=== PATIENT | male | born 1950 | race Caucasian/White ===

== ENCOUNTER 2017-03-04 10:22 | Inpatient (IN) | payer BC, OTHER ==
[~2017-03-04] VITALS: Ht 175.3 cm; Wt 87.1 kg
[~2017-03-04 10:22] MED LIST: /WARF5TA; ACET65TA; METF500T4; METO25TA2; PRIN20TA3; SIMV40TA2
[2017-03-06] MEDS ORDERED: MAALOX 30 ML SUSP *UDC PO PRN (14:00)
[2017-03-06] MEDS ORDERED: traMADol 50 MG TAB PO PRN (14:00)
[2017-03-06] MEDS ORDERED: FLEET ENEMA PR PRN (14:00)
[2017-03-06 14:55] VITALS: BP 122/70
[2017-03-06] MEDS ORDERED: METF500T13 PO (15:34)
[2017-03-06] MEDS ORDERED: ADVI200T PO (15:34)
[2017-03-06] MEDS ORDERED: PRAV80TA2 PO (15:34)
[2017-03-06] MEDS ORDERED: LISI40TAB PO (15:34)
[2017-03-06] MEDS ORDERED: TRAM50TA2 PO (15:34)
[2017-03-06] MEDS ORDERED: AMLO5TAB2 PO (15:34)
[2017-03-06] MEDS ORDERED: AUGM875T28 PO (15:34)
[2017-03-06] MEDS ORDERED: AMLO10TA2 PO (15:35)
--- NOTE | 2017-03-06 16:31 | PMRNOTEPD ---
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 Patient is admitted for trial of neuro rehabilitation on the acute intensive basis with physical, occupational and speech therapy along with rehabilitation nursing and physiatry. Dr. Bean has been consult dated for medical support history and physical dictation number is [id number]. LOTUS PATTERSON MD Mar 06, 2017 16:31
[2017-03-06] MEDS: metFORMIN (GLUCOPHAGE) 500 MG TAB PO SCH (17:17)
[2017-03-06 20:00] VITALS: BP 120/73
[2017-03-06] MEDS: PRAVASTATIN 20 MG TAB PO SCH (20:43)
[2017-03-06] MEDS: AUGMENTIN 875 MG TAB PO SCH (20:43)
--- NOTE | 2017-03-06 21:55 | PMRHPE ---
DATE OF ADMISSION: 03/06/2017 REASON FOR ADMISSION: 1. 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 2. Atherosclerotic cardiovascular disease with hypertension and hyperlipidemia. 3. Type 2 diabetes mellitus. 4. History of left internal capsule lacunar infarct. HISTORY OF PRESENT ILLNESS: The patient was in his normal state of health until 02/27/2017, when he started developing slurring of speech and some right-sided weakness. He was found to have systolic blood pressure in the 180s and was evaluated with CT scans, which showed basal ganglia intracerebral hemorrhage which expanded into the internal capsule and mid brain, along with old internal capsule lacunar CVA. The patient shortly thereafter developed a fever with elevated white counts of 14.6, and was treated with Zosyn and vancomycin empirically, and was tan-cultured, but no source was found. He was nothing by mouth but had swallow evaluation and then has recently been transitioned back to a regular consistent carbohydrate diet. His intravenous (IV) antibiotics have been stopped and he is on Augmentin, and he is on day two of a seven-day course. His white count has dropped back to 6.9. The patient has been able to participate in physical and occupational therapy, as well as speech therapy. The patient is felt now to be medically stable for a trial of acute, intensive neurorehabilitation and is transferred to [facility] which is much closer to his home in [place]. PAST MEDICAL HISTORY: 1. CVAs noted above. 2. Atherosclerotic cardiovascular disease with hypertension and hyperlipidemia. 3. Type diabetes mellitus. 4. History of cirrhosis found on CT scan. 5. Osteoarthritis including end-stage right knee osteoarthritis, status post right total knee arthroplasty. 6. History of small bowel obstruction. PAST SURGICAL HISTORY: Right total knee arthroplasty and hernia repair. FAMILY HISTORY: Mother with cerebrovascular accident and brother with prostate cancer at age 61. SOCIAL HISTORY: The patient is retired, lives locally in [place] with his . 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 Due to patient's aphasia, not able to obtain further social history. REVIEW OF SYSTEMS: Negative skin. HEENT is left gaze dominant, trouble attending to right side, and not able to bring eyes past midline. Tongue deviating mildly to the left. Pulmonary: Negative. Cardiac: Positive for some hypertension and hyperlipidemia3. Gastrointestinal (GI): For some dysarthria and earlier dysphagia, now appears to pass the swallow study, but will repeat one here. Genitourinary (): Challenge for bowel and bladder management due to mobility. Musculoskeletal: Degenerative joint disease (DJD) in diffuse joints, status post right total knee arthroplasty with dense hemiparesis in the right side, decreased right-sided sensorium, dense expressive and receptive aphasia. Mild dysarthria. Psychiatric: However, appears negative. MEDICATIONS ON ADMISSION: - Mylanta for dyspepsia - Norvasc 10 mg daily for hypertension - Augmentin 875/1.5 one tablet by mouth twice a day times six days - Dulcolax 5 mg tablet by mouth daily as needed for constipation - Lovenox 40 mg subcutaneous daily for deep venous thrombosis (DVT) prevention - lisinopril 40 mg by mouth daily for hypertension - metformin 500 mg twice a day for diabetes - milk of magnesia 30 mL by mouth daily as needed for constipation - Protonix 40 mg by mouth daily for GI protection - Pravachol 80 mg by mouth at bedtime for hyperlipidemia - Fleets enema one per rectum as needed for constipation - tramadol 50 mg by mouth every four hours as needed for pain 6-10 out of 10 I have discontinued recommendation for ibuprofen 200 mg four times a day as needed for pain due to addition of bleeding risk. ALLERGIES: Patient with history of ANGIOTENSION-CONVERTING ENZYME (ERNESTINA) INHIBITOR, BENAZEPRIL REACTIONS, and CALCIUM CHANNEL REACTIONS. However, has been tolerating lisinopril and amlodipine during prior hospitalization at [facility] without problems, and so will be continued here. PHYSICAL EXAMINATION: GENERAL: The patient is a slightly overweight, well-nourished, well-developed, middle-aged white male who looks slightly younger than stated age. VITAL SIGNS: Temperature 98.9, blood pressure 122/70, pulse 77, respiratory rate 18, and pulse oximetry 92% on room air. HEENT: Atraumatic with right facial droop and some decreased tone in the right side consistent in pattern with an upper motor neuron lesion. Tongue slightly deviates to the left. Left gaze prevalence. Patient with difficulty bringing eye past midline and has mild disconjugate vision. However, Pupils are equal, round, and reactive to light. Hearing is intact. NECK: Supple. No tenderness. No lymph nodes found. Thyroid is normal size and texture with no goiter or nodules. No carotid bruits were appreciated on auscultation. CORONARY: Regular rate and rhythm with normal S1, S2, without S3, S4 murmurs or rubs. Patient with 2/4 bilateral radial pulses. Good coloration in bilateral upper and lower extremities and good temperature in bilateral upper and lower extremities. LUNGS: Clear in all pak to auscultation. ABDOMEN: Shows very slight distention with mild tympany over the gastric bubble and right lower quadrant. No palpable masses, tenderness, rebound were found. Bowel sounds were present in all quadrants and normal rate and pitch. EXTREMITIES: Passive range of motion is intact in bilateral upper and lower extremities. Patient without active range of motion of the right upper and lower extremity but full active range of motion of the left upper and lower extremity. NEUROLOGIC: The patient is alert and oriented to self; however, hard to orient him past that due to a moderate to dense receptive and expressive aphasia. Patient was unable to pick out being in a hospital or the month, thinking it was June instead of February. He has marked difficulty in following one-step commands and severe difficulty in two or three-step commands. Affect, however, seems pleasant and cooperative. Memory is not test-able. Sensorium shows a dense sensory loss and awareness of the right body to light touch and vibration. Left light tough and vibration is intact in both the upper and lower extremity. Deep tendon reflexes show trace on the right biceps, brachioradialis and triceps and knee jerk. 2- out of 4 left knee jerk, trace left triceps, 2 out of 4 left biceps brachioradialis. LABORATORY DATA: Shows the patient with hemoglobin of 13.3, which is mild anemia, normal white blood cell count, normal platelets and MCV from today's labs, along with normal sodium, potassium, chloride, bicarbonate, and mildly elevated glucose of 130. BUN is 20 and creatinine is 0.7 which are normal, and his INR is 1.[address] scan showing the internal capsule thalamic basal ganglia area of bleed and the old internal capsule lacunar infarct as well as current also hemorrhagic expansion into the upper left brainstem. Some cultures remain but no cultures have been positive to date at [facility] per their reports to us. ASSESSMENT AND PLAN: 1. Rehabilitation of left internal capsule thalamic upper brainstem basal ganglia cerebrovascular accident of hemorrhagic origin with old mounding lacunar internal capsule cerebrovascular accident (CVA) on the left causing right body spacial sensorium deficit, left gaze preference and difficulty crossing midline with eyes, dysarthria, dysphagia, and aphasia, along with dense hemiparesis with early tone and reflex return in the right upper and lower extremity, which is an improvement in clearing over the last few days from the flaccid right upper and nearly flaccid right lower extremity. The patient likely is to benefit from intensive neurologic rehabilitation including physical, occupational and speech therapy, along with rehabilitation nursing and physiatry, and three hours per day intensive program with neuromuscular facilitation right upper and lower extremity, along with sensory stimulation following evaluation and language assessment and training. Due to the extensive nature of the patient's CVA, while hemorrhagic CVAs carry a better prognosis, I am anticipating the patient will likely need 21 to 28 days, and we will modify after evaluations and team assessments, but I do anticipate the patient to have a [id number] prognosis. 2. Atherosclerotic cardiovascular disease including hypertension and hyperlipidemia. We will go ahead and continue the patient on amlodipine and pravastatin and lisinopril to treat hypertension and hyperlipidemia. 3. Type 2 diabetes mellitus. We will go ahead with consistent carbohydrate diet and metformin 500 mg twice a day and monitoring of blood sugars. 4. Fever of unknown origin. We will complete trial of Augmentin, but also watch for patient who is at risk for aspiration pneumonia, as well as urinary tract infection. Will check urinalysis (UA) and follow respiratory exam. Consultation to medicine service with Dr. Bean has been sent to assist with the medical management of this gentleman. POST-ADMISSION PHYSICIAN EVALUATION: The patient who has a severe CVA as far as the density of involvement of motor, speech and sensorium; however, should have a fairly good prognosis due to the hemorrhagic nature and having gotten through the initial phase of this. I do feel he is likely to be able to participate in three hours of therapy per day based on his limited trial at [facility], but also based on patient's history of activity. He does seem to be very motivated and has good mood and tries to participate and hopefully his communication gets better and his learning curve as well as communications to and from the treatment team will improve. I do feel that he has lots to gain from therapy and that he has a [id number] opportunity for recovery to allow him to return home with his family and continue with either home care or outpatient therapy. Therefore, his prognosis is good. I am estimating his length of stay at 21-28 days. TIME SPENT: Time spent on chart review, history and physical, and documentation is greater than 70 minutes. VERNON
[2017-03-07 06:00] VITALS: BP 107/76
[2017-03-07 07:37] LABS: ALBUMIN/GLOBULIN RATIO 0.77 (1.00-1.93); ALKALINE PHOSPHATASE 52 U/L (45-117); ALT/SGPT 76 U/L (12-78); ANION GAP 10 MEQ/L (8-16); AST/SGOT 43 U/L (15-37); BILIRUBIN,TOTAL 0.5 MG/DL (0.2-1.0); BLOOD UREA NITROGEN 24 MG/DL (7-18); CALCIUM LEVEL 8.7 MG/DL (8.8-10.2); CARBON DIOXIDE LEVEL 23 MEQ/L (21-32); CHLORIDE LEVEL 108 MEQ/L (98-107); CREATININE FOR GFR 0.79 MG/DL (0.70-1.30); GLOMERULAR FILTRATION RATE > 60.0 (>49); GLUCOSE, FASTING 120 MG/DL (80-110); POTASSIUM SERUM 4.2 MEQ/L (3.5-5.1); SODIUM LEVEL 141 MEQ/L (136-145); TOTAL PROTEIN 6.9 GM/DL (6.4-8.2)
[2017-03-07 08:02] LABS: BASO # 0.1 K/mm3 (0.0-0.2); BASO % 1.4 % (0.0-1.0); EOS # 0.1 K/mm3 (0.0-0.50); EOS % 1.9 % (0.0-3.0); LARGE UNSTAINED CELL # 0.2 K/mm3 (0.0-0.4); LARGE UNSTAINED CELL % 3.1 % (0.0-4.0); LYMPH # 1.8 K/mm3 (1.5-4.5); LYMPH % 26.4 % (24.0-44.0); MEAN CORPUSCULAR HEMOGLOBIN 31.5 pg (27.0-33.0); MEAN CORPUSCULAR HGB CONC 34.2 g/dl (32.0-36.5); MONO # 0.4 K/mm3 (0.0-0.8); MONO % 6.6 % (0.0-5.0); NEUTROPHILS # 4.1 K/mm3 (1.8-7.7); NEUTROPHILS % 60.5 % (36.0-66.0); PLATELET COUNT, AUTOMATED 131 k/mm3 (150-450); RED CELL DISTRIBUTION WIDTH 12.7 % (11.5-14.5)
[2017-03-07] MEDS: LISINOPRIL 40 MG TAB PO SCH (08:53)
[2017-03-07] MEDS: metFORMIN (GLUCOPHAGE) 500 MG TAB PO SCH ×2 (08:53→17:14)
[2017-03-07] MEDS: ENOXAPARIN 40 MG/0.4 ML SYRINGE (J1650) SC SCH (08:53)
[2017-03-07] MEDS: PANTOPRAZOLE 40MG TAB (PROTONIX) PO SCH (08:53)
[2017-03-07] MEDS: amLODIPine 10 MG TAB PO SCH (08:53)
[2017-03-07] MEDS: AUGMENTIN 875 MG TAB PO SCH ×2 (08:53→20:04)
[2017-03-07 14:00] VITALS: BP 135/73
[2017-03-07 20:00] VITALS: BP 120/76
[2017-03-07] MEDS: PRAVASTATIN 20 MG TAB PO SCH (20:04)
[2017-03-08 06:00] VITALS: BP 149/70
[2017-03-08] MEDS: metFORMIN (GLUCOPHAGE) 500 MG TAB PO SCH ×2 (09:24→18:03)
[2017-03-08] MEDS: PANTOPRAZOLE 40MG TAB (PROTONIX) PO SCH (09:24)
[2017-03-08] MEDS: LISINOPRIL 40 MG TAB PO SCH (09:25)
[2017-03-08] MEDS: AUGMENTIN 875 MG TAB PO SCH ×2 (09:25→20:46)
[2017-03-08] MEDS: ENOXAPARIN 40 MG/0.4 ML SYRINGE (J1650) SC SCH (09:25)
[2017-03-08] MEDS: amLODIPine 10 MG TAB PO SCH (09:25)
[2017-03-08 14:00] VITALS: BP 129/71
[2017-03-08 20:00] VITALS: BP 131/76
[2017-03-08] MEDS: PRAVASTATIN 20 MG TAB PO SCH (20:46)
[2017-03-09 06:00] VITALS: BP 126/78
[2017-03-09] MEDS: LISINOPRIL 40 MG TAB PO SCH (08:53)
[2017-03-09] MEDS: ENOXAPARIN 40 MG/0.4 ML SYRINGE (J1650) SC SCH (08:53)
[2017-03-09] MEDS: AUGMENTIN 875 MG TAB PO SCH ×2 (08:53→21:00)
[2017-03-09] MEDS: amLODIPine 10 MG TAB PO SCH (08:53)
[2017-03-09] MEDS: metFORMIN (GLUCOPHAGE) 500 MG TAB PO SCH ×2 (08:53→17:35)
[2017-03-09] MEDS: PANTOPRAZOLE 40MG TAB (PROTONIX) PO SCH (08:53)
[2017-03-09 09:40] LABS: MEAN CORPUSCULAR HEMOGLOBIN 31.2 pg (27.0-33.0); MEAN CORPUSCULAR HGB CONC 33.8 g/dl (32.0-36.5); MEAN CORPUSCULAR VOLUME 92.2 fl (80.0-96.0); RED CELL DISTRIBUTION WIDTH 12.8 % (11.5-14.5); WHITE BLOOD COUNT 7.3 K/mm3 (4.0-10.0)
--- NOTE | 2017-03-09 10:15 | CR.PDOC ---
[facility] Consultation Consultation CONSULTATION REPORT FOR: Dr Moreno REASON FOR CONSULTATION: Medical Management DATE OF VISIT: 03/09/17 ATTENDING: Dr. Jose Sullivan PCP: Dr Peterson HPI: 67year oldM with a past medical history significant for HTN, HLD, NIDDM who developed slurred speech and Rt sided weakness on 02/27/17 and was treated at [facility] for intracerabral hemorrhage basal ganglia expanded to internal capsule and midbrain. 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 Pt with residual dense Rt hemiparesis, decreased rt sensory perception, Leftward gaze, dysarthria, dysphagia, and aphasia. He was treated empirically for possible pneumonia with IV Zosyn/Vanco and transitioned to po Augmentin. The pt was felt stable to transfer to ARU at [facility] to the care of Dr Moreno 03/06/17. The pt is not able to provide history and is taken from the chart. No acute medical complaints today. He is OOB to the chair and is beginning therapy. Denies any pain, Headache, Chest Pain, Shortness of breath, abdominal pain, N/V/D. No changes in bowel or bladder habits reported. PMHx: HTN HLD NIDM OA H/o SBO PSHX: Rt TKA hernia repair SOCHX: Resides in: [facility] Marital Status: Kids: Pt states he has 9 children. 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 FAMHX: Pt is unable to provide history. ROS: As noted in HPI, otherwise 11pt ROS of systems reviewed and unremarkable. PE: GEN: 67yoM, appears stated age. Well-nourished, well developed. No acute distress. Alert sitting in chair. Pt is oriented to person. Not time/place. HEENT: Normocephalic, atraumatic. Pupils are equal, round, and reactive to light. Leftward gaze. Conjunctiva without injection. Nose midline. Nasal turbinates without bogginess. Moist mucous membranes. Dentition fair. Pharynx pink and moist, tongue slightly deviated to left. Neck supple, trachea midline. No lymphadenopathy or thyromegaly appreciated. CHEST: Regular rate and rhythm, +S1, +S2 LUNGS: Clear to auscultation bilaterally. No wheezes, rales, or rhonchi. Breathing appears symmetric and easy. Patient is speaking in full sentences. No accessory muscle use. ABD: Round, soft, non-tender, non-distended. +Bowel sounds throughout. No rebound or guarding. No costovertebral angle tenderness. EXT: Pulses 2+ bilaterally dorsalis pedis and radial. No lower extremity edema appreciated. Rt hemiparesis. SKIN: [place], dry, warm. Capillary refill <2sec. No rashes. NEURO: Rt hemiparesis noted. Expressive aphasia and dysarthria noted. A&P: 67year oldM with a past medical history significant for HTN, HLD, NIDDM who developed slurred speech and Rt sided weakness on 02/27/17 and was treated at [facility] for intracerabral hemorrhage basal ganglia expanded to internal capsule and midbrain. 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 Pt with residual dense Rt hemiparesis, decreased rt sensory perception, Leftward gaze, dysarthria, dysphagia, and aphasia. 1. 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 Management as per Dr Josh BERMUDEZ. PT/OT/ST. Bowel care Pain control. DVT prophylaxis. Lovenox SC. 2. HTN. Continue with Norvasc 10 mg daily and Lisinopril 40 mg daily. BP 126/78 this AM. 3. HLD. Continue Pravachol. 4. NIDDM. CC diet, SSI, Metformin 500mg BID. BS this AM 134. Add A1c and lipids as I do not see any recent available for review. 5. GERD. Continue Protonix 40 mg daily. Thank you for your consultation. We will continue to follow along with you. Vital Signs/I&O Vital Signs Date Time Temp Pulse Resp B/P (MAP) Pulse Ox O2 Delivery O2 Flow Rate FiO2 03/09/17 08:53 62 126/78 03/09/17 06:00 98.6 18 98 Room Air I&O- Last 24 Hours up to 6 AM 03/09/17 06:00 Intake Total 335 ml Balance 335 ml Laboratory Data CBC/BMP Laboratory Tests 03/09/17 09:13 Red Blood Count 4.87, Mean Corpuscular Volume 92.2, Mean Corpuscular Hemoglobin 31.2, Mean Corpuscular Hemoglobin Concent 33.8, Red Cell Distribution Width 12.8 Allergies Coded Allergies: ERNESTINA Inhibitors (Verified Allergy, Unknown, 4//13) Benazepril (Verified Allergy, Unknown, 12/17/12) Calcium Channel Blockers (Verified Allergy, Unknown, 12/17/12) Home Medications Scheduled Amlodipine Besylate (Amlodipine Besylate) 10 Mg Tab, 10 MG PO DAILY, (Reported) Amoxicillin/Clavulanate Potas (Augmentin 875-125 mg) 1 Tab Tab, 875 MG PO Q12H, (Reported) [place] prescribed at d/c Lisinopril (Lisinopril) 40 Mg Tab, 40 MG PO DAILY, (Reported) Metformin Hydrochloride (Metformin HCl) 500 Mg Tab, 500 MG PO BID, (Reported) Pravastatin Sodium (Pravastatin Sodium) 80 Mg Tab, 80 MG PO QHS, (Reported) Scheduled PRN Ibuprofen (Advil) 200 Mg Tab, 200 MG PO for PAIN, (Reported) Tramadol HCl (Tramadol HCl) 50 Mg Tab, 50 MG PO for PAIN, (Reported) Paty Paredes Mar 09, 2017 10:15
[2017-03-09] MEDS ORDERED: DEXTROSE 50% 50 ML SYRINGE IV PRN ×2 (10:30→20:00)
[2017-03-09] MEDS ORDERED: GLUCOSE 4 GM CHEW TABLET PO PRN ×2 (10:30→20:00)
[2017-03-09] MEDS ORDERED: GLUCAGON FOR INJ 1 MG VIAL (J1610) SC PRN ×2 (10:30→20:00)
[2017-03-09] MEDS: HumaLOG INSULIN (NovoLOG) PER UNIT SC SCH ×3 (12:18→21:00)
--- NOTE | 2017-03-09 12:48 | IPNPDOC ---
Public Services Librarian Progress Note DATE OF SERVICE: 03/09/17 DATE OF ADMISSION: Mar 06, 2017 at 14:25 INPATIENT REHABILITATION ADMISSION DAY: #4 SUBJECTIVE: Patient is a 67-year-old white male with left basal ganglia intercerebral hemorrhage extending into the internal capsule and midbrain with dense aphasia, dysarthria, dysphasia, diminished right sensorium and spatial awareness, and right hemiparesis. Patient seen today in his room sitting up in chair. It been reported that patient in spite of the dense hemiparesis removed all his clothes sometime this morning before the start of his OT session. Patient appears to be more alert but can only generate some limited automatic speech and follows some one-step commands. Therefore he is not able to report particular complaints at this time. ALLERGIES: See Below MEDICATIONS: Reviewed, see below. OBJECTIVE: VITAL SIGNS: Please see below. PHYSICAL EXAMINATION: GENERAL: Well-nourished well-developed somewhat overweight late middle-age white male who appears to be in little to no acute distress. There continues to be left gaze dominance and non-conjugate vision. Some occasional automatic speech is generated by the patient when you talk to him. So far it has been fairly appropriate though patient's ability to follow commands remains very limited. Patient does respond to his name so is oriented 1. HEENT: Right facial droop with left gaze preference and difficulty crossing midline. Vision is not conjugate. On automatic speech patient was clear without any dysarthria and no gurgling sounds were heard. Tongue is slightly left going at this time. CARDIOVASCULAR: Regular rate and rhythm with normal S1-S2 without S3-S4 murmurs or rubs. Bilateral radial pulses are 2/4. LUNGS: All pak are clear to auscultation. ABDOMEN: Benign, nontender with normal bowel sounds in all quadrants. There are some ecchymoses from Lovenox injections. NEUROLOGICAL: As above. Tone is increased in the right upper and lower extremity versus Thursday and on plantar stimulation patient showed significant leg flexion of the right leg. SKIN: Grossly intact except for Lovenox injection sites. LABORATORY DATA: Reviewed. Please see below. MICROBIOLOGY: Please see below. IMAGING: No new imaging. DVT prophylaxis ordered?: Lovenox and SILVERIO hose. ASSESSMENT AND PLAN: 1. Rehabilitation of hemorrhagic left internal capsule/midbrain/basal ganglia's CVA: Patient has been assessed by physical, occupational and speech therapies. He has started out on exercising to try and neuromuscularly facilitate his right upper and lower extremity maintaining strength in the fibers under control. Patient involved in sensory integration especially working on balance at this time. Speech therapy evaluation shows need to continue pured diet with nectar thick liquid at this time and the need for ongoing treatment of the aphasia. Rehabilitation team rounds: While patient remains at low level of function he is clearly showing some initial change in physical, occupational and speech assessments as well as my own. Patient in spite of the communication problems his aphasia is causing is working hard with the therapists. At present the team does feel that the patient will probably require 4 weeks to reach discharge to home goals with home care. This will target April 03 for anticipated date of discharge. Of course the patient's recovery curve especially communications will have a lot to do with how rapid he is able to learn and adapt and thereby how long he will need inpatient therapy. At this time patient does appear to be able to tolerate the 3 hours of therapy per day divided up between physical, occupational and speech therapy. 2. Type 2 diabetes mellitus: Currently blood sugars seem to be well-controlled riding in the low to mid 100s range. 3. History of cirrhosis: Liver function tests show mild elevation of AST at 43. We will continue to observe for bowel problems in light of patient's cirrhosis and cancer history. 4. Decreased platelets: Unclear why patient down to 131,000 platelets, but we will continue to observe. 5. Hypertension: Blood pressures of been fairly well controlled since admission. No changes at this time for treatment. TIME SPENT: Chart Review, examination and documentation required greater than 35 minutes. Allergies Coded Allergies: ERNESTINA Inhibitors (Verified Allergy, Unknown, 12/17/12) Benazepril (Verified Allergy, Unknown, 12/17/12) Calcium Channel Blockers (Verified Allergy, Unknown, 12/17/12) Vital Signs Vital Signs Date Time Temp Pulse Resp B/P (MAP) Pulse Ox O2 Delivery O2 Flow Rate FiO2 03/09/17 08:53 62 126/78 03/09/17 08:00 Room Air 03/09/17 06:00 98.6 18 98 Laboratory Data CBC/BMP Laboratory Tests 03/09/17 09:13 Red Blood Count 4.87, Mean Corpuscular Volume 92.2, Mean Corpuscular Hemoglobin 31.2, Mean Corpuscular Hemoglobin Concent 33.8, Red Cell Distribution Width 12.8 Labs 24H Laboratory Tests 2 03/09/17 11:38: Bedside Glucose (Misc Panel) 111 Current Medications Current Medications Current Medications Al Hydrox/Mg Hydrox/Simethicone (Mylanta) 30 ml Q4HP PRN PO DYSPEPSIA; Start at 14:00; Stop 04/05/17 at 13:59 Amlodipine Besylate (Norvasc) 10 mg DAILY PO Last administered on 03/09/17 08: 53; Start 03/07/17 at 09:00; Stop 04/06/17 at 08:59 Amoxicillin/ Clavulanate Potassium (Augmentin) 875 mg BID PO Last administered on 03/09/17 08:53; Start 03/06/17 at 21:00; Stop 03/21/17 at 23:55 Bisacodyl (Dulcolax Tab) 5 mg DAILYPRN PRN PO CONSTIPATION; Start 03/06/17 at 14:00; Stop 04/05/17 at 13:59 Dextrose (Dextrose 50%) 25 ml ASDIRECTED PRN IV SEE LABEL COMMENTS; Start 03/09 at 10:30; Stop 04/08/17 at 10:29 Enoxaparin Sodium (Lovenox) 40 mg DAILY SC Last administered on 03/09/17 08:53 ; Start 03/07/17 at 09:00; Stop 03/12/17 at 08:59 Glucagon (Glucagon) 1 mg ASDIRECTED PRN SC SEE LABEL COMMENTS; Start 03/09/17 at 10:30; Stop 04/08/17 at 10:29 Glucose (Glucose) 16 GM ASDIRECTED PRN PO SEE LABEL COMMENTS; Start 03/09/17 at 10:30; Stop 04/08/17 at 10:29 Home Med (Med Rec Complete!) ASDIRECTED XX ; Start 03/06/17 at 15:45; Stop at 15:48; Status DC Insulin Human Lispro (HumaLOG INSULIN) See Protocol Table AC SC Last administered on 03/09/17 12:18; Start 03/09/17 at 12:00; Stop 04/08/17 at 11:59 Lisinopril (Prinivil) 40 mg DAILY PO Last administered on 03/09/17 08:53; Start 03/07/17 at 09:00; Stop 04/06/17 at 08:59 Magnesium Hydroxide (Milk Of Magnesia) 30 ml DAILYPRN PRN PO CONSTIPATION; Start 03/06/17 at 14:00; Stop 04/05/17 at 13:59 Metformin HCl (Glucophage) 500 mg BID@,18 PO Last administered on 03/09/17 08:53; Start 03/06/17 at 18:00; Stop 04/05/17 at 17:59 Pantoprazole Sodium (Protonix) 40 mg DAILY PO Last administered on 03/09/17 08 :53; Start 03/07/17 at 09:00; Stop 04/06/17 at 08:59 Pravastatin Sodium (Pravachol) 80 mg QHS PO Last administered on 03/08/17 20: 46; Start 03/06/17 at 21:00; Stop 04/05/17 at 20:59 Sodium Biphosphate/ Sodium Phosphate (Fleet Enema) 1 ea DAILYPRN PRN SD CONSTIPATION; Start 03/06/17 at 14:00; Stop 04/05/17 at 13:59 Tramadol HCl (Ultram) 50 mg Q4HP PRN PO PAIN SCALE 6-10; Start 03/06/17 at 14: 00; Stop 03/20/17 at 12:00 LOTUS PATTERSON MD Mar 09, 2017 12:48
[2017-03-09 14:00] VITALS: BP 121/59
[2017-03-09 20:00] VITALS: BP 117/65
[2017-03-09] MEDS: PRAVASTATIN 20 MG TAB PO SCH (21:00)
[2017-03-10 05:42] VITALS: BP 109/70
[2017-03-10] MEDS: HumaLOG INSULIN (NovoLOG) PER UNIT SC SCH ×4 (07:19→21:00)
[2017-03-10 07:40] LABS: MEAN CORPUSCULAR HEMOGLOBIN 30.9 pg (27.0-33.0); MEAN CORPUSCULAR HGB CONC 33.4 g/dl (32.0-36.5); MEAN CORPUSCULAR VOLUME 92.6 fl (80.0-96.0); RED CELL DISTRIBUTION WIDTH 13.1 % (11.5-14.5); WHITE BLOOD COUNT 8.4 K/mm3 (4.0-10.0)
[2017-03-10 08:15] LABS: ALBUMIN 3.2 GM/DL (3.2-5.2); ALBUMIN/GLOBULIN RATIO 0.71 (1.00-1.93); ALKALINE PHOSPHATASE 58 U/L (45-117); ALT/SGPT 77 U/L (12-78); ANION GAP 9 MEQ/L (8-16); AST/SGOT 30 U/L (15-37); BILIRUBIN,TOTAL 0.7 MG/DL (0.2-1.0); BLOOD UREA NITROGEN 27 MG/DL (7-18); CARBON DIOXIDE LEVEL 26 MEQ/L (21-32); CHLORIDE LEVEL 103 MEQ/L (98-107); CHOLESTEROL LEVEL 115 MG/DL (<200); CREATININE FOR GFR 0.98 MG/DL (0.70-1.30); GLOMERULAR FILTRATION RATE > 60.0 (>49); GLUCOSE, FASTING 140 MG/DL (80-110); POTASSIUM SERUM 4.2 MEQ/L (3.5-5.1); SODIUM LEVEL 138 MEQ/L (136-145); TOTAL PROTEIN 7.7 GM/DL (6.4-8.2); TRIGLYCERIDES LEVEL 113 MG/DL (<150)
[2017-03-10] MEDS: PANTOPRAZOLE 40MG TAB (PROTONIX) PO SCH (08:46)
[2017-03-10] MEDS: AUGMENTIN 875 MG TAB PO SCH ×2 (08:46→21:00)
[2017-03-10] MEDS: LISINOPRIL 40 MG TAB PO SCH (08:46)
[2017-03-10] MEDS: metFORMIN (GLUCOPHAGE) 500 MG TAB PO SCH ×2 (08:46→17:16)
[2017-03-10] MEDS: ENOXAPARIN 40 MG/0.4 ML SYRINGE (J1650) SC SCH (08:46)
[2017-03-10] MEDS: amLODIPine 10 MG TAB PO SCH (08:46)
--- NOTE | 2017-03-10 11:08 | IPNPDOC ---
Date Seen The patient was seen on 03/10/17. 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 Pt with residual dense Rt hemiparesis, decreased rt sensory perception, Leftward gaze, dysarthria, dysphagia, and aphasia. He was treated empirically for possible pneumonia with IV Zosyn/Vanco and transitioned to po Augmentin. The pt was felt stable to transfer to ARU at [facility] to the care of Dr Moreno 03/06/17. The pt is not able to provide history and is taken from the chart. No acute medical complaints today. He is OOB to the chair and is participating with therapy. Denies any pain, Headache, Chest Pain, Shortness of breath, abdominal pain, N/V/ D. No changes in bowel or bladder habits reported. PMHx: HTN HLD NIDM OA H/o SBO CT 03/21 Mild hepatomegaly. PSHX: Rt TKA hernia repair ROS: As noted in HPI, otherwise 11pt ROS of systems reviewed and unremarkable. PE: GEN: 67yoM, appears stated age. Well-nourished, well developed. No acute distress. Alert sitting in chair. Pt is oriented to person, place today. Not month or year. HEENT: Normocephalic, atraumatic. Pupils are equal, round, and reactive to light. Leftward gaze. Conjunctiva without injection. Nose midline. Nasal turbinates without bogginess. Moist mucous membranes. Dentition fair. Pharynx pink and moist. Neck supple, trachea midline. No lymphadenopathy or thyromegaly appreciated. CHEST: Regular rate and rhythm, +S1, +S2 LUNGS: Clear to auscultation bilaterally. No wheezes, rales, or rhonchi. Breathing appears symmetric and easy. Patient is speaking in full sentences. No accessory muscle use. ABD: Round, soft, non-tender, non-distended. +Bowel sounds throughout. No rebound or guarding. No costovertebral angle tenderness. EXT: Pulses 2+ bilaterally dorsalis pedis and radial. No lower extremity edema appreciated. Rt hemiparesis. SKIN: [place], dry, warm. Capillary refill <2sec. No rashes. NEURO: Rt hemiparesis noted. Expressive aphasia and dysarthria noted. A&P: 67year oldM with a past medical history significant for HTN, HLD, NIDDM who developed slurred speech and Rt sided weakness on 02/27/17 and was treated at [facility] for intracerebral hemorrhage basal ganglia expanded to internal capsule and midbrain. 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 Pt with residual dense Rt hemiparesis, decreased rt sensory perception, Leftward gaze, dysarthria, dysphagia, and aphasia. 1. 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 Management as per ARU, Dr Moreno. PT/OT/ST as per ARU. Bowel care as per ARU. Pain control as per ARU. DVT prophylaxis. Lovenox SC. Disposition as per ARU. Anticipated D/C date 04/03/17. 2. HTN. Continue with Norvasc 10 mg daily and Lisinopril 40 mg daily. SBP 109- 126. 3. HLD. Continue Pravachol. LDL 03/10/17 69. 4. NIDDM. CC diet, SSI, Metformin 500mg BID. BS this AM 134. Hgb A1c 03/10/17 6.3. 5. GERD. Continue Protonix 40 mg daily. 6. Pneumonia. Treated with Vancomycin/Zosyn IV at [facility] and transitioned to po Augmentin. Pt to finish course of Augmentin. Afebrile, no leukocytosis. Request I/S. Monitor. VS, I&O, 24H, Irene Vital Signs/I&O Vital Signs Date Time Temp Pulse Resp B/P (MAP) Pulse Ox O2 Delivery O2 Flow Rate FiO2 03/10/17 08:46 61 109/70 03/10/17 08:00 Room Air 03/10/17 05:42 98.5 18 93 I&O- Last 24 Hours up to 6 AM 03/10/17 06:00 Intake Total 700 ml Balance 700 ml Laboratory Data 24H LABS Laboratory Tests 2 03/09/17 11:38: Bedside Glucose (Misc Panel) 111 03/09/17 16:47: Bedside Glucose (Misc Panel) 92 03/09/17 20:36: Bedside Glucose (Misc Panel) 104 03/10/17 06:02: Bedside Glucose (Misc Panel) 100 03/10/17 07:27: Anion Gap 9, Glomerular Filtration Rate > 60.0, Estimated Mean Plasma Glucose 134H, Hemoglobin A1c 6.3H, Blood Urea Nitrogen 27H, Creatinine 0.98, Sodium Level 138, Potassium Level 4.2, Chloride Level 103, Carbon Dioxide Level 26, Calcium Level 9.0, Aspartate Amino Transf (AST/SGOT) 30, Alanine Aminotransferase (ALT/SGPT) 77, Alkaline Phosphatase 58, Total Bilirubin 0.7, Triglycerides Level 113, LDL Cholesterol 69.4, Total Protein 7.7, Albumin 3.2, Albumin/Globulin Ratio 0.71L, Total Cholesterol 115, Non-HDL Cholesterol (LDL + VLDL) 92, Total HDL Cholesterol 23L, Cholesterol/HDL Ratio 5.000 CBC/BMP Laboratory Tests 03/10/17 07:27 Red Blood Count 4.91, Mean Corpuscular Volume 92.6, Mean Corpuscular Hemoglobin 30.9, Mean Corpuscular Hemoglobin Concent 33.4, Red Cell Distribution Width 13.1 , Calcium Level 9.0, Aspartate Amino Transf (AST/SGOT) 30, Alanine Aminotransferase (ALT/SGPT) 77, Alkaline Phosphatase 58, Total Bilirubin 0.7, Triglycerides Level 113, LDL Cholesterol 69.4, Total Protein 7.7, Albumin 3.2 Paty Paredes Mar 10, 2017 11:08
--- NOTE | 2017-03-10 11:47 | IPNPDOC ---
Management Lead Progress Note DATE OF SERVICE: 03/10/17 DATE OF ADMISSION: Mar 06, 2017 at 14:25 INPATIENT REHABILITATION ADMISSION DAY: #5 SUBJECTIVE: Patient is a 67-year-old white male with left basal ganglia intercerebral hemorrhage extending into the internal capsule and midbrain with dense aphasia, dysarthria, dysphasia, diminished right sensorium and spatial awareness, and right hemiparesis. Patient seen today in his room sitting up in chair. It been reported that patient in spite of the dense hemiparesis removed all his clothes sometime this morning before the start of his OT session. Patient appears to be more alert but can only generate some limited automatic speech and follows some one-step commands. Therefore he is not able to report particular complaints at this time. ALLERGIES: See Below MEDICATIONS: Reviewed, see below. OBJECTIVE: VITAL SIGNS: Please see below. PHYSICAL EXAMINATION: GENERAL: Well-nourished well-developed somewhat overweight late middle-age white male who appears to be in little to no acute distress. There continues to be left gaze dominance and non-conjugate vision. Some occasional automatic speech is generated by the patient when you talk to him. So far it has been fairly appropriate though patient's ability to follow commands remains very limited. Patient does respond to his name so is oriented 1. HEENT: Right facial droop with left gaze preference and difficulty crossing midline. Vision is not conjugate. On automatic speech patient was clear without any dysarthria and no gurgling sounds were heard. Tongue is slightly left going at this time. CARDIOVASCULAR: Regular rate and rhythm with normal S1-S2 without S3-S4 murmurs or rubs. Bilateral radial pulses are 2/4. LUNGS: All pak are clear to auscultation. ABDOMEN: Benign, nontender with normal bowel sounds in all quadrants. There are some ecchymoses from Lovenox injections. NEUROLOGICAL: As above. Tone is increased in the right upper and lower extremity versus Thursday and on plantar stimulation patient showed significant leg flexion of the right leg. SKIN: Grossly intact except for Lovenox injection sites. LABORATORY DATA: Reviewed. Please see below. MICROBIOLOGY: Please see below. DVT prophylaxis ordered?: Lovenox and SILVERIO gore. ASSESSMENT AND PLAN: 1. Rehabilitation of hemorrhagic left internal capsule/midbrain/basal ganglia's CVA: Patient has been assessed by physical, occupational and speech therapies. He has started out on exercising to try and neuromuscularly facilitate his right upper and lower extremity maintaining strength in the fibers under control. Patient involved in sensory integration especially working on balance at this time. Speech therapy evaluation shows need to continue pured diet with nectar thick liquid at this time and the need for ongoing treatment of the aphasia. Patient remains at low level of function he is clearly showing some initial change in physical, occupational and speech assessments as well as my own. Patient in spite of the communication problems with his aphasia is working hard with the therapists. At present I feel that the patient will probably require about 4 weeks to reach discharge to home goals with home care. This will target April 03 for anticipated date of discharge. Of course the patient's recovery curve especially communications will have a lot to do with how rapid he is able to learn and adapt and thereby how long he will need inpatient therapy. At this time patient does appear to be able to tolerate the 3 hours of therapy per day divided up between physical, occupational and speech therapy. 2. Type 2 diabetes mellitus: Currently blood sugars seem to be well-controlled riding in the low to mid 100s range. 3. History of cirrhosis: Liver function tests show normalization of LFT's. 4. Decreased platelets: Unclear why patient's platelets went down to 131,000 platelets, but now 328,000 for 2 draws. 5. Hypertension: Blood pressures of been fairly well controlled since admission. No changes at this time for treatment. TIME SPENT: Chart Review, examination and documentation required greater than 25 minutes. Allergies Coded Allergies: ERNESTINA Inhibitors (Verified Allergy, Unknown, 12/17/12) Benazepril (Verified Allergy, Unknown, 12/17/12) Calcium Channel Blockers (Verified Allergy, Unknown, 12/17/12) Vital Signs Vital Signs Date Time Temp Pulse Resp B/P (MAP) Pulse Ox O2 Delivery O2 Flow Rate FiO2 03/10/17 08:46 61 109/70 03/10/17 08:00 Room Air 03/10/17 05:42 98.5 18 93 Laboratory Data CBC/BMP Laboratory Tests 03/10/17 07:27 Red Blood Count 4.91, Mean Corpuscular Volume 92.6, Mean Corpuscular Hemoglobin 30.9, Mean Corpuscular Hemoglobin Concent 33.4, Red Cell Distribution Width 13.1 , Calcium Level 9.0, Aspartate Amino Transf (AST/SGOT) 30, Alanine Aminotransferase (ALT/SGPT) 77, Alkaline Phosphatase 58, Total Bilirubin 0.7, Triglycerides Level 113, LDL Cholesterol 69.4, Total Protein 7.7, Albumin 3.2 Labs 24H Laboratory Tests 2 03/09/17 16:47: Bedside Glucose (Misc Panel) 92 03/09/17 20:36: Bedside Glucose (Misc Panel) 104 03/10/17 06:02: Bedside Glucose (Misc Panel) 100 03/10/17 07:27: Anion Gap 9, Glomerular Filtration Rate > 60.0, Estimated Mean Plasma Glucose 134H, Hemoglobin A1c 6.3H, Blood Urea Nitrogen 27H, Creatinine 0.98, Sodium Level 138, Potassium Level 4.2, Chloride Level 103, Carbon Dioxide Level 26, Calcium Level 9.0, Aspartate Amino Transf (AST/SGOT) 30, Alanine Aminotransferase (ALT/SGPT) 77, Alkaline Phosphatase 58, Total Bilirubin 0.7, Triglycerides Level 113, LDL Cholesterol 69.4, Total Protein 7.7, Albumin 3.2, Albumin/Globulin Ratio 0.71L, Total Cholesterol 115, Non-HDL Cholesterol (LDL + VLDL) 92, Total HDL Cholesterol 23L, Cholesterol/HDL Ratio 5.000 Current Medications Current Medications Current Medications Al Hydrox/Mg Hydrox/Simethicone (Mylanta) 30 ml Q4HP PRN PO DYSPEPSIA; Start at 14:00; Stop 04/05/17 at 13:59 Amlodipine Besylate (Norvasc) 10 mg DAILY PO Last administered on 03/10/17 08: 46; Start 03/07/17 at 09:00; Stop 04/06/17 at 08:59 Amoxicillin/ Clavulanate Potassium (Augmentin) 875 mg BID PO Last administered on 03/10/17 08:46; Start 03/06/17 at 21:00; Stop 03/21/17 at 23:55 Bisacodyl (Dulcolax Tab) 5 mg DAILYPRN PRN PO CONSTIPATION; Start 03/06/17 at 14:00; Stop 04/05/17 at 13:59 Dextrose (Dextrose 50%) 25 ml ASDIRECTED PRN IV SEE LABEL COMMENTS; Start 03/09 at 10:30; Stop 03/09/17 at 19:57; Status DC Dextrose (Dextrose 50%) 25 ml ASDIRECTED PRN IV SEE LABEL COMMENTS; Start 03/09 at 20:00; Stop 04/08/17 at 19:59 Enoxaparin Sodium (Lovenox) 40 mg DAILY SC Last administered on 03/10/17 08:46 ; Start 03/07/17 at 09:00; Stop 03/12/17 at 08:59 Glucagon (Glucagon) 1 mg ASDIRECTED PRN SC SEE LABEL COMMENTS; Start 03/09/17 at 10:30; Stop 03/09/17 at 19:58; Status DC Glucagon (Glucagon) 1 mg ASDIRECTED PRN SC SEE LABEL COMMENTS; Start 03/09/17 at 20:00; Stop 04/08/17 at 19:59 Glucose (Glucose) 16 GM ASDIRECTED PRN PO SEE LABEL COMMENTS; Start 03/09/17 at 10:30; Stop 03/09/17 at 19:58; Status DC Glucose (Glucose) 16 GM ASDIRECTED PRN PO SEE LABEL COMMENTS; Start 03/09/17 at 20:00; Stop 04/08/17 at 19:59 Home Med (Med Rec Complete!) ASDIRECTED XX ; Start 03/06/17 at 15:45; Stop at 15:48; Status DC Insulin Human Lispro (HumaLOG INSULIN) See Protocol Table AC SC Last administered on 03/09/17 12:18; Start 03/09/17 at 12:00; Stop 03/09/17 at 19:56 ; Status DC Insulin Human Lispro (HumaLOG INSULIN) See Protocol Table AC SC ; Start at 07:30; Stop 04/09/17 at 07:29 Insulin Human Lispro (HumaLOG INSULIN) See Protocol Table QHS SC ; Start at 21:00; Stop 04/08/17 at 20:59 Lisinopril (Prinivil) 40 mg DAILY PO Last administered on 03/10/17 08:46; Start 03/07/17 at 09:00; Stop 04/06/17 at 08:59 Magnesium Hydroxide (Milk Of Magnesia) 30 ml DAILYPRN PRN PO CONSTIPATION; Start 03/06/17 at 14:00; Stop 04/05/17 at 13:59 Metformin HCl (Glucophage) 500 mg BID@ PO Last administered on 03/10/17 08:46; Start 03/06/17 at 18:00; Stop 04/05/17 at 17:59 Pantoprazole Sodium (Protonix) 40 mg DAILY PO Last administered on 03/10/17 08 :46; Start 03/07/17 at 09:00; Stop 04/06/17 at 08:59 Pravastatin Sodium (Pravachol) 80 mg QHS PO Last administered on 03/09/17 21: 00; Start 03/06/17 at 21:00; Stop 04/05/17 at 20:59 Sodium Biphosphate/ Sodium Phosphate (Fleet Enema) 1 ea DAILYPRN PRN AL CONSTIPATION; Start 03/06/17 at 14:00; Stop 04/05/17 at 13:59 Tramadol HCl (Ultram) 50 mg Q4HP PRN PO PAIN SCALE 6-10; Start 03/06/17 at 14: 00; Stop 03/20/17 at 12:00 LOTUS PATTERSON MD Mar 10, 2017 11:47
[2017-03-10 14:00] VITALS: BP 117/70
[2017-03-10 20:29] VITALS: BP 116/68
[2017-03-10] MEDS: PRAVASTATIN 20 MG TAB PO SCH (21:00)
[2017-03-11 05:21] VITALS: BP 127/79
[2017-03-11] MEDS: metFORMIN (GLUCOPHAGE) 500 MG TAB PO SCH ×2 (08:17→18:08)
[2017-03-11] MEDS: HumaLOG INSULIN (NovoLOG) PER UNIT SC SCH (08:17)
[2017-03-11] MEDS: amLODIPine 10 MG TAB PO SCH (08:18)
[2017-03-11] MEDS: PANTOPRAZOLE 40MG TAB (PROTONIX) PO SCH (08:18)
[2017-03-11] MEDS: AUGMENTIN 875 MG TAB PO SCH ×2 (08:18→21:12)
[2017-03-11] MEDS: LISINOPRIL 40 MG TAB PO SCH (08:19)
[2017-03-11] MEDS: ENOXAPARIN 40 MG/0.4 ML SYRINGE (J1650) SC SCH (08:36)
--- NOTE | 2017-03-11 09:43 | IPNPDOC ---
[facility] Recovery Operator Progress Note DATE OF SERVICE: 03/11/17 DATE OF ADMISSION: Mar 06, 2017 at 14:25 INPATIENT REHABILITATION ADMISSION DAY: #6 SUBJECTIVE: Patient is a 67-year-old white male with left basal ganglia intercerebral hemorrhage extending into the internal capsule and midbrain with dense aphasia, dysarthria, dysphasia, diminished right sensorium and spatial awareness, and right hemiparesis. Patient seen today in his room laying semi- reclined in bed. Patient appears to be more alert and he is generating some limited automatic speech and follows some one-step and occasional 2 step commands. Therefore he is not able to report particular complaints at this time. ALLERGIES: See Below MEDICATIONS: Reviewed, see below. OBJECTIVE: VITAL SIGNS: Please see below. PHYSICAL EXAMINATION: GENERAL: Well-nourished well-developed somewhat overweight late middle-age white male who appears to be in little to no acute distress. There continues to be left gaze dominance and usually non-conjugate vision, but now crossing midline and some conjugate vision. Increasing automatic speech is generated by the patient when you talk to him and his ability to respond to command is improving. So far it has been fairly appropriate. Patient does respond to his name so is oriented 1. Receptive language appears to be better than expressive. HEENT: Right facial droop with left gaze preference and difficulty crossing midline. Vision is not conjugate much of the time. On automatic speech patient was clear without any dysarthria and no gurgling sounds were heard. CARDIOVASCULAR: Regular rate and rhythm with normal S1-S2. Bilateral radial pulses are 2/4. LUNGS: All pak are clear to auscultation. ABDOMEN: Benign, nontender with normal bowel sounds in all quadrants. There are some ecchymoses from Lovenox injections. NEUROLOGICAL: As above. Tone is increased in the right upper and lower extremity versus Thursday and on plantar stimulation patient showed significant leg flexion of the right leg. SKIN: Grossly intact except for Lovenox injection sites. LABORATORY DATA: Reviewed. Please see below. MICROBIOLOGY: Please see below. DVT prophylaxis ordered?: Lovenox and SILVERIO gore. ASSESSMENT AND PLAN: 1. Rehabilitation of hemorrhagic left internal capsule/midbrain/basal ganglia's CVA: Patient has been assessed by physical, occupational and speech therapies. He has started out on exercising to try and neuromuscularly facilitate his right upper and lower extremity maintaining strength in the fibers under control. Patient involved in sensory integration especially working on balance at this time. Speech therapy evaluation shows need to continue pured diet with nectar thick liquid at this time and the need for ongoing treatment of the aphasia. Patient remains at low level of function he is clearly showing some initial change in physical, occupational and speech assessments as well as my own. Patient in spite of the communication problems with his aphasia is working hard with the therapists. At present I feel that the patient will probably require about 4 weeks to reach discharge to home goals with home care. This will target April 03 for anticipated date of discharge. Of course the patient's recovery curve especially communications will have a lot to do with how rapid he is able to learn and adapt and thereby how long he will need inpatient therapy. At this time patient does appear to be able to tolerate the 3 hours of therapy per day divided up between physical, occupational and speech therapy. 2. Type 2 diabetes mellitus: Currently blood sugars seem to be well-controlled riding in the low to mid 100s range. 3. Decreased platelets: Unclear why patient's platelets went down to 131,000 platelets, but now 328,000 for 2 draws. 4. Hypertension: Blood pressures of been fairly well controlled since admission. No changes at this time for treatment. TIME SPENT: Chart Review, examination and documentation required greater than 25 minutes. Allergies Coded Allergies: ERNESTINA Inhibitors (Verified Allergy, Unknown, 12/17/12) Benazepril (Verified Allergy, Unknown, 12/17/12) Calcium Channel Blockers (Verified Allergy, Unknown, 12/17/12) Vital Signs Vital Signs Date Time Temp Pulse Resp B/P (MAP) Pulse Ox O2 Delivery O2 Flow Rate FiO2 03/11/17 08:18 77 138/94 03/11/17 05:21 99.5 18 94 Room Air Laboratory Data Labs 24H Laboratory Tests 2 03/10/17 11:39: Bedside Glucose (Misc Panel) 88 03/10/17 16:27: Bedside Glucose (Misc Panel) 108 03/10/17 20:42: Bedside Glucose (Misc Panel) 105 03/11/17 06:27: Bedside Glucose (Misc Panel) 107 Current Medications Current Medications Current Medications Al Hydrox/Mg Hydrox/Simethicone (Mylanta) 30 ml Q4HP PRN PO DYSPEPSIA; Start at 14:00; Stop 04/05/17 at 13:59 Amlodipine Besylate (Norvasc) 10 mg DAILY PO Last administered on 03/11/17 08: 18; Start 03/07/17 at 09:00; Stop 04/06/17 at 08:59 Amoxicillin/ Clavulanate Potassium (Augmentin) 875 mg BID PO Last administered on 03/11/17 08:18; Start 03/06/17 at 21:00; Stop 03/21/17 at 23:55 Bisacodyl (Dulcolax Tab) 5 mg DAILYPRN PRN PO CONSTIPATION; Start 03/06/17 at 14:00; Stop 04/05/17 at 13:59 Dextrose (Dextrose 50%) 25 ml ASDIRECTED PRN IV SEE LABEL COMMENTS; Start 03/09 at 10:30; Stop 03/09/17 at 19:57; Status DC Dextrose (Dextrose 50%) 25 ml ASDIRECTED PRN IV SEE LABEL COMMENTS; Start 03/09 at 20:00; Stop 04/08/17 at 19:59 Enoxaparin Sodium (Lovenox) 40 mg DAILY SC Last administered on 03/11/17 08:36 ; Start 03/07/17 at 09:00; Stop 03/20/17 at 23:59 Glucagon (Glucagon) 1 mg ASDIRECTED PRN SC SEE LABEL COMMENTS; Start 03/09/17 at 10:30; Stop 03/09/17 at 19:58; Status DC Glucagon (Glucagon) 1 mg ASDIRECTED PRN SC SEE LABEL COMMENTS; Start 03/09/17 at 20:00; Stop 04/08/17 at 19:59 Glucose (Glucose) 16 GM ASDIRECTED PRN PO SEE LABEL COMMENTS; Start 03/09/17 at 10:30; Stop 03/09/17 at 19:58; Status DC Glucose (Glucose) 16 GM ASDIRECTED PRN PO SEE LABEL COMMENTS; Start 03/09/17 at 20:00; Stop 04/08/17 at 19:59 Home Med (Med Rec Complete!) ASDIRECTED XX ; Start 03/06/17 at 15:45; Stop at 15:48; Status DC Insulin Human Lispro (HumaLOG INSULIN) See Protocol Table AC SC Last administered on 03/09/17 12:18; Start 03/09/17 at 12:00; Stop 03/09/17 at 19:56 ; Status DC Insulin Human Lispro (HumaLOG INSULIN) See Protocol Table AC SC Last administered on 03/11/17 08:17; Start 03/10/17 at 07:30; Stop 04/09/17 at 07:29 Insulin Human Lispro (HumaLOG INSULIN) See Protocol Table QHS SC ; Start at 21:00; Stop 04/08/17 at 20:59 Lisinopril (Prinivil) 40 mg DAILY PO Last administered on 03/11/17 08:19; Start 03/07/17 at 09:00; Stop 04/06/17 at 08:59 Magnesium Hydroxide (Milk Of Magnesia) 30 ml DAILYPRN PRN PO CONSTIPATION; Start 03/06/17 at 14:00; Stop 04/05/17 at 13:59 Metformin HCl (Glucophage) 500 mg BID@08,18 PO Last administered on 03/11/17 08:17; Start 03/06/17 at 18:00; Stop 04/05/17 at 17:59 Pantoprazole Sodium (Protonix) 40 mg DAILY PO Last administered on 03/11/17 08 :18; Start 03/07/17 at 09:00; Stop 04/06/17 at 08:59 Pravastatin Sodium (Pravachol) 80 mg QHS PO Last administered on 03/10/17 21: 00; Start 03/06/17 at 21:00; Stop 04/05/17 at 20:59 Sodium Biphosphate/ Sodium Phosphate (Fleet Enema) 1 ea DAILYPRN PRN ID CONSTIPATION; Start 03/06/17 at 14:00; Stop 04/05/17 at 13:59 Tramadol HCl (Ultram) 50 mg Q4HP PRN PO PAIN SCALE 6-10; Start 03/06/17 at 14: 00; Stop 03/20/17 at 12:00 LOTUS PATTERSON MD Mar 11, 2017 09:43
--- NOTE | 2017-03-11 11:37 | IPNPDOC ---
Date Seen The patient was seen on 03/11/17. Progress Note Progress Note HPI: 67year oldM with a past medical history significant for HTN, HLD, NIDDM who developed slurred speech and Rt sided weakness on 02/27/17 and was treated at [facility] for intracerebral hemorrhage basal ganglia expanded to internal capsule and midbrain. 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 Pt with residual dense Rt hemiparesis, decreased rt sensory perception, Leftward gaze, dysarthria, dysphagia, and aphasia. He was treated empirically for possible pneumonia with IV Zosyn/Vanco and transitioned to po Augmentin. The pt was felt stable to transfer to ARU at [facility] to the care of Dr Moreno 03/06/17. The pt answers questions with short responses. No acute medical complaints today. He is OOB to the chair and is participating with therapy. Denies any pain, Headache, Chest Pain, Shortness of breath, abdominal pain. No N/V/D. No changes in bowel or bladder habits reported. PMHx: HTN HLD NIDM OA H/o SBO CT 03/21 Mild hepatomegaly. PSHX: Rt TKA hernia repair ROS: As noted in HPI, otherwise 11pt ROS of systems reviewed and unremarkable. PE: GEN: 67yoM, appears stated age. Well-nourished, well developed. No acute distress. Alert sitting in chair. Pt is oriented to person, place today. Not month or year. HEENT: Normocephalic, atraumatic. Pupils are equal, round, and reactive to light. Leftward gaze. Conjunctiva without injection. Nose midline. Nasal turbinates without bogginess. Moist mucous membranes. Dentition fair. Pharynx pink and moist. Neck supple, trachea midline. No lymphadenopathy or thyromegaly appreciated. CHEST: Regular rate and rhythm, +S1, +S2 LUNGS: Clear to auscultation bilaterally. No wheezes, rales, or rhonchi. Breathing appears symmetric and easy. Patient is speaking in full sentences. No accessory muscle use. ABD: Round, soft, non-tender, non-distended. +Bowel sounds throughout. No rebound or guarding. No costovertebral angle tenderness. EXT: Pulses 2+ bilaterally dorsalis pedis and radial. No lower extremity edema appreciated. Rt hemiparesis. SKIN: [place], dry, warm. Capillary refill <2sec. No rashes. NEURO: Rt hemiparesis noted. Expressive aphasia and dysarthria noted. A&P: 67year oldM with a past medical history significant for HTN, HLD, NIDDM who developed slurred speech and Rt sided weakness on 02/27/17 and was treated at [facility] for intracerebral hemorrhage basal ganglia expanded to internal capsule and midbrain. 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 Pt with residual dense Rt hemiparesis, decreased rt sensory perception, Leftward gaze, dysarthria, dysphagia, and aphasia. 1. 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 Management as per ARU, Dr Moreno. PT/OT/ST as per ARU. Bowel care as per ARU. Pain control as per ARU. DVT prophylaxis. Lovenox SC. Disposition as per ARU. Anticipated D/C date 04/03/17. 2. HTN. Continue with Norvasc 10 mg daily and Lisinopril 40 mg daily. SBP 116- 138. 3. HLD. Continue Pravachol. LDL 03/10/17 69. 4. NIDDM. CC diet, SSI, Metformin 500mg BID. BS this AM 134. Hgb A1c 03/10/17 6.3. 5. GERD. Continue Protonix 40 mg daily. 6. Pneumonia. Treated with Vancomycin/Zosyn IV at [facility] and transitioned to po Augmentin. Pt to finish course of Augmentin. Afebrile, no leukocytosis. Request I/S. Monitor. VS, I&O, 24H, [facility] Vital Signs/I&O Vital Signs Date Time Temp Pulse Resp B/P (MAP) Pulse Ox O2 Delivery O2 Flow Rate FiO2 03/11/17 08:18 77 138/94 03/11/17 08:15 Room Air 03/11/17 05:21 99.5 18 94 I&O- Last 24 Hours up to 6 AM 03/11/17 06:00 Intake Total 180 ml Balance 180 ml Laboratory Data 24H LABS Laboratory Tests 2 03/10/17 11:39: Bedside Glucose (Misc Panel) 88 03/10/17 16:27: Bedside Glucose (Misc Panel) 108 03/10/17 20:42: Bedside Glucose (Misc Panel) 105 03/11/17 06:27: Bedside Glucose (Misc Panel) 107 Paty Paredes Mar 11, 2017 11:37
[2017-03-11 14:39] VITALS: BP 101/66
[2017-03-11 20:00] VITALS: BP 120/71
[2017-03-11] MEDS: PRAVASTATIN 20 MG TAB PO SCH (21:12)
[2017-03-12 06:00] VITALS: BP 128/80
[2017-03-12 06:44] LABS: MEAN CORPUSCULAR HEMOGLOBIN 31.4 pg (27.0-33.0); MEAN CORPUSCULAR HGB CONC 34.4 g/dl (32.0-36.5); MEAN CORPUSCULAR VOLUME 91.3 fl (80.0-96.0); RED CELL DISTRIBUTION WIDTH 13.1 % (11.5-14.5); WHITE BLOOD COUNT 8.3 K/mm3 (4.0-10.0)
[2017-03-12 07:00] LABS: ALBUMIN 3.1 GM/DL (3.2-5.2); ALBUMIN/GLOBULIN RATIO 0.74 (1.00-1.93); ALKALINE PHOSPHATASE 52 U/L (45-117); ALT/SGPT 63 U/L (12-78); ANION GAP 7 MEQ/L (8-16); AST/SGOT 22 U/L (15-37); BILIRUBIN,TOTAL 0.6 MG/DL (0.2-1.0); BLOOD UREA NITROGEN 26 MG/DL (7-18); CALCIUM LEVEL 9.1 MG/DL (8.8-10.2); CARBON DIOXIDE LEVEL 27 MEQ/L (21-32); CHLORIDE LEVEL 107 MEQ/L (98-107); GLOMERULAR FILTRATION RATE > 60.0 (>49); GLUCOSE, FASTING 108 MG/DL (80-110); POTASSIUM SERUM 4.4 MEQ/L (3.5-5.1); SODIUM LEVEL 141 MEQ/L (136-145); TOTAL PROTEIN 7.3 GM/DL (6.4-8.2)
[2017-03-12] MEDS: ENOXAPARIN 40 MG/0.4 ML SYRINGE (J1650) SC SCH (09:37)
[2017-03-12] MEDS: AUGMENTIN 875 MG TAB PO SCH ×2 (09:37→21:20)
[2017-03-12] MEDS: LISINOPRIL 40 MG TAB PO SCH (09:37)
[2017-03-12] MEDS: amLODIPine 10 MG TAB PO SCH (09:38)
[2017-03-12] MEDS: PANTOPRAZOLE 40MG TAB (PROTONIX) PO SCH (09:38)
[2017-03-12] MEDS: metFORMIN (GLUCOPHAGE) 500 MG TAB PO SCH ×2 (09:38→18:05)
--- NOTE | 2017-03-12 11:51 | IPNPDOC ---
Inspector Line Progress Note DATE OF SERVICE: 03/12/17 DATE OF ADMISSION: Mar 06, 2017 at 14:25 INPATIENT REHABILITATION ADMISSION DAY: #7 SUBJECTIVE: Patient is a 67-year-old white male with left basal ganglia intercerebral hemorrhage extending into the internal capsule and midbrain with dense aphasia, dysarthria, dysphasia, diminished right sensorium and spatial awareness, and right hemiparesis. Patient seen today in his room laying semi- reclined in bed. Patient appears to be more alert and he is generating some limited automatic speech and follows some one-step and occasional 2 step commands. Therefore he is not able to report particular complaints at this time. ALLERGIES: See Below MEDICATIONS: Reviewed, see below. OBJECTIVE: VITAL SIGNS: Please see below. PHYSICAL EXAMINATION: GENERAL: Well-nourished well-developed somewhat overweight late middle-age white male who appears to be in little to no acute distress. There continues to be left gaze dominance and usually non-conjugate vision, but now crossing midline and some conjugate vision. Increasing automatic speech is generated by the patient when you talk to him and his ability to respond to command is improving. So far it has been fairly appropriate. Patient does respond to his name so is oriented 1. Receptive language appears to be better than expressive. HEENT: Right facial droop with left gaze preference and difficulty crossing midline. Vision is not conjugate much of the time. On automatic speech patient was clear without any dysarthria and no gurgling sounds were heard. CARDIOVASCULAR: Regular rate and rhythm with normal S1-S2. Bilateral radial pulses are 2/4. LUNGS: All pak are clear to auscultation. ABDOMEN: Benign, nontender with normal bowel sounds in all quadrants. There are some ecchymoses from Lovenox injections. NEUROLOGICAL: As above. Tone is increased in the right upper and lower extremity versus Thursday and on plantar stimulation patient showed significant leg flexion of the right leg. SKIN: Grossly intact except for Lovenox injection sites. LABORATORY DATA: Reviewed. Please see below. MICROBIOLOGY: Please see below. DVT prophylaxis ordered?: Lovenox and SILVERIO gore. ASSESSMENT AND PLAN: 1. Rehabilitation of hemorrhagic left internal capsule/midbrain/basal ganglia's CVA: Patient has been assessed by physical, occupational and speech therapies. He has started out on exercising to try and neuromuscularly facilitate his right upper and lower extremity maintaining strength in the fibers under control. Patient involved in sensory integration especially working on balance at this time. Speech therapy evaluation shows need to continue pured diet with nectar thick liquid at this time and the need for ongoing treatment of the aphasia. Patient remains at low level of function he is clearly showing some initial change in physical, occupational and speech assessments as well as my own. Patient in spite of the communication problems with his aphasia is working hard with the therapists. At present I feel that the patient will probably require about 4 weeks to reach discharge to home goals with home care. This will target April 03 for anticipated date of discharge. Of course the patient's recovery curve especially communications will have a lot to do with how rapid he is able to learn and adapt and thereby how long he will need inpatient therapy. At this time patient does appear to be able to tolerate the 3 hours of therapy per day divided up between physical, occupational and speech therapy. Rehab. Team Rounds: Patient tolerating and working hard in therapies with PT/OT/ AIRWAYS OPERATIONS SPECIALIST. He is making steady progress, but was noted to be at this best when family and friends are about. Patient also noted to have problems with tracking and protecting his RUE and will get him a sling for support. ELOS still about 28 days to April 03. 2. Type 2 diabetes mellitus: Currently blood sugars seem to be well-controlled riding in the low to mid 100s range. Insulin Sliding Scale and QID Blood Sugar checks have been stopped. 3. Decreased platelets: Unclear why patient's platelets went down to 131,000 platelets, but now 328,000 for 2 draws. 4. Hypertension: Blood pressures of been fairly well controlled since admission. No changes at this time for treatment. 5. Renal: BUN stable at 26. TIME SPENT: Chart Review, examination and documentation required greater than 35 minutes. Allergies Coded Allergies: ERNESTINA Inhibitors (Verified Allergy, Unknown, 12/17/12) Benazepril (Verified Allergy, Unknown, 12/17/12) Calcium Channel Blockers (Verified Allergy, Unknown, 12/17/12) Vital Signs Vital Signs Date Time Temp Pulse Resp B/P (MAP) Pulse Ox O2 Delivery O2 Flow Rate FiO2 03/12/17 09:38 70 128/80 03/12/17 06:00 98.6 20 95 Room Air Laboratory Data CBC/BMP Laboratory Tests 03/12/17 06:22 Red Blood Count 4.65, Mean Corpuscular Volume 91.3, Mean Corpuscular Hemoglobin 31.4, Mean Corpuscular Hemoglobin Concent 34.4, Red Cell Distribution Width 13.1 , Calcium Level 9.1, Aspartate Amino Transf (AST/SGOT) 22, Alanine Aminotransferase (ALT/SGPT) 63, Alkaline Phosphatase 52, Total Bilirubin 0.6, Total Protein 7.3, Albumin 3.1 L Labs 24H Laboratory Tests 2 03/12/17 06:22: Anion Gap 7L, Glomerular Filtration Rate > 60.0, Blood Urea Nitrogen 26H, Creatinine 0.90, Sodium Level 141, Potassium Level 4.4, Chloride Level 107, Carbon Dioxide Level 27, Calcium Level 9.1, Aspartate Amino Transf (AST/SGOT) 22 , Alanine Aminotransferase (ALT/SGPT) 63, Alkaline Phosphatase 52, Total Bilirubin 0.6, Total Protein 7.3, Albumin 3.1L, Albumin/Globulin Ratio 0.74L Current Medications Current Medications Current Medications Al Hydrox/Mg Hydrox/Simethicone (Mylanta) 30 ml Q4HP PRN PO DYSPEPSIA; Start at 14:00; Stop 04/05/17 at 13:59 Amlodipine Besylate (Norvasc) 10 mg DAILY PO Last administered on 03/12/17 09: 38; Start 03/07/17 at 09:00; Stop 04/06/17 at 08:59 Amoxicillin/ Clavulanate Potassium (Augmentin) 875 mg BID PO Last administered on 03/12/17 09:37; Start 03/06/17 at 21:00; Stop 03/21/17 at 23:55 Bisacodyl (Dulcolax Tab) 5 mg DAILYPRN PRN PO CONSTIPATION; Start 03/06/17 at 14:00; Stop 04/05/17 at 13:59 Dextrose (Dextrose 50%) 25 ml ASDIRECTED PRN IV SEE LABEL COMMENTS; Start 03/09 at 10:30; Stop 03/09/17 at 19:57; Status DC Dextrose (Dextrose 50%) 25 ml ASDIRECTED PRN IV SEE LABEL COMMENTS; Start 03/09 at 20:00; Stop 04/08/17 at 19:59; Status Cancel Enoxaparin Sodium (Lovenox) 40 mg DAILY SC Last administered on 03/12/17 09:37 ; Start 03/07/17 at 09:00; Stop 03/20/17 at 23:59 Glucagon (Glucagon) 1 mg ASDIRECTED PRN SC SEE LABEL COMMENTS; Start 03/09/17 at 10:30; Stop 03/09/17 at 19:58; Status DC Glucagon (Glucagon) 1 mg ASDIRECTED PRN SC SEE LABEL COMMENTS; Start 03/09/17 at 20:00; Stop 04/08/17 at 19:59; Status Cancel Glucose (Glucose) 16 GM ASDIRECTED PRN PO SEE LABEL COMMENTS; Start 03/09/17 at 10:30; Stop 03/09/17 at 19:58; Status DC Glucose (Glucose) 16 GM ASDIRECTED PRN PO SEE LABEL COMMENTS; Start 03/09/17 at 20:00; Stop 04/08/17 at 19:59; Status Cancel Home Med (Med Rec Complete!) ASDIRECTED XX ; Start 03/06/17 at 15:45; Stop at 15:48; Status DC Insulin Human Lispro (HumaLOG INSULIN) See Protocol Table AC SC Last administered on 03/09/17 12:18; Start 03/09/17 at 12:00; Stop 03/09/17 at 19:56 ; Status DC Insulin Human Lispro (HumaLOG INSULIN) See Protocol Table AC SC Last administered on 03/11/17 08:17; Start 03/10/17 at 07:30; Stop 03/11/17 at 11:59 ; Status DC Insulin Human Lispro (HumaLOG INSULIN) See Protocol Table QHS SC ; Start at 21:00; Stop 03/11/17 at 11:59; Status DC Lisinopril (Prinivil) 40 mg DAILY PO Last administered on 03/12/17 09:37; Start 03/07/17 at 09:00; Stop 04/06/17 at 08:59 Magnesium Hydroxide (Milk Of Magnesia) 30 ml DAILYPRN PRN PO CONSTIPATION; Start 03/06/17 at 14:00; Stop 04/05/17 at 13:59 Metformin HCl (Glucophage) 500 mg BID@ PO Last administered on 03/12/17 09:38; Start 03/06/17 at 18:00; Stop 04/05/17 at 17:59 Pantoprazole Sodium (Protonix) 40 mg DAILY PO Last administered on 03/12/17 09 :38; Start 03/07/17 at 09:00; Stop 04/06/17 at 08:59 Pravastatin Sodium (Pravachol) 80 mg QHS PO Last administered on 03/11/17 21: 12; Start 03/06/17 at 21:00; Stop 04/05/17 at 20:59 Sodium Biphosphate/ Sodium Phosphate (Fleet Enema) 1 ea DAILYPRN PRN [place] CONSTIPATION; Start 03/06/17 at 14:00; Stop 04/05/17 at 13:59 Tramadol HCl (Ultram) 50 mg Q4HP PRN PO PAIN SCALE 6-10; Start 03/06/17 at 14: 00; Stop 03/20/17 at 12:00 LOTUS PATTERSON MD Mar 12, 2017 11:51
[2017-03-12 14:00] VITALS: BP 135/74
[2017-03-12] MEDS: BISACODYL 5 MG TAB PO PRN (18:05)
[2017-03-12] MEDS: MOM 30ML SUSPENSION UDC PO PRN (18:05)
[2017-03-12 20:00] VITALS: BP 122/77
[2017-03-12] MEDS: PRAVASTATIN 20 MG TAB PO SCH (21:20)
[2017-03-13 06:00] VITALS: BP 142/80
[2017-03-13] MEDS: AUGMENTIN 875 MG TAB PO SCH ×2 (08:44→20:51)
[2017-03-13] MEDS: PANTOPRAZOLE 40MG TAB (PROTONIX) PO SCH (08:44)
[2017-03-13] MEDS: metFORMIN (GLUCOPHAGE) 500 MG TAB PO SCH ×2 (08:44→17:32)
[2017-03-13] MEDS: ENOXAPARIN 40 MG/0.4 ML SYRINGE (J1650) SC SCH (08:45)
[2017-03-13] MEDS: amLODIPine 10 MG TAB PO SCH (08:47)
[2017-03-13] MEDS: LISINOPRIL 40 MG TAB PO SCH (08:47)
--- NOTE | 2017-03-13 13:57 | IPNPDOC ---
Acid Regenerator Progress Note DATE OF SERVICE: 03/13/17 DATE OF ADMISSION: Mar 06, 2017 at 14:25 INPATIENT REHABILITATION ADMISSION DAY: #8 SUBJECTIVE: Patient is a 67-year-old white male with left basal ganglia intercerebral hemorrhage extending into the internal capsule and midbrain with dense aphasia, dysarthria, dysphasia, diminished right sensorium and spatial awareness, and right hemiparesis. Patient seen today in his room laying semi- reclined in bed. Patient appears to be more alert and he is generating some limited automatic speech and follows some one-step and occasional 2 step commands. Therefore he is not able to report particular complaints at this time. ALLERGIES: See Below MEDICATIONS: Reviewed, see below. OBJECTIVE: VITAL SIGNS: Please see below. PHYSICAL EXAMINATION: GENERAL: Well-nourished well-developed somewhat overweight late middle-age white male who appears to be in little to no acute distress. There continues to be left gaze dominance and usually non-conjugate vision, but now crossing midline and some conjugate vision. Increasing automatic speech is generated by the patient when you talk to him and his ability to respond to command is improving. So far it has been fairly appropriate. Patient does respond to his name so is oriented 1. However, his appropriate interactions with therapists indicate his understanding of location and some of situation. Receptive language appears to be better than expressive. HEENT: Right facial droop with left gaze preference and difficulty crossing midline by more than 20 degrees. Vision is more frequently conjugate. On automatic speech patient was clear without any dysarthria and no gurgling sounds were heard. CARDIOVASCULAR: Regular rate and rhythm with normal S1-S2. Bilateral radial pulses are 2/4. LUNGS: All pak are clear to auscultation. ABDOMEN: Benign, nontender with normal bowel sounds in all quadrants. There are some ecchymoses from Lovenox injections. NEUROLOGICAL: As above. Tone is increased in the right upper and lower extremity versus last Thursday and on plantar stimulation patient showed significant leg flexion of the right leg. SKIN: Grossly intact except for Lovenox injection sites. LABORATORY DATA: Reviewed. Please see below. MICROBIOLOGY: Please see below. DVT prophylaxis ordered?: Lovenox and SILVERIO gore. ASSESSMENT AND PLAN: 1. 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 Patient involved in sensory integration especially working on balance at this time. Speech therapy evaluation shows need to continue pured diet with nectar thick liquid at this time and the need for ongoing treatment of the aphasia. Patient remains at low level of function he is clearly showing change in physical, occupational and speech assessments as well as my own. Patient in spite of the communication problems with his aphasia is working hard and understanding his therapists more each day. Of course the patient's recovery curve especially communications will have a lot to do with how rapid he is able to learn and adapt and thereby how long he will need inpatient therapy. At this time patient does appear to be able to tolerate the 3 hours of therapy per day divided up between physical, occupational and speech therapy. Patient tolerating and working hard in therapies with PT/OT/CHERRY DIPPER. He is making steady progress, but was noted to be at this best when family and friends are about. Patient also noted to have problems with tracking and protecting his RUE and will get him a sling for support. CLARENCEOS still about 28 days to April 03. 2. Type 2 diabetes mellitus: Currently blood sugars seem to be well-controlled riding in the low to mid 100s range. Insulin Sliding Scale and QID Blood Sugar checks have been stopped. 3. Decreased platelets: Unclear why patient's platelets went down to 131,000 platelets, but now > 300,000 for 3 draws. 4. Hypertension: Blood pressures of been fairly well controlled since admission. No changes at this time for treatment. TIME SPENT: Chart Review, examination and documentation required greater than 25 minutes. Allergies Coded Allergies: ERNESTINA Inhibitors (Verified Allergy, Unknown, 12/17/12) Benazepril (Verified Allergy, Unknown, 12/17/12) Calcium Channel Blockers (Verified Allergy, Unknown, 12/17/12) Vital Signs Vital Signs Date Time Temp Pulse Resp B/P (MAP) Pulse Ox O2 Delivery O2 Flow Rate FiO2 03/13/17 08:47 72 142/80 03/13/17 08:00 Room Air 03/13/17 06:00 99.4 18 93 Current Medications Current Medications Current Medications Al Hydrox/Mg Hydrox/Simethicone (Mylanta) 30 ml Q4HP PRN PO DYSPEPSIA; Start at 14:00; Stop 04/05/17 at 13:59 Amlodipine Besylate (Norvasc) 10 mg DAILY PO Last administered on 03/13/17 08: 47; Start 03/07/17 at 09:00; Stop 04/06/17 at 08:59 Amoxicillin/ Clavulanate Potassium (Augmentin) 875 mg BID PO Last administered on 03/13/17 08:44; Start 03/06/17 at 21:00; Stop 03/21/17 at 23:55 Bisacodyl (Dulcolax Tab) 5 mg DAILYPRN PRN PO CONSTIPATION Last administered on 03/12/17 18:05; Start 03/06/17 at 14:00; Stop 04/05/17 at 13:59 Dextrose (Dextrose 50%) 25 ml ASDIRECTED PRN IV SEE LABEL COMMENTS; Start 03/09 at 10:30; Stop 03/09/17 at 19:57; Status DC Dextrose (Dextrose 50%) 25 ml ASDIRECTED PRN IV SEE LABEL COMMENTS; Start 03/09 at 20:00; Stop 04/08/17 at 19:59; Status Cancel Enoxaparin Sodium (Lovenox) 40 mg DAILY SC Last administered on 03/13/17 08:45 ; Start 03/07/17 at 09:00; Stop 03/20/17 at 23:59 Glucagon (Glucagon) 1 mg ASDIRECTED PRN SC SEE LABEL COMMENTS; Start 03/09/17 at 10:30; Stop 03/09/17 at 19:58; Status DC Glucagon (Glucagon) 1 mg ASDIRECTED PRN SC SEE LABEL COMMENTS; Start 03/09/17 at 20:00; Stop 04/08/17 at 19:59; Status Cancel Glucose (Glucose) 16 GM ASDIRECTED PRN PO SEE LABEL COMMENTS; Start 03/09/17 at 10:30; Stop 03/09/17 at 19:58; Status DC Glucose (Glucose) 16 GM ASDIRECTED PRN PO SEE LABEL COMMENTS; Start 03/09/17 at 20:00; Stop 04/08/17 at 19:59; Status Cancel Home Med (Med Rec Complete!) ASDIRECTED XX ; Start 03/06/17 at 15:45; Stop at 15:48; Status DC Insulin Human Lispro (HumaLOG INSULIN) See Protocol Table AC SC Last administered on 03/09/17 12:18; Start 03/09/17 at 12:00; Stop 03/09/17 at 19:56 ; Status DC Insulin Human Lispro (HumaLOG INSULIN) See Protocol Table AC SC Last administered on 03/11/17 08:17; Start 03/10/17 at 07:30; Stop 03/11/17 at 11:59 ; Status DC Insulin Human Lispro (HumaLOG INSULIN) See Protocol Table QHS SC ; Start at 21:00; Stop 03/11/17 at 11:59; Status DC Lisinopril (Prinivil) 40 mg DAILY PO Last administered on 03/13/17 08:47; Start 03/07/17 at 09:00; Stop 04/06/17 at 08:59 Magnesium Hydroxide (Milk Of Magnesia) 30 ml DAILYPRN PRN PO CONSTIPATION Last administered on 03/12/17 18:05; Start 03/06/17 at 14:00; Stop 04/05/17 at 13:59 Metformin HCl (Glucophage) 500 mg BID@ PO Last administered on 03/13/17 08:44; Start 03/06/17 at 18:00; Stop 04/05/17 at 17:59 Pantoprazole Sodium (Protonix) 40 mg DAILY PO Last administered on 03/13/17 08 :44; Start 03/07/17 at 09:00; Stop 04/06/17 at 08:59 Pravastatin Sodium (Pravachol) 80 mg QHS PO Last administered on 03/12/17 21: 20; Start 03/06/17 at 21:00; Stop 04/05/17 at 20:59 Sodium Biphosphate/ Sodium Phosphate (Fleet Enema) 1 ea DAILYPRN PRN [place] CONSTIPATION; Start 03/06/17 at 14:00; Stop 04/05/17 at 13:59 Tramadol HCl (Ultram) 50 mg Q4HP PRN PO PAIN SCALE 6-10; Start 03/06/17 at 14: 00; Stop 03/20/17 at 12:00 LOTUS PATTERSON MD Mar 13, 2017 13:57
[2017-03-13 14:00] VITALS: BP 122/74
[2017-03-13] MEDS: MOM 30ML SUSPENSION UDC PO PRN (18:53)
[2017-03-13] MEDS: BISACODYL 5 MG TAB PO PRN (18:53)
[2017-03-13 20:25] VITALS: BP 130/77
[2017-03-13] MEDS: PRAVASTATIN 20 MG TAB PO SCH (20:51)
[2017-03-14 05:48] VITALS: BP 114/76
[2017-03-14] MEDS: ENOXAPARIN 40 MG/0.4 ML SYRINGE (J1650) SC SCH (08:49)
[2017-03-14] MEDS: metFORMIN (GLUCOPHAGE) 500 MG TAB PO SCH ×2 (08:49→17:19)
[2017-03-14] MEDS: LISINOPRIL 40 MG TAB PO SCH (08:49)
[2017-03-14] MEDS: PANTOPRAZOLE 40MG TAB (PROTONIX) PO SCH (08:49)
[2017-03-14] MEDS: MOM 30ML SUSPENSION UDC PO PRN (08:49)
[2017-03-14] MEDS: BISACODYL 5 MG TAB PO PRN (08:50)
[2017-03-14] MEDS: AUGMENTIN 875 MG TAB PO SCH ×2 (08:50→20:41)
[2017-03-14] MEDS: amLODIPine 10 MG TAB PO SCH (08:50)
[2017-03-14 14:00] VITALS: BP 113/67
[2017-03-14 19:50] VITALS: BP 118/73
[2017-03-14] MEDS: PRAVASTATIN 20 MG TAB PO SCH (20:41)
[2017-03-15 06:15] VITALS: BP 114/71
[2017-03-15 06:29] LABS: MEAN CORPUSCULAR HEMOGLOBIN 30.8 pg (27.0-33.0); MEAN CORPUSCULAR HGB CONC 33.7 g/dl (32.0-36.5); MEAN CORPUSCULAR VOLUME 91.5 fl (80.0-96.0); RED CELL DISTRIBUTION WIDTH 13.1 % (11.5-14.5); WHITE BLOOD COUNT 7.6 K/mm3 (4.0-10.0)
[2017-03-15] MEDS: metFORMIN (GLUCOPHAGE) 500 MG TAB PO SCH ×2 (08:34→17:23)
[2017-03-15] MEDS: AUGMENTIN 875 MG TAB PO SCH ×2 (08:34→20:43)
[2017-03-15] MEDS: ENOXAPARIN 40 MG/0.4 ML SYRINGE (J1650) SC SCH (08:34)
[2017-03-15] MEDS: amLODIPine 10 MG TAB PO SCH (08:34)
[2017-03-15] MEDS: LISINOPRIL 40 MG TAB PO SCH (08:35)
[2017-03-15] MEDS: PANTOPRAZOLE 40MG TAB (PROTONIX) PO SCH (08:35)
[2017-03-15 14:09] VITALS: BP 119/73
[2017-03-15 19:55] VITALS: BP 114/70
[2017-03-15] MEDS: PRAVASTATIN 20 MG TAB PO SCH (20:44)
[2017-03-16 06:00] VITALS: BP 108/75
[2017-03-16] MEDS: PANTOPRAZOLE 40MG TAB (PROTONIX) PO SCH (08:11)
[2017-03-16] MEDS: AUGMENTIN 875 MG TAB PO SCH ×2 (08:11→20:22)
[2017-03-16] MEDS: LISINOPRIL 40 MG TAB PO SCH (08:11)
[2017-03-16] MEDS: amLODIPine 10 MG TAB PO SCH (08:11)
[2017-03-16] MEDS: metFORMIN (GLUCOPHAGE) 500 MG TAB PO SCH ×2 (08:12→18:22)
[2017-03-16] MEDS: ENOXAPARIN 40 MG/0.4 ML SYRINGE (J1650) SC SCH (08:12)
--- NOTE | 2017-03-16 11:52 | IPNPDOC ---
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 Patient seen today in his room laying semi- reclined in bed. Patient appears to be more alert and he is generating some limited automatic speech and follows some one-step and occasional 2 step commands. Therefore he is not able to report particular complaints at this time. ALLERGIES: See Below MEDICATIONS: Reviewed, see below. OBJECTIVE: VITAL SIGNS: Please see below. PHYSICAL EXAMINATION: GENERAL: Well-nourished well-developed somewhat overweight late middle-age white male who appears to be in little to no acute distress. There continues to be left gaze dominance and usually non-conjugate vision, but now crossing midline and some conjugate vision. Increasing automatic speech is generated by the patient when you talk to him and his ability to respond to command is improving. So far it has been fairly appropriate. Patient does respond to his name so is oriented 2. However, his appropriate interactions with therapists indicate his understanding of situation. Receptive language appears to be better than expressive. HEENT: Right facial droop with left gaze preference and difficulty crossing midline by more than 20 degrees. Vision is more frequently conjugate. On automatic speech patient was clear without any dysarthria and no gurgling sounds were heard. CARDIOVASCULAR: Regular rate and rhythm with normal S1-S2. Bilateral radial pulses are 2/4. LUNGS: All pak are clear to auscultation. ABDOMEN: Benign, nontender with normal bowel sounds in all quadrants. There are some ecchymoses from Lovenox injections. NEUROLOGICAL: As above. Tone is increased in the right upper and lower extremity versus last Thursday and on plantar stimulation patient showed significant leg flexion of the right leg. Some right shoulder muscle twitches observed today. SKIN: Grossly intact except for Lovenox injection sites. LABORATORY DATA: Reviewed. Please see below. MICROBIOLOGY: Please see below. DVT prophylaxis ordered?: Lovenox and SILVERIO winge. ASSESSMENT AND PLAN: 1. 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 Patient involved in sensory integration especially working on balance at this time. Speech therapy evaluation shows need to continue pured diet with nectar thick liquid at this time and the need for ongoing treatment of the aphasia. Patient remains at low level of function he is clearly showing change in physical, occupational and speech assessments as well as my own. Patient in spite of the communication problems with his aphasia is working hard and understanding his therapists more each day. Patient showing daily gains in speech, especially receptive language. Transfers and gaiting still needing 2 person assistance. Rehab. Team Rounds: Patient progressing in PT/OT/ACID BLOWER, but still slow motor return in Right U&LE; Receptive Language is showing good improvement and receptive language fair improvement. ELOS still about 28 days to April 03. 2. Type 2 diabetes mellitus: Currently blood sugars seem to be well-controlled riding in the low to mid 100s range. Overall good control. 3. Decreased platelets: Unclear why patient's platelets went down to 131,000 platelets, but now > 300,000 for 4 draws. 4. Hypertension: Blood pressures of been fairly well controlled since admission. No changes at this time for treatment. TIME SPENT: Chart Review, examination and documentation required greater than 35 minutes. Allergies Allergies Coded Allergies: ERNESTINA Inhibitors (Verified Allergy, Unknown, 12/17/12) Benazepril (Verified Allergy, Unknown, 12/17/12) Calcium Channel Blockers (Verified Allergy, Unknown, 12/17/12) Vital Signs Vital Signs Date Time Temp Pulse Resp B/P (MAP) Pulse Ox O2 Delivery O2 Flow Rate FiO2 03/16/17 09:00 Room Air 03/16/17 08:11 65 108/75 03/16/17 06:00 98.3 18 96 Current Medications Current Medications Current Medications Al Hydrox/Mg Hydrox/Simethicone (Mylanta) 30 ml Q4HP PRN PO DYSPEPSIA; Start at 14:00; Stop 04/05/17 at 13:59 Amlodipine Besylate (Norvasc) 10 mg DAILY PO Last administered on 03/16/17 08: 11; Start 03/07/17 at 09:00; Stop 04/06/17 at 08:59 Amoxicillin/ Clavulanate Potassium (Augmentin) 875 mg BID PO Last administered on 03/16/17 08:11; Start 03/06/17 at 21:00; Stop 03/21/17 at 23:55 Bisacodyl (Dulcolax Tab) 5 mg DAILYPRN PRN PO CONSTIPATION Last administered on 03/14/17 08:50; Start 03/06/17 at 14:00; Stop 04/05/17 at 13:59 Dextrose (Dextrose 50%) 25 ml ASDIRECTED PRN IV SEE LABEL COMMENTS; Start 03/09 at 10:30; Stop 03/09/17 at 19:57; Status DC Dextrose (Dextrose 50%) 25 ml ASDIRECTED PRN IV SEE LABEL COMMENTS; Start 03/09 at 20:00; Stop 04/08/17 at 19:59; Status Cancel Enoxaparin Sodium (Lovenox) 40 mg DAILY SC Last administered on 03/16/17 08:12 ; Start 03/07/17 at 09:00; Stop 03/20/17 at 23:59 Glucagon (Glucagon) 1 mg ASDIRECTED PRN SC SEE LABEL COMMENTS; Start 03/09/17 at 10:30; Stop 03/09/17 at 19:58; Status DC Glucagon (Glucagon) 1 mg ASDIRECTED PRN SC SEE LABEL COMMENTS; Start 03/09/17 at 20:00; Stop 04/08/17 at 19:59; Status Cancel Glucose (Glucose) 16 GM ASDIRECTED PRN PO SEE LABEL COMMENTS; Start 03/09/17 at 10:30; Stop 03/09/17 at 19:58; Status DC Glucose (Glucose) 16 GM ASDIRECTED PRN PO SEE LABEL COMMENTS; Start 03/09/17 at 20:00; Stop 04/08/17 at 19:59; Status Cancel Home Med (Med Rec Complete!) ASDIRECTED XX ; Start 03/06/17 at 15:45; Stop at 15:48; Status DC Insulin Human Lispro (HumaLOG INSULIN) See Protocol Table AC SC Last administered on 03/09/17 12:18; Start 03/09/17 at 12:00; Stop 03/09/17 at 19:56 ; Status DC Insulin Human Lispro (HumaLOG INSULIN) See Protocol Table AC SC Last administered on 03/11/17 08:17; Start 03/10/17 at 07:30; Stop 03/11/17 at 11:59 ; Status DC Insulin Human Lispro (HumaLOG INSULIN) See Protocol Table QHS SC ; Start at 21:00; Stop 03/11/17 at 11:59; Status DC Lisinopril (Prinivil) 40 mg DAILY PO Last administered on 03/16/17 08:11; Start 03/07/17 at 09:00; Stop 04/06/17 at 08:59 Magnesium Hydroxide (Milk Of Magnesia) 30 ml DAILYPRN PRN PO CONSTIPATION Last administered on 03/14/17 08:49; Start 03/06/17 at 14:00; Stop 04/05/17 at 13:59 Metformin HCl (Glucophage) 500 mg BID@ PO Last administered on 03/16/17 08 :12; Start 03/06/17 at 18:00; Stop 04/05/17 at 17:59 Pantoprazole Sodium (Protonix) 40 mg DAILY PO Last administered on 03/16/17 08: 11; Start 03/07/17 at 09:00; Stop 04/06/17 at 08:59 Pravastatin Sodium (Pravachol) 80 mg QHS PO Last administered on 03/15/17 20:44 ; Start 03/06/17 at 21:00; Stop 04/05/17 at 20:59 Sodium Biphosphate/ Sodium Phosphate (Fleet Enema) 1 ea DAILYPRN PRN [place] CONSTIPATION Last administered on 03/14/17 14:53; Start 03/06/17 at 14:00; Stop 04/05/17 at 13:59 Tramadol HCl (Ultram) 50 mg Q4HP PRN PO PAIN SCALE 6-10; Start 03/06/17 at 14: 00; Stop 03/20/17 at 12:00 LOTUS PATTERSON MD Mar 16, 2017 11:52
[2017-03-16 14:00] VITALS: BP 111/64
[2017-03-16 20:00] VITALS: BP 139/67
[2017-03-16] MEDS: PRAVASTATIN 20 MG TAB PO SCH (20:22)
[2017-03-17 06:00] VITALS: BP 118/74
[2017-03-17] MEDS: PANTOPRAZOLE 40MG TAB (PROTONIX) PO SCH (08:28)
[2017-03-17] MEDS: LISINOPRIL 40 MG TAB PO SCH (08:28)
[2017-03-17] MEDS: amLODIPine 10 MG TAB PO SCH (08:29)
[2017-03-17] MEDS: metFORMIN (GLUCOPHAGE) 500 MG TAB PO SCH ×2 (08:29→18:10)
[2017-03-17] MEDS: ENOXAPARIN 40 MG/0.4 ML SYRINGE (J1650) SC SCH (08:29)
[2017-03-17] MEDS: AUGMENTIN 875 MG TAB PO SCH ×2 (08:29→21:39)
--- NOTE | 2017-03-17 11:58 | IPNPDOC ---
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 Patient seen today in his room laying semi- reclined in bed. Patient appears to be more alert and he is generating some limited automatic speech and follows some one-step and occasional 2 step commands. Therefore he is not able to report particular complaints at this time. ALLERGIES: See Below MEDICATIONS: Reviewed, see below. OBJECTIVE: VITAL SIGNS: Please see below. PHYSICAL EXAMINATION: GENERAL: Well-nourished well-developed somewhat overweight late middle-age white male who appears to be in little to no acute distress. There continues to be left gaze dominance and now usually conjugate vision, but now crossing midline. Increasing spontaneous speech is generated by the patient when you talk to him and his ability to respond to command markedly improved. Patient does respond to his name so is oriented 2. However, his appropriate interactions with therapists indicate his understanding of situation. Receptive language still appears to be better than expressive. HEENT: Right facial droop with left gaze preference and difficulty crossing midline by more than 40 degrees. Vision is more frequently conjugate. On speech patient was clear without any dysarthria and no gurgling sounds were heard. CARDIOVASCULAR: Regular rate and rhythm with normal S1-S2. Bilateral radial pulses are 2/4. LUNGS: All pak are clear to auscultation. ABDOMEN: Benign, nontender with normal bowel sounds in all quadrants. There are some ecchymoses from Lovenox injections. NEUROLOGICAL: As above. Tone is increased in the right upper and lower extremity versus last Thursday and on plantar stimulation patient showed significant leg flexion of the right leg. Some right shoulder and arm muscle twitches observed today. SKIN: Grossly intact except for Lovenox injection sites. LABORATORY DATA: Reviewed. Please see below. MICROBIOLOGY: Please see below. DVT prophylaxis ordered?: Lovenox and SILVERIO gore. ASSESSMENT AND PLAN: 1. 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 Patient involved in sensory integration especially working on balance at this time. Speech therapy evaluation shows need to continue pured diet with nectar thin liquid at this time and the need for ongoing treatment of the aphasia. Patient remains at low level of function he is clearly showing change in physical, occupational and speech assessments as well as my own. Patient in spite of the communication problems with his aphasia is working hard and understanding his therapists more each day. Patient showing daily gains in speech, especially receptive language. Transfers and gaiting still needing 2 person assistance. ELOS still about 28 days to April 03. 2. Type 2 diabetes mellitus: Currently blood sugars seem to be well-controlled riding in the low to mid 100s range. Overall good control. 3. Hypertension: Blood pressures of been fairly well controlled since admission. No changes at this time for treatment. TIME SPENT: Chart Review, examination and documentation required greater than 25 minutes. Allergies Coded Allergies: ERNESTINA Inhibitors (Verified Allergy, Unknown, 12/17/12) Benazepril (Verified Allergy, Unknown, 12/17/12) Calcium Channel Blockers (Verified Allergy, Unknown, 12/17/12) Vital Signs Vital Signs Date Time Temp Pulse Resp B/P (MAP) Pulse Ox O2 Delivery O2 Flow Rate FiO2 03/17/17 08:29 18 03/17/17 08:29 62 118/74 03/17/17 06:00 98.3 98 Room Air Current Medications Current Medications Current Medications Al Hydrox/Mg Hydrox/Simethicone (Mylanta) 30 ml Q4HP PRN PO DYSPEPSIA; Start at 14:00; Stop 04/05/17 at 13:59 Amlodipine Besylate (Norvasc) 10 mg DAILY PO Last administered on 03/17/17 08: 29; Start 03/07/17 at 09:00; Stop 04/06/17 at 08:59 Amoxicillin/ Clavulanate Potassium (Augmentin) 875 mg BID PO Last administered on 03/17/17 08:29; Start 03/06/17 at 21:00; Stop 03/21/17 at 23:55 Bisacodyl (Dulcolax Tab) 5 mg DAILYPRN PRN PO CONSTIPATION Last administered on 03/14/17 08:50; Start 03/06/17 at 14:00; Stop 04/05/17 at 13:59 Dextrose (Dextrose 50%) 25 ml ASDIRECTED PRN IV SEE LABEL COMMENTS; Start 03/09 at 10:30; Stop 03/09/17 at 19:57; Status DC Dextrose (Dextrose 50%) 25 ml ASDIRECTED PRN IV SEE LABEL COMMENTS; Start 03/09 at 20:00; Stop 04/08/17 at 19:59; Status Cancel Enoxaparin Sodium (Lovenox) 40 mg DAILY SC Last administered on 03/17/17 08:29 ; Start 03/07/17 at 09:00; Stop 03/20/17 at 23:59 Glucagon (Glucagon) 1 mg ASDIRECTED PRN SC SEE LABEL COMMENTS; Start 03/09/17 at 10:30; Stop 03/09/17 at 19:58; Status DC Glucagon (Glucagon) 1 mg ASDIRECTED PRN SC SEE LABEL COMMENTS; Start 03/09/17 at 20:00; Stop 04/08/17 at 19:59; Status Cancel Glucose (Glucose) 16 GM ASDIRECTED PRN PO SEE LABEL COMMENTS; Start 03/09/17 at 10:30; Stop 03/09/17 at 19:58; Status DC Glucose (Glucose) 16 GM ASDIRECTED PRN PO SEE LABEL COMMENTS; Start 03/09/17 at 20:00; Stop 04/08/17 at 19:59; Status Cancel Home Med (Med Rec Complete!) ASDIRECTED XX ; Start 03/06/17 at 15:45; Stop at 15:48; Status DC Insulin Human Lispro (HumaLOG INSULIN) See Protocol Table AC SC Last administered on 03/09/17 12:18; Start 03/09/17 at 12:00; Stop 03/09/17 at 19:56 ; Status DC Insulin Human Lispro (HumaLOG INSULIN) See Protocol Table AC SC Last administered on 03/11/17 08:17; Start 03/10/17 at 07:30; Stop 03/11/17 at 11:59 ; Status DC Insulin Human Lispro (HumaLOG INSULIN) See Protocol Table QHS SC ; Start at 21:00; Stop 03/11/17 at 11:59; Status DC Lisinopril (Prinivil) 40 mg DAILY PO Last administered on 03/17/17 08:28; Start 03/07/17 at 09:00; Stop 04/06/17 at 08:59 Magnesium Hydroxide (Milk Of Magnesia) 30 ml DAILYPRN PRN PO CONSTIPATION Last administered on 03/14/17 08:49; Start 03/06/17 at 14:00; Stop 04/05/17 at 13:59 Metformin HCl (Glucophage) 500 mg BID@18 PO Last administered on 03/17/17 08 :29; Start 03/06/17 at 18:00; Stop 04/05/17 at 17:59 Pantoprazole Sodium (Protonix) 40 mg DAILY PO Last administered on 03/17/17 08: 28; Start 03/07/17 at 09:00; Stop 04/06/17 at 08:59 Pravastatin Sodium (Pravachol) 80 mg QHS PO Last administered on 03/16/17 20:22 ; Start 03/06/17 at 21:00; Stop 04/05/17 at 20:59 Sodium Biphosphate/ Sodium Phosphate (Fleet Enema) 1 ea DAILYPRN PRN [place] CONSTIPATION Last administered on 03/14/17 14:53; Start 03/06/17 at 14:00; Stop 04/05/17 at 13:59 Tramadol HCl (Ultram) 50 mg Q4HP PRN PO PAIN SCALE 6-10 Last administered on 08:29; Start 03/06/17 at 14:00; Stop 03/20/17 at 12:00 LOTUS PATTERSON MD Mar 17, 2017 11:58
[2017-03-17 14:00] VITALS: BP 108/65
[2017-03-17 20:00] VITALS: BP 122/79
[2017-03-17] MEDS: PRAVASTATIN 20 MG TAB PO SCH (21:39)
[2017-03-17] MEDS: MOM 30ML SUSPENSION UDC PO PRN (21:39)
[2017-03-18 06:00] VITALS: BP 137/74
[2017-03-18 06:38] LABS: MEAN CORPUSCULAR HEMOGLOBIN 31.1 pg (27.0-33.0); MEAN CORPUSCULAR VOLUME 91.6 fl (80.0-96.0); RED CELL DISTRIBUTION WIDTH 12.7 % (11.5-14.5); WHITE BLOOD COUNT 7.6 K/mm3 (4.0-10.0)
[2017-03-18 06:55] LABS: ANION GAP 7 MEQ/L (8-16); BLOOD UREA NITROGEN 18 MG/DL (7-18); CALCIUM LEVEL 9.2 MG/DL (8.8-10.2); CARBON DIOXIDE LEVEL 29 MEQ/L (21-32); CHLORIDE LEVEL 104 MEQ/L (98-107); CREATININE FOR GFR 0.82 MG/DL (0.70-1.30); GLOMERULAR FILTRATION RATE > 60.0 (>49); GLUCOSE, FASTING 100 MG/DL (80-110); POTASSIUM SERUM 4.6 MEQ/L (3.5-5.1); SODIUM LEVEL 140 MEQ/L (136-145)
[2017-03-18] MEDS: AUGMENTIN 875 MG TAB PO SCH ×2 (08:57→21:33)
[2017-03-18] MEDS: LISINOPRIL 40 MG TAB PO SCH (08:57)
[2017-03-18] MEDS: PANTOPRAZOLE 40MG TAB (PROTONIX) PO SCH (08:57)
[2017-03-18] MEDS: metFORMIN (GLUCOPHAGE) 500 MG TAB PO SCH ×2 (08:57→17:52)
[2017-03-18] MEDS: amLODIPine 10 MG TAB PO SCH (08:57)
[2017-03-18] MEDS: ENOXAPARIN 40 MG/0.4 ML SYRINGE (J1650) SC SCH (08:58)
--- NOTE | 2017-03-18 10:48 | IPNPDOC ---
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 Patient seen today in his room laying semi- reclined in bed. Patient appears to be more alert and he is generating fair expressive speech and follows 2 and 3 step commands. Patient reporting some left foot cramping when he is in his shoe. ALLERGIES: See Below MEDICATIONS: Reviewed, see below. OBJECTIVE: VITAL SIGNS: Please see below. PHYSICAL EXAMINATION: GENERAL: Well-nourished well-developed somewhat overweight late middle-age white male who appears to be in little to no acute distress. There is some left gaze dominance, but now usually conjugate vision. Increasing spontaneous speech is generated by the patient when you talk to him and his ability to respond to command markedly improved. Patient does respond to his name so is oriented 2 minimally. However, his appropriate interactions with therapists indicate his understanding of situation. Receptive language still appears to be better than expressive. HEENT: Right facial droop with left gaze preference and difficulty crossing midline by more than 60 degrees. Vision is mainly conjugate. On speech is clear without any dysarthria and no gurgling sounds were heard. CARDIOVASCULAR: Regular rate and rhythm with normal S1-S2. Bilateral radial pulses are 2/4. LUNGS: All pak are clear to auscultation. ABDOMEN: Benign, nontender with normal bowel sounds in all quadrants. There are some ecchymoses from Lovenox injections. NEUROLOGICAL: As above. Tone is increased in the right upper and lower extremity versus last Thursday and on plantar stimulation patient showed significant leg flexion of the right leg. Some right shoulder and arm muscle twitches observed today. SKIN: Grossly intact except for Lovenox injection sites. LABORATORY DATA: Reviewed. Please see below. MICROBIOLOGY: Please see below. DVT prophylaxis ordered?: Lovenox and SILVERIO gore. ASSESSMENT AND PLAN: 1. 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 Patient involved in sensory integration especially working on balance at this time. Speech therapy evaluation shows need to continue pured diet with thin liquid at this time and the need for ongoing treatment of the aphasia. Patient remains at low level of function he is clearly showing change in physical, occupational and especially speech assessments as well as my own. Patient is working hard and understanding his therapists more each day. Patient showing daily gains in speech, especially receptive language. Transfers and gaiting still needing 2 person assistance. ELOS still about 28 days to April 03. 2. Type 2 diabetes mellitus: Currently blood sugars seem to be well-controlled riding in the low to mid 100s range. Overall good control. 3. Hypertension: Blood pressures of been fairly well controlled since admission. No changes at this time for treatment. TIME SPENT: Chart Review, examination and documentation required greater than 25 minutes. Allergies Coded Allergies: ERNESTINA Inhibitors (Verified Allergy, Unknown, 12/17/12) Benazepril (Verified Allergy, Unknown, 12/17/12) Calcium Channel Blockers (Verified Allergy, Unknown, 12/17/12) Vital Signs Vital Signs Date Time Temp Pulse Resp B/P (MAP) Pulse Ox O2 Delivery O2 Flow Rate FiO2 03/18/17 08:57 80 137/74 03/18/17 08:30 Room Air 03/18/17 06:00 98.1 18 98 Laboratory Data CBC/BMP Laboratory Tests 03/18/17 06:21 Red Blood Count 4.85, Mean Corpuscular Volume 91.6, Mean Corpuscular Hemoglobin 31.1, Mean Corpuscular Hemoglobin Concent 34.0, Red Cell Distribution Width 12.7 , Calcium Level 9.2 Labs 24H Laboratory Tests 2 03/18/17 06:21: Anion Gap 7L, Glomerular Filtration Rate > 60.0, Blood Urea Nitrogen 18, Creatinine 0.82, Sodium Level 140, Potassium Level 4.6, Chloride Level 104, Carbon Dioxide Level 29, Calcium Level 9.2 Current Medications Current Medications Current Medications Al Hydrox/Mg Hydrox/Simethicone (Mylanta) 30 ml Q4HP PRN PO DYSPEPSIA; Start at 14:00; Stop 04/05/17 at 13:59 Amlodipine Besylate (Norvasc) 10 mg DAILY PO Last administered on 03/18/17t 08: 57; Start 03/07/17 at 09:00; Stop 04/06/17 at 08:59 Amoxicillin/ Clavulanate Potassium (Augmentin) 875 mg BID PO Last administered on 03/18/17 08:57; Start 03/06/17 at 21:00; Stop 03/21/17 at 23:55 Bisacodyl (Dulcolax Tab) 5 mg DAILYPRN PRN PO CONSTIPATION Last administered on 03/14/17 08:50; Start 03/06/17 at 14:00; Stop 04/05/17 at 13:59 Dextrose (Dextrose 50%) 25 ml ASDIRECTED PRN IV SEE LABEL COMMENTS; Start 03/09 at 10:30; Stop 03/09/17 at 19:57; Status DC Dextrose (Dextrose 50%) 25 ml ASDIRECTED PRN IV SEE LABEL COMMENTS; Start 03/09 at 20:00; Stop 04/08/17 at 19:59; Status Cancel Enoxaparin Sodium (Lovenox) 40 mg DAILY SC Last administered on 03/18/17 08:58 ; Start 03/07/17 at 09:00; Stop 03/27/17 at 23:59 Glucagon (Glucagon) 1 mg ASDIRECTED PRN SC SEE LABEL COMMENTS; Start 03/09/17 at 10:30; Stop 03/09/17 at 19:58; Status DC Glucagon (Glucagon) 1 mg ASDIRECTED PRN SC SEE LABEL COMMENTS; Start 03/09/17 at 20:00; Stop 04/08/17 at 19:59; Status Cancel Glucose (Glucose) 16 GM ASDIRECTED PRN PO SEE LABEL COMMENTS; Start 03/09/17 at 10:30; Stop 03/09/17 at 19:58; Status DC Glucose (Glucose) 16 GM ASDIRECTED PRN PO SEE LABEL COMMENTS; Start 03/09/17 at 20:00; Stop 04/08/17 at 19:59; Status Cancel Home Med (Med Rec Complete!) ASDIRECTED XX ; Start 03/06/17 at 15:45; Stop at 15:48; Status DC Insulin Human Lispro (HumaLOG INSULIN) See Protocol Table AC SC Last administered on 03/09/17 12:18; Start 03/09/17 at 12:00; Stop 03/09/17 at 19:56 ; Status DC Insulin Human Lispro (HumaLOG INSULIN) See Protocol Table AC SC Last administered on 03/11/17 08:17; Start 03/10/17 at 07:30; Stop 03/11/17 at 11:59 ; Status DC Insulin Human Lispro (HumaLOG INSULIN) See Protocol Table QHS SC ; Start at 21:00; Stop 03/11/17 at 11:59; Status DC Lisinopril (Prinivil) 40 mg DAILY PO Last administered on 03/18/17 08:57; Start 03/07/17 at 09:00; Stop 04/06/17 at 08:59 Magnesium Hydroxide (Milk Of Magnesia) 30 ml DAILYPRN PRN PO CONSTIPATION Last administered on 03/17/17 21:39; Start 03/06/17 at 14:00; Stop 04/05/17 at 13:59 Metformin HCl (Glucophage) 500 mg BID@,18 PO Last administered on 03/18/17 08 :57; Start 03/06/17 at 18:00; Stop 04/05/17 at 17:59 Pantoprazole Sodium (Protonix) 40 mg DAILY PO Last administered on 03/18/17 08: 57; Start 03/07/17 at 09:00; Stop 04/06/17 at 08:59 Pravastatin Sodium (Pravachol) 80 mg QHS PO Last administered on 03/17/17 21:39 ; Start 03/06/17 at 21:00; Stop 04/05/17 at 20:59 Sodium Biphosphate/ Sodium Phosphate (Fleet Enema) 1 ea DAILYPRN PRN [place] CONSTIPATION Last administered on 03/14/17 14:53; Start 03/06/17 at 14:00; Stop 04/05/17 at 13:59 Tramadol HCl (Ultram) 50 mg Q4HP PRN PO PAIN SCALE 6-10 Last administered on 08:29; Start 03/06/17 at 14:00; Stop 03/27/17 at 23:55 LOTUS PATTERSON MD Mar 18, 2017 10:48
[2017-03-18 14:00] VITALS: BP 122/57
[2017-03-18 20:00] VITALS: BP 116/71
[2017-03-18] MEDS: PRAVASTATIN 20 MG TAB PO SCH (21:33)
[2017-03-19 06:00] VITALS: BP 111/69
[2017-03-19] MEDS: LISINOPRIL 40 MG TAB PO SCH (08:29)
[2017-03-19] MEDS: ENOXAPARIN 40 MG/0.4 ML SYRINGE (J1650) SC SCH (08:29)
[2017-03-19] MEDS: metFORMIN (GLUCOPHAGE) 500 MG TAB PO SCH ×2 (08:30→17:22)
[2017-03-19] MEDS: PANTOPRAZOLE 40MG TAB (PROTONIX) PO SCH (08:30)
[2017-03-19] MEDS: amLODIPine 10 MG TAB PO SCH (08:30)
[2017-03-19] MEDS: AUGMENTIN 875 MG TAB PO SCH ×2 (08:30→20:28)
--- NOTE | 2017-03-19 11:26 | IPNPDOC ---
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 Patient seen today in his room sitting up in a chair. Patient appears to be more alert and he is generating fairly good expressive speech. 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 ALLERGIES: See Below MEDICATIONS: Reviewed, see below. OBJECTIVE: VITAL SIGNS: Please see below. PHYSICAL EXAMINATION: GENERAL: Well-nourished well-developed somewhat overweight late middle-age white male who appears to be in little to no acute distress. There is conjugate vision. Increasing spontaneous speech is generated by the patient when you talk to him and his ability to respond to command markedly improved. Patient does respond to his name so is oriented 2 minimally. However, his appropriate interactions with therapists indicate his understanding of situation. Receptive language still appears to be better than expressive. HEENT: Right facial droop is mild. Vision is mainly conjugate. On speech is clear without any dysarthria and no gurgling sounds were heard. CARDIOVASCULAR: Regular rate and rhythm with normal S1-S2. Bilateral radial pulses are 2/4. LUNGS: All pak are clear to auscultation. ABDOMEN: Benign, nontender with normal bowel sounds in all quadrants. There are some ecchymoses from Lovenox injections. NEUROLOGICAL: As above. Still very little Right shoulder movement, but more right hip and knee motor function daily. SKIN: Grossly intact except for Lovenox injection sites. LABORATORY DATA: Reviewed. Please see below. MICROBIOLOGY: Please see below. DVT prophylaxis ordered?: Lovenox and SILVERIO hose. ASSESSMENT AND PLAN: 1. Rehabilitation of hemorrhagic left internal capsule/midbrain/basal ganglia's CVA: Speech has markedly improved since Thursday, with steady Right LE gains, but limited RUE. Sling helping with pain control and positioning. Rehab. Team Rounds: Speech improving much more rapidly than RLE than RUE which has little twitch. Patient showing improving RLE control but limited gaiting at this time, though stance is showing more improvement. ADL's also making some gains, but limited by lack of RUE function. Anticipated Date of D/C is 04/03, though he may need more time depending of RUE motor return to allow training to facilitate return to home. 2. Type 2 diabetes mellitus: Currently blood sugars seem to be well-controlled riding in the low to mid 100s range. Overall good control. 3. Hypertension: Blood pressures of been fairly well controlled since admission. No changes at this time for treatment. TIME SPENT: Chart Review, examination and documentation required greater than 25 minutes. Allergies Coded Allergies: ERNESTINA Inhibitors (Verified Allergy, Unknown, 12/17/12) Benazepril (Verified Allergy, Unknown, 12/17/12) Calcium Channel Blockers (Verified Allergy, Unknown, 12/17/12) Vital Signs Vital Signs Date Time Temp Pulse Resp B/P (MAP) Pulse Ox O2 Delivery O2 Flow Rate FiO2 03/19/17 08:30 58 111/69 03/19/17 08:10 Room Air 03/19/17 06:00 98.0 18 96 Current Medications Current Medications Current Medications Al Hydrox/Mg Hydrox/Simethicone (Mylanta) 30 ml Q4HP PRN PO DYSPEPSIA; Start at 14:00; Stop 04/05/17 at 13:59 Amlodipine Besylate (Norvasc) 10 mg DAILY PO Last administered on 03/19/17 08: 30; Start 03/07/17 at 09:00; Stop 04/06/17 at 08:59 Amoxicillin/ Clavulanate Potassium (Augmentin) 875 mg BID PO Last administered on 03/19/17 08:30; Start 03/06/17 at 21:00; Stop 03/21/17 at 23:55 Bisacodyl (Dulcolax Tab) 5 mg DAILYPRN PRN PO CONSTIPATION Last administered on 03/14/17 08:50; Start 03/06/17 at 14:00; Stop 04/05/17 at 13:59 Dextrose (Dextrose 50%) 25 ml ASDIRECTED PRN IV SEE LABEL COMMENTS; Start 03/09 at 10:30; Stop 03/09/17 at 19:57; Status DC Dextrose (Dextrose 50%) 25 ml ASDIRECTED PRN IV SEE LABEL COMMENTS; Start 03/09 at 20:00; Stop 04/08/17 at 19:59; Status Cancel Enoxaparin Sodium (Lovenox) 40 mg DAILY SC Last administered on 03/19/17 08:29 ; Start 03/07/17 at 09:00; Stop 03/27/17 at 23:59 Glucagon (Glucagon) 1 mg ASDIRECTED PRN SC SEE LABEL COMMENTS; Start 03/09/17 at 10:30; Stop 03/09/17 at 19:58; Status DC Glucagon (Glucagon) 1 mg ASDIRECTED PRN SC SEE LABEL COMMENTS; Start 03/09/17 at 20:00; Stop 04/08/17 at 19:59; Status Cancel Glucose (Glucose) 16 GM ASDIRECTED PRN PO SEE LABEL COMMENTS; Start 03/09/17 at 10:30; Stop 03/09/17 at 19:58; Status DC Glucose (Glucose) 16 GM ASDIRECTED PRN PO SEE LABEL COMMENTS; Start 03/09/17 at 20:00; Stop 04/08/17 at 19:59; Status Cancel Home Med (Med Rec Complete!) ASDIRECTED XX ; Start 03/06/17 at 15:45; Stop at 15:48; Status DC Insulin Human Lispro (HumaLOG INSULIN) See Protocol Table AC SC Last administered on 03/09/17 12:18; Start 03/09/17 at 12:00; Stop 03/09/17 at 19:56 ; Status DC Insulin Human Lispro (HumaLOG INSULIN) See Protocol Table AC SC Last administered on 03/11/17 08:17; Start 03/10/17 at 07:30; Stop 03/11/17 at 11:59 ; Status DC Insulin Human Lispro (HumaLOG INSULIN) See Protocol Table QHS SC ; Start at 21:00; Stop 03/11/17 at 11:59; Status DC Lisinopril (Prinivil) 40 mg DAILY PO Last administered on 03/19/17 08:29; Start 03/07/17 at 09:00; Stop 04/06/17 at 08:59 Magnesium Hydroxide (Milk Of Magnesia) 30 ml DAILYPRN PRN PO CONSTIPATION Last administered on 03/17/17 21:39; Start 03/06/17 at 14:00; Stop 04/05/17 at 13:59 Metformin HCl (Glucophage) 500 mg BID@,18 PO Last administered on 03/19/17 08 :30; Start 03/06/17 at 18:00; Stop 04/05/17 at 17:59 Pantoprazole Sodium (Protonix) 40 mg DAILY PO Last administered on 03/19/17 08: 30; Start 03/07/17 at 09:00; Stop 04/06/17 at 08:59 Pravastatin Sodium (Pravachol) 80 mg QHS PO Last administered on 03/18/17 21:33 ; Start 03/06/17 at 21:00; Stop 04/05/17 at 20:59 Sodium Biphosphate/ Sodium Phosphate (Fleet Enema) 1 ea DAILYPRN PRN [place] CONSTIPATION Last administered on 03/14/17 14:53; Start 03/06/17 at 14:00; Stop 04/05/17 at 13:59 Tramadol HCl (Ultram) 50 mg Q4HP PRN PO PAIN SCALE 6-10 Last administered on 08:29; Start 03/06/17 at 14:00; Stop 03/27/17 at 23:55 LOTUS PATTERSON MD Mar 19, 2017 11:26
[2017-03-19 14:00] VITALS: BP 117/63
[2017-03-19 20:00] VITALS: BP 119/73
[2017-03-19] MEDS: PRAVASTATIN 20 MG TAB PO SCH (20:29)
[2017-03-20 06:00] VITALS: BP 120/66
[2017-03-20] MEDS: AUGMENTIN 875 MG TAB PO SCH ×2 (09:23→20:58)
[2017-03-20] MEDS: metFORMIN (GLUCOPHAGE) 500 MG TAB PO SCH ×2 (09:23→18:30)
[2017-03-20] MEDS: ENOXAPARIN 40 MG/0.4 ML SYRINGE (J1650) SC SCH (09:23)
[2017-03-20] MEDS: LISINOPRIL 40 MG TAB PO SCH (09:23)
[2017-03-20] MEDS: PANTOPRAZOLE 40MG TAB (PROTONIX) PO SCH (09:23)
[2017-03-20] MEDS: amLODIPine 10 MG TAB PO SCH (09:23)
[2017-03-20 14:00] VITALS: BP 109/70
--- NOTE | 2017-03-20 14:12 | IPNPDOC ---
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 Patient seen today in his room sitting up in a chair. No complaints today. ALLERGIES: See Below MEDICATIONS: Reviewed, see below. OBJECTIVE: VITAL SIGNS: Please see below. PHYSICAL EXAMINATION: GENERAL: Well-nourished well-developed somewhat overweight late middle-age white male who appears to be in little to no acute distress. There is conjugate vision. Increasing spontaneous speech is generated by the patient when you talk to him and his ability to respond to command markedly improved. Patient is oriented 3. HEENT: Right facial droop is mild. Vision is mainly conjugate. On speech is clear without any dysarthria and no gurgling sounds were heard. CARDIOVASCULAR: Regular rate and rhythm with normal S1-S2. Bilateral radial pulses are 2/4. LUNGS: All pak are clear to auscultation. ABDOMEN: Benign, nontender with normal bowel sounds in all quadrants. There are some ecchymoses from Lovenox injections. NEUROLOGICAL: As above. Still very little Right shoulder movement, but more right hip and knee motor function daily. Left U&LE are Sensory-motor intact. SKIN: Grossly intact except for Lovenox injection sites. LABORATORY DATA: Reviewed. Please see below. MICROBIOLOGY: Please see below. DVT prophylaxis ordered?: Lovenox and SILVERIO hose. ASSESSMENT AND PLAN: 1. Rehabilitation of hemorrhagic left internal capsule/midbrain/basal ganglia's CVA: Speech has markedly improved since Thursday, with steady Right LE gains, but limited RUE. Sling helping with pain control and positioning. Speech improving much more rapidly than RLE than RUE which has little twitch. Patient showing improving RLE control but limited gaiting at this time, though stance is showing more improvement. ADL's also making some gains, but limited by lack of RUE function. Anticipated Date of D/C is 04/03, though he may need more time depending of RUE motor return to allow training to facilitate return to home. 2. Type 2 diabetes mellitus: Currently blood sugars seem to be well-controlled riding in the low to mid 100s range. Overall good control. 3. Hypertension: Blood pressures of been fairly well controlled since admission. No changes at this time for treatment. TIME SPENT: Chart Review, examination and documentation required greater than 25 minutes. Allergies Coded Allergies: ERNESTINA Inhibitors (Verified Allergy, Unknown, 12/17/12) Benazepril (Verified Allergy, Unknown, 12/17/12) Calcium Channel Blockers (Verified Allergy, Unknown, 12/17/12) Vital Signs Vital Signs Date Time Temp Pulse Resp B/P (MAP) Pulse Ox O2 Delivery O2 Flow Rate FiO2 03/20/17 09:23 63 120/66 03/20/17 09:00 Room Air 03/20/17 06:00 98.2 18 97 Current Medications Current Medications Current Medications Al Hydrox/Mg Hydrox/Simethicone (Mylanta) 30 ml Q4HP PRN PO DYSPEPSIA; Start at 14:00; Stop 04/05/17 at 13:59 Amlodipine Besylate (Norvasc) 10 mg DAILY PO Last administered on 03/20/17 09: 23; Start 03/07/17 at 09:00; Stop 04/06/17 at 08:59 Amoxicillin/ Clavulanate Potassium (Augmentin) 875 mg BID PO Last administered on 03/20/17 09:23; Start 03/06/17 at 21:00; Stop 03/21/17 at 23:55 Bisacodyl (Dulcolax Tab) 5 mg DAILYPRN PRN PO CONSTIPATION Last administered on 03/14/17 08:50; Start 03/06/17 at 14:00; Stop 04/05/17 at 13:59 Dextrose (Dextrose 50%) 25 ml ASDIRECTED PRN IV SEE LABEL COMMENTS; Start 03/09 at 10:30; Stop 03/09/17 at 19:57; Status DC Dextrose (Dextrose 50%) 25 ml ASDIRECTED PRN IV SEE LABEL COMMENTS; Start 03/09 at 20:00; Stop 04/08/17 at 19:59; Status Cancel Enoxaparin Sodium (Lovenox) 40 mg DAILY SC Last administered on 03/20/17 09:23 ; Start 03/07/17 at 09:00; Stop 03/27/17 at 23:59 Glucagon (Glucagon) 1 mg ASDIRECTED PRN SC SEE LABEL COMMENTS; Start 03/09/17 at 10:30; Stop 03/09/17 at 19:58; Status DC Glucagon (Glucagon) 1 mg ASDIRECTED PRN SC SEE LABEL COMMENTS; Start 03/09/17 at 20:00; Stop 04/08/17 at 19:59; Status Cancel Glucose (Glucose) 16 GM ASDIRECTED PRN PO SEE LABEL COMMENTS; Start 03/09/17 at 10:30; Stop 03/09/17 at 19:58; Status DC Glucose (Glucose) 16 GM ASDIRECTED PRN PO SEE LABEL COMMENTS; Start 03/09/17 at 20:00; Stop 04/08/17 at 19:59; Status Cancel Home Med (Med Rec Complete!) ASDIRECTED XX ; Start 03/06/17 at 15:45; Stop at 15:48; Status DC Insulin Human Lispro (HumaLOG INSULIN) See Protocol Table AC SC Last administered on 03/09/17 12:18; Start 03/09/17 at 12:00; Stop 03/09/17 at 19:56 ; Status DC Insulin Human Lispro (HumaLOG INSULIN) See Protocol Table AC SC Last administered on 03/11/17 08:17; Start 03/10/17 at 07:30; Stop 03/11/17 at 11:59 ; Status DC Insulin Human Lispro (HumaLOG INSULIN) See Protocol Table QHS SC ; Start at 21:00; Stop 03/11/17 at 11:59; Status DC Lisinopril (Prinivil) 40 mg DAILY PO Last administered on 03/20/17 09:23; Start 03/07/17 at 09:00; Stop 04/06/17 at 08:59 Magnesium Hydroxide (Milk Of Magnesia) 30 ml DAILYPRN PRN PO CONSTIPATION Last administered on 03/17/17 21:39; Start 03/06/17 at 14:00; Stop 04/05/17 at 13:59 Metformin HCl (Glucophage) 500 mg BID@ PO Last administered on 03/20/17 09 :23; Start 03/06/17 at 18:00; Stop 04/05/17 at 17:59 Pantoprazole Sodium (Protonix) 40 mg DAILY PO Last administered on 03/20/17 09: 23; Start 03/07/17 at 09:00; Stop 04/06/17 at 08:59 Pravastatin Sodium (Pravachol) 80 mg QHS PO Last administered on 03/19/17 20:29 ; Start 03/06/17 at 21:00; Stop 04/05/17 at 20:59 Sodium Biphosphate/ Sodium Phosphate (Fleet Enema) 1 ea DAILYPRN PRN [place] CONSTIPATION Last administered on 03/14/17 14:53; Start 03/06/17 at 14:00; Stop 04/05/17 at 13:59 Tramadol HCl (Ultram) 50 mg Q4HP PRN PO PAIN SCALE 6-10 Last administered on 08:29; Start 03/06/17 at 14:00; Stop 03/27/17 at 23:55 LOTUS PATTERSON MD Mar 20, 2017 14:12
[2017-03-20 20:00] VITALS: BP 146/84
[2017-03-20] MEDS: PRAVASTATIN 20 MG TAB PO SCH (20:58)
[2017-03-21 06:00] VITALS: BP 141/79
[2017-03-21] MEDS: ENOXAPARIN 40 MG/0.4 ML SYRINGE (J1650) SC SCH (08:41)
[2017-03-21] MEDS: AUGMENTIN 875 MG TAB PO SCH ×2 (08:41→20:29)
[2017-03-21] MEDS: PANTOPRAZOLE 40MG TAB (PROTONIX) PO SCH (08:41)
[2017-03-21] MEDS: LISINOPRIL 40 MG TAB PO SCH (08:41)
[2017-03-21] MEDS: metFORMIN (GLUCOPHAGE) 500 MG TAB PO SCH ×2 (08:41→17:16)
[2017-03-21] MEDS: amLODIPine 10 MG TAB PO SCH (08:41)
[2017-03-21 12:30] VITALS: BP 133/93
[2017-03-21 14:00] VITALS: BP 136/75
[2017-03-21 20:15] VITALS: BP 128/75
[2017-03-21] MEDS: PRAVASTATIN 20 MG TAB PO SCH (20:30)
[2017-03-22 06:00] VITALS: BP 121/65
[2017-03-22] MEDS: metFORMIN (GLUCOPHAGE) 500 MG TAB PO SCH ×2 (08:44→17:09)
[2017-03-22] MEDS: ENOXAPARIN 40 MG/0.4 ML SYRINGE (J1650) SC SCH (08:44)
[2017-03-22] MEDS: PANTOPRAZOLE 40MG TAB (PROTONIX) PO SCH (08:44)
[2017-03-22] MEDS: amLODIPine 10 MG TAB PO SCH (08:44)
[2017-03-22] MEDS: LISINOPRIL 40 MG TAB PO SCH (08:44)
[2017-03-22] MEDS: MOM 30ML SUSPENSION UDC PO PRN (08:46)
[2017-03-22] MEDS: BISACODYL 5 MG TAB PO PRN (08:46)
[2017-03-22 14:00] VITALS: BP 112/75
[2017-03-22 20:00] VITALS: BP 124/82
[2017-03-22] MEDS: PRAVASTATIN 20 MG TAB PO SCH (20:51)
[2017-03-23 06:00] VITALS: BP 141/73
[2017-03-23] MEDS: ENOXAPARIN 40 MG/0.4 ML SYRINGE (J1650) SC SCH (08:50)
[2017-03-23] MEDS: PANTOPRAZOLE 40MG TAB (PROTONIX) PO SCH (08:51)
[2017-03-23] MEDS: LISINOPRIL 40 MG TAB PO SCH (08:51)
[2017-03-23] MEDS: amLODIPine 10 MG TAB PO SCH (08:51)
[2017-03-23] MEDS: metFORMIN (GLUCOPHAGE) 500 MG TAB PO SCH ×2 (08:51→18:31)
--- NOTE | 2017-03-23 13:37 | IPNPDOC ---
Date Seen The patient was seen on 03/23/17. Progress Note HPI: 67year oldM with a past medical history significant for HTN, HLD, NIDDM who developed slurred speech and Rt sided weakness on 02/27/17 and was treated at [facility] for intracerebral hemorrhage basal ganglia expanded to internal capsule and midbrain. 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 Pt with residual dense Rt hemiparesis, decreased rt sensory perception, Leftward gaze, dysarthria, dysphagia, and aphasia. He was treated empirically for possible pneumonia with IV Zosyn/Vanco and transitioned to po Augmentin. The pt was felt stable to transfer to ARU at [facility] to the care of Dr Moreno 03/06/17. The pt answers questions with short responses. No acute medical complaints today. He is OOB to the chair and is participating with therapy in wheelchair. Denies any pain, Headache, Chest Pain, Shortness of breath, abdominal pain. No N/V/D. No changes in bowel or bladder habits reported. PMHx: HTN HLD NIDM OA H/o SBO CT 03/21 Mild hepatomegaly. PSHX: Rt TKA hernia repair PE: GEN: 67yoM, appears stated age. Well-nourished, well developed. No acute distress. Alert. HEENT: Normocephalic, atraumatic Moist mucous membranes. CHEST: Regular rate and rhythm, +S1, +S2 LUNGS: Clear to auscultation bilaterally. No wheezes, rales, or rhonchi. Breathing appears symmetric and easy. ABD: Round, soft, non-tender, non-distended. +Bowel sounds throughout. No rebound or guarding. No costovertebral angle tenderness. EXT: Pulses 2+ bilaterally dorsalis pedis and radial. No lower extremity edema appreciated. Rt hemiparesis. SKIN: [place], dry, warm. Capillary refill <2sec. No rashes. NEURO: Rt hemiparesis noted. Expressive aphasia and dysarthria noted. A&P: 67year oldM with a past medical history significant for HTN, HLD, NIDDM who developed slurred speech and Rt sided weakness on 02/27/17 and was treated at [facility] for intracerebral hemorrhage basal ganglia expanded to internal capsule and midbrain. 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 Pt with residual dense Rt hemiparesis, decreased rt sensory perception, Leftward gaze, dysarthria, dysphagia, and aphasia. 1. 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 Management as per ARU, Dr Moreno. PT/OT/ST as per ARU. Bowel care as per ARU. Pain control as per ARU. DVT prophylaxis. Lovenox SC. Disposition as per ARU. Anticipated D/C date 04/03/17. 2. HTN. Continue with Norvasc 10 mg daily and Lisinopril 40 mg daily. SBP 112- 141. 3. HLD. Continue Pravachol. LDL 03/10/17 69. 4. NIDDM. CC diet, SSI, Metformin 500mg BID. BS this AM 103. Hgb A1c 03/10/17 6.3. 5. GERD. Continue Protonix 40 mg daily. 6. Pneumonia. Treated with Vancomycin/Zosyn IV at [facility] and transitioned to po Augmentin. Pt finished course of Augmentin 03/21/17. Afebrile, no leukocytosis. Request I/S. Monitor. VS, I&O, 24H, Fishbone Vital Signs/I&O Vital Signs Date Time Temp Pulse Resp B/P (MAP) Pulse Ox O2 Delivery O2 Flow Rate FiO2 03/23/17 08:51 84 121/67 03/23/17 06:00 98.0 18 97 Room Air I&O- Last 24 Hours up to 6 AM 03/23/17 06:00 Intake Total 720 ml Output Total 860 ml Balance -140 ml Laboratory Data CBC/BMP Item Value Date Time White Blood Count 7.6 K/mm3 03/18/17620 Red Blood Count 4.85 M/mm3 03/18/17620 Hemoglobin 15.1 g/dl 03/18/17620 Hematocrit 44.4 % 03/18/17620 Mean Corpuscular Volume 91.6 fl 03/18/17620 Mean Corpuscular Hemoglobin 31.1 pg 03/18/17620 Mean Corpuscular Hemoglobin Concent 34.0 g/dl 03/18/17620 Red Cell Distribution Width 12.7 % 03/18/17620 Platelet Count 333 k/mm3 03/18/17620 Sodium Level 140 MEQ/L 7/5/17 0621 Potassium Level 4.6 MEQ/L 03/18/17 0621 Chloride Level 104 MEQ/L 03/18/17 0621 Carbon Dioxide Level 29 MEQ/L 03/18/17 0621 Anion Gap 7 MEQ/L L 03/18/17 0621 Blood Urea Nitrogen 18 MG/DL 03/18/17 0621 Creatinine 0.82 MG/DL 03/18/17 0621 Glomerular Filtration Rate > 60.0 03/18/17 0621 Fasting Glucose 100 MG/DL 03/18/17 0621 Calcium Level 9.2 MG/DL 03/18/17 0621 Paty Paredes Mar 23, 2017 13:37
[2017-03-23 14:00] VITALS: BP 128/65
--- NOTE | 2017-03-23 15:45 | IPNPDOC ---
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 Patient seen today in the gym sitting up in a wheelchair. No complaints today. ALLERGIES: See Below MEDICATIONS: Reviewed, see below. OBJECTIVE: VITAL SIGNS: Please see below. PHYSICAL EXAMINATION: GENERAL: Well-nourished well-developed somewhat overweight late middle-age white male who appears to be in little to no acute distress. There is conjugate vision. Increasing spontaneous speech is generated by the patient when you talk to him and his ability to respond to command markedly improved. Patient is oriented 4. HEENT: Right facial droop is very mild. His speech is clear without any dysarthria and no gurgling sounds were heard. CARDIOVASCULAR: Regular rate and rhythm with normal S1-S2. Bilateral radial pulses are 2/4. LUNGS: All pak are clear to auscultation. ABDOMEN: Benign, nontender with normal bowel sounds in all quadrants. There are some ecchymoses from Lovenox injections. NEUROLOGICAL: As above. Some Right shoulder shrug and finger movement, with more right hip and knee motor function daily. Left U&LE are Sensory-motor intact. SKIN: Grossly intact except for Lovenox injection sites. LABORATORY DATA: Reviewed. Please see below. MICROBIOLOGY: Please see below. DVT prophylaxis ordered?: Lovenox and SILVERIO hose. ASSESSMENT AND PLAN: 1. Rehabilitation of hemorrhagic left internal capsule/midbrain/basal ganglia's CVA: Speech has markedly improved since Thursday, with steady Right LE gains, but limited RUE. Sling helping with pain control and positioning. Speech improving much more rapidly than RLE than RUE which has more twitch. Patient showing improving RLE control but limited gaiting at this time in placing foot due to some scissoring especially when tire. His stance is showing more improvement. ADL's also making some gains, but limited by lack of RUE function. Anticipated Date of D/C is 04/03, though he may need more time depending of RUE motor return to allow training to facilitate return to home. 2. Type 2 diabetes mellitus: Currently blood sugars seem to be well-controlled riding in the low to mid 100s range. Overall good control. 3. Hypertension: Blood pressures of been fairly well controlled since admission. No changes at this time for treatment. TIME SPENT: Chart Review, examination and documentation required greater than 25 minutes. Allergies Coded Allergies: ERNESTINA Inhibitors (Verified Allergy, Unknown, 12/17/12) Benazepril (Verified Allergy, Unknown, 12/17/12) Calcium Channel Blockers (Verified Allergy, Unknown, 12/17/12) Vital Signs Vital Signs Date Time Temp Pulse Resp B/P (MAP) Pulse Ox O2 Delivery O2 Flow Rate FiO2 03/23/17 08:51 84 121/67 03/23/17 06:00 98.0 18 97 Room Air Current Medications Current Medications Current Medications Al Hydrox/Mg Hydrox/Simethicone (Mylanta) 30 ml Q4HP PRN PO DYSPEPSIA; Start at 14:00; Stop 04/05/17 at 13:59 Amlodipine Besylate (Norvasc) 10 mg DAILY PO Last administered on 03/23/17 08: 51; Start 03/07/17 at 09:00; Stop 04/06/17 at 08:59 Amoxicillin/ Clavulanate Potassium (Augmentin) 875 mg BID PO Last administered on 03/21/17 20:29; Start 03/06/17 at 21:00; Stop 03/21/17 at 23:55; Status DC Bisacodyl (Dulcolax Tab) 5 mg DAILYPRN PRN PO CONSTIPATION Last administered on 03/22/17 08:46; Start 03/06/17 at 14:00; Stop 04/05/17 at 13:59 Dextrose (Dextrose 50%) 25 ml ASDIRECTED PRN IV SEE LABEL COMMENTS; Start 03/09 at 10:30; Stop 03/09/17 at 19:57; Status DC Dextrose (Dextrose 50%) 25 ml ASDIRECTED PRN IV SEE LABEL COMMENTS; Start 03/09 at 20:00; Stop 04/08/17 at 19:59; Status Cancel Enoxaparin Sodium (Lovenox) 40 mg DAILY SC Last administered on 03/23/17 08:50 ; Start 03/07/17 at 09:00; Stop 03/27/17 at 23:59 Glucagon (Glucagon) 1 mg ASDIRECTED PRN SC SEE LABEL COMMENTS; Start 03/09/17 at 10:30; Stop 03/09/17 at 19:58; Status DC Glucagon (Glucagon) 1 mg ASDIRECTED PRN SC SEE LABEL COMMENTS; Start 03/09/17 at 20:00; Stop 04/08/17 at 19:59; Status Cancel Glucose (Glucose) 16 GM ASDIRECTED PRN PO SEE LABEL COMMENTS; Start 03/09/17 at 10:30; Stop 03/09/17 at 19:58; Status DC Glucose (Glucose) 16 GM ASDIRECTED PRN PO SEE LABEL COMMENTS; Start 03/09/17 at 20:00; Stop 04/08/17 at 19:59; Status Cancel Home Med (Med Rec Complete!) ASDIRECTED XX ; Start 03/06/17 at 15:45; Stop at 15:48; Status DC Insulin Human Lispro (HumaLOG INSULIN) See Protocol Table AC SC Last administered on 03/09/17 12:18; Start 03/09/17 at 12:00; Stop 03/09/17 at 19:56 ; Status DC Insulin Human Lispro (HumaLOG INSULIN) See Protocol Table AC SC Last administered on 03/11/17 08:17; Start 03/10/17 at 07:30; Stop 03/11/17 at 11:59 ; Status DC Insulin Human Lispro (HumaLOG INSULIN) See Protocol Table QHS SC ; Start at 21:00; Stop 03/11/17 at 11:59; Status DC Lisinopril (Prinivil) 40 mg DAILY PO Last administered on 03/23/17 08:51; Start 03/07/17 at 09:00; Stop 04/06/17 at 08:59 Magnesium Hydroxide (Milk Of Magnesia) 30 ml DAILYPRN PRN PO CONSTIPATION Last administered on 03/22/17 08:46; Start 03/06/17 at 14:00; Stop 04/05/17 at 13:59 Metformin HCl (Glucophage) 500 mg BID@ PO Last administered on 03/23/17 08:51; Start 03/06/17 at 18:00; Stop 04/05/17 at 17:59 Pantoprazole Sodium (Protonix) 40 mg DAILY PO Last administered on 03/23/17 08 :51; Start 03/07/17 at 09:00; Stop 04/06/17 at 08:59 Pravastatin Sodium (Pravachol) 80 mg QHS PO Last administered on 03/22/17 20:51 ; Start 03/06/17 at 21:00; Stop 04/05/17 at 20:59 Sodium Biphosphate/ Sodium Phosphate (Fleet Enema) 1 ea DAILYPRN PRN [place] CONSTIPATION Last administered on 03/14/17 14:53; Start 03/06/17 at 14:00; Stop 04/05/17 at 13:59 Tramadol HCl (Ultram) 50 mg Q4HP PRN PO PAIN SCALE 6-10 Last administered on 08:29; Start 03/06/17 at 14:00; Stop 03/27/17 at 23:55 LOTUS PATTERSON MD Mar 23, 2017 15:45
[2017-03-23 20:00] VITALS: BP 129/77
[2017-03-23] MEDS: PRAVASTATIN 20 MG TAB PO SCH (20:44)
[2017-03-24 06:00] VITALS: BP 125/74
[2017-03-24 08:07] LABS: MEAN CORPUSCULAR HEMOGLOBIN 32.9 pg (27.0-33.0); MEAN CORPUSCULAR HGB CONC 35.4 g/dl (32.0-36.5); MEAN CORPUSCULAR VOLUME 92.7 fl (80.0-96.0); RED CELL DISTRIBUTION WIDTH 13.1 % (11.5-14.5); WHITE BLOOD COUNT 5.5 K/mm3 (4.0-10.0)
[2017-03-24] MEDS: amLODIPine 10 MG TAB PO SCH (08:33)
[2017-03-24] MEDS: LISINOPRIL 40 MG TAB PO SCH (08:33)
[2017-03-24] MEDS: metFORMIN (GLUCOPHAGE) 500 MG TAB PO SCH ×2 (08:33→17:28)
[2017-03-24] MEDS: ENOXAPARIN 40 MG/0.4 ML SYRINGE (J1650) SC SCH (08:33)
[2017-03-24] MEDS: PANTOPRAZOLE 40MG TAB (PROTONIX) PO SCH (08:33)
[2017-03-24 09:02] LABS: ANION GAP 5 MEQ/L (8-16); BLOOD UREA NITROGEN 12 MG/DL (7-18); CALCIUM LEVEL 8.8 MG/DL (8.8-10.2); CARBON DIOXIDE LEVEL 28 MEQ/L (21-32); CHLORIDE LEVEL 107 MEQ/L (98-107); CREATININE FOR GFR 0.82 MG/DL (0.70-1.30); GLOMERULAR FILTRATION RATE > 60.0 (>49); GLUCOSE, FASTING 101 MG/DL (80-110); POTASSIUM SERUM 4.4 MEQ/L (3.5-5.1); SODIUM LEVEL 140 MEQ/L (136-145)
--- NOTE | 2017-03-24 12:10 | IPNPDOC ---
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 Patient seen today in the his room sitting up in a bed. No complaints today. ALLERGIES: See Below MEDICATIONS: Reviewed, see below. OBJECTIVE: VITAL SIGNS: Please see below. PHYSICAL EXAMINATION: GENERAL: Well-nourished well-developed somewhat overweight late middle-age white male who appears to be in little to no acute distress. There is conjugate vision. Increasing spontaneous speech is generated by the patient when you talk to him and his ability to respond to command markedly improved. Patient is oriented 4. HEENT: Right facial droop is very mild. His speech is clear without any dysarthria and no gurgling sounds were heard. CARDIOVASCULAR: Regular rate and rhythm with normal S1-S2. Bilateral radial pulses are 2/4. LUNGS: All pak are clear to auscultation. ABDOMEN: Benign, nontender with normal bowel sounds in all quadrants. There are some ecchymoses from Lovenox injections. NEUROLOGICAL: As above. Some increased Right shoulder shrug and finger movement , with more right hip and knee motor function daily. Left U&LE are Sensory- motor intact. SKIN: Grossly intact except for Lovenox injection sites. LABORATORY DATA: Reviewed. Please see below. MICROBIOLOGY: Please see below. DVT prophylaxis ordered?: Lovenox and SILVERIO hose. ASSESSMENT AND PLAN: 1. Rehabilitation of hemorrhagic left internal capsule/midbrain/basal ganglia's CVA: Speech has markedly improved since Thursday, with steady Right LE gains, but limited RUE. Sling helping with pain control and positioning. Speech improving much more rapidly than RLE than RUE which has more twitch. Patient showing improving RLE control but limited gaiting at this time in placing foot due to some scissoring especially when tire. His stance is showing more improvement. ADL's also making some gains, but limited by lack of RUE function. Anticipated Date of D/C is 04/03, though he may need more time depending of RUE motor return to allow training to facilitate return to home. Rehabilitation Team Rounds: Patient continues to make slow steady progress with physical recovery and has had marked improvement with clearing his aphasia. He is somewhat frustrated by having his dominate hand unable to perform well and it impacts activities such as using the urinal. At present it appears likely he will need some additional to time to reach goals for return to home with his . 2. Type 2 diabetes mellitus: Currently blood sugars seem to be well-controlled riding in the low to mid 100s range. Overall good control. 3. Hypertension: Blood pressures of been fairly well controlled since admission. No changes at this time for treatment. 4. Bladder Management: As transfers take too long and self placing of urinal is also not working well with occasional accidents, I will order condom catheter to bed bag for urinary management. TIME SPENT: Chart Review, examination and documentation required greater than 35 minutes. Allergies Coded Allergies: ERNESTINA Inhibitors (Verified Allergy, Unknown, 12/17/12) Benazepril (Verified Allergy, Unknown, 12/17/12) Calcium Channel Blockers (Verified Allergy, Unknown, 12/17/12) Vital Signs Vital Signs Date Time Temp Pulse Resp B/P (MAP) Pulse Ox O2 Delivery O2 Flow Rate FiO2 03/24/17 08:33 65 125/74 03/24/17 07:50 Room Air 03/24/17 06:00 98.1 18 99 Laboratory Data CBC/BMP Laboratory Tests 03/24/17 07:30 Red Blood Count 4.20 L, Mean Corpuscular Volume 92.7, Mean Corpuscular Hemoglobin 32.9, Mean Corpuscular Hemoglobin Concent 35.4, Red Cell Distribution Width 13.1, Calcium Level 8.8 Labs 24H Laboratory Tests 2 03/24/17 07:30: Anion Gap 5L, Glomerular Filtration Rate > 60.0, Blood Urea Nitrogen 12, Creatinine 0.82, Sodium Level 140, Potassium Level 4.4, Chloride Level 107, Carbon Dioxide Level 28, Calcium Level 8.8 Current Medications Current Medications Current Medications Al Hydrox/Mg Hydrox/Simethicone (Mylanta) 30 ml Q4HP PRN PO DYSPEPSIA; Start at 14:00; Stop 04/05/17 at 13:59 Amlodipine Besylate (Norvasc) 10 mg DAILY PO Last administered on 03/24/17t 08: 33; Start 03/07/17 at 09:00; Stop 04/06/17 at 08:59 Amoxicillin/ Clavulanate Potassium (Augmentin) 875 mg BID PO Last administered on 03/21/17 20:29; Start 03/06/17 at 21:00; Stop 03/21/17 at 23:55; Status DC Bisacodyl (Dulcolax Tab) 5 mg DAILYPRN PRN PO CONSTIPATION Last administered on 03/22/17 08:46; Start 03/06/17 at 14:00; Stop 04/05/17 at 13:59 Dextrose (Dextrose 50%) 25 ml ASDIRECTED PRN IV SEE LABEL COMMENTS; Start 03/09 at 10:30; Stop 03/09/17 at 19:57; Status DC Dextrose (Dextrose 50%) 25 ml ASDIRECTED PRN IV SEE LABEL COMMENTS; Start 03/09 at 20:00; Stop 04/08/17 at 19:59; Status Cancel Enoxaparin Sodium (Lovenox) 40 mg DAILY SC Last administered on 03/24/17 08:33 ; Start 03/07/17 at 09:00; Stop 03/27/17 at 23:59 Glucagon (Glucagon) 1 mg ASDIRECTED PRN SC SEE LABEL COMMENTS; Start 03/09/17 at 10:30; Stop 03/09/17 at 19:58; Status DC Glucagon (Glucagon) 1 mg ASDIRECTED PRN SC SEE LABEL COMMENTS; Start 03/09/17 at 20:00; Stop 04/08/17 at 19:59; Status Cancel Glucose (Glucose) 16 GM ASDIRECTED PRN PO SEE LABEL COMMENTS; Start 03/09/17 at 10:30; Stop 03/09/17 at 19:58; Status DC Glucose (Glucose) 16 GM ASDIRECTED PRN PO SEE LABEL COMMENTS; Start 03/09/17 at 20:00; Stop 04/08/17 at 19:59; Status Cancel Home Med (Med Rec Complete!) ASDIRECTED XX ; Start 03/06/17 at 15:45; Stop at 15:48; Status DC Insulin Human Lispro (HumaLOG INSULIN) See Protocol Table AC SC Last administered on 03/09/17 12:18; Start 03/09/17 at 12:00; Stop 03/09/17 at 19:56 ; Status DC Insulin Human Lispro (HumaLOG INSULIN) See Protocol Table AC SC Last administered on 03/11/17 08:17; Start 03/10/17 at 07:30; Stop 03/11/17 at 11:59 ; Status DC Insulin Human Lispro (HumaLOG INSULIN) See Protocol Table QHS SC ; Start at 21:00; Stop 03/11/17 at 11:59; Status DC Lisinopril (Prinivil) 40 mg DAILY PO Last administered on 03/24/17 08:33; Start 03/07/17 at 09:00; Stop 04/06/17 at 08:59 Magnesium Hydroxide (Milk Of Magnesia) 30 ml DAILYPRN PRN PO CONSTIPATION Last administered on 03/22/17 08:46; Start 03/06/17 at 14:00; Stop 04/05/17 at 13:59 Metformin HCl (Glucophage) 500 mg BID@18 PO Last administered on 03/24/17 08:33; Start 03/06/17 at 18:00; Stop 04/05/17 at 17:59 Pantoprazole Sodium (Protonix) 40 mg DAILY PO Last administered on 03/24/17 08 :33; Start 03/07/17 at 09:00; Stop 04/06/17 at 08:59 Pravastatin Sodium (Pravachol) 80 mg QHS PO Last administered on 03/23/17 20: 44; Start 03/06/17 at 21:00; Stop 04/05/17 at 20:59 Sodium Biphosphate/ Sodium Phosphate (Fleet Enema) 1 ea DAILYPRN PRN [place] CONSTIPATION Last administered on 03/14/17 14:53; Start 03/06/17 at 14:00; Stop 04/05/17 at 13:59 Tramadol HCl (Ultram) 50 mg Q4HP PRN PO PAIN SCALE 6-10 Last administered on 08:29; Start 03/06/17 at 14:00; Stop 03/27/17 at 23:55 LOTUS PATTERSON MD Mar 24, 2017 12:10
[2017-03-24 14:00] VITALS: BP 132/72
[2017-03-24] MEDS: PRAVASTATIN 20 MG TAB PO SCH (20:45)
[2017-03-24 22:45] VITALS: BP 129/77
[2017-03-25 05:51] VITALS: BP 130/80
[2017-03-25] MEDS: ENOXAPARIN 40 MG/0.4 ML SYRINGE (J1650) SC SCH (08:44)
[2017-03-25] MEDS: LISINOPRIL 40 MG TAB PO SCH (08:45)
[2017-03-25] MEDS: amLODIPine 10 MG TAB PO SCH (08:45)
[2017-03-25] MEDS: metFORMIN (GLUCOPHAGE) 500 MG TAB PO SCH ×2 (08:45→18:30)
[2017-03-25] MEDS: PANTOPRAZOLE 40MG TAB (PROTONIX) PO SCH (08:45)
--- NOTE | 2017-03-25 11:15 | IPNPDOC ---
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 Patient seen today in the his room sitting up in a bed. Patient frustrated by condom catheter slipping off. No pain problems. ALLERGIES: See Below MEDICATIONS: Reviewed, see below. OBJECTIVE: VITAL SIGNS: Please see below. PHYSICAL EXAMINATION: GENERAL: Well-nourished well-developed somewhat overweight late middle-age white male who appears to be in little to no acute distress. There is conjugate vision. Increasing spontaneous speech is generated by the patient when you talk to him and his ability to respond to command markedly improved. Patient is oriented 4. HEENT: Right facial droop is very mild and head is atraumatic. CARDIOVASCULAR: Regular rate and rhythm with normal S1-S2 without S3, S4, murmurs or rubs. Bilateral radial pulses are 2/4. LUNGS: All pak are clear to auscultation. ABDOMEN: Benign, nontender with normal bowel sounds in all quadrants. There are some ecchymoses from Lovenox injections. NEUROLOGICAL: As above. Some increased Right shoulder shrug and finger movement , with more right hip and knee motor function daily. Left U&LE are Sensory- motor intact. SKIN: Grossly intact except for Lovenox injection sites. LABORATORY DATA: Reviewed. Please see below. MICROBIOLOGY: Please see below. IMAGING: No new imaging. DVT prophylaxis ordered?: Lovenox and SILVERIO hose. ASSESSMENT AND PLAN: 1. Rehabilitation of hemorrhagic left internal capsule/midbrain/basal ganglia's CVA: Speech has markedly improved since Thursday, with steady Right LE gains, but limited RUE. Sling helping with pain control and positioning. Speech improving much more rapidly than RLE than RUE which has more twitch. Patient showing improving RLE control but limited gaiting at this time in placing foot due to some scissoring especially when tire. His stance is showing more improvement. ADL's also making some gains, but limited by lack of RUE function. Anticipated Date of D/C is 04/03, though he may need more time depending of RUE motor return to allow training to facilitate return to home. Patient continues to make slow steady progress with physical recovery and has had marked improvement with clearing his aphasia. He is somewhat frustrated by having his dominate hand unable to perform well and it impacts activities such as using the urinal, dressing and undressing. At present it appears likely he will need some additional to time to reach goals for return to home with his . 2. Type 2 diabetes mellitus: Currently blood sugars seem to be well-controlled riding in the low to mid 100s range. Overall good control. 3. Hypertension: Blood pressures of been fairly well controlled since admission. No changes at this time for treatment. 4. Bladder Management: Patient frustrated as condom catheter slipped off. We will try stand to void every 3 hours while awake. TIME SPENT: Chart Review, examination and documentation required greater than 25 minutes. Allergies Coded Allergies: ERNESTINA Inhibitors (Verified Allergy, Unknown, 12/17/12) Benazepril (Verified Allergy, Unknown, 12/17/12) Calcium Channel Blockers (Verified Allergy, Unknown, 12/17/12) Vital Signs Vital Signs Date Time Temp Pulse Resp B/P (MAP) Pulse Ox O2 Delivery O2 Flow Rate FiO2 03/25/17 08:45 58 130/80 03/25/17 08:30 Room Air 03/25/17 05:51 97.3 14 97 Current Medications Current Medications Current Medications Al Hydrox/Mg Hydrox/Simethicone (Mylanta) 30 ml Q4HP PRN PO DYSPEPSIA; Start at 14:00; Stop 04/05/17 at 13:59 Amlodipine Besylate (Norvasc) 10 mg DAILY PO Last administered on 03/25/17 08: 45; Start 03/07/17 at 09:00; Stop 04/06/17 at 08:59 Amoxicillin/ Clavulanate Potassium (Augmentin) 875 mg BID PO Last administered on 03/21/17 20:29; Start 03/06/17 at 21:00; Stop 03/21/17 at 23:55; Status DC Bisacodyl (Dulcolax Tab) 5 mg DAILYPRN PRN PO CONSTIPATION Last administered on 03/22/17 08:46; Start 03/06/17 at 14:00; Stop 04/05/17 at 13:59 Dextrose (Dextrose 50%) 25 ml ASDIRECTED PRN IV SEE LABEL COMMENTS; Start 03/09 at 10:30; Stop 03/09/17 at 19:57; Status DC Dextrose (Dextrose 50%) 25 ml ASDIRECTED PRN IV SEE LABEL COMMENTS; Start 03/09 at 20:00; Stop 04/08/17 at 19:59; Status Cancel Enoxaparin Sodium (Lovenox) 40 mg DAILY SC Last administered on 03/25/17 08:44 ; Start 03/07/17 at 09:00; Stop 03/27/17 at 23:59 Glucagon (Glucagon) 1 mg ASDIRECTED PRN SC SEE LABEL COMMENTS; Start 03/09/17 at 10:30; Stop 03/09/17 at 19:58; Status DC Glucagon (Glucagon) 1 mg ASDIRECTED PRN SC SEE LABEL COMMENTS; Start 03/09/17 at 20:00; Stop 04/08/17 at 19:59; Status Cancel Glucose (Glucose) 16 GM ASDIRECTED PRN PO SEE LABEL COMMENTS; Start 03/09/17 at 10:30; Stop 03/09/17 at 19:58; Status DC Glucose (Glucose) 16 GM ASDIRECTED PRN PO SEE LABEL COMMENTS; Start 03/09/17 at 20:00; Stop 04/08/17 at 19:59; Status Cancel Home Med (Med Rec Complete!) ASDIRECTED XX ; Start 03/06/17 at 15:45; Stop at 15:48; Status DC Insulin Human Lispro (HumaLOG INSULIN) See Protocol Table AC SC Last administered on 03/09/17 12:18; Start 03/09/17 at 12:00; Stop 03/09/17 at 19:56 ; Status DC Insulin Human Lispro (HumaLOG INSULIN) See Protocol Table AC SC Last administered on 03/11/17 08:17; Start 03/10/17 at 07:30; Stop 03/11/17 at 11:59 ; Status DC Insulin Human Lispro (HumaLOG INSULIN) See Protocol Table QHS SC ; Start at 21:00; Stop 03/11/17 at 11:59; Status DC Lisinopril (Prinivil) 40 mg DAILY PO Last administered on 03/25/17 08:45; Start 03/07/17 at 09:00; Stop 04/06/17 at 08:59 Magnesium Hydroxide (Milk Of Magnesia) 30 ml DAILYPRN PRN PO CONSTIPATION Last administered on 03/22/17 08:46; Start 03/06/17 at 14:00; Stop 04/05/17 at 13:59 Metformin HCl (Glucophage) 500 mg BID@08,18 PO Last administered on 03/25/17 08:45; Start 03/06/17 at 18:00; Stop 04/05/17 at 17:59 Pantoprazole Sodium (Protonix) 40 mg DAILY PO Last administered on 03/25/17 08 :45; Start 03/07/17 at 09:00; Stop 04/06/17 at 08:59 Pravastatin Sodium (Pravachol) 80 mg QHS PO Last administered on 03/24/17 20: 45; Start 03/06/17 at 21:00; Stop 04/05/17 at 20:59 Sodium Biphosphate/ Sodium Phosphate (Fleet Enema) 1 ea DAILYPRN PRN [place] CONSTIPATION Last administered on 03/14/17 14:53; Start 03/06/17 at 14:00; Stop 04/05/17 at 13:59 Tramadol HCl (Ultram) 50 mg Q4HP PRN PO PAIN SCALE 6-10 Last administered on 08:29; Start 03/06/17 at 14:00; Stop 03/27/17 at 23:55 LOTUS PATTERSON MD Mar 25, 2017 11:15
[2017-03-25 14:00] VITALS: BP 142/68
[2017-03-25 21:30] VITALS: BP 123/76
[2017-03-25] MEDS: PRAVASTATIN 20 MG TAB PO SCH (21:43)
[2017-03-26 06:00] VITALS: BP 108/61
[2017-03-26] MEDS: PANTOPRAZOLE 40MG TAB (PROTONIX) PO SCH (08:47)
[2017-03-26] MEDS: metFORMIN (GLUCOPHAGE) 500 MG TAB PO SCH ×2 (08:47→17:38)
[2017-03-26] MEDS: ENOXAPARIN 40 MG/0.4 ML SYRINGE (J1650) SC SCH (08:49)
[2017-03-26] MEDS: LISINOPRIL 40 MG TAB PO SCH (08:50)
[2017-03-26] MEDS: amLODIPine 10 MG TAB PO SCH (08:50)
[2017-03-26] MEDS: amLODIPine 5 MG TAB PO SCH (11:31)
--- NOTE | 2017-03-26 12:24 | IPNPDOC ---
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 Patient seen today in the his room sitting up in a chair. No pain problems. ALLERGIES: See Below MEDICATIONS: Reviewed, see below. OBJECTIVE: VITAL SIGNS: Please see below. PHYSICAL EXAMINATION: GENERAL: Well-nourished well-developed somewhat overweight late middle-age white male who appears to be in little to no acute distress. There is conjugate vision. Increasing spontaneous speech is generated by the patient when you talk to him and his ability to respond to command markedly improved. Patient is oriented 4. Only some trouble finding the exact word he wants at times, but generally he has good conversational flow. HEENT: Right facial droop is very mild and head is atraumatic. CARDIOVASCULAR: Regular rate and rhythm with normal S1-S2 without S3, S4, murmurs or rubs. Bilateral radial pulses are 2/4. LUNGS: All pak are clear to auscultation. ABDOMEN: Benign, nontender with normal bowel sounds in all quadrants. There are some ecchymoses from Lovenox injections. NEUROLOGICAL: As above. Some increased Right shoulder shrug and finger movement , with more right hip and knee motor function daily. Left U&LE are Sensory- motor intact. SKIN: Grossly intact except for Lovenox injection sites. LABORATORY DATA: Reviewed. Please see below. MICROBIOLOGY: Please see below. IMAGING: No new imaging. DVT prophylaxis ordered?: Lovenox and SILVERIO hose. ASSESSMENT AND PLAN: 1. Rehabilitation of hemorrhagic left internal capsule/midbrain/basal ganglia's CVA: Speech has markedly improved since Thursday, with steady Right LE gains, but limited RUE. Sling helping with pain control and positioning. Speech improving much more rapidly than RLE than RUE which has more twitch. Patient showing improving RLE control but limited gaiting at this time in placing foot due to some scissoring especially when tire. His stance is showing more improvement. ADL's also making some gains, but limited by lack of RUE function. Anticipated Date of D/C is 04/03, though he may need more time depending of RUE motor return to allow training to facilitate return to home. Patient continues to make slow steady progress with physical recovery and has had marked improvement with clearing his aphasia. He is somewhat frustrated by having his dominate hand unable to perform well and it impacts activities such as using the urinal, dressing and undressing. At present it appears likely he will need some additional to time to reach goals for return to home with his . Rehab. Team Rounds and Patient/Family Conference: Patient reviewed today in rounds then Patient/Family meeting with him, his and 3 of his sons and a daughter present. Patient who has been making steady progress, but gets down on himself at times for not getting it all back immediately needs I believe about 18 more days to reach the skills for relative safety at home. Patient's family though will discuss the time and support they are able to provide him and his (who is having Cataract surgery next ). Currently, we will start family training on Thursday and try overnight in the apartment with the patient and his to review his skills and her ability to assist him on Thursday into Thursday. I still feel he is likely to have a good recovery of speech, swallowing, and his right lower extremity and fair to good of the right upper extremity, but he needs time for neurologic recovery. Family counseled about things they need to do to get ready for recovery at different levels and time. 2. Type 2 diabetes mellitus: Currently blood sugars seem to be well-controlled riding in the low to mid 100s range. Overall good control with no changes needed. 3. Hypertension: Blood pressure today was low. I will ask Ms. Paredes to consider appropriate changes at this time. 4. Bladder Management: Patient happpy with stand to void every 3 hours while awake. He reports it went well. TIME SPENT: Chart Review, examination, documentation and meetings required greater than 90 minutes. Patient partially upset with some care possibilities decided to try self transfer from his w/c to the bed resulting in sliding down to the floor without injury after returning to his room following the patient/family meeting with the rehab. team. Allergies Coded Allergies: ERNESTINA Inhibitors (Verified Allergy, Unknown, 12/17/12) Benazepril (Verified Allergy, Unknown, 12/17/12) Calcium Channel Blockers (Verified Allergy, Unknown, 12/17/12) Vital Signs Vital Signs Date Time Temp Pulse Resp B/P (MAP) Pulse Ox O2 Delivery O2 Flow Rate FiO2 03/26/17 09:00 Room Air 03/26/17 08:50 87 97/64 03/26/17 06:00 98.3 18 97 Current Medications Current Medications Current Medications Al Hydrox/Mg Hydrox/Simethicone (Mylanta) 30 ml Q4HP PRN PO DYSPEPSIA; Start at 14:00; Stop 04/05/17 at 13:59 Amlodipine Besylate (Norvasc) 5 mg DAILY PO ; Start 03/26/17 at 09:00; Stop 08/30 at 08:59 Amlodipine Besylate (Norvasc) 10 mg DAILY PO Last administered on 03/25/17 08: 45; Start 03/07/17 at 09:00; Stop 03/26/17 at 11:08; Status DC Amoxicillin/ Clavulanate Potassium (Augmentin) 875 mg BID PO Last administered on 03/21/17 20:29; Start 03/06/17 at 21:00; Stop 03/21/17 at 23:55; Status DC Bisacodyl (Dulcolax Tab) 5 mg DAILYPRN PRN PO CONSTIPATION Last administered on 03/22/17 08:46; Start 03/06/17 at 14:00; Stop 04/05/17 at 13:59 Dextrose (Dextrose 50%) 25 ml ASDIRECTED PRN IV SEE LABEL COMMENTS; Start 03/09 at 10:30; Stop 03/09/17 at 19:57; Status DC Dextrose (Dextrose 50%) 25 ml ASDIRECTED PRN IV SEE LABEL COMMENTS; Start 03/09 at 20:00; Stop 04/08/17 at 19:59; Status Cancel Enoxaparin Sodium (Lovenox) 40 mg DAILY SC Last administered on 03/26/17 08:49 ; Start 03/07/17 at 09:00; Stop 03/31/17 at 23:55 Glucagon (Glucagon) 1 mg ASDIRECTED PRN SC SEE LABEL COMMENTS; Start 03/09/17 at 10:30; Stop 03/09/17 at 19:58; Status DC Glucagon (Glucagon) 1 mg ASDIRECTED PRN SC SEE LABEL COMMENTS; Start 03/09/17 at 20:00; Stop 04/08/17 at 19:59; Status Cancel Glucose (Glucose) 16 GM ASDIRECTED PRN PO SEE LABEL COMMENTS; Start 03/09/17 at 10:30; Stop 03/09/17 at 19:58; Status DC Glucose (Glucose) 16 GM ASDIRECTED PRN PO SEE LABEL COMMENTS; Start 03/09/17 at 20:00; Stop 04/08/17 at 19:59; Status Cancel Home Med (Med Rec Complete!) ASDIRECTED XX ; Start 03/06/17 at 15:45; Stop at 15:48; Status DC Insulin Human Lispro (HumaLOG INSULIN) See Protocol Table AC SC Last administered on 03/09/17 12:18; Start 03/09/17 at 12:00; Stop 03/09/17 at 19:56 ; Status DC Insulin Human Lispro (HumaLOG INSULIN) See Protocol Table AC SC Last administered on 03/11/17 08:17; Start 03/10/17 at 07:30; Stop 03/11/17 at 11:59 ; Status DC Insulin Human Lispro (HumaLOG INSULIN) See Protocol Table QHS SC ; Start at 21:00; Stop 03/11/17 at 11:59; Status DC Lisinopril (Prinivil) 40 mg DAILY PO Last administered on 03/25/17 08:45; Start 03/07/17 at 09:00; Stop 04/06/17 at 08:59 Magnesium Hydroxide (Milk Of Magnesia) 30 ml DAILYPRN PRN PO CONSTIPATION Last administered on 03/22/17 08:46; Start 03/06/17 at 14:00; Stop 04/05/17 at 13:59 Metformin HCl (Glucophage) 500 mg BID@ PO Last administered on 03/26/17 08:47; Start 03/06/17 at 18:00; Stop 04/05/17 at 17:59 Pantoprazole Sodium (Protonix) 40 mg DAILY PO Last administered on 03/26/17 08 :47; Start 03/07/17 at 09:00; Stop 04/06/17 at 08:59 Pravastatin Sodium (Pravachol) 80 mg QHS PO Last administered on 03/25/17 21: 43; Start 03/06/17 at 21:00; Stop 04/05/17 at 20:59 Sodium Biphosphate/ Sodium Phosphate (Fleet Enema) 1 ea DAILYPRN PRN [place] CONSTIPATION Last administered on 03/14/17 14:53; Start 03/06/17 at 14:00; Stop 04/05/17 at 13:59 Tramadol HCl (Ultram) 50 mg Q4HP PRN PO PAIN SCALE 6-10 Last administered on 08:29; Start 03/06/17 at 14:00; Stop 04/02/17 at 23:55 LOTUS PATTERSON MD Mar 26, 2017 12:24
--- NOTE | 2017-03-26 13:03 | IPNPDOC ---
Date Seen The patient was seen on 03/26/17. Progress Note HPI: 67year oldM with a past medical history significant for HTN, HLD, NIDDM who developed slurred speech and Rt sided weakness on 02/27/17 and was treated at [facility] for intracerebral hemorrhage basal ganglia expanded to internal capsule and midbrain. 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 Pt with residual dense Rt hemiparesis, decreased rt sensory perception, Leftward gaze, dysarthria, dysphagia, and aphasia. He was treated empirically for possible pneumonia with IV Zosyn/Vanco and transitioned to po Augmentin. The pt was felt stable to transfer to ARU at [facility] to the care of Dr Moreno 03/06/17. The pt answers questions with short responses. No acute medical complaints today. He is OOB to the chair and is participating with therapy in wheelchair. Denies any pain, Headache, Chest Pain, Shortness of breath, abdominal pain. No N/V/D. No changes in bowel or bladder habits reported. PMHx: HTN HLD NIDM OA H/o SBO CT 03/21 Mild hepatomegaly. PSHX: Rt TKA hernia repair PE: GEN: 67yoM, appears stated age. Well-nourished, well developed. No acute distress. Alert. HEENT: Normocephalic, atraumatic Moist mucous membranes. CHEST: Regular rate and rhythm, +S1, +S2 LUNGS: Clear to auscultation bilaterally. No wheezes, rales, or rhonchi. Breathing appears symmetric and easy. ABD: Round, soft, non-tender, non-distended. +Bowel sounds throughout. No rebound or guarding. No costovertebral angle tenderness. EXT: Pulses 2+ bilaterally dorsalis pedis and radial. No lower extremity edema appreciated. Rt hemiparesis. SKIN: [place], dry, warm. Capillary refill <2sec. No rashes. NEURO: Rt hemiparesis noted. Expressive aphasia and dysarthria noted. A&P: 67year oldM with a past medical history significant for HTN, HLD, NIDDM who developed slurred speech and Rt sided weakness on 02/27/17 and was treated at [facility] for intracerebral hemorrhage basal ganglia expanded to internal capsule and midbrain. 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 Pt with residual dense Rt hemiparesis, decreased rt sensory perception, Leftward gaze, dysarthria, dysphagia, and aphasia. 1. 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 Management as per ARU, Dr Moreno. PT/OT/ST as per ARU. Bowel care as per ARU. Pain control as per ARU. DVT prophylaxis. Lovenox SC. Disposition as per ARU. Anticipated D/C date 04/03/17. 2. HTN. Lisinopril 40 mg daily. BP noted to be decreased 97/64. Reduced Norvasc with hold parameters and hold parameter on Lisinopril. 3. HLD. Continue Pravachol. LDL 03/10/17 69. 4. NIDDM. CC diet, SSI, Metformin 500mg BID. BS this AM 103. Hgb A1c 03/10/17 6.3. 5. GERD. Continue Protonix 40 mg daily. 6. Pneumonia. Treated with Vancomycin/Zosyn IV at [facility] and transitioned to po Augmentin. Pt finished course of Augmentin 03/21/17. Afebrile, no leukocytosis. Request I/S. Monitor. VS, [facility]&O[facility]O Vital Signs Date Time Temp Pulse Resp B/P (MAP) Pulse Ox O2 Delivery O2 Flow Rate FiO2 03/26/17 09:00 Room Air 03/26/17 08:50 87 97/64 03/26/17 06:00 98.3 18 97 I&O- Last 24 Hours up to 6 AM 03/26/17 06:00 Intake Total 1210 ml Output Total 1700 ml Balance -490 ml Paty Paredes Mar 26, 2017 13:03
[2017-03-26 16:10] VITALS: BP 138/74
[2017-03-26 19:50] VITALS: BP 131/78
[2017-03-26] MEDS: PRAVASTATIN 20 MG TAB PO SCH (21:22)
[2017-03-27 06:00] VITALS: BP 139/68
[2017-03-27] MEDS: PANTOPRAZOLE 40MG TAB (PROTONIX) PO SCH (08:29)
[2017-03-27] MEDS: amLODIPine 5 MG TAB PO SCH (08:29)
[2017-03-27] MEDS: LISINOPRIL 40 MG TAB PO SCH (08:29)
[2017-03-27] MEDS: metFORMIN (GLUCOPHAGE) 500 MG TAB PO SCH ×2 (08:30→17:37)
[2017-03-27] MEDS: ENOXAPARIN 40 MG/0.4 ML SYRINGE (J1650) SC SCH (08:30)
--- NOTE | 2017-03-27 12:17 | IPNPDOC ---
Date Seen The patient was seen on 03/27/17. Progress Note HPI: 67year oldM with a past medical history significant for HTN, HLD, NIDDM who developed slurred speech and Rt sided weakness on 02/27/17 and was treated at [facility] for intracerebral hemorrhage basal ganglia expanded to internal capsule and midbrain. 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 Pt with residual dense Rt hemiparesis, decreased rt sensory perception, Leftward gaze, dysarthria, dysphagia, and aphasia. He was treated empirically for possible pneumonia with IV Zosyn/Vanco and transitioned to po Augmentin. The pt was felt stable to transfer to ARU at [facility] to the care of Dr Moreno 03/06/17. The pt answers questions with short responses. No acute medical complaints today. He is OOB to the chair and is participating with therapy. Denies any pain, Headache, Chest Pain, Shortness of breath, abdominal pain. No N/V/D. No changes in bowel or bladder habits reported. PMHx: HTN HLD NIDM OA H/o SBO CT 03/21 Mild hepatomegaly. PSHX: Rt TKA hernia repair PE: GEN: 67yoM, appears stated age. Well-nourished, well developed. No acute distress. Alert. HEENT: Normocephalic, atraumatic Moist mucous membranes. CHEST: Regular rate and rhythm, +S1, +S2 LUNGS: Clear to auscultation bilaterally. No wheezes, rales, or rhonchi. Breathing appears symmetric and easy. ABD: Round, soft, non-tender, non-distended. +Bowel sounds throughout. No rebound or guarding. No costovertebral angle tenderness. EXT: Pulses 2+ bilaterally dorsalis pedis and radial. No lower extremity edema appreciated. Rt hemiparesis. SKIN: [place], dry, warm. Capillary refill <2sec. No rashes. NEURO: Rt hemiparesis noted. Expressive aphasia and dysarthria noted. A&P: 67year oldM with a past medical history significant for HTN, HLD, NIDDM who developed slurred speech and Rt sided weakness on 02/27/17 and was treated at [facility] for intracerebral hemorrhage basal ganglia expanded to internal capsule and midbrain. 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 Pt with residual dense Rt hemiparesis, decreased rt sensory perception, Leftward gaze, dysarthria, dysphagia, and aphasia. 1. 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 Management as per ARU, Dr Moreno. PT/OT/ST as per ARU. Bowel care as per ARU. Pain control as per ARU. DVT prophylaxis. Lovenox SC. Disposition as per ARU. Anticipated D/C date 04/03/17. 2. HTN. Lisinopril 40 mg daily. BP noted to be decreased 97/64. Reduced Norvasc with hold parameters and hold parameter on Lisinopril. BP trend improved. 3. HLD. Continue Pravachol. LDL 03/10/17 69. 4. NIDDM. CC diet, SSI, Metformin 500mg BID. BS this AM 103. Hgb A1c 03/10/17 6.3. 5. GERD. Continue Protonix 40 mg daily. 6. Pneumonia. Treated with Vancomycin/Zosyn IV at [facility] and transitioned to po Augmentin. Pt finished course of Augmentin 03/21/17. Tmax 99.5, Update labs CBC /CMP. Update CXR. Encourage I/S. Add nebs. Monitor. VS, I&O, 24H, Fishbone Vital Signs/I&O Vital Signs Date Time Temp Pulse Resp B/P (MAP) Pulse Ox O2 Delivery O2 Flow Rate FiO2 03/27/17 08:30 Room Air 03/27/17 08:29 71 139/68 03/27/17 06:00 99.5 18 98 I&O- Last 24 Hours up to 6 AM 03/27/17 05:59 Intake Total 780 ml Output Total 600 ml Balance 180 ml Laboratory Data 24H LABS Laboratory Tests 2 03/27/17 12:05: Paty Paredes Mar 27, 2017 12:17
[2017-03-27 12:23] LABS: BASO % 0.5 % (0.0-1.0); EOS # 0.1 K/mm3 (0.0-0.50); EOS % 1.1 % (0.0-3.0); LARGE UNSTAINED CELL # 0.1 K/mm3 (0.0-0.4); LARGE UNSTAINED CELL % 1.5 % (0.0-4.0); LYMPH # 2.6 K/mm3 (1.5-4.5); LYMPH % 34.3 % (24.0-44.0); MEAN CORPUSCULAR HEMOGLOBIN 31.8 pg (27.0-33.0); MEAN CORPUSCULAR HGB CONC 34.7 g/dl (32.0-36.5); MEAN CORPUSCULAR VOLUME 91.5 fl (80.0-96.0); MONO # 0.4 K/mm3 (0.0-0.8); MONO % 5.1 % (0.0-5.0); NEUTROPHILS # 4.2 K/mm3 (1.8-7.7); NEUTROPHILS % 57.6 % (36.0-66.0); PLATELET COUNT, AUTOMATED 179 k/mm3 (150-450); RED CELL DISTRIBUTION WIDTH 13.1 % (11.5-14.5); WHITE BLOOD COUNT 7.3 K/mm3 (4.0-10.0)
--- NOTE | 2017-03-27 12:38 | IPNPDOC ---
[employer] Progress Note DATE OF SERVICE: 03/27/17 DATE OF ADMISSION: Mar 06, 2017 at 14:25 INPATIENT REHABILITATION ADMISSION DAY: #22 SUBJECTIVE: Patient is a 67-year-old white male with left basal ganglia intercerebral hemorrhage extending into the internal capsule and midbrain with some aphasia, dysarthria, dysphasia, diminished right sensorium and spatial awareness, and right hemiparesis all improving. Patient seen today in the his room sitting up in a chair. No pain problems. He expresses some frustration with not being over the CVA yet. Family with him and supporting him. ALLERGIES: See Below MEDICATIONS: Reviewed, see below. OBJECTIVE: VITAL SIGNS: Please see below. PHYSICAL EXAMINATION: GENERAL: Well-nourished well-developed somewhat overweight late middle-age white male who appears to be in little to no acute distress. There is conjugate vision. Increasing spontaneous speech is generated by the patient when you talk to him and his ability to respond to command markedly improved. Patient is oriented 4. Only some trouble finding the exact word he wants at times, but generally he has good conversational flow. HEENT: Right facial droop is very mild and head is atraumatic. CARDIOVASCULAR: Regular rate and rhythm with normal S1-S2. Bilateral radial pulses are 2/4. LUNGS: All pak are clear to auscultation. ABDOMEN: Benign, nontender with normal bowel sounds in all quadrants. There are some ecchymoses from Lovenox injections. NEUROLOGICAL: As above. Some increased Right shoulder shrug and finger movement , with more right hip and knee motor function daily. Left U&LE are Sensory- motor intact. SKIN: Grossly intact except for Lovenox injection sites. LABORATORY DATA: Reviewed. Please see below. MICROBIOLOGY: Please see below. IMAGING: No new imaging. DVT prophylaxis ordered?: Lovenox and SILVERIO hose. ASSESSMENT AND PLAN: 1. Rehabilitation of hemorrhagic left internal capsule/midbrain/basal ganglia's CVA: Speech has markedly improved since Thursday, with steady Right LE gains, but limited RUE. Sling helping with pain control and positioning. Speech improving much more rapidly than RLE than RUE which has more twitch. Patient showing improving RLE control but limited gaiting at this time in placing foot due to some scissoring especially when tire. His stance is showing more improvement. ADL's also making some gains, but limited by lack of RUE function. Anticipated Date of D/C is 04/03, though he may need more time depending of RUE motor return to allow training to facilitate return to home. Patient continues to make slow steady progress with physical recovery and has had marked improvement with clearing his aphasia. He is somewhat frustrated by having his dominate hand unable to perform well and it impacts activities such as using the urinal, dressing and undressing. At present it appears likely he will need some additional to time to reach goals for return to home with his . Patient making steady progress, but gets down on himself at times for not getting it all back immediately needs I believe about 18 more days to reach the skills for relative safety at home. Patient's family though will discuss the time and support they are able to provide him and his (who is having Cataract surgery next ). Currently, we will start family training on Thursday and try overnight in the apartment with the patient and his to review his skills and her ability to assist him on Thursday into Thursday. I still feel he is likely to have a good recovery of speech, swallowing, and his right lower extremity and fair to good of the right upper extremity, but he needs time for neurologic recovery. 2. Type 2 diabetes mellitus: Currently blood sugars seem to be well-controlled riding in the low to mid 100s range. Overall good control with no changes needed. 3. Hypertension: Blood pressure today a little high this morning. Doing well with current management. 4. Bladder Management: Patient happy with stand to void every 3 hours while awake. He reports it is going well. 5. Low Grade Fevers: Likely some atelectasis. Ms. Trevinos to have patient use a nebulizer and will continue to encourage incentive spirometry. TIME SPENT: Chart Review, examination, documentation and meetings required greater than 25 minutes. Allergies Coded Allergies: ERNESTINA Inhibitors (Verified Allergy, Unknown, 12/17/12) Benazepril (Verified Allergy, Unknown, 12/17/12) Calcium Channel Blockers (Verified Allergy, Unknown, 12/17/12) Vital Signs Vital Signs Date Time Temp Pulse Resp B/P (MAP) Pulse Ox O2 Delivery O2 Flow Rate FiO2 03/27/17 08:30 Room Air 03/27/17 08:29 71 139/68 03/27/17 06:00 99.5 18 98 Laboratory Data CBC/BMP Laboratory Tests 03/27/17 12:05 Red Blood Count 4.60, Mean Corpuscular Volume 91.5, Mean Corpuscular Hemoglobin 31.8, Mean Corpuscular Hemoglobin Concent 34.7, Red Cell Distribution Width 13.1 , Neutrophils (%) (Auto) 57.6, Lymphocytes (%) (Auto) 34.3, Monocytes (%) (Auto ) 5.1 H, Eosinophils (%) (Auto) 1.1, Basophils (%) (Auto) 0.5, Neutrophils # ( Auto) 4.2, Lymphocytes # (Auto) 2.6, Monocytes # (Auto) 0.4, Eosinophils # (Auto ) 0.1, Basophils # (Auto) 0.0 Labs 24H Laboratory Tests 2 03/27/17 12:05: White Blood Count 7.3, Red Blood Count 4.60, Hemoglobin 14.6, Hematocrit 42.1, Mean Corpuscular Volume 91.5, Mean Corpuscular Hemoglobin 31.8, Mean Corpuscular Hemoglobin Concent 34.7, Red Cell Distribution Width 13.1, Platelet Count 179, Neutrophils (%) (Auto) 57.6, Lymphocytes (%) (Auto) 34.3, Monocytes ( %) (Auto) 5.1H, Eosinophils (%) (Auto) 1.1, Basophils (%) (Auto) 0.5, Neutrophils # (Auto) 4.2, Lymphocytes # (Auto) 2.6, Monocytes # (Auto) 0.4, Eosinophils # (Auto) 0.1, Basophils # (Auto) 0.0, Large Unclassified Cells % 1.5 , Large Unclassified Cells # 0.1 Current Medications Current Medications Current Medications Al Hydrox/Mg Hydrox/Simethicone (Mylanta) 30 ml Q4HP PRN PO DYSPEPSIA; Start at 14:00; Stop 04/05/17 at 13:59 Albuterol/ Ipratropium (Duoneb (Ipr 0.5mg/Alb 2.5mg)) 3 ml RQ8H NEB ; Start at 16:00; Stop 03/29/17 at 06:00 Amlodipine Besylate (Norvasc) 5 mg DAILY PO Last administered on 03/27/17t 08: 29; Start 03/26/17 at 09:00; Stop 04/25/17 at 08:59 Amlodipine Besylate (Norvasc) 10 mg DAILY PO Last administered on 03/25/17 08: 45; Start 03/07/17 at 09:00; Stop 03/26/17 at 11:08; Status DC Amoxicillin/ Clavulanate Potassium (Augmentin) 875 mg BID PO Last administered on 03/21/17 20:29; Start 03/06/17 at 21:00; Stop 03/21/17 at 23:55; Status DC Bisacodyl (Dulcolax Tab) 5 mg DAILYPRN PRN PO CONSTIPATION Last administered on 03/22/17 08:46; Start 03/06/17 at 14:00; Stop 04/05/17 at 13:59 Dextrose (Dextrose 50%) 25 ml ASDIRECTED PRN IV SEE LABEL COMMENTS; Start 03/09 at 10:30; Stop 03/09/17 at 19:57; Status DC Dextrose (Dextrose 50%) 25 ml ASDIRECTED PRN IV SEE LABEL COMMENTS; Start 03/09 at 20:00; Stop 04/08/17 at 19:59; Status Cancel Enoxaparin Sodium (Lovenox) 40 mg DAILY SC Last administered on 03/27/17 08:30 ; Start 03/07/17 at 09:00; Stop 03/31/17 at 23:55 Glucagon (Glucagon) 1 mg ASDIRECTED PRN SC SEE LABEL COMMENTS; Start 03/09/17 at 10:30; Stop 03/09/17 at 19:58; Status DC Glucagon (Glucagon) 1 mg ASDIRECTED PRN SC SEE LABEL COMMENTS; Start 03/09/17 at 20:00; Stop 04/08/17 at 19:59; Status Cancel Glucose (Glucose) 16 GM ASDIRECTED PRN PO SEE LABEL COMMENTS; Start 03/09/17 at 10:30; Stop 03/09/17 at 19:58; Status DC Glucose (Glucose) 16 GM ASDIRECTED PRN PO SEE LABEL COMMENTS; Start 03/09/17 at 20:00; Stop 04/08/17 at 19:59; Status Cancel Home Med (Med Rec Complete!) ASDIRECTED XX ; Start 03/06/17 at 15:45; Stop at 15:48; Status DC Insulin Human Lispro (HumaLOG INSULIN) See Protocol Table AC SC Last administered on 03/09/17 12:18; Start 03/09/17 at 12:00; Stop 03/09/17 at 19:56 ; Status DC Insulin Human Lispro (HumaLOG INSULIN) See Protocol Table AC SC Last administered on 03/11/17 08:17; Start 03/10/17 at 07:30; Stop 03/11/17 at 11:59 ; Status DC Insulin Human Lispro (HumaLOG INSULIN) See Protocol Table QHS SC ; Start at 21:00; Stop 03/11/17 at 11:59; Status DC Lisinopril (Prinivil) 40 mg DAILY PO Last administered on 03/27/17 08:29; Start 03/07/17 at 09:00; Stop 04/06/17 at 08:59 Magnesium Hydroxide (Milk Of Magnesia) 30 ml DAILYPRN PRN PO CONSTIPATION Last administered on 03/22/17 08:46; Start 03/06/17 at 14:00; Stop 04/05/17 at 13:59 Metformin HCl (Glucophage) 500 mg BID@ PO Last administered on 03/27/17 08:30; Start 03/06/17 at 18:00; Stop 04/05/17 at 17:59 Pantoprazole Sodium (Protonix) 40 mg DAILY PO Last administered on 03/27/17 08 :29; Start 03/07/17 at 09:00; Stop 04/06/17 at 08:59 Pravastatin Sodium (Pravachol) 80 mg QHS PO Last administered on 03/26/17 21: 22; Start 03/06/17 at 21:00; Stop 04/05/17 at 20:59 Sodium Biphosphate/ Sodium Phosphate (Fleet Enema) 1 ea DAILYPRN PRN MI CONSTIPATION Last administered on 03/14/17 14:53; Start 03/06/17 at 14:00; Stop 04/05/17 at 13:59 Tramadol HCl (Ultram) 50 mg Q4HP PRN PO PAIN SCALE 6-10 Last administered on 08:29; Start 03/06/17 at 14:00; Stop 04/02/17 at 23:55 LOTUS PATTERSON MD Mar 27, 2017 12:38
[2017-03-27 12:52] LABS: ALBUMIN 3.6 GM/DL (3.2-5.2); ALBUMIN/GLOBULIN RATIO 0.92 (1.00-1.93); ALKALINE PHOSPHATASE 52 U/L (45-117); ALT/SGPT 42 U/L (12-78); ANION GAP 8 MEQ/L (8-16); AST/SGOT 17 U/L (15-37); BILIRUBIN,TOTAL 0.4 MG/DL (0.2-1.0); BLOOD UREA NITROGEN 13 MG/DL (7-18); CALCIUM LEVEL 9.3 MG/DL (8.8-10.2); CARBON DIOXIDE LEVEL 25 MEQ/L (21-32); CHLORIDE LEVEL 106 MEQ/L (98-107); CREATININE FOR GFR 0.82 MG/DL (0.70-1.30); GLOMERULAR FILTRATION RATE > 60.0 (>49); GLUCOSE, FASTING 91 MG/DL (80-110); POTASSIUM SERUM 4.3 MEQ/L (3.5-5.1); SODIUM LEVEL 139 MEQ/L (136-145); TOTAL PROTEIN 7.5 GM/DL (6.4-8.2)
--- NOTE | 2017-03-27 13:50 | REP ---
Chest X-ray: Two views. History: History of pneumonia. Comparison chest x-ray December 02, 2012. Findings: The lungs are symmetrically aerated and clear. Pleural angles are sharp. Heart size is normal. The aorta is somewhat tortuous. Pulmonary vasculature is not increased. There are minimal discogenic spurs in the thoracic spine. Impression: No active disease. Signed by Iván Grimes MD 03/27/2017 02:46 P
[2017-03-27 14:00] VITALS: BP 140/78
[2017-03-27] MEDS: IPRATROPIUM 0.5MG/ALBUTEROL 2.5MG INH SOL UD 3ML (DUONEB)(J7620) NEB SCH (15:35)
[2017-03-27] MEDS: PRAVASTATIN 20 MG TAB PO SCH (20:03)
[2017-03-27 21:48] VITALS: BP 119/73
[2017-03-28 06:31] VITALS: BP 159/72
[2017-03-28] MEDS: LISINOPRIL 40 MG TAB PO SCH (08:31)
[2017-03-28] MEDS: ENOXAPARIN 40 MG/0.4 ML SYRINGE (J1650) SC SCH (08:31)
[2017-03-28] MEDS: PANTOPRAZOLE 40MG TAB (PROTONIX) PO SCH (08:32)
[2017-03-28] MEDS: metFORMIN (GLUCOPHAGE) 500 MG TAB PO SCH ×2 (08:32→17:47)
[2017-03-28] MEDS: amLODIPine 5 MG TAB PO SCH (08:32)
[2017-03-28] MEDS: IPRATROPIUM 0.5MG/ALBUTEROL 2.5MG INH SOL UD 3ML (DUONEB)(J7620) NEB SCH ×3 (08:36→15:05)
[2017-03-28 14:00] VITALS: BP 131/76
[2017-03-28 19:58] VITALS: BP 142/75
[2017-03-28] MEDS: PRAVASTATIN 20 MG TAB PO SCH (20:31)
[2017-03-29] MEDS: IPRATROPIUM 0.5MG/ALBUTEROL 2.5MG INH SOL UD 3ML (DUONEB)(J7620) NEB SCH
[2017-03-29 05:38] VITALS: BP 161/76
[2017-03-29] MEDS: PANTOPRAZOLE 40MG TAB (PROTONIX) PO SCH (08:19)
[2017-03-29] MEDS: LISINOPRIL 40 MG TAB PO SCH (08:19)
[2017-03-29] MEDS: metFORMIN (GLUCOPHAGE) 500 MG TAB PO SCH ×2 (08:19→17:42)
[2017-03-29] MEDS: ENOXAPARIN 40 MG/0.4 ML SYRINGE (J1650) SC SCH (08:19)
[2017-03-29] MEDS: amLODIPine 5 MG TAB PO SCH (08:19)
[2017-03-29 14:00] VITALS: BP 144/80
[2017-03-29 20:14] VITALS: BP 133/79
[2017-03-29] MEDS: PRAVASTATIN 20 MG TAB PO SCH (20:22)
[2017-03-30 06:00] VITALS: BP 135/74
[2017-03-30] MEDS: ENOXAPARIN 40 MG/0.4 ML SYRINGE (J1650) SC SCH (09:04)
[2017-03-30] MEDS: LISINOPRIL 40 MG TAB PO SCH (09:05)
[2017-03-30] MEDS: metFORMIN (GLUCOPHAGE) 500 MG TAB PO SCH ×2 (09:05→17:07)
[2017-03-30] MEDS: PANTOPRAZOLE 40MG TAB (PROTONIX) PO SCH (09:05)
[2017-03-30] MEDS: amLODIPine 5 MG TAB PO SCH (09:05)
--- NOTE | 2017-03-30 12:20 | IPNPDOC ---
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 Patient seen today in the his room sitting up in a chair. No pain problems. He expresses some frustration with not being over the CVA yet. Family with him and supporting him. ALLERGIES: See Below MEDICATIONS: Reviewed, see below. OBJECTIVE: VITAL SIGNS: Please see below. PHYSICAL EXAMINATION: GENERAL: Well-nourished well-developed somewhat overweight late middle-age white male who appears to be in little to no acute distress. There is conjugate vision. Increasing spontaneous speech is generated by the patient when you talk to him and his ability to respond to command markedly improved. Patient is oriented 4. Only some trouble finding the exact word he wants at times, but generally he has good conversational flow. HEENT: Right facial droop is very mild and head is atraumatic. CARDIOVASCULAR: Regular rate and rhythm with normal S1-S2. Bilateral radial pulses are 2/4. LUNGS: All pak are clear to auscultation. ABDOMEN: Benign, nontender with normal bowel sounds in all quadrants. There are some ecchymoses from Lovenox injections. NEUROLOGICAL: As above. Some increased Right shoulder shrug and finger movement , but not able to place and pull back the RUE. He has steadily more right hip and knee motor function daily. Left U&LE are Sensory-motor intact. SKIN: Grossly intact except for Lovenox injection sites. LABORATORY DATA: Reviewed. Please see below. MICROBIOLOGY: Please see below. IMAGING: No new imaging. DVT prophylaxis ordered?: Lovenox and SILVERIO hose. ASSESSMENT AND PLAN: 1. Rehabilitation of hemorrhagic left internal capsule/midbrain/basal ganglia's CVA: Speech continues to improve, with steady Right LE gains, but limited RUE. Sling helping with pain control and positioning. Endurance has been improving. His stance is showing more improvement. ADL's also making some gains, but mainly limited by lack of RUE function. Anticipated Date of D/C is 04/03, though he may need more time depending of RUE motor return to allow training to facilitate return to home. Patient continues to make slow steady progress with physical recovery and has had marked improvement with clearing his aphasia. He is maily frustrated by having his dominate hand being unable to perform well and it impacts activities such as using the urinal, dressing and undressing. At present it appears likely he will need some additional to time to reach goals for return to home with his . Patient making steady progress, but gets down on himself at times for not getting it all back immediately needs. Currently, we are starting family training and will try overnight in the apartment with the patient and his to review his skills and her ability to assist him on Thursday into Thursday. I still feel he is likely to have a good recovery of speech, swallowing, and his right lower extremity and fair to good of the right upper extremity, but he needs time for neurologic recovery. Rehab. Team Rounds: Patient is still making gains in PT/OT and INTERNET CONS[employer] on a daily basis. His right hip is improved allowing gaiting with vernon-walker >25 ft. now. W/C remains the best mobility for ADL's and distances. We are working toward family training to take him home, but remain strongly confident of correction potential to recover and function in the community. 2. Type 2 diabetes mellitus: Currently blood sugars seem to be well-controlled riding in the low to mid 100s range. Overall good control with no changes needed. 3. Hypertension: Blood pressure today a little high this morning. Doing well with current management. 4. Bladder Management: Patient happy with stand to void every 3 hours while awake. He reports it is going well. 5. Low Grade Fevers: Likely some atelectasis. Ms. Trevinos to have patient use a nebulizer and will continue to encourage incentive spirometry, which has been working. TIME SPENT: Chart Review, examination, documentation and meetings required greater than 35 minutes. Allergies Coded Allergies: ERNESTINA Inhibitors (Verified Allergy, Unknown, 12/17/12) Benazepril (Verified Allergy, Unknown, 12/17/12) Calcium Channel Blockers (Verified Allergy, Unknown, 12/17/12) Vital Signs Vital Signs Date Time Temp Pulse Resp B/P (MAP) Pulse Ox O2 Delivery O2 Flow Rate FiO2 03/30/17 09:05 64 135/74 03/30/17 08:22 Room Air 03/30/17 06:00 98.8 16 99 Current Medications Current Medications Current Medications Al Hydrox/Mg Hydrox/Simethicone (Mylanta) 30 ml Q4HP PRN PO DYSPEPSIA; Start at 14:00; Stop 04/05/17 at 13:59 Albuterol/ Ipratropium (Duoneb (Ipr 0.5mg/Alb 2.5mg)) 3 ml RQ8H NEB Last administered on 03/28/17 15:05; Start 03/27/17 at 16:00; Stop 03/29/17 at 06:01 ; Status DC Amlodipine Besylate (Norvasc) 5 mg DAILY PO Last administered on 03/30/17 09: 05; Start 03/26/17 at 09:00; Stop 04/25/17 at 08:59 Amlodipine Besylate (Norvasc) 10 mg DAILY PO Last administered on 03/25/17 08: 45; Start 03/07/17 at 09:00; Stop 03/26/17 at 11:08; Status DC Amoxicillin/ Clavulanate Potassium (Augmentin) 875 mg BID PO Last administered on 03/21/17 20:29; Start 03/06/17 at 21:00; Stop 03/21/17 at 23:55; Status DC Bisacodyl (Dulcolax Tab) 5 mg DAILYPRN PRN PO CONSTIPATION Last administered on 03/22/17 08:46; Start 03/06/17 at 14:00; Stop 04/05/17 at 13:59 Dextrose (Dextrose 50%) 25 ml ASDIRECTED PRN IV SEE LABEL COMMENTS; Start 03/09 at 10:30; Stop 03/09/17 at 19:57; Status DC Dextrose (Dextrose 50%) 25 ml ASDIRECTED PRN IV SEE LABEL COMMENTS; Start 03/09 at 20:00; Stop 04/08/17 at 19:59; Status Cancel Enoxaparin Sodium (Lovenox) 40 mg DAILY SC Last administered on 03/30/17 09:04 ; Start 03/07/17 at 09:00; Stop 04/04/17 at 23:55 Glucagon (Glucagon) 1 mg ASDIRECTED PRN SC SEE LABEL COMMENTS; Start 03/09/17 at 10:30; Stop 03/09/17 at 19:58; Status DC Glucagon (Glucagon) 1 mg ASDIRECTED PRN SC SEE LABEL COMMENTS; Start 03/09/17 at 20:00; Stop 04/08/17 at 19:59; Status Cancel Glucose (Glucose) 16 GM ASDIRECTED PRN PO SEE LABEL COMMENTS; Start 03/09/17 at 10:30; Stop 03/09/17 at 19:58; Status DC Glucose (Glucose) 16 GM ASDIRECTED PRN PO SEE LABEL COMMENTS; Start 03/09/17 at 20:00; Stop 04/08/17 at 19:59; Status Cancel Home Med (Med Rec Complete!) ASDIRECTED XX ; Start 03/06/17 at 15:45; Stop at 15:48; Status DC Insulin Human Lispro (HumaLOG INSULIN) See Protocol Table AC SC Last administered on 03/09/17 12:18; Start 03/09/17 at 12:00; Stop 03/09/17 at 19:56 ; Status DC Insulin Human Lispro (HumaLOG INSULIN) See Protocol Table AC SC Last administered on 03/11/17 08:17; Start 03/10/17 at 07:30; Stop 03/11/17 at 11:59 ; Status DC Insulin Human Lispro (HumaLOG INSULIN) See Protocol Table QHS SC ; Start at 21:00; Stop 03/11/17 at 11:59; Status DC Lisinopril (Prinivil) 40 mg DAILY PO Last administered on 03/30/17 09:05; Start 03/07/17 at 09:00; Stop 04/06/17 at 08:59 Magnesium Hydroxide (Milk Of Magnesia) 30 ml DAILYPRN PRN PO CONSTIPATION Last administered on 03/22/17 08:46; Start 03/06/17 at 14:00; Stop 04/05/17 at 13:59 Metformin HCl (Glucophage) 500 mg BID@ PO Last administered on 03/30/17 09:05; Start 03/06/17 at 18:00; Stop 04/05/17 at 17:59 Pantoprazole Sodium (Protonix) 40 mg DAILY PO Last administered on 03/30/17 09 :05; Start 03/07/17 at 09:00; Stop 04/06/17 at 08:59 Pravastatin Sodium (Pravachol) 80 mg QHS PO Last administered on 03/29/17 20: 22; Start 03/06/17 at 21:00; Stop 04/05/17 at 20:59 Sodium Biphosphate/ Sodium Phosphate (Fleet Enema) 1 ea DAILYPRN PRN ID CONSTIPATION Last administered on 03/14/17 14:53; Start 03/06/17 at 14:00; Stop 04/05/17 at 13:59 Tramadol HCl (Ultram) 50 mg Q4HP PRN PO PAIN SCALE 6-10 Last administered on 08:29; Start 03/06/17 at 14:00; Stop 04/02/17 at 23:55 LOTUS PATTERSON MD Mar 30, 2017 12:20
--- NOTE | 2017-03-30 12:23 | IPNPDOC ---
Date Seen The patient was seen on 03/30/17. Progress Note HPI: 67year oldM with a past medical history significant for HTN, HLD, NIDDM who developed slurred speech and Rt sided weakness on 02/27/17 and was treated at [facility] for intracerebral hemorrhage basal ganglia expanded to internal capsule and midbrain. 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 Pt with residual dense Rt hemiparesis, decreased rt sensory perception, Leftward gaze, dysarthria, dysphagia, and aphasia. He was treated empirically for possible pneumonia with IV Zosyn/Vanco and transitioned to po Augmentin. The pt was felt stable to transfer to ARU at [facility] to the care of Dr Moreno 03/06/17. The pt answers questions with short responses. No acute medical complaints today. He is OOB to the chair and is participating with therapy. Denies any pain, Headache, Chest Pain, Shortness of breath, abdominal pain. No N/V/D. No changes in bowel or bladder habits reported. PMHx: HTN HLD NIDM OA H/o SBO CT 03/21 Mild hepatomegaly. PSHX: Rt TKA hernia repair PE: GEN: 67yoM, appears stated age. Well-nourished, well developed. No acute distress. Alert. HEENT: Normocephalic, atraumatic Moist mucous membranes. CHEST: Regular rate and rhythm, +S1, +S2 LUNGS: Clear to auscultation bilaterally. No wheezes, rales, or rhonchi. Breathing appears symmetric and easy. ABD: Round, soft, non-tender, non-distended. +Bowel sounds throughout. No rebound or guarding. No costovertebral angle tenderness. EXT: Pulses 2+ bilaterally dorsalis pedis and radial. No lower extremity edema appreciated. Rt hemiparesis. SKIN: Chestnut, dry, warm. Capillary refill <2sec. No rashes. NEURO: Rt hemiparesis noted. Expressive aphasia and dysarthria noted. A&P: 67year oldM with a past medical history significant for HTN, HLD, NIDDM who developed slurred speech and Rt sided weakness on 02/27/17 and was treated at [facility] for intracerebral hemorrhage basal ganglia expanded to internal capsule and midbrain. 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 Pt with residual dense Rt hemiparesis, decreased rt sensory perception, Leftward gaze, dysarthria, dysphagia, and aphasia. 1. 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 Management as per ARU, Dr Moreno. PT/OT/ST as per ARU. Bowel care as per ARU. Pain control as per ARU. DVT prophylaxis. Lovenox SC. Disposition as per ARU. Anticipated D/C date 04/03/17. 2. HTN. Lisinopril 40 mg daily/ Norvasc with hold parameters. 3. HLD. Continue Pravachol. LDL 03/10/17 69. 4. NIDDM. CC diet, SSI, Metformin 500mg BID. BS this AM 103. Hgb A1c 03/10/17 6.3. 5. GERD. Continue Protonix 40 mg daily. 6. Pneumonia. Treated with Vancomycin/Zosyn IV at [facility] and transitioned to po Augmentin. Pt finished course of Augmentin 03/21/17. Encourage I/S. Afebrile. VS, I&O, 24H, Fishbone Vital Signs/I&O Vital Signs Date Time Temp Pulse Resp B/P (MAP) Pulse Ox O2 Delivery O2 Flow Rate FiO2 03/30/17 09:05 64 135/74 03/30/17 08:22 Room Air 03/30/17 06:00 98.8 16 99 I&O- Last 24 Hours up to 6 AM 03/30/17 06:00 Intake Total 700 ml Output Total 900 ml Balance -200 ml Laboratory Data CBC/BMP Item Value Date Time White Blood Count 7.3 K/mm3 03/27/17 1205 Red Blood Count 4.60 M/mm3 03/27/17 1205 Hemoglobin 14.6 g/dl 03/27/17 1205 Hematocrit 42.1 % 03/27/17 1205 Mean Corpuscular Volume 91.5 fl 03/27/17 1205 Mean Corpuscular Hemoglobin 31.8 pg 03/27/17 1205 Mean Corpuscular Hemoglobin Concent 34.7 g/dl 03/27/17 1205 Red Cell Distribution Width 13.1 % 03/27/17 1205 Platelet Count 179 k/mm3 03/27/17 1205 Sodium Level 139 MEQ/L 03/27/17 1205 Potassium Level 4.3 MEQ/L 03/27/17 1205 Chloride Level 106 MEQ/L 03/27/17 1205 Carbon Dioxide Level 25 MEQ/L 03/27/17 1205 Anion Gap 8 MEQ/L 03/27/17 1205 Blood Urea Nitrogen 13 MG/DL 03/27/17 1205 Creatinine 0.82 MG/DL 03/27/17 1205 Glomerular Filtration Rate > 60.0 03/27/17 1205 Fasting Glucose 91 MG/DL 03/27/17 1205 Calcium Level 9.3 MG/DL 03/27/17 1205 Total Bilirubin 0.4 MG/DL 03/27/17 1205 Aspartate Amino Transf (AST/SGOT) 17 U/L 03/27/17 1205 Alanine Aminotransferase (ALT/SGPT) 42 U/L 03/27/17 1205 Alkaline Phosphatase 52 U/L 03/27/17 1205 Total Protein 7.5 GM/DL 03/27/17 1205 Albumin 3.6 GM/DL 03/27/17 1205 Albumin/Globulin Ratio 0.92 L 03/27/17 1205 . Paty Paredes Mar 30, 2017 12:23
[2017-03-30 14:00] VITALS: BP 123/77
[2017-03-30 20:00] VITALS: BP 143/76
[2017-03-30] MEDS: PRAVASTATIN 20 MG TAB PO SCH (20:32)
[2017-03-31 06:00] VITALS: BP 138/78
[2017-03-31] MEDS: LISINOPRIL 40 MG TAB PO SCH (09:43)
[2017-03-31] MEDS: PANTOPRAZOLE 40MG TAB (PROTONIX) PO SCH (09:43)
[2017-03-31] MEDS: metFORMIN (GLUCOPHAGE) 500 MG TAB PO SCH ×2 (09:44→17:48)
[2017-03-31] MEDS: ENOXAPARIN 40 MG/0.4 ML SYRINGE (J1650) SC SCH (09:44)
[2017-03-31] MEDS: amLODIPine 5 MG TAB PO SCH (09:44)
--- NOTE | 2017-03-31 12:13 | IPNPDOC ---
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 Patient seen today in the gym sitting up in a wheelchair. No pain problems. Happy about the hand movement increase today. ALLERGIES: See Below MEDICATIONS: Reviewed, see below. OBJECTIVE: VITAL SIGNS: Please see below. PHYSICAL EXAMINATION: GENERAL: Well-nourished well-developed somewhat overweight late middle-age white male who appears to be in little to no acute distress. There is conjugate vision. Increasing spontaneous speech is generated by the patient when you talk to him and his ability to respond to command markedly improved. Patient is oriented 4. Only some trouble finding the exact word he wants at times, but generally he has good conversational flow. HEENT: Right facial droop is very mild and head is atraumatic. CARDIOVASCULAR: Regular rate and rhythm with normal S1-S2. Bilateral radial pulses are 2/4. LUNGS: All pak are clear to auscultation. ABDOMEN: Benign, nontender with normal bowel sounds in all quadrants. There are some ecchymoses from Lovenox injections. NEUROLOGICAL: As above. Some increased Right shoulder shrug and finger movement and today some whole hand flexion/extension, but not able to place and pull back the RUE. He has steadily more right hip and knee motor function daily. Left U&LE are Sensory-motor intact. SKIN: Grossly intact except for Lovenox injection sites. LABORATORY DATA: Reviewed. Please see below. MICROBIOLOGY: Please see below. IMAGING: No new imaging. DVT prophylaxis ordered?: Lovenox and SILVERIO hose. ASSESSMENT AND PLAN: 1. Rehabilitation of hemorrhagic left internal capsule/midbrain/basal ganglia's CVA: Speech continues to improve, with steady Right LE gains, but limited RUE. Sling helping with pain control and positioning. Endurance has been improving. His stance is showing more improvement. ADL's also making some gains, but mainly limited by lack of RUE function. Anticipated Date of D/C is 04/03, though he may need more time depending of RUE motor return to allow training to facilitate return to home. Patient continues to make slow steady progress with physical recovery and has had marked improvement with clearing his aphasia. He is mainly frustrated by having his dominate hand being unable to perform well, but improved whole hand flexion/extension today. At present it appears likely he will need some additional to time to reach goals for return to home with his . Patient making steady progress. We have starting family training and will try overnight in the apartment with the patient and his to review his skills and her ability to assist him on Thursday into Thursday. I still feel he is likely to have a good recovery of speech, swallowing, and his right lower extremity and fair to good of the right upper extremity, but he needs time for neurologic recovery. His right hip is improved allowing gaiting with vernon-walker >25 ft. now. W/C remains the best mobility for ADL's and distances. 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 2. Type 2 diabetes mellitus: Overall good control with no changes needed. 3. Hypertension: Doing well with current management. 4. Bladder Management: Overall it is working well. 5. Low Grade Fevers: Likely some atelectasis. Ms. Trevinos to have patient use a nebulizer and will continue to encourage incentive spirometry, which has been working as patient afebrile since Thursday. TIME SPENT: Chart Review, examination, documentation and meetings required greater than 20 minutes. Allergies Coded Allergies: ERNESTINA Inhibitors (Verified Allergy, Unknown, 12/17/12) Benazepril (Verified Allergy, Unknown, 12/17/12) Calcium Channel Blockers (Verified Allergy, Unknown, 12/17/12) Vital Signs Vital Signs Date Time Temp Pulse Resp B/P (MAP) Pulse Ox O2 Delivery O2 Flow Rate FiO2 03/31/17 09:44 68 138/78 03/31/17 06:00 98.9 18 97 Room Air Current Medications Current Medications Current Medications Al Hydrox/Mg Hydrox/Simethicone (Mylanta) 30 ml Q4HP PRN PO DYSPEPSIA; Start at 14:00; Stop 04/05/17 at 13:59 Albuterol/ Ipratropium (Duoneb (Ipr 0.5mg/Alb 2.5mg)) 3 ml RQ8H NEB Last administered on 03/28/17t 15:05; Start 03/27/17 at 16:00; Stop 03/29/17 at 06:01 ; Status DC Amlodipine Besylate (Norvasc) 5 mg DAILY PO Last administered on 03/31/17 09: 44; Start 03/26/17 at 09:00; Stop 04/25/17 at 08:59 Amlodipine Besylate (Norvasc) 10 mg DAILY PO Last administered on 03/25/17 08: 45; Start 03/07/17 at 09:00; Stop 03/26/17 at 11:08; Status DC Amoxicillin/ Clavulanate Potassium (Augmentin) 875 mg BID PO Last administered on 03/21/17 20:29; Start 03/06/17 at 21:00; Stop 03/21/17 at 23:55; Status DC Bisacodyl (Dulcolax Tab) 5 mg DAILYPRN PRN PO CONSTIPATION Last administered on 03/22/17 08:46; Start 03/06/17 at 14:00; Stop 04/05/17 at 13:59 Dextrose (Dextrose 50%) 25 ml ASDIRECTED PRN IV SEE LABEL COMMENTS; Start 03/09 at 10:30; Stop 03/09/17 at 19:57; Status DC Dextrose (Dextrose 50%) 25 ml ASDIRECTED PRN IV SEE LABEL COMMENTS; Start 03/09 at 20:00; Stop 04/08/17 at 19:59; Status Cancel Enoxaparin Sodium (Lovenox) 40 mg DAILY SC Last administered on 03/31/17 09:44 ; Start 03/07/17 at 09:00; Stop 04/04/17 at 23:55 Glucagon (Glucagon) 1 mg ASDIRECTED PRN SC SEE LABEL COMMENTS; Start 03/09/17 at 10:30; Stop 03/09/17 at 19:58; Status DC Glucagon (Glucagon) 1 mg ASDIRECTED PRN SC SEE LABEL COMMENTS; Start 03/09/17 at 20:00; Stop 04/08/17 at 19:59; Status Cancel Glucose (Glucose) 16 GM ASDIRECTED PRN PO SEE LABEL COMMENTS; Start 03/09/17 at 10:30; Stop 03/09/17 at 19:58; Status DC Glucose (Glucose) 16 GM ASDIRECTED PRN PO SEE LABEL COMMENTS; Start 03/09/17 at 20:00; Stop 04/08/17 at 19:59; Status Cancel Home Med (Med Rec Complete!) ASDIRECTED XX ; Start 03/06/17 at 15:45; Stop at 15:48; Status DC Insulin Human Lispro (HumaLOG INSULIN) See Protocol Table AC SC Last administered on 03/09/17 12:18; Start 03/09/17 at 12:00; Stop 03/09/17 at 19:56 ; Status DC Insulin Human Lispro (HumaLOG INSULIN) See Protocol Table AC SC Last administered on 03/11/17 08:17; Start 03/10/17 at 07:30; Stop 03/11/17 at 11:59 ; Status DC Insulin Human Lispro (HumaLOG INSULIN) See Protocol Table QHS SC ; Start at 21:00; Stop 03/11/17 at 11:59; Status DC Lisinopril (Prinivil) 40 mg DAILY PO Last administered on 03/31/17 09:43; Start 03/07/17 at 09:00; Stop 04/06/17 at 08:59 Magnesium Hydroxide (Milk Of Magnesia) 30 ml DAILYPRN PRN PO CONSTIPATION Last administered on 03/22/17 08:46; Start 03/06/17 at 14:00; Stop 04/05/17 at 13:59 Metformin HCl (Glucophage) 500 mg BID@ PO Last administered on 03/31/17 09:44; Start 03/06/17 at 18:00; Stop 04/05/17 at 17:59 Pantoprazole Sodium (Protonix) 40 mg DAILY PO Last administered on 03/31/17 09 :43; Start 03/07/17 at 09:00; Stop 04/06/17 at 08:59 Pravastatin Sodium (Pravachol) 80 mg QHS PO Last administered on 03/30/17 20: 32; Start 03/06/17 at 21:00; Stop 04/05/17 at 20:59 Sodium Biphosphate/ Sodium Phosphate (Fleet Enema) 1 ea DAILYPRN PRN HI CONSTIPATION Last administered on 03/14/17 14:53; Start 03/06/17 at 14:00; Stop 04/05/17 at 13:59 Tramadol HCl (Ultram) 50 mg Q4HP PRN PO PAIN SCALE 6-10 Last administered on 08:29; Start 03/06/17 at 14:00; Stop 04/07/17 at 23:55 LOTUS PATTERSON MD Mar 31, 2017 12:13
[2017-03-31 14:00] VITALS: BP 139/79
[2017-03-31 20:00] VITALS: BP 140/78
[2017-03-31] MEDS: PRAVASTATIN 20 MG TAB PO SCH (20:02)
[2017-04-01 06:00] VITALS: BP 142/72
[2017-04-01] MEDS: IPRATROPIUM 0.5MG/ALBUTEROL 2.5MG INH SOL UD 3ML (DUONEB)(J7620) NEB SCH ×2 (08:00→16:00)
[2017-04-01] MEDS: LISINOPRIL 40 MG TAB PO SCH (08:38)
[2017-04-01] MEDS: PANTOPRAZOLE 40MG TAB (PROTONIX) PO SCH (08:38)
[2017-04-01] MEDS: amLODIPine 5 MG TAB PO SCH (08:38)
[2017-04-01] MEDS: metFORMIN (GLUCOPHAGE) 500 MG TAB PO SCH ×2 (08:38→17:03)
[2017-04-01] MEDS: ENOXAPARIN 40 MG/0.4 ML SYRINGE (J1650) SC SCH (08:39)
--- NOTE | 2017-04-01 13:06 | IPNPDOC ---
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 Patient seen today in the gym sitting up in a wheelchair. No pain problems. Happy about the hand movement increase today. ALLERGIES: See Below MEDICATIONS: Reviewed, see below. OBJECTIVE: VITAL SIGNS: Please see below. PHYSICAL EXAMINATION: GENERAL: Well-nourished well-developed somewhat overweight late middle-age white male who appears to be in little to no acute distress. There is conjugate vision. Increasing spontaneous speech is generated by the patient when you talk to him and his ability to respond to command markedly improved. Patient is oriented 4. Only some trouble finding the exact word he wants at times, but generally he has good conversational flow. HEENT: Right facial droop is very mild and head is atraumatic. CARDIOVASCULAR: Regular rate and rhythm with normal S1-S2. Bilateral radial pulses are 2/4. LUNGS: All pak are clear to auscultation. ABDOMEN: Benign, nontender with normal bowel sounds in all quadrants. There are some ecchymoses from Lovenox injections. NEUROLOGICAL: As above. Some increased Right shoulder shrug and finger movement and today some whole hand flexion/extension, but not able to place and pull back the RUE. He has steadily more right hip and knee motor function daily. Left U&LE are Sensory-motor intact. SKIN: Grossly intact except for Lovenox injection sites. LABORATORY DATA: Reviewed. Please see below. MICROBIOLOGY: Please see below. IMAGING: No new imaging. DVT prophylaxis ordered?: Lovenox and SILVERIO hose. ASSESSMENT AND PLAN: 1. Rehabilitation of hemorrhagic left internal capsule/midbrain/basal ganglia's CVA: Speech continues to improve, with steady Right LE gains, but limited RUE. Sling helping with pain control and positioning. Endurance has been improving. His stance is showing more improvement. ADL's also making some gains, but mainly limited by lack of RUE function. Anticipated Date of D/C is 04/03, though he will need more time as slow but steady RUE motor return continues. Patient continues to make slow steady progress with physical recovery and has had marked improvement with clearing his aphasia. At present it appears likely he will need some additional to time to reach goals for return to home with his . Patient making steady progress. We have starting family training. was not available for trial in Rehab. Apartment. I still feel he is likely to have a good recovery of speech, swallowing, and his right lower extremity and fair to good of the right upper extremity, but he needs time for neurologic recovery. His right hip is improved allowing gaiting with vernon-walker >25 ft. now. W/C remains the best mobility for ADL's and distances. 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 2. Type 2 diabetes mellitus: Overall good control with no changes needed. 3. Hypertension: Doing well with current management. 4. Bladder Management: Overall it is working well with Q3hr stand to void. TIME SPENT: Chart Review, examination, documentation and meetings required greater than 25 minutes. Allergies Coded Allergies: ERNESTINA Inhibitors (Verified Allergy, Unknown, 12/17/12) Benazepril (Verified Allergy, Unknown, 12/17/12) Calcium Channel Blockers (Verified Allergy, Unknown, 12/17/12) Vital Signs Vital Signs Date Time Temp Pulse Resp B/P (MAP) Pulse Ox O2 Delivery O2 Flow Rate FiO2 04/01/17 08:38 61 142/72 04/01/17 07:30 Room Air 04/01/17 06:00 99.2 18 98 Current Medications Current Medications Current Medications Al Hydrox/Mg Hydrox/Simethicone (Mylanta) 30 ml Q4HP PRN PO DYSPEPSIA; Start at 14:00; Stop 04/05/17 at 13:59 Albuterol/ Ipratropium (Duoneb (Ipr 0.5mg/Alb 2.5mg)) 3 ml RQ8H NEB Last administered on 03/28/17t 15:05; Start 03/27/17 at 16:00; Stop 03/29/17 at 06:01 ; Status DC Albuterol/ Ipratropium (Duoneb (Ipr 0.5mg/Alb 2.5mg)) 3 ml RQ8H NEB ; Start at 08:00; Stop 04/04/17 at 07:59 Amlodipine Besylate (Norvasc) 5 mg DAILY PO Last administered on 04/01/17 08: 38; Start 03/26/17 at 09:00; Stop 04/25/17 at 08:59 Amlodipine Besylate (Norvasc) 10 mg DAILY PO Last administered on 03/25/17 08: 45; Start 03/07/17 at 09:00; Stop 03/26/17 at 11:08; Status DC Amoxicillin/ Clavulanate Potassium (Augmentin) 875 mg BID PO Last administered on 03/21/17 20:29; Start 03/06/17 at 21:00; Stop 03/21/17 at 23:55; Status DC Bisacodyl (Dulcolax Tab) 5 mg DAILYPRN PRN PO CONSTIPATION Last administered on 03/22/17 08:46; Start 03/06/17 at 14:00; Stop 04/05/17 at 13:59 Dextrose (Dextrose 50%) 25 ml ASDIRECTED PRN IV SEE LABEL COMMENTS; Start 03/09 at 10:30; Stop 03/09/17 at 19:57; Status DC Dextrose (Dextrose 50%) 25 ml ASDIRECTED PRN IV SEE LABEL COMMENTS; Start 03/09 at 20:00; Stop 04/08/17 at 19:59; Status Cancel Enoxaparin Sodium (Lovenox) 40 mg DAILY SC Last administered on 04/01/17 08:39 ; Start 03/07/17 at 09:00; Stop 04/04/17 at 23:55 Glucagon (Glucagon) 1 mg ASDIRECTED PRN SC SEE LABEL COMMENTS; Start 03/09/17 at 10:30; Stop 03/09/17 at 19:58; Status DC Glucagon (Glucagon) 1 mg ASDIRECTED PRN SC SEE LABEL COMMENTS; Start 03/09/17 at 20:00; Stop 04/08/17 at 19:59; Status Cancel Glucose (Glucose) 16 GM ASDIRECTED PRN PO SEE LABEL COMMENTS; Start 03/09/17 at 10:30; Stop 03/09/17 at 19:58; Status DC Glucose (Glucose) 16 GM ASDIRECTED PRN PO SEE LABEL COMMENTS; Start 03/09/17 at 20:00; Stop 04/08/17 at 19:59; Status Cancel Home Med (Med Rec Complete!) ASDIRECTED XX ; Start 03/06/17 at 15:45; Stop at 15:48; Status DC Insulin Human Lispro (HumaLOG INSULIN) See Protocol Table AC SC Last administered on 03/09/17 12:18; Start 03/09/17 at 12:00; Stop 03/09/17 at 19:56 ; Status DC Insulin Human Lispro (HumaLOG INSULIN) See Protocol Table AC SC Last administered on 03/11/17 08:17; Start 03/10/17 at 07:30; Stop 03/11/17 at 11:59 ; Status DC Insulin Human Lispro (HumaLOG INSULIN) See Protocol Table QHS SC ; Start at 21:00; Stop 03/11/17 at 11:59; Status DC Lisinopril (Prinivil) 40 mg DAILY PO Last administered on 04/01/17 08:38; Start 03/07/17 at 09:00; Stop 04/06/17 at 08:59 Magnesium Hydroxide (Milk Of Magnesia) 30 ml DAILYPRN PRN PO CONSTIPATION Last administered on 03/22/17 08:46; Start 03/06/17 at 14:00; Stop 04/05/17 at 13:59 Metformin HCl (Glucophage) 500 mg BID@ PO Last administered on 04/01/17 08:38; Start 03/06/17 at 18:00; Stop 04/05/17 at 17:59 Pantoprazole Sodium (Protonix) 40 mg DAILY PO Last administered on 04/01/17 08 :38; Start 03/07/17 at 09:00; Stop 04/06/17 at 08:59 Pravastatin Sodium (Pravachol) 80 mg QHS PO Last administered on 03/31/17 20: 02; Start 03/06/17 at 21:00; Stop 04/05/17 at 20:59 Sodium Biphosphate/ Sodium Phosphate (Fleet Enema) 1 ea DAILYPRN PRN [place] CONSTIPATION Last administered on 03/14/17 14:53; Start 03/06/17 at 14:00; Stop 04/05/17 at 13:59 Tramadol HCl (Ultram) 50 mg Q4HP PRN PO PAIN SCALE 6-10 Last administered on 08:29; Start 03/06/17 at 14:00; Stop 04/07/17 at 23:55 LOTUS PATTERSON MD Apr 01, 2017 13:06
[2017-04-01 20:00] VITALS: BP 124/75
[2017-04-01] MEDS: PRAVASTATIN 20 MG TAB PO SCH (20:25)
[2017-04-02 06:00] VITALS: BP 143/73
[2017-04-02] MEDS: IPRATROPIUM 0.5MG/ALBUTEROL 2.5MG INH SOL UD 3ML (DUONEB)(J7620) NEB SCH ×4 (07:31→22:51)
[2017-04-02] MEDS: LISINOPRIL 40 MG TAB PO SCH (09:56)
[2017-04-02] MEDS: metFORMIN (GLUCOPHAGE) 500 MG TAB PO SCH ×2 (09:57→18:17)
[2017-04-02] MEDS: PANTOPRAZOLE 40MG TAB (PROTONIX) PO SCH (09:57)
[2017-04-02] MEDS: amLODIPine 5 MG TAB PO SCH (09:57)
[2017-04-02] MEDS: ENOXAPARIN 40 MG/0.4 ML SYRINGE (J1650) SC SCH (09:57)
--- NOTE | 2017-04-02 12:14 | IPNPDOC ---
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 Patient seen today in his room sitting up in a chair. No pain problems. Patient frustrated with barriers to home at this time with only able to provide limited assistance, especially with eye surgery pending. His sons are not able to provide much time in the home at present to assist patient. The team and I are continuing to encourage the patient as he should regain skills and strength to return home, but not in the next few days. ALLERGIES: See Below MEDICATIONS: Reviewed, see below. OBJECTIVE: VITAL SIGNS: Please see below. PHYSICAL EXAMINATION: GENERAL: Well-nourished well-developed somewhat overweight late middle-age white male who appears to be in little to no acute distress. There is conjugate vision. Good speech is generated by the patient when you talk to him and his ability to initiate is improving, but clearly there is some anomia but overall markedly improved with generally good conversational flow. HEENT: Right facial droop is very mild. Patient is oriented 4. generally he has good conversational flowead is atraumatic. CARDIOVASCULAR: Regular rate and rhythm with normal S1-S2. Bilateral radial pulses are 2/4. LUNGS: All pak are clear to auscultation. ABDOMEN: Benign, nontender with normal bowel sounds in all quadrants. There are some ecchymoses from Lovenox injections. NEUROLOGICAL: As above. Some increased Right shoulder shrug and finger movement and today some whole hand flexion/extension, but not able to place and pull back the RUE. He has steadily more right hip and knee motor function daily. Left U&LE are Sensory-motor intact. SKIN: Grossly intact except for Lovenox injection sites. LABORATORY DATA: Reviewed. Please see below. MICROBIOLOGY: Please see below. IMAGING: No new imaging. DVT prophylaxis ordered?: Lovenox and SILVERIO hose. ASSESSMENT AND PLAN: 1. Rehabilitation of hemorrhagic left internal capsule/midbrain/basal ganglia's CVA: Speech continues to improve, with steady Right LE gains, but limited RUE. Sling helping with pain control and positioning. Endurance is improving. ADL's continue making some gains, but mainly limited by lack of RUE function. Anticipated Date of D/C is 04/03, though he will need more time as slow but steady RUE motor return continues. At present it appears likely he will need some additional to time to reach goals for return to home with his . Patient making steady progress. We have starting family training. was not available for trial in Rehab. Apartment and sons are limited in time available for when patient returns to home. I feel he is likely to have a good recovery of speech, swallowing, and his right lower extremity and fair to good of the right upper extremity, but he needs time for neurologic recovery. His right hip is improved allowing gaiting with vernon-walker, but W/C remains the best mobility for ADL's and distances. 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 Rehab. Team Rounds: Patient is continuing to make small gains, limited by RUE recovery. He continues to have anomia, especially with speech he initiates and does better with reacting verbally to others. His gaiting continues to improve, but ADL's limited by lack of his dominate right hand. Patient assessing SNF Subacute Rehab. option with family, who now does not feel capable of taking care of him at home at his level of function with the amount of assistance needed. 2. Type 2 diabetes mellitus: Overall good control with no changes needed. 3. Hypertension: Doing well with current management. 4. Bladder Management: Overall it is working well with Q3hr stand to void. TIME SPENT: Chart Review, examination, documentation and meetings required greater than 25 minutes. Allergies Coded Allergies: ERNESTINA Inhibitors (Verified Allergy, Unknown, 12/17/12) Benazepril (Verified Allergy, Unknown, 12/17/12) Calcium Channel Blockers (Verified Allergy, Unknown, 12/17/12) Vital Signs Vital Signs Date Time Temp Pulse Resp B/P (MAP) Pulse Ox O2 Delivery O2 Flow Rate FiO2 04/02/17 09:57 65 143/73 04/02/17 06:00 98.6 18 98 Room Air Current Medications Current Medications Current Medications Al Hydrox/Mg Hydrox/Simethicone (Mylanta) 30 ml Q4HP PRN PO DYSPEPSIA; Start at 14:00; Stop 04/05/17 at 13:59 Albuterol/ Ipratropium (Duoneb (Ipr 0.5mg/Alb 2.5mg)) 3 ml RQ8H NEB Last administered on 03/28/17 15:05; Start 03/27/17 at 16:00; Stop 03/29/17 at 06:01 ; Status DC Albuterol/ Ipratropium (Duoneb (Ipr 0.5mg/Alb 2.5mg)) 3 ml RQ8H NEB Last administered on 04/01/17 16:00; Start 04/01/17 at 08:00; Stop 04/04/17 at 07:59 Amlodipine Besylate (Norvasc) 5 mg DAILY PO Last administered on 04/02/17 09: 57; Start 03/26/17 at 09:00; Stop 04/25/17 at 08:59 Amlodipine Besylate (Norvasc) 10 mg DAILY PO Last administered on 03/25/17 08: 45; Start 03/07/17 at 09:00; Stop 03/26/17 at 11:08; Status DC Amoxicillin/ Clavulanate Potassium (Augmentin) 875 mg BID PO Last administered on 03/21/17 20:29; Start 03/06/17 at 21:00; Stop 03/21/17 at 23:55; Status DC Bisacodyl (Dulcolax Tab) 5 mg DAILYPRN PRN PO CONSTIPATION Last administered on 03/22/17 08:46; Start 03/06/17 at 14:00; Stop 04/05/17 at 13:59 Dextrose (Dextrose 50%) 25 ml ASDIRECTED PRN IV SEE LABEL COMMENTS; Start 03/09 at 10:30; Stop 03/09/17 at 19:57; Status DC Dextrose (Dextrose 50%) 25 ml ASDIRECTED PRN IV SEE LABEL COMMENTS; Start 03/09 at 20:00; Stop 04/08/17 at 19:59; Status Cancel Enoxaparin Sodium (Lovenox) 40 mg DAILY SC Last administered on 04/02/17 09:57 ; Start 03/07/17 at 09:00; Stop 04/04/17 at 23:55 Glucagon (Glucagon) 1 mg ASDIRECTED PRN SC SEE LABEL COMMENTS; Start 03/09/17 at 10:30; Stop 03/09/17 at 19:58; Status DC Glucagon (Glucagon) 1 mg ASDIRECTED PRN SC SEE LABEL COMMENTS; Start 03/09/17 at 20:00; Stop 04/08/17 at 19:59; Status Cancel Glucose (Glucose) 16 GM ASDIRECTED PRN PO SEE LABEL COMMENTS; Start 03/09/17 at 10:30; Stop 03/09/17 at 19:58; Status DC Glucose (Glucose) 16 GM ASDIRECTED PRN PO SEE LABEL COMMENTS; Start 03/09/17 at 20:00; Stop 04/08/17 at 19:59; Status Cancel Home Med (Med Rec Complete!) ASDIRECTED XX ; Start 03/06/17 at 15:45; Stop at 15:48; Status DC Insulin Human Lispro (HumaLOG INSULIN) See Protocol Table AC SC Last administered on 03/09/17 12:18; Start 03/09/17 at 12:00; Stop 03/09/17 at 19:56 ; Status DC Insulin Human Lispro (HumaLOG INSULIN) See Protocol Table AC SC Last administered on 03/11/17 08:17; Start 03/10/17 at 07:30; Stop 03/11/17 at 11:59 ; Status DC Insulin Human Lispro (HumaLOG INSULIN) See Protocol Table QHS SC ; Start at 21:00; Stop 03/11/17 at 11:59; Status DC Lisinopril (Prinivil) 40 mg DAILY PO Last administered on 04/02/17 09:56; Start 03/07/17 at 09:00; Stop 04/06/17 at 08:59 Magnesium Hydroxide (Milk Of Magnesia) 30 ml DAILYPRN PRN PO CONSTIPATION Last administered on 03/22/17 08:46; Start 03/06/17 at 14:00; Stop 04/05/17 at 13:59 Metformin HCl (Glucophage) 500 mg BID@,18 PO Last administered on 04/02/17 09:57; Start 03/06/17 at 18:00; Stop 04/05/17 at 17:59 Pantoprazole Sodium (Protonix) 40 mg DAILY PO Last administered on 04/02/17 09 :57; Start 03/07/17 at 09:00; Stop 04/06/17 at 08:59 Pravastatin Sodium (Pravachol) 80 mg QHS PO Last administered on 04/01/17 20: 25; Start 03/06/17 at 21:00; Stop 04/05/17 at 20:59 Sodium Biphosphate/ Sodium Phosphate (Fleet Enema) 1 ea DAILYPRN PRN [place] CONSTIPATION Last administered on 03/14/17 14:53; Start 03/06/17 at 14:00; Stop 04/05/17 at 13:59 Tramadol HCl (Ultram) 50 mg Q4HP PRN PO PAIN SCALE 6-10 Last administered on 08:29; Start 03/06/17 at 14:00; Stop 04/07/17 at 23:55 LOTUS PATTERSON MD Apr 02, 2017 12:14
[2017-04-02 14:00] VITALS: BP 134/77
[2017-04-02 20:00] VITALS: BP 127/70
[2017-04-02] MEDS: PRAVASTATIN 20 MG TAB PO SCH (20:22)
[2017-04-03 05:48] VITALS: BP 133/62
[2017-04-03] MEDS: IPRATROPIUM 0.5MG/ALBUTEROL 2.5MG INH SOL UD 3ML (DUONEB)(J7620) NEB SCH ×3 (07:30→19:28)
[2017-04-03] MEDS: ENOXAPARIN 40 MG/0.4 ML SYRINGE (J1650) SC SCH (09:24)
[2017-04-03] MEDS: amLODIPine 5 MG TAB PO SCH (09:24)
[2017-04-03] MEDS: LISINOPRIL 40 MG TAB PO SCH (09:24)
[2017-04-03] MEDS: PANTOPRAZOLE 40MG TAB (PROTONIX) PO SCH (09:24)
[2017-04-03] MEDS: metFORMIN (GLUCOPHAGE) 500 MG TAB PO SCH ×2 (09:24→17:44)
--- NOTE | 2017-04-03 12:25 | IPNPDOC ---
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 Patient seen today in his room sitting up in a chair. No pain problems just some frustration with speed of recovery. ALLERGIES: See Below MEDICATIONS: Reviewed, see below. OBJECTIVE: VITAL SIGNS: Please see below. PHYSICAL EXAMINATION: GENERAL: Well-nourished well-developed somewhat overweight late middle-age white male who appears to be in little to no acute distress. There is conjugate vision. Good speech is generated by the patient when you talk to him and his ability to initiate is improved. Anomia still present, especially with self initiation of speech. HEENT: Right facial droop is very mild. Patient is oriented 4. generally he has good conversational flow & head is atraumatic. CARDIOVASCULAR: Regular rate and rhythm with normal S1-S2. Bilateral radial pulses are 2/4. LUNGS: All pak are clear to auscultation. ABDOMEN: Benign, nontender with normal bowel sounds in all quadrants. There are some ecchymoses from Lovenox injections. NEUROLOGICAL: Slow gains with RU&LE motor. He has steadily more right hip and knee motor function daily. Left U&LE are Sensory-motor intact. SKIN: Grossly intact except for Lovenox injection sites. LABORATORY DATA: Reviewed. Please see below. MICROBIOLOGY: Please see below. IMAGING: No new imaging. DVT prophylaxis ordered?: Lovenox and SILVERIO hose. ASSESSMENT AND PLAN: 1. Rehabilitation of hemorrhagic left internal capsule/midbrain/basal ganglia's CVA: Speech continues to improve, with steady Right LE gains, but limited RUE. Sling helping with pain control and positioning. Endurance is improving. ADL's continue making some gains, but mainly limited by lack of RUE function. Anticipated Date of D/C is 04/03, though he will need more time as slow but steady RUE motor return continues. At present it appears likely he will need some additional to time to reach goals for return to home with his . Patient making steady progress. I feel he is likely to have a good recovery of speech, swallowing, and his right lower extremity and fair to good of the right upper extremity, but he needs time for neurologic recovery. His right hip is improved allowing gaiting with vernon-walker, but W/C remains the best mobility for ADL's and distances. 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 Patient to be transferred to SNF for Subacute Rehab. on Thursday. 2. Type 2 diabetes mellitus: Overall good control with no changes needed. 3. Hypertension: Doing well with current management. 4. Bladder Management: Overall it is working well with Q3hr stand to void. TIME SPENT: Chart Review, examination, documentation and meetings required greater than 15 minutes. Allergies Coded Allergies: ERNESTINA Inhibitors (Verified Allergy, Unknown, 12/17/12) Benazepril (Verified Allergy, Unknown, 12/17/12) Calcium Channel Blockers (Verified Allergy, Unknown, 12/17/12) Vital Signs Vital Signs Date Time Temp Pulse Resp B/P (MAP) Pulse Ox O2 Delivery O2 Flow Rate FiO2 04/03/17 09:24 56 133/62 04/03/17 05:48 98.6 16 99 Room Air Current Medications Current Medications Current Medications Al Hydrox/Mg Hydrox/Simethicone (Mylanta) 30 ml Q4HP PRN PO DYSPEPSIA; Start at 14:00; Stop 05/01/17 at 23:55 Albuterol/ Ipratropium (Duoneb (Ipr 0.5mg/Alb 2.5mg)) 3 ml RQ8H NEB Last administered on 03/28/17 15:05; Start 03/27/17 at 16:00; Stop 03/29/17 at 06:01 ; Status DC Albuterol/ Ipratropium (Duoneb (Ipr 0.5mg/Alb 2.5mg)) 3 ml RQ8H NEB Last administered on 04/03/17 07:30; Start 04/01/17 at 08:00; Stop 05/01/17 at 23:55 Amlodipine Besylate (Norvasc) 5 mg DAILY PO Last administered on 04/03/17 09: 24; Start 03/26/17 at 09:00; Stop 04/25/17 at 08:59 Amlodipine Besylate (Norvasc) 10 mg DAILY PO Last administered on 03/25/17 08: 45; Start 03/07/17 at 09:00; Stop 03/26/17 at 11:08; Status DC Amoxicillin/ Clavulanate Potassium (Augmentin) 875 mg BID PO Last administered on 03/21/17 20:29; Start 03/06/17 at 21:00; Stop 03/21/17 at 23:55; Status DC Bisacodyl (Dulcolax Tab) 5 mg DAILYPRN PRN PO CONSTIPATION Last administered on 03/22/17 08:46; Start 03/06/17 at 14:00; Stop 05/01/17 at 23:55 Dextrose (Dextrose 50%) 25 ml ASDIRECTED PRN IV SEE LABEL COMMENTS; Start 03/09 at 10:30; Stop 03/09/17 at 19:57; Status DC Dextrose (Dextrose 50%) 25 ml ASDIRECTED PRN IV SEE LABEL COMMENTS; Start 03/09 at 20:00; Stop 04/08/17 at 19:59; Status Cancel Enoxaparin Sodium (Lovenox) 40 mg DAILY SC Last administered on 04/03/17 09:24 ; Start 03/07/17 at 09:00; Stop 05/01/17 at 23:55 Glucagon (Glucagon) 1 mg ASDIRECTED PRN SC SEE LABEL COMMENTS; Start 03/09/17 at 10:30; Stop 03/09/17 at 19:58; Status DC Glucagon (Glucagon) 1 mg ASDIRECTED PRN SC SEE LABEL COMMENTS; Start 03/09/17 at 20:00; Stop 04/08/17 at 19:59; Status Cancel Glucose (Glucose) 16 GM ASDIRECTED PRN PO SEE LABEL COMMENTS; Start 03/09/17 at 10:30; Stop 03/09/17 at 19:58; Status DC Glucose (Glucose) 16 GM ASDIRECTED PRN PO SEE LABEL COMMENTS; Start 03/09/17 at 20:00; Stop 04/08/17 at 19:59; Status Cancel Home Med (Med Rec Complete!) ASDIRECTED XX ; Start 03/06/17 at 15:45; Stop at 15:48; Status DC Insulin Human Lispro (HumaLOG INSULIN) See Protocol Table AC SC Last administered on 03/09/17 12:18; Start 03/09/17 at 12:00; Stop 03/09/17 at 19:56 ; Status DC Insulin Human Lispro (HumaLOG INSULIN) See Protocol Table AC SC Last administered on 03/11/17 08:17; Start 03/10/17 at 07:30; Stop 03/11/17 at 11:59 ; Status DC Insulin Human Lispro (HumaLOG INSULIN) See Protocol Table QHS SC ; Start at 21:00; Stop 03/11/17 at 11:59; Status DC Lisinopril (Prinivil) 40 mg DAILY PO Last administered on 04/03/17 09:24; Start 03/07/17 at 09:00; Stop 05/01/17 at 23:55 Magnesium Hydroxide (Milk Of Magnesia) 30 ml DAILYPRN PRN PO CONSTIPATION Last administered on 03/22/17 08:46; Start 03/06/17 at 14:00; Stop 05/01/17 at 23:55 Metformin HCl (Glucophage) 500 mg BID@ PO Last administered on 04/03/17 09:24; Start 03/06/17 at 18:00; Stop 05/01/17 at 23:55 Pantoprazole Sodium (Protonix) 40 mg DAILY PO Last administered on 04/03/17 09 :24; Start 03/07/17 at 09:00; Stop 05/01/17 at 23:55 Pravastatin Sodium (Pravachol) 80 mg QHS PO Last administered on 04/02/17 20: 22; Start 03/06/17 at 21:00; Stop 05/01/17 at 23:55 Sodium Biphosphate/ Sodium Phosphate (Fleet Enema) 1 ea DAILYPRN PRN [place] CONSTIPATION Last administered on 03/14/17 14:53; Start 03/06/17 at 14:00; Stop 05/01/17 at 23:55 Tramadol HCl (Ultram) 50 mg Q4HP PRN PO PAIN SCALE 6-10 Last administered on 08:29; Start 03/06/17 at 14:00; Stop 04/07/17 at 23:55 LOTUS PATTERSON MD Apr 03, 2017 12:25
[2017-04-03 14:00] VITALS: BP 146/77
[2017-04-03 20:00] VITALS: BP 131/60
[2017-04-03] MEDS: PRAVASTATIN 20 MG TAB PO SCH (20:34)
[2017-04-04 06:00] VITALS: BP 138/76
[2017-04-04] MEDS: IPRATROPIUM 0.5MG/ALBUTEROL 2.5MG INH SOL UD 3ML (DUONEB)(J7620) NEB SCH (07:59)
[2017-04-04] MEDS: ENOXAPARIN 40 MG/0.4 ML SYRINGE (J1650) SC SCH (08:23)
[2017-04-04] MEDS: PANTOPRAZOLE 40MG TAB (PROTONIX) PO SCH (08:23)
[2017-04-04] MEDS: amLODIPine 5 MG TAB PO SCH (08:23)
[2017-04-04] MEDS: LISINOPRIL 40 MG TAB PO SCH (08:24)
[2017-04-04] MEDS: metFORMIN (GLUCOPHAGE) 500 MG TAB PO SCH ×2 (08:24→18:10)
[2017-04-04] MEDS: MOM 30ML SUSPENSION UDC PO PRN (08:38)
[2017-04-04] MEDS ORDERED: IPRATROPIUM 0.5MG/ALBUTEROL 2.5MG INH SOL UD 3ML (DUONEB)(J7620) NEB PRN (09:30)
[2017-04-04 14:00] VITALS: BP 126/80
[2017-04-04 20:00] VITALS: BP 128/74
[2017-04-04] MEDS: PRAVASTATIN 20 MG TAB PO SCH (20:05)
[2017-04-05 06:00] VITALS: BP 124/78
[2017-04-05 08:00] VITALS: BP 160/77
[2017-04-05] MEDS: LISINOPRIL 40 MG TAB PO SCH (08:14)
[2017-04-05] MEDS: PANTOPRAZOLE 40MG TAB (PROTONIX) PO SCH (08:14)
[2017-04-05] MEDS: amLODIPine 5 MG TAB PO SCH (08:14)
[2017-04-05] MEDS: metFORMIN (GLUCOPHAGE) 500 MG TAB PO SCH ×2 (08:15→17:02)
[2017-04-05] MEDS: ENOXAPARIN 40 MG/0.4 ML SYRINGE (J1650) SC SCH (08:15)
[2017-04-05 14:00] VITALS: BP 135/77
[2017-04-05 20:00] VITALS: BP 130/79
[2017-04-05] MEDS: PRAVASTATIN 20 MG TAB PO SCH (20:35)
[2017-04-06 06:00] VITALS: BP 147/71
[2017-04-06] MEDS: metFORMIN (GLUCOPHAGE) 500 MG TAB PO SCH (08:29)
[2017-04-06] MEDS: LISINOPRIL 40 MG TAB PO SCH (08:29)
[2017-04-06] MEDS: PANTOPRAZOLE 40MG TAB (PROTONIX) PO SCH (08:29)
[2017-04-06 08:30] VITALS: BP 147/71
[2017-04-06] MEDS: amLODIPine 5 MG TAB PO SCH (08:30)
[2017-04-06] MEDS: ENOXAPARIN 40 MG/0.4 ML SYRINGE (J1650) SC SCH (08:31)
[2017-04-06] MEDS ORDERED: AMLO5TAB2 PO (08:50)
[2017-04-06] MEDS ORDERED: LOVE1INJ SC (08:50)
[2017-04-06] MEDS ORDERED: PANT40TA2 PO (08:50)
--- NOTE | 2017-04-07 08:34 | PMRDS ---
DATE OF ADMISSION: 03/06/2017 DATE OF DISCHARGE: 04/06/2017 DISCHARGE DIAGNOSES: 1. 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 2. Atherosclerotic cardiovascular disease with: A) Hypertension. B) Hyperlipidemia. C) History of left internal capsule lacunar infarct. 3. Type 2 diabetes mellitus. 4. Possible pneumonia. Patient received having been treated with IV antibiotics and then transitioned to Augmentin per his admission. 5. History of cirrhosis on CT scan. 6. End stage right knee osteoarthritis and status post right total knee arthroplasty. 7. History of small bowel obstruction. 8. Status post hernia repair. HISTORY: Patient is a 67-year-old white male who on 02/27/2017 developed slurring of speech and right sided weakness with elevated systolic blood pressure in the 180s and was found to have an internal capsule hemorrhagic cerebrovascular accident (CVA) including the basal ganglia and mid brain. Patient was treated at [facility], stabilized from this. No surgery was needed and patient was transferred on 03/06/2017 to [facility] acute rehabilitation unit for acute intensive inpatient rehabilitation. Patient when admitted was unable to bring eyes from the left side past midline and has disconjugate vision. He has complete paresis of the right upper extremity and was only showing one to two motor in the proximal right lower extremity with marked facial droop, dysarthria and some dysphasia and very dense aphasia more expressive than receptive but still very dense receptive on admission. Patient has participated in physical, occupational and speech language pathology treatment and now has very mild right facial droop. He is able to visually scan both sides. He has had marked improvement in right facial sensorium of right face and right body as well as having 1-2 out of 5 right shoulder and 2 minus to 2 right hand movement along with 3 minus to 3 plus right lower extremity. Patient does have anomia on trying to generate spontaneous speech, however, is able to carry on a conversation in general and makes his wants and needs known and has become clearly orient times four as he appreciates and understands and participated very well in therapy throughout his entire admission. PROCEDURES PERFORMED: Chest x-ray on 03/27/2017 after patient developed some low grade fever and having completed his antibiotics a couple of weeks prior to that. He, however, was found to have no active disease and encouragement of incentive spirometry and treatment for atelectasis resulted in clearing of the fevers. DIAGNOSTIC LABORATORY DATA: Showed patient to have essentially normal CBC except for platelet count of 131 on initial CBC and most showed normal CBC with platelet count having increased to 179,000. Chemistry showed patient with elevation of chloride at 108, otherwise normal electrolytes, BUN of 24 and fasting blood sugar of 120 on admission. Albumin of 3.0, calcium reflecting at 8.7 and AST very mildly increased at 43. Most recent comprehensive metabolic panel showed normal electrolytes, normalization of BUN at 13, normal creatinine, fasting blood sugar of 91. Hemoglobin A1c of 6.3 on 03/10 and has been good blood sugar control since then with albumin normal at 3.6, normal liver function tests and calcium normal at 9.3. HOSPITAL COURSE: Patient admitted on 03/06/2017 and started in treatment with physical, occupational and speech therapy doing assessments including swallowing evaluations and training. Patient, as noted above on physical exam, made significant improvement in most areas except has lagged in his recovery in right lower extremity motor, especially his right upper extremity which is greatly impacting on his functional abilities as he is right handed and this has altered his ability to use his dominant side. Patient, however, has participated in therapy throughout and has been medically stable and just had a brief period of low grade fevers around 03/26 and 03/27 which have since abated. DISCHARGE MEDICATIONS: - amlodipine 5 mg daily - Lovenox 40 mg subcutaneous daily for deep venous thrombosis (DVT) prevention - omeprazole 40 mg daily for gastroesophageal reflux disease (GERD) prevention - lisinopril 40 mg daily for hypertension, controlled - metformin 500 mg twice daily for diabetes management - pravastatin 80 mg daily at bedtime for cholesterol control - tramadol 50 mg by mouth every 4 hours as needed pain, patient has rarely used this He is using thromboembolic deterrent stockings (TEDS) for deep venous thrombosis (DVT) prophylaxis and incentive spirometry. He has had no complication and being discharged to [facility] subacute rehabilitation unit today. Patient will need followup with his primary care provider Dr. Rajiv Peterson Jr., within 4 weeks after discharge to home. Patient is on a concentrated carbohydrate diet. He is able to handle all textures though he should have some supervision with meats and harder solid foods to be sure that he chews them appropriately and chews appropriate small bite size. Patient is able to handle all textures of liquid. TIME SPENT ON DISCHARGE: Greater than 35 minutes.
== END 2017-04-06 09:10 | DRG 56 ==
LOC: M PM&R 03-06 14:25
PROVIDERS: ADMIT Physical Medicine & Rehabilitation; ATTEND Physical Medicine & Rehabilitation
DX: I69.151 Hemiplegia and hemiparesis following nontraumatic intracerebral hemorrhage affecting right dominant side (principal); J18.9 Pneumonia, unspecified organism; J98.11 Atelectasis; I69.191 Dysphagia following nontraumatic intracerebral hemorrhage; I69.122 Dysarthria following nontraumatic intracerebral hemorrhage; I69.120 Aphasia following nontraumatic intracerebral hemorrhage; I69.192 Facial weakness following nontraumatic intracerebral hemorrhage; I25.10 Atherosclerotic heart disease of native coronary artery without angina pectoris; E11.9 Type 2 diabetes mellitus without complications; I10 Essential (primary) hypertension; E78.5 Hyperlipidemia, unspecified; D69.6 Thrombocytopenia, unspecified; E66.3 Overweight; R50.9 Fever, unspecified; K21.9 Gastro-esophageal reflux disease without esophagitis; K74.60 Unspecified cirrhosis of liver; Z68.29 Body mass index [BMI] 29.0-29.9, adult; Z79.84 Long term (current) use of oral hypoglycemic drugs; Z96.651 Presence of right artificial knee joint; Z79.899 Other long term (current) drug therapy; Z88.8 Allergy status to other drugs, medicaments and biological substances; Z79.891 Long term (current) use of opiate analgesic

== ENCOUNTER 2017-06-10 08:43 | Outpatient (RCR) | payer OTHER ==
[~2017-06-10 08:43] MED LIST changes: +ADVI200T PO; +AMLO10TA2 PO; +AMLO5TAB2 PO; +AUGM875T28 PO; +LISI40TAB PO; +LOVE1INJ SC; +METF500T13 PO; +PANT40TA2 PO; +PRAV80TA2 PO; +TRAM50TA2 PO
== END 2017-06-13 | disposition home or self-care (01) ==
LOC: M PT 08:43
PROVIDERS: ATTEND Internal Medicine
DX: Z51.89 Encounter for other specified aftercare (principal); I69.351 Hemiplegia and hemiparesis following cerebral infarction affecting right dominant side
CPT/HCPCS: 97162; 97165; G8978; G8979; G8984; G8985

== ENCOUNTER → 2017-07-14 | Outpatient (RCR) | payer OTHER | LOC: M PT 06-15 12:57 → M OT 06-17 12:37 → M ST 06-23 08:54 → M OT 06-25 08:59 → M PT 07-02 08:53 → M OT 07-07 08:45 → M ST 07-09 08:43 → M OT 08:52 | PROVIDERS: ATTEND Internal Medicine | DX: Z51.89 Encounter for other specified aftercare (principal); I69.959 Hemiplegia and hemiparesis following unspecified cerebrovascular disease affecting unspecified side | CPT/HCPCS: 92507; 96105; 97110; 97112; 97116; 97140; 97530; G8978; G8979; G8984; G8985; G9162; G9163 ==

== ENCOUNTER → 2017-08-13 | Outpatient (RCR) | payer OTHER | LOC: M OT 07-16 09:03 → M PT 07-21 09:53 → M OT 07-30 07:38 → M PT 08-04 09:08 → M OT 09:01 | PROVIDERS: ATTEND Internal Medicine | DX: I69.351 Hemiplegia and hemiparesis following cerebral infarction affecting right dominant side (principal); I69.320 Aphasia following cerebral infarction | CPT/HCPCS: 92507; 97110; 97112; 97116; 97530; G8984; G8985 ==

== ENCOUNTER 2017-08-18 09:08 | Outpatient (RCR) | payer OTHER | END 2017-09-13 | LOC: M OT 09:08 → M PT 08-25 09:14 → M OT 09:08 → M PT 08-25 09:14 → M OT 09-10 08:33 | DX: Z51.89 Encounter for other specified aftercare (principal); I69.959 Hemiplegia and hemiparesis following unspecified cerebrovascular disease affecting unspecified side | CPT/HCPCS: 97110 ==

== ENCOUNTER 2017-09-15 08:27 | Outpatient (RCR) | payer OTHER | END 2017-10-14 | LOC: M OT 08:27 → M PT 09-22 08:33 → M OT 09-24 08:41 → M PT 09-29 08:32 → M OT 10-01 08:44 → M PT 10-06 09:36 → M OT 10-08 09:00 → M PT 09-22 08:33 → M OT 09-24 08:41 → M PT 09-29 08:32 → M OT 10-01 08:44 → M PT 10-06 09:36 → M OT 10-08 09:00 | DX: Z51.89 Encounter for other specified aftercare (principal); I69.359 Hemiplegia and hemiparesis following cerebral infarction affecting unspecified side | CPT/HCPCS: 97110 ==

== ENCOUNTER 2017-10-15 08:48 | Outpatient (RCR) | payer OTHER | END 2017-11-11 | LOC: M OT 08:48 → M PT 11-05 10:01 → M OT 11-10 10:06 → M PT 11-05 10:01 → M OT 11-10 10:06 | DX: Z51.89 Encounter for other specified aftercare (principal); I69.959 Hemiplegia and hemiparesis following unspecified cerebrovascular disease affecting unspecified side | CPT/HCPCS: 97110 ==

== ENCOUNTER 2017-11-17 10:04 | Outpatient (RCR) | payer OTHER | END 2017-12-12 | LOC: M OT 10:04 → M PT 11-23 09:38 → M OT 11-30 09:10 → M PT 12-02 09:26 → M OT 12-10 13:25 → M PT 11-23 09:38 → M OT 11-30 09:10 → M PT 12-02 09:26 → M OT 12-08 13:40 | DX: Z51.89 Encounter for other specified aftercare (principal); I63.9 Cerebral infarction, unspecified | CPT/HCPCS: 97110 ==

== ENCOUNTER 2017-12-15 12:45 | Outpatient (RCR) | payer OTHER | END 2018-01-11 | LOC: M OT 12:45 | DX: Z51.89 Encounter for other specified aftercare (principal); M62.81 Muscle weakness (generalized) | CPT/HCPCS: 97110 ==

== ENCOUNTER → 2018-03-29 | Outpatient (CLI) | payer OTHER | LOC: M SMT 08:39 | DX: R52 Pain, unspecified (principal) | CPT/HCPCS: 74021 ==

== ENCOUNTER 2018-04-05 16:24 | Emergency (ER) | payer OTHER ==
[2018-04-05 17:05] LABS: BEDSIDE GLUCOSE 106 MG/DL (80-115)
[2018-04-05 17:13] LABS: BASO # 0.1 10^3/uL (0.0-0.2); BASO % 0.8 % (0.0-1.0); EOS # 0.2 10^3/uL (0.0-0.50); EOS % 2.6 % (0.0-3.0); HEMATOCRIT 40.6 % (42.0-52.0); HEMOGLOBIN 13.8 g/dl (13.5-17.5); IMMATURE GRANULOCYTE % 0.3 % (0-3.0); LYMPH # 2.9 10^3/uL (1.5-4.5); LYMPH % 40.5 % (24.0-44.0); MEAN CORPUSCULAR HEMOGLOBIN 30.8 pg (27.0-33.0); MEAN CORPUSCULAR VOLUME 90.6 fl (80.0-96.0); MONO # 0.5 10^3/uL (0.0-0.8); MONO % 7.5 % (0.0-5.0); NEUTROPHILS # 3.5 10^3/uL (1.8-7.7); NEUTROPHILS % 48.3 % (36.0-66.0); PLATELET COUNT, AUTOMATED 187 10^3/uL (150-450); RED BLOOD COUNT 4.48 10^6/uL (4.30-6.10); RED CELL DISTRIBUTION WIDTH 13.1 % (11.5-14.5); WHITE BLOOD COUNT 7.2 10^3/uL (4.0-10.0)
[2018-04-05 17:18] LABS: INR 0.97
[2018-04-05 17:19] LABS: PARTIAL THROMBOPLASTIN TIME 27.8 SECONDS (25.4-37.6)
[2018-04-05 17:34] LABS: ANION GAP 9 MEQ/L (8-16); CALCIUM LEVEL 8.6 MG/DL (8.8-10.2); CARBON DIOXIDE LEVEL 26 MEQ/L (21-32); CHLORIDE LEVEL 108 MEQ/L (98-107); CPK CREATINE PHOSPHOKINASE 181 U/L (39-308); CREATININE FOR GFR 0.88 MG/DL (0.70-1.30); GLOMERULAR FILTRATION RATE > 60.0 (>49); GLUCOSE, FASTING 124 MG/DL (70-100); POTASSIUM SERUM 3.7 MEQ/L (3.5-5.1); SODIUM LEVEL 143 MEQ/L (136-145); TROPONIN I < 0.02 NG/ML (< 0.10)
[2018-04-05 17:37] LABS: BLOOD UREA NITROGEN 17 MG/DL (7-18); MB/CK RELATIVE INDEX 0.55 (< OR =4)
[2018-04-05] MEDS: ASPIRIN 81 MG CHEW TABLET PO (18:35)
== END 2018-04-05 19:32 | disposition short-term general hospital (02) ==
LOC: M ED 16:24
DX: I63.9 Cerebral infarction, unspecified (principal); R47.01 Aphasia; R29.709 NIHSS score 9; E11.9 Type 2 diabetes mellitus without complications; Z79.899 Other long term (current) drug therapy; Z79.84 Long term (current) use of oral hypoglycemic drugs
CPT/HCPCS: 71045

== ENCOUNTER → 2018-04-16 | Outpatient (CLI) | payer OTHER ==
[~2018-04-16] MED LIST changes: -/WARF5TA; -ACET65TA; -ADVI200T PO; -AMLO10TA2 PO; -AMLO5TAB2 PO; -AUGM875T28 PO; +GASTROGRAFIN SOLUTION 30ML (Q9963) As Ordered; +ISOVUE-370 76% 100ML VIAL (Q9967) As Ordered; -LISI40TAB PO; -LOVE1INJ SC; -METF500T13 PO; -METF500T4; -METO25TA2; -PANT40TA2 PO; -PRAV80TA2 PO; -PRIN20TA3; -SIMV40TA2; -TRAM50TA2 PO
== END ==
LOC: M RAD 11:40
DX: R10.11 Right upper quadrant pain (principal); R10.13 Epigastric pain
CPT/HCPCS: Q9963

== ENCOUNTER 2018-05-12 12:49 | Emergency (ER) | payer OTHER ==
[2018-05-12] MEDS: LIDOCAINE 2% MDV 20 ML VIAL SC (15:38)
== END 2018-05-12 16:16 | disposition home or self-care (01) ==
LOC: M ED 12:49
DX: S01.312A Laceration without foreign body of left ear, initial encounter (principal); W01.198A Fall on same level from slipping, tripping and stumbling with subsequent striking against other object, initial encounter; Y92.098 Other place in other non-institutional residence as the place of occurrence of the external cause; I10 Essential (primary) hypertension; E78.5 Hyperlipidemia, unspecified; E11.9 Type 2 diabetes mellitus without complications; K21.9 Gastro-esophageal reflux disease without esophagitis; Z87.891 Personal history of nicotine dependence; Z88.8 Allergy status to other drugs, medicaments and biological substances; Z79.899 Other long term (current) drug therapy; Z79.84 Long term (current) use of oral hypoglycemic drugs; Z79.82 Long term (current) use of aspirin
CPT/HCPCS: 12011

== ENCOUNTER 2018-06-18 05:40 | Day surgery (SDC) | payer OTHER ==
[2018-06-18] MEDS ORDERED: LR 1,000 ML IV ×2 (06:00→10:45)
[2018-06-18] MEDS ORDERED: LIDOCAINE 1% MDV 20ML VIAL As Ordered (06:07)
[2018-06-18 06:34] LABS: BEDSIDE GLUCOSE 89 MG/DL (80-115)
[2018-06-18] MEDS ORDERED: ONDANSETRON 4MG/2ML VIAL (J2405) As Ordered ×2 (07:20→10:37)
[2018-06-18] MEDS ORDERED: LIDOCAINE 2% INJ 100 MG/5 ML SDV (FOR ANES.) As Ordered (07:20)
[2018-06-18] MEDS ORDERED: ROCURONIUM BROMIDE 50 MG/5 ML VIAL As Ordered ×2 (07:20→08:43)
[2018-06-18] MEDS ORDERED: PROPOFOL 200 MG/20 ML VIAL As Ordered (07:20)
[2018-06-18] MEDS ORDERED: dexameTHASONE 4 MG/ML 1ML VIAL (J1100) As Ordered (07:20)
[2018-06-18] MEDS ORDERED: MIDAZOLAM INJ 2 MG/2 ML VIAL (J2250) As Ordered (07:23)
[2018-06-18] MEDS ORDERED: fentaNYL 250 MCG/5 ML INJECTION (J3010) As Ordered (07:23)
[2018-06-18] MEDS: ceFAZolin SOD 1 GM in D5W MINI-BAG PLUS 50 ML IV (07:54)
[2018-06-18] MEDS: BUPIVACAINE/EPIN 0.25% 30 ML VIAL As Ordered (08:16)
[2018-06-18] MEDS ORDERED: ePHEDrine SULFATE 25 MG/5 ML(5MG/ML) SYRINGE As Ordered (08:19)
[2018-06-18] MEDS ORDERED: GLYCOPYRROLATE INJ 0.2 MG/ML 2 ML VIAL As Ordered (08:39)
[2018-06-18] MEDS ORDERED: NEOSTIGMINE 10 MG/10 ML VIAL (J2710) As Ordered (08:39)
[2018-06-18] MEDS ORDERED: HYDROmorphone HCL 2 MG/ML 1ML VIAL (J1170) As Ordered (08:40)
[2018-06-18] MEDS: LR 1,000 ML IV (10:07)
[2018-06-18] MEDS ORDERED: MORPHINE 10 MG/ML 1ML VIAL (J2270) As Ordered (10:37)
[2018-06-18] MEDS: MORPHINE 10 MG/ML 1ML VIAL (J2270) IV ×2 (10:40→10:45)
[2018-06-18] MEDS: ONDANSETRON 4MG/2ML VIAL (J2405) IV (10:40)
[2018-06-18] MEDS ORDERED: NORCO, ANEXSIA 5/325MG TABLET (HYDROcodone/ACETAMINOPHEN) PO (10:45)
[2018-06-18] MEDS ORDERED: METOCLOPRAMIDE INJ 10MG/2ML VIAL (J2765) As Ordered (10:54)
[2018-06-18] MEDS: METOCLOPRAMIDE INJ 10MG/2ML VIAL (J2765) IV (10:55)
[2018-06-18] MEDS ORDERED: ONDANSETRON 4MG/2ML VIAL (J2405) IV (11:00)
[2018-06-18] MEDS ORDERED: fentaNYL 100 MCG/2 ML INJECTION (J3010) IV (11:00)
== END 2018-06-18 12:35 | disposition home or self-care (01) ==
LOC: M SDC 05:40
DX: K40.20 Bilateral inguinal hernia, without obstruction or gangrene, not specified as recurrent (principal); E11.9 Type 2 diabetes mellitus without complications; I10 Essential (primary) hypertension; E78.5 Hyperlipidemia, unspecified; Z86.73 Personal history of transient ischemic attack (TIA), and cerebral infarction without residual deficits; Z79.899 Other long term (current) drug therapy; Z87.891 Personal history of nicotine dependence; Z88.8 Allergy status to other drugs, medicaments and biological substances; Z79.84 Long term (current) use of oral hypoglycemic drugs; K21.9 Gastro-esophageal reflux disease without esophagitis
CPT/HCPCS: 49650

== ENCOUNTER 2018-11-17 10:35 | Outpatient (RCR) | payer MEDICARE ==
[~2018-11-17 10:35] MED LIST changes: +/WARF5TA; +ACET65TA; +ADVI200T PO; +AMLO10TA5 PO; +AMLO5TAB6 PO; +ASPI81TA85 PO; +ATOR40TA75 PO; +AUGM875T28 PO; -GASTROGRAFIN SOLUTION 30ML (Q9963) As Ordered; -ISOVUE-370 76% 100ML VIAL (Q9967) As Ordered; +KEFL500C17 PO; +LISI40TA PO; +LOVE1INJ SC; +METF500T13 PO; +METF500T4; +METO25TA2; +PANT40TA3 PO; +PRAV80TA2 PO; +PRIN20TA3; +SIMV40TA2; +STOO100C PO; +TRAM50TA2 PO
--- NOTE | 2018-11-17 13:48 | NUR ---
Patient was able to safely eat and drink all trialed consistencies during clinical swallowing assessment. ST provided pt with safe feeding strategies to implement at home to maximize safety during PO intake. Based on the results of the assessment, ST recommends patient be assessed for reflux and be referred to ENT due to globus sensation, chronic throat clearing, and reported chronic nasal congestion. ST recommends at least 2 follow up sessions to provide GERD/LPR education and continued education on safe feeding to decrease irritation and increase safety during PO intake. Continued ST may be recommended based on results of ENT evaluation. Addendum: 11/17/18 at 1349 by JEY SHEPPARD Amended: Links added.
== END 2018-12-12 ==
LOC: M ST 10:35
PROVIDERS: ATTEND Internal Medicine
DX: R13.10 Dysphagia, unspecified (principal)

== ENCOUNTER 2018-11-29 13:06 | Day surgery (SDC) | payer MEDICARE ==
[~2018-11-29] VITALS: Ht 172.7 cm; Wt 72.6 kg
[2018-11-29] MEDS ORDERED: LIDOCAINE 1% SDV INJ 30 ML VIAL As Ordered ONE (14:16)
[2018-11-29] MEDS ORDERED: ceFAZolin 1GM INJ (J0690 PER 500MG) As Ordered ONE (14:19)
[2018-11-29] MEDS ORDERED: ceFAZolin SOD 1 GM in D5W MINI-BAG PLUS 50 ML IV ONE (14:30)
[2018-11-29] MEDS ORDERED: fentaNYL 100 MCG/2 ML INJECTION (J3010) As Ordered ONE (14:46)
[2018-11-29] MEDS ORDERED: MIDAZOLAM INJ 2 MG/2 ML VIAL (J2250) As Ordered ONE (14:46)
[2018-11-29] MEDS ORDERED: LIDOCAINE 2% INJ 100 MG/5 ML SDV (FOR ANES.) As Ordered ONE (14:46)
[2018-11-29] MEDS ORDERED: PROPOFOL 200 MG/20 ML VIAL As Ordered ONE (14:46)
[2018-11-29 15:40] VITALS: BP 181/81
--- NOTE | 2018-11-29 15:53 | RO ---
DATE OF PROCEDURE: 11/29/2018 PREOPERATIVE DIAGNOSIS: Cryptogenic stroke. POSTOPERATIVE DIAGNOSIS: Cryptogenic stroke. PROCEDURE PERFORMED: Implantation of implantable loop recorder (Medtronic). SURGEON: Jose Singleton MD AQUATICS MANAGER: None. ANESTHESIA: Lidocaine 1% local/monitored anesthetic care. FINDINGS: Cryptogenic stroke. No specimens. Estimated blood loss less than 2 mL. No blood products replaced. No drains. No complications. PROCEDURE DESCRIPTION: Patient was prepped and draped over the left anterior chest and sternum. Lidocaine 1% was used for local anesthetic. An incision approximately 1 cm in length was made with a #15 blade at the 4th left interspace 1 inch lateral to the left parasternal border. The guide on the insertion tool was then placed into the incision and advanced in the subcutaneous fat in a caudal-left lateral direction and parallel to the chest wall. The insertion tool was rotated 180 degrees. The plunger was then placed into the insertion tool and used to advance the loop recorder into the subcutaneous fat. The plunger was then removed and then the insertion tool was removed leaving the loop recorder in place. The initial R wave amplitude was 1.1 mV. Next, a #4-0 Biosyn suture was placed subcuticular to approximate the skin edges. This suture was only used temporarily. Next, two layers of Dermabond was applied over the incision. Next, the #4-0 Biosyn suture was pulled through and removed from the incision. Next, Mastisol was placed perpendicular to the incision line above and below the Dermabond being careful not to get any Mastisol on the Dermabond. Next, two half inch Steri-Strips cut in half were placed perpendicular to the incision line over the Dermabond and the incision line. Patient tolerated the procedure well without any immediate complications. The implantable loop recorder implanted was a Turbine Reveal LINQ, model LNQ11 with serial number [id number].
[2018-11-29] MEDS ORDERED: ONDANSETRON 4MG/2ML VIAL (J2405) IV PRN (16:15)
[2018-11-29] MEDS ORDERED: LR 1,000 ML IV SCH (16:15)
[2018-11-29] MEDS ORDERED: fentaNYL 100 MCG/2 ML INJECTION (J3010) IV PRN (16:15)
== END 2018-11-29 16:03 | disposition home or self-care (01) ==
LOC: M SDC 13:06
PROVIDERS: ATTEND Internal Medicine Cardiovascular Disease
DX: I63.9 Cerebral infarction, unspecified (principal); E11.9 Type 2 diabetes mellitus without complications; I10 Essential (primary) hypertension; E78.5 Hyperlipidemia, unspecified; Z86.73 Personal history of transient ischemic attack (TIA), and cerebral infarction without residual deficits; Z79.82 Long term (current) use of aspirin; Z79.84 Long term (current) use of oral hypoglycemic drugs; Z79.899 Other long term (current) drug therapy; Z88.8 Allergy status to other drugs, medicaments and biological substances
CPT/HCPCS: 33285; C1764; J0690; J2250; J3010

== ENCOUNTER → 2018-12-09 | Outpatient (CLI) | payer MEDICARE ==
--- NOTE | 2018-12-09 14:12 | NUR ---
Pt presents with mild pharyngeal phase dysphagia as characterized by flash/trace penetration w/o aspiration. Pt c/o globus sensation and presents with frequent throat clearing. Pt expressed most persistent difficulty with mixed consistencies (cereal w/milk). Exam revealed rt lip weakness and decreased sensation. Flash/trace penetration noted with all thin liquids presented in all modalities. Aspiration was not observed. Minimal residue from solids at the pyriform sinuses and slight delay in cricopharyngeal opening. Discussed with Pt to avoid mixed consistencies with examples. Educated on constant throat clearing related to vocal hygiene. Please consider regimen for possible GERD and/or post nasal drip. Addendum: 12/09/18 at 1413 by IRAM HUITRON [facility] JEY Amended: Links added.
--- NOTE | 2018-12-09 15:55 | REP ---
COOKIE SWALLOW The procedure was performed under the direct supervision of Dr. Grimes. The procedure was performed with Eulalia Bravo from speech pathology present. 5 ml aliquots of thin, nectar, pudding, mixed fruit, solid and a barium pill were administered. With thin consistency barium and mixed fruit consistency barium there is laryngeal penetration. The detailed report of this examination will be provided by speech pathology. 1.5 minutes of fluoroscopy time was utilized for this procedure. Reviewed by ADAM Pelaez 12/09/2018 03:40 P Electronically Signed by Iván Grimes MD 12/09/2018 03:46 P
== END ==
LOC: M ST 12:14
PROVIDERS: ATTEND Specialist
DX: R13.13 Dysphagia, pharyngeal phase (principal)

== ENCOUNTER → 2019-08-23 | Outpatient (REF) | payer MEDICARE ==
[~2019-08-23] MED LIST changes: -/WARF5TA; +COUM1TAB17; +MM S100C PO; -STOO100C PO
[2019-08-23 18:51] LABS: FOLATE 15.3 NG/ML
== END ==
LOC: M LAB REF 17:27
PROVIDERS: ATTEND Internal Medicine
DX: R41.81 Age-related cognitive decline (principal)

== ENCOUNTER → 2020-01-28 | Outpatient (CLI) | payer MEDICARE | LOC: M LABSMTC 08:20 | PROVIDERS: ATTEND Anesthesiology | DX: Z01.818 Encounter for other preprocedural examination (principal); Z11.59 Encounter for screening for other viral diseases | CPT/HCPCS: C9803; U0003 ==

== ENCOUNTER 2020-01-31 07:27 | Day surgery (SDC) | payer MEDICARE ==
[~2020-01-31] VITALS: Ht 177.8 cm; Wt 63.9 kg
[~2020-01-31 07:27] MED LIST changes: +LR 1,000 ML IV ONE; +ceFAZolin SOD 1 GM in D5W MINI-BAG PLUS 50 ML IV ONE
[2020-01-31] MEDS ORDERED: ROCURONIUM BROMIDE 50 MG/5 ML VIAL As Ordered ONE (08:16)
[2020-01-31] MEDS ORDERED: SUCCINYLCHOLINE 100 MG/5 ML SYRINGE (J0330) As Ordered ONE (08:16)
[2020-01-31] MEDS ORDERED: fentaNYL 250 MCG/5 ML INJECTION (J3010) As Ordered ONE (08:16)
[2020-01-31] MEDS ORDERED: LIDOCAINE 2% 100MG/5ML SDV (FOR ANES.) As Ordered ONE (08:16)
[2020-01-31] MEDS ORDERED: propofoL 200 MG/20 ML VIAL As Ordered ONE (08:16)
[2020-01-31] MEDS ORDERED: MIDAZOLAM INJ 2MG/2ML VIAL (J2250 PER 1MG) As Ordered ONE (08:17)
[2020-01-31] MEDS ORDERED: BUPIVACAINE/EPIN 0.25% 30 ML VIAL As Ordered ONE (08:44)
[2020-01-31] MEDS ORDERED: BUPIVACAINE LIPOSOME/PF 1.3% 20ML VIAL (13.3MG/ML)(EXPAREL)(C9290 PER1MG) As Ordered ONE (08:44)
[2020-01-31] MEDS ORDERED: KETOROLAC 60 MG/2 ML VIAL As Ordered ONE (09:22)
[2020-01-31] MEDS ORDERED: ONDANSETRON 4MG/2ML VIAL As Ordered ONE (09:22)
[2020-01-31] MEDS ORDERED: ACETAMINOPHEN 1000MG 100ML IV BTL (OFIRMEV) (J0131 PER 10MG) As Ordered ONE (09:24)
[2020-01-31] MEDS ORDERED: DESFLURANE 240 ML INHALANT As Ordered ONE (09:55)
[2020-01-31] MEDS ORDERED: SUGAMMADEX SODIUM 500 MG/5 ML VIAL (BRIDION) As Ordered ONE (10:15)
[2020-01-31] MEDS ORDERED: KETOROLAC 30 MG/ML 1ML VIAL IV PRN (10:45)
[2020-01-31] MEDS ORDERED: LR 1,000 ML IV SCH ×2 (10:45)
[2020-01-31] MEDS ORDERED: PERCOCET 5MG/325MG TAB PO PRN (10:45)
[2020-01-31] MEDS ORDERED: NORCO, ANEXSIA 5/325MG TABLET (HYDROcodone/ACETAMINOPHEN) PO PRN (10:45)
[2020-01-31] MEDS ORDERED: ONDANSETRON 4MG/2ML VIAL IV PRN (10:45)
[2020-01-31] MEDS ORDERED: fentaNYL 100 MCG/2 ML INJECTION (J3010) IV PRN (10:45)
--- NOTE | 2020-01-31 11:47 | RO ---
DATE OF PROCEDURE: 01/31/2020 PREOPERATIVE DIAGNOSIS: Recurrent right inguinal hernia. POSTOPERATIVE DIAGNOSIS: Recurrent right inguinal hernia. PROCEDURE: Repair of recurrent right inguinal hernia with Ultrapro mesh. SURGEON: Dr. Toby Trinh HARDWARE INSTALLATION COORDINATOR: ANESTHESIA: General endotracheal anesthesia. ESTIMATED BLOOD LOSS: Minimal. FLUIDS: Crystalloid. BRIEF PROCEDURE SUMMARY: The patient was brought to the operating room and was given general anesthesia. After adequate anesthesia and preoperative antibiotics were given, the patient was prepped and draped in the usual sterile fashion. Next, a right inguinal incision was made with skin knife. Blunt dissection was carried down through subcutaneous tissue down to the external oblique muscle fibers which were opened along its length down to the external ring. Cord structures were mobilized off surrounding structures. There was the ilioinguinal nerve that was crossing right at the level of the external ring and then went perforating through the external oblique a little distally. This was mobilized, first cutting the external oblique in this area to mobilize a nerve and then placing a [place] around this once the cord structures were mobilized off the pubis laterally. Once the [place] was retracted laterally, I could feel a small hernia on the medial aspect of the floor of the canal which was about a centimeter in size. This was closed later with a #2-0 Vicryl in a uylnod-wi-zhuas manner. However, the patient had an indirect hernia which was present. There was a great deal of fibrosis along the cord structures itself and along the hernia sac, but eventually I was able to mobilize the cord structures off the hernia sac using some blunt dissection as well as electrocautery. The hernia sac was mobilized all the way to the internal ring where I could feel the mesh and the mesh was anteriorly and I anticipate the mesh probably folded up and this came out posterior to the mesh itself. In any case, the hernia sac was mobilized proximally and circumferentially into the level of the internal ring. Once this was performed, the hernia sac was opened and revealed no bowel, etc. At the level of the internal ring proximal to where I would be placing may suture ligature to ligate the sac, there was some bowel that I could appreciate proximally. In any case, a circumferential pursestring suture was placed and then the hernia sac tied off and returned to the preperitoneal space. The rest of the hernia sac was resected with electrocautery. The floor of the canal was cleared of additional external oblique muscle fibers/some scar tissue in this area and eventually once a nice floor was appreciated, an Ultrapro mesh was cut to appropriate size, tacked in at pubis with the SECURESTRAP and laterally along the inguinal ligament with #2-0 PDS. The SECURESTRAP was brought along the internal obliques medially and superiorly. Then the tails of the mesh were brought together with #2-0 Vicryl. Once the mesh was in the appropriate position, the external oblique was closed over the cord structures and the nerve with #2-0 Vicryl, #3-0 Vicryl was used to approximate Darius and #4-0 Vicryl was used approximates skin. Steri-Strips and a dry sterile dressing was applied. The patient was awakened, extubated and brought to the recovery room awake, alert and hemodynamically stable. Sponge and needle counts were correct x2.
[2020-01-31 12:35] VITALS: BP 168/92
== END 2020-01-31 13:45 | disposition home or self-care (01) ==
LOC: M SDC 07:27
PROVIDERS: ATTEND Surgery
DX: K40.91 Unilateral inguinal hernia, without obstruction or gangrene, recurrent (principal); E11.9 Type 2 diabetes mellitus without complications; I10 Essential (primary) hypertension; E78.5 Hyperlipidemia, unspecified; K21.9 Gastro-esophageal reflux disease without esophagitis; Z86.73 Personal history of transient ischemic attack (TIA), and cerebral infarction without residual deficits; Z79.82 Long term (current) use of aspirin; Z79.84 Long term (current) use of oral hypoglycemic drugs; Z79.899 Other long term (current) drug therapy; Z98.61 Coronary angioplasty status
CPT/HCPCS: 49520; 88302; C1781; J0131; J0330; J0690; J1885; J2250; J2405; J3010

== ENCOUNTER 2020-09-26 08:10 | Inpatient (IN) | payer MEDICARE ==
[~2020-09-26] VITALS: Ht 175.3 cm; Wt 72.7 kg
[~2020-09-26 08:10] MED LIST changes: -AMLO10TA5 PO; +AMLO1TAB24 PO; +AMLO1TAB25 PO; -AMLO5TAB6 PO; -ASPI81TA85 PO; +ASPI81TA86 PO; -LR 1,000 ML IV ONE; +PANT40TA29 PO; -PANT40TA3 PO; -ceFAZolin SOD 1 GM in D5W MINI-BAG PLUS 50 ML IV ONE
[2020-09-26] MEDS ORDERED: ACET-683 PO (08:27)
--- OUTSIDE RECORDS SUMMARY | 2020-09-26 08:55 | CCD | Continuity of Care Document ---
Author Author Pablo Peterson MD Organization Unknown Address [address] [facility] [address] [place] [address] Phone [phone] Care Team Providers Care Director Social Name Role Phone Rajiv Peterson JR, MD AUTM Unavailable Problems Active Problems Provider Date Benign essential hypertension Rajiv Peterson MD Onset: 0 05/03/2011 Type 2 diabetes mellitus Rajiv Peterson MD Onset: 2010 Pure hypercholesterolemia Rajiv Peterson MD Onset: 05/03 Essential hypertension Fermin Rodriguez D.O. Onset: Social History Type Date Description Comments Sex Unknown ETOH Use Denies alcohol use Tobacco Use Start: Unknown End: Unknown Patient is a former smoker SMOKED FOR 20 YRS 3 OR 4 CIGARS A DAY Allergies, Adverse Reactions, Alerts Active Allergies Reaction Severity Comments Date Lipitor Muscle 02/14/2014 Sertraline incontinence 06/03/2018 Inactive Allergies NKDA 11/04/2010 Medications Active Medications SIG Qnty Indications Ordering Provide r Date Aspir-[address] 1 po qd 100tabs Rajiv Peterson MD 04/09/2018 Atorvastatin Calcium 40mg Tablets Take One Tablet By Mouth Every Day 90tabs I69.351 Rajiv Peterson MD 04/09/2018 Amlodipine Besylate 10mg Tablets take one tablet daily 90tabs Ric Valerio M.D. 05/11/2012 No OTC Meds Rajiv Peterson MD Lisinopril 40mg Tablets take one tablet by mouth every day 90tabs Rajiv Peterson MD 06/17/2010 [employer]ia Contour Test Strips T2DM Kit test bid or as directed dx: 250.00 200units Rajiv Peterson MD 05/23/2009 Metformin HCL 500mg Tablets take one tablet by mouth two times a day 180taalonso Valerio M.D. 09/22/2005 Pantoprazole Sodium 40mg Tablets D R Take One Tablet By Mouth Every Day 90taParesh Stovall Medications Administered in Office Medication SIG Qnty Indications Ordering Provider Date Administration Of Flu Vaccine Inj loryion Rajiv Peterson MD 07/04/2020 Administration Of Flu Vaccine Inj loryion Rajiv Peterson MD 08/23/2014 Immunizations CPT Code Status Date Vaccine Lot # [id number] Given 07/04/2020 Influenza Vaccin e Quadrivalent Preser/Antibiotic Free Im Use [id number] U-Flu Given 07/22/2017 Influenza,Unspecified Q2037 Given 08/23/2014 Fluvirin Virus Vaccine [id number] 01 [id number] Given 02/14/2014 Pneumovax 23 Q2037 Given 08/09/2013 Fluvirin Virus Vaccine 85099 01 [id number] Given 06/17/2010 Influenza Virus Vaccine Vital Signs Date Vital Result Comment 07/04/2020 10:18am BP Systolic 128 mmHg BP Diastolic 68 mmHg Heart Rate 76 /min Height 69 inches 5'9" Weight 158.00 lb BMI (Body Mass Index) 23.3 kg/m2 02/28/2020 10:55am BP Systolic 126 mmHg BP Diastolic 60 mmHg Heart Rate 78 /min Height 69 inches 5'9" Weight 157.00 lb BMI (Body Mass Index) 23.2 kg/m2 Results Test Acquired Date Facility Test Result H/L Range Note Complete Blood Count 07/04/2020 [facility] Economics Lecturer: Dr Rajiv Peterson [place], [place] [id number] [phone] WBC 6.2 x10*3/UL 4.1 - 10.9 RBC 4.64 x10*6/UL 4.20 - 6.30 Hemoglobin 14.4 g/dL 12.0 - 18.0 Hematocrit 41.1 % 37.0 - 51.0 MCV 88.6 fL 80.0 - 97.0 MCH 31.0 pg 26.0 - 32.0 MCHC 35.0 g/dL 31.0 - 38.0 RDW 13.1 % 11.6 - 13.7 PLT 227 x10*3/UL 140 - 440 MPV 8.2 FL 7.8 - 11.0 Lymph % 34.9 % 10.0 - 58.5 Mid % 7.5 % 1.7 - 9.3 Neut % 57.6 % 37.0 - 92.0 Lymph # 2.2 x10*3/UL 0.6 - 4.1 Mid # 0.4 x10*3/UL 0.1 - 0.6 Neut # 3.6 x10*3/UL 2.0 - 7.8 A1c 07/04/2020 [facility] Economics Lecturer: Dr Rajiv Peterson [place], [place] [id number] [phone] Hba1c 5.6 % <5.7 1 Est Avg Glucose 114 mg/dL High 60 - 110 Laboratory test finding 07/04/2020 [facility] Economics Lecturer: [place] [address] [phone] PSA 3.29 ng/mL <4.00 2 Basic Metabolic Panel 07/04/2020 [facility] Economics Lecturer: [place] [address] [phone] Glucose 91 mg/dL 74 - 99 3 BUN 15 mg/dL 7 - 18 Creatinine 0.9 mg/dL 0.6 - 1.3 Sodium 143 mEq/L 136 - 145 Potassium 4.7 mEq/L 3.5 - 5.1 Chloride 105 mEq/L 98 - 107 Carbon Dioxide 31 mEq/L 21 - 32 Calcium 9.3 mg/dL 8.5 - 10.1 GFR >= 60 mL/min >60 GFR >= 60 mL/min >60 4 Complete Blood Count 02/28/2020 [facility] Economics Lecturer: [place] [address] [phone] WBC 6.8 x10*3/UL 4.1 - 10.9 RBC 4.52 x10*6/UL 4.20 - 6.30 Hemoglobin 13.7 g/dL 12.0 - 18.0 Hematocrit 39.9 % 37.0 - 51.0 MCV 88.3 fL 80.0 - 97.0 MCH 30.4 pg 26.0 - 32.0 MCHC 34.4 g/dL 31.0 - 38.0 RDW 13.2 % 11.6 - 13.7 PLT 211 x10*3/UL 140 - 440 MPV 8.6 FL 7.8 - 11.0 Lymph % 31.1 % 10.0 - 58.5 Mid % 8.0 % 1.7 - 9.3 Neut % 60.9 % 37.0 - 92.0 Lymph # 2.1 x10*3/UL 0.6 - 4.1 Mid # 0.6 x10*3/UL 0.1 - 0.6 Neut # 4.1 x10*3/UL 2.0 - 7.8 A1c 02/28/2020 [facility] Economics Lecturer: [place] [address] [phone] Hba1c 5.7 g/dL High 4.8 - 5.6 5 Est Avg Glucose 117 mg/dL High 60 - 110 Comprehensive Chem Profile 02/28/2020 [facility] Lecturer: [place] [address] [phone] Glucose 87 mg/dL 74 - 99 6 BUN 15 mg/dL 7 - 18 Creatinine 0.7 mg/dL 0.6 - 1.3 Sodium 144 mEq/L 136 - 145 Potassium 4.2 mEq/L 3.5 - 5.1 Chloride 107 mEq/L 98 - 107 Carbon Dioxide 27 mEq/L 21 - 32 Calcium 8.6 mg/dL 8.5 - 10.1 Alk. Phosphatase 60 mg/dL 46 - 116 Total Bilirubin 0.6 mg/dL 0.2 - 1.0 Ast (Sgot) 12 U/L Low 15 - 37 Alt (SGPT) 20 U/L 12 - 78 Albumin 3.8 g/dL 3.4 - 5.0 Total Protein 7.1 g/dL 6.4 - 8.2 A/G Ratio 1.15 CALC 1.00 - 1.90 GFR >= 60 mL/min >60 GFR >= 60 mL/min >60 7 Lipid Profile 02/28/2020 [facility] Economics Lecturer: [place] [address] [phone] Cholesterol 101 mg/dL Low 131 - 200 Triglycerides 58 mg/dL 30 - 150 HDL Cholesterol 48 mg/dL 35 - 60 LDL (Calculated) 41 CALC Low 50 - 159 Microalbumin/Creatinine Urine 02/28/2020 [facility] Economics Lecturer: [place] [address] [phone] Microalbumin Urine 11.7 mg/L 1.3 - 20.0 Urine Creatinine 184.1 mg/dL High 30.0 - 125.0 Microalb/Creat Ratio 6.4 ug/mg 0.0 - 30.0 Laboratory test finding 01/31/2020 [facility] [address] [place], [place] [id number] [phone] Bedside Glucose 88 mg/dL Normal 83-110 8 1 Lab Result Notes: Pre-Diabetes 5.7 - 6.4 % Diabetes = or > 6.5% 2 This assay was performed on the Siemens Dimension EXL using the B- Galactosidase/CPRG methodology and should not be compared interchangeably with other methods. The PSA should not be used alone as a screening test for the presence or absence of malignant disease. 3 100-125 mg/dL PRE-DIABET ES/FASTING >126 mg/dL DIABETES/FASTING 4 CHRONIC KIDNEY DISEASE STAGI NG PER NKF STAGE I & II GFR >= 60 NORMAL TO MILDLY DECREASED STAGE III GFR 30-59 MODERATELY DECREASED STAGE IV GFR 15-29 SEVERELY DECREASED STAGE V GFR <15 VERY LITTLE GFR LEFT ESRD GFR <15 ON INSERTER OPERATOR 5 Lab Result Notes: Pre-Diabetes 5.7 - 6.4 % Diabetes = or > 6.5% 6 100-125 mg/dL PRE-DIABET ES/FASTING >126 mg/dL DIABETES/FASTING 7 CHRONIC KIDNEY DISEASE STAGI NG PER NKF STAGE I & II GFR >= 60 NORMAL TO MILDLY DECREASED STAGE III GFR 30-59 MODERATELY DECREASED STAGE IV GFR 15-29 SEVERELY DECREASED STAGE V GFR <15 VERY LITTLE GFR LEFT ESRD GFR <15 ON INSERTER OPERATOR 8 Doctor Notified Procedures Date Code Description Status 12/10/2015 502930944 Diabetic Retinal Eye Exam Comple ana 11/09/2013 [id number] Diabetic Retinal Eye Exam Comple ana 12/27/2012 [id number] Diabetic Retinal Eye Exam Comple ana 06/10/2012 [id number] Diabetic Retinal Eye Exam Comple ana 11/08/2001 [id number] Colonoscopy Completed Medical Devices Description No Information Available Encounters Type Date Location Provider Dx Diagnosis [facility] Visit [facility] Essential (primary) hypertension E78.00 Pure hypercholesterolemia, u nspecified E11.9 Type 2 diabetes mellitus wit hout complications I69.351 Hemiplga following cerebral infrc aff right dominant side R41.81 Age-related cognitive declin e Z12.5 Encounter for screening for malignant neoplasm of prostate Z23 Encounter for immunization Office Visit 02/28/2020 11:[facility]a [facility] Essential (primary) hypertension E78.00 Pure hypercholesterolemia, u nspecified E11.9 Type 2 diabetes mellitus wit hout complications I69.351 Hemiplga following cerebral infrc aff right dominant side R41.81 Age-related cognitive declin e L98.9 Disorder of the skin and sub cutaneous tissue, unspecified Office Visit 02/24/2020 10:40a [facility] R41.81 Age-related cognitive decline Assessments Date Code Description Provider 07/04/2020 I10 Essential (primary) hypertension Rajiv Peterson MD 07/04/2020 E78.00 Pure hypercholesterolemia, unspe cified Rajiv Peterson MD 07/04/2020 E11.9 Type 2 diabetes mellitus without complications Rajiv Peterson MD 07/04/2020 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 Rajiv Peterson MD 07/04/2020 R41.81 Age-related cognitive decline Co kimberly Peterson MD 07/04/2020 Z12.5 Encounter for screening for bonnie gnant neoplasm of prostate Rajiv Peterson MD 07/04/2020 Z23 Encounter for immunization Daryi conner Peterson MD 02/28/2020 I10 Essential (primary) hypertension Rajiv Peterson MD 02/28/2020 E78.00 Pure hypercholesterolemia, unspe cified Rajiv Peterson MD 02/28/2020 E11.9 Type 2 diabetes mellitus without complications Rajiv Peterson MD 02/28/2020 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 Rajiv Peterson MD 02/28/2020 R41.81 Age-related cognitive decline Co kimberly Peterson MD 02/28/2020 L98.9 Disorder of the skin and subcuta neous tissue, unspecified Rajiv Peterson MD 02/24/2020 R41.81 Age-related cognitive decline SAVANNA Tena Plan of Treatment Future Appointment(s):* 01/02/2021 10:00 am - Rajiv Peterson MD at [facility] * 01/02/2021 9:40 am - [facility] 08/23/2019 - Rajiv Peterson MD* E11.9 Type 2 diabetes mellitus without complications * E78.00 Pure hypercholesterolemia, unspecified * I10 Essential (primary) hypertension* Comments:* Hypertension at [facility]-8 guidelines * I69.351 Hemiplegia and hemiparesis following cerebral infarction aff * R41.81 Age-related cognitive decline * Z13.89 Encounter for screening for other disorder Functional Status Description No Information Available Mental Status Description No Information Available Referrals Refer to Reason for Referral Status Appt Date Sonali Craig,SHAHRZAD INSTALLATIONS INSPECTOR CONSULT FOR LESION RT SCALP [facility] [place], [place] [phone]
--- OUTSIDE RECORDS SUMMARY | 2020-09-26 08:56 | CCD | Continuity of Care Document ---
Author Author Pablo Peterson MD Organization Unknown Address [address] [facility] [address] [place] [address] Phone [phone] Care Team Providers Care Medical Device Sales Consultant Name Role Phone Rajiv Peterson JR, MD [...] tablet by mouth two times a day 180taiwo Valerio M.D. 09/22/2005 Pantoprazole Sodium 40mg Tablets D R Take One Tablet By Mouth Every Day 90taParesh Stovall Medications Administered in Office Medication SIG Qnty Indications Ordering Provider Date Administration Of Flu Vaccine Inj ection Rajiv Peterson MD 08/23/2014 Immunizations CPT Code Status Date Vaccine Lot # [id number] Given 07/04/2020 Influenza Vaccin e Quadrivalent Preser/Antibiotic Free Im Use [id number] U-Flu Given 07/22/2017 Influenza,Unspecified Q2037 Given 08/23/2014 Fluvirin Virus Vaccine [id number] 01 [id number] Given 02/14/2014 Pneumovax 23 [id number] Given 08/09/2013 Fluvirin Virus Vaccine [id number] 01 [id number] Given 06/17/2010 Influenza Virus Vaccine Vital Signs [...] Result H/L Range Note Complete Blood Count 02/28/2020 [facility] Ortho/Prosthetic Aide: [place] [address] [phone] WBC 6.8 x10*3/UL 4.1 - 10.9 RBC [...] 4.1 x10*3/UL 2.0 - 7.8 A1c 02/28/2020 [facility] , Ortho/Prosthetic Aide: [place] Raj[place] [address] [phone] Hba1c 5.7 g/dL High 4.8 - 5.6 1 Est Avg Glucose 117 mg/dL High 60 - 110 Comprehensive Chem Profile 02/28/2020 [facility] Ortho/Prosthetic Aide: Dr Rajiv [place] [address] [phone] Glucose 87 mg/dL 74 - 99 2 BUN 15 mg/dL 7 - 18 Creatinine [...] mL/min >60 GFR >= 60 mL/min >60 3 Lipid Profile 02/28/2020 [facility] , Ortho/Prosthetic Aide: Dr Rajiv [place] [address] [phone] Cholesterol 101 mg/dL Low 131 - 200 Triglycerides 58 mg/dL 30 - 150 HDL Cholesterol 48 mg/dL 35 - 60 LDL (Calculated) 41 CALC Low 50 - 159 Microalbumin/Creatinine Urine 02/28/2020 [facility] Ortho/Prosthetic Aide: [place] [address] [phone] Microalbumin Urine 11.7 mg/L 1.3 - 20.0 Urine Creatinine 184.1 mg/dL High 30.0 - 125.0 Microalb/Creat Ratio 6.4 ug/mg 0.0 - 30.0 Laboratory test finding 01/31/2020 [facility] [address], [place] [id number] [phone] Bedside Glucose 88 mg/dL Normal 83-110 4 Complete Blood Count 01/13/2020 [facility] Ortho/Prosthetic Aide: [place] [address] [phone] WBC 7.6 x10*3/UL 4.1 - 10.9 RBC 4.61 x10*6/UL 4.20 - 6.30 Hemoglobin 14.0 g/dL 12.0 - 18.0 Hematocrit 40.5 % 37.0 - 51.0 MCV 87.6 fL 80.0 - 97.0 MCH 30.3 pg 26.0 - 32.0 MCHC 34.6 g/dL 31.0 - 38.0 RDW 12.9 % 11.6 - 13.7 PLT 211 x10*3/UL 140 - 440 MPV 8.8 FL 7.8 - 11.0 Lymph % 35.5 % 10.0 - 58.5 Mid % 9.0 % 1.7 - 9.3 Neut % 55.5 % 37.0 - 92.0 Lymph # 2.7 x10*3/UL 0.6 - 4.1 Mid # 0.7 x10*3/UL High 0.1 - 0.6 Neut # 4.2 x10*3/UL 2.0 - 7.8 Basic Metabolic Panel 01/13/2020 [facility] Ortho/Prosthetic Aide: [place] [address] [phone] Glucose 99 mg/dL 74 - 99 5 BUN 14 mg/dL 7 - 18 Creatinine 0.8 mg/dL 0.6 - 1.3 Sodium 142 mEq/L 136 - 145 Potassium 3.7 mEq/L 3.5 - 5.1 Chloride 106 mEq/L 98 - 107 Carbon Dioxide 27 mEq/L 21 - 32 Calcium 8.7 mg/dL 8.5 - 10.1 GFR >= 60 mL/min >60 GFR >= 60 mL/min >60 6 A1c 01/13/2020 [facility] Ortho/Prosthetic Aide: Dr Rajiv Peterson [place], [place] [id number] [phone] Hba1c 5.7 g/dL High 4.8 - 5.6 7 Est Avg Glucose 117 mg/dL High 60 - 110 1 Lab Result Notes: Pre-Diabetes 5.7 - 6.4 % Diabetes = or > 6.5% 2 100-125 mg/dL PRE-DIABET ES/FASTING >126 mg/dL DIABETES/FASTING 3 CHRONIC KIDNEY DISEASE STAGI NG PER NKF STAGE I & II GFR >= 60 NORMAL TO MILDLY DECREASED STAGE III GFR 30-59 MODERATELY DECREASED STAGE IV GFR 15-29 SEVERELY DECREASED STAGE V GFR <15 VERY LITTLE GFR LEFT ESRD GFR <15 ON FARM MANAGEMENT ADVISER 4 Doctor Notified 5 100-125 mg/dL PRE-DIABET ES/FASTING >126 mg/dL DIABETES/FASTING 6 CHRONIC KIDNEY DISEASE STAGI NG PER NKF STAGE I & II GFR >= 60 NORMAL TO MILDLY DECREASED STAGE III GFR 30-59 MODERATELY DECREASED STAGE IV GFR 15-29 SEVERELY DECREASED STAGE V GFR <15 VERY LITTLE GFR LEFT ESRD GFR <15 ON FARM MANAGEMENT ADVISER 7 Lab Result Notes: Pre-Diabetes 5.7 - 6.4 % Diabetes = or > 6.5% Procedures Date Code Description Status 12/10/2015 [id number] Diabetic Retinal Eye Exam [facility] 11/09/2013 [id number] Diabetic Retinal Eye Exam [facility] 12/27/2012 [id number] Diabetic Retinal Eye Exam [facility] 06/10/2012 [id number] Diabetic Retinal Eye Exam [facility] 11/08/2001 [id number] Colonoscopy Completed Medical Devices Description No Information Available Encounters Type Date Location Provider Dx Diagnosis Office Visit 02/28/2020 11:00a [facility] 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 Assessments Date Code Description Provider 02/28/2020 I10 Essential (primary) hypertension Rajiv Peterson MD 02/28/2020 E78.00 Pure hypercholesterolemia, unspe cified Rajiv Peterson MD 02/28/2020 E11.9 Type 2 diabetes mellitus without complications Rajiv Peterson MD 02/28/2020 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 Rajiv Peterson MD 02/28/2020 R41.81 Age-related cognitive decline Alessia Peterson MD 02/28/2020 L98.9 Disorder of the skin and subcuta neous tissue, unspecified Rajiv Peterson MD 02/24/2020 R41.81 Age-related cognitive decline Jonah Rueda, [facility] 01/13/2020 Z01.810 Encounter for preprocedural card iovascular examination Rajiv Peterson MD 01/13/2020 K40.91 Unilateral inguinal hernia, without obstruction or gangrene, recurrent Rajiv Peterson MD 01/13/2020 I10 Essential (primary) hypertension Rajiv Peterson MD 01/13/2020 E78.00 Pure hypercholesterolemia, unspe cified Rajiv Peterson MD 01/13/2020 E11.9 Type 2 diabetes mellitus without complications Rajiv Peterson MD 01/13/2020 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
--- OUTSIDE RECORDS SUMMARY | 2020-09-26 08:56 | CCD ---
Author Author [facility] Organization [facility] Address Unknown Phone Unavailable Care Team Providers Care Skin Care Instructor Name Role Phone Cuong Trinh JR, MD Unavailable Unavailable Cuong Trinh JR, MD Unavailable Unavailable Cuong Trinh JR, MD Unavailable Unavailable Cuong Trinh JR, MD Unavailable Unavailable Cuong Trinh JR, MD Unavailable Unavailable Cuong Trinh JR, MD Unavailable Unavailable Cuong Trinh JR, MD Unavailable Unavailable Cuong Trinh JR, MD Unavailable Unavailable Cuong Trinh JR, MD Unavailable Unavailable Cuong Trinh JR, MD Unavailable Unavailable Cuong Trinh JR, MD Unavailable Unavailable Cuong Trinh JR, MD Unavailable Unavailable Cuong Trinh JR, MD Unavailable Unavailable Cuong Trinh JR, MD Unavailable Unavailable Cuong Trinh JR, MD Unavailable Unavailable Cuong Trinh JR, MD Unavailable Unavailable Cuong Trinh JR, MD Unavailable Unavailable Cuong Trinh JR, MD Unavailable Unavailable Cuong Trinh JR, MD Unavailable Unavailable Cuong Trinh JR, MD Unavailable Unavailable Cuong Trinh JR, MD Unavailable Unavailable Cuong Trinh JR, MD Unavailable Unavailable Cuong Trinh JR, MD Unavailable Unavailable Cuong Trinh JR, MD Unavailable Unavailable Cuong Trinh JR, MD Unavailable Unavailable Cuong Trinh JR, MD Unavailable Unavailable Cuong Trinh JR, MD Unavailable Unavailable Cuong Trinh JR, MD Unavailable Unavailable Cuong Trinh JR, MD Unavailable Unavailable Cuong Trinh JR, MD Unavailable Unavailable Cuong Trinh JR, MD Unavailable Unavailable Cuong Trinh JR, MD Unavailable Unavailable Cuong Trinh JR, MD Unavailable Unavailable Cuong Trinh JR, MD Unavailable Unavailable Cuong Trinh JR, MD Unavailable Unavailable Cuong Trinh JR, MD Unavailable Unavailable Cuong Trinh JR, MD Unavailable Unavailable Cuong Trinh JR, MD Unavailable Unavailable Cuong Trinh JR, MD Unavailable Unavailable Cuong Trinh JR, MD Unavailable Unavailable Cuong Trinh JR, MD Unavailable Unavailable Cuong Trinh JR, MD Unavailable Unavailable Cuong Trinh JR, MD Unavailable Unavailable Cuong Trinh JR, MD Unavailable Unavailable Cuong Trinh JR, MD Unavailable Unavailable Cuong Trinh JR, MD Unavailable Unavailable Cuong Trinh JR, MD Unavailable Unavailable Cuong Trinh JR, MD Unavailable Unavailable Cuong Trinh JR, MD Unavailable Unavailable Cuong Trinh JR, MD Unavailable Unavailable Cuong Trinh JR, MD Unavailable Unavailable Cuong Trinh JR, MD Unavailable Unavailable Cuong Trinh JR, MD Unavailable Unavailable Cuong Trinh JR, MD Unavailable Unavailable Cuong Trinh JR, MD Unavailable Unavailable WauseonBonita zeng MD Unavailable Unavailable WauseonBonita zeng MD Unavailable Unavailable Bonita Peterson MD Unavailable Unavailable Bonita Peterson MD Unavailable Unavailable NicholasBonita zeng MD Unavailable Unavailable Bonita Peterson MD Unavailable Unavailable WauseonBonita zeng MD Unavailable Unavailable WauseonBonita zeng MD Unavailable Unavailable WauseonBonita zeng MD Unavailable Unavailable NicholasBonita zeng MD Unavailable Unavailable WauseonBonita zeng MD Unavailable Unavailable NicholasBonita zeng MD Unavailable Unavailable WauseonBonita zeng MD Unavailable Unavailable NicholasBonita zeng MD Unavailable Unavailable NicholasBonita MD Unavailable Unavailable NicholasBonita MD Unavailable Unavailable WauseonBonita zeng MD Unavailable Unavailable WauseonBonita zeng MD Unavailable Unavailable WauseonBonita zeng MD Unavailable Unavailable WauseonBonita MD Unavailable Unavailable NicholasBonita MD Unavailable Unavailable NicholasBonita MD Unavailable Unavailable WauseonBonita MD Unavailable Unavailable NicholasBonita MD Unavailable Unavailable WauseonBonita MD Unavailable Unavailable NicholasBonita MD Unavailable Unavailable NicholasBonita MD Unavailable Unavailable NicholasBonita MD Unavailable Unavailable NicholasBonita MD Unavailable Unavailable WauseonBonita MD Unavailable Unavailable WauseonBonita MD Unavailable Unavailable WauseonBonita MD Unavailable Unavailable WauseonBonita MD Unavailable Unavailable NicholasBonita MD Unavailable Unavailable WauseonBonita MD Unavailable Unavailable NicholasBonita MD Unavailable Unavailable WauseonBonita MD Unavailable Unavailable NicholasBonita MD Unavailable Unavailable NicholasBonita MD Unavailable Unavailable WauseonBonita MD Unavailable Unavailable NicholasBonita MD Unavailable Unavailable NicholasBonita MD Unavailable Unavailable WauseonBonita MD Unavailable Unavailable NicholasBonita MD Unavailable Unavailable NicholasBonita MD Unavailable Unavailable NicholasBonita MD Unavailable Unavailable NicholasBonita MD Unavailable Unavailable WauseonBonita MD Unavailable Unavailable NicholasBonita MD Unavailable Unavailable WauseonBonita MD Unavailable Unavailable NicholasBonita MD Unavailable Unavailable NicholasBonita MD Unavailable Unavailable NicholasBonita MD Unavailable Unavailable NicholasBonita MD Unavailable Unavailable WauseonBonita MD Unavailable Unavailable WauseonBonita MD Unavailable Unavailable NicholasBonita MD Unavailable Unavailable WauseonBonita zeng MD Unavailable Unavailable NicholasBonita zeng MD Unavailable Unavailable WauseonBonita MD Unavailable Unavailable NicholasBonita MD Unavailable Unavailable NicholasBonita zeng MD Unavailable Unavailable WauseonBonita MD Unavailable Unavailable NicholasBonita zeng MD Unavailable Unavailable WauseonBonita zeng MD Unavailable Unavailable WauseonBonita zeng MD Unavailable Unavailable WauseonBonita MD Unavailable Unavailable NicholasBonita MD Unavailable Unavailable WauseonBonita MD Unavailable Unavailable NicholasBonita MD Unavailable Unavailable NicholasBonita MD Unavailable Unavailable WauseonBonita MD Unavailable Unavailable NicholasBonita MD Unavailable Unavailable NicholasBonita MD Unavailable Unavailable NicholasBonita MD Unavailable Unavailable WauseonBonita MD Unavailable Unavailable NicholasBonita MD Unavailable Unavailable WauseonBonita MD Unavailable Unavailable WauseonBonita MD Unavailable Unavailable Bonita Peterson MD Unavailable Unavailable Bonita Peterson MD Unavailable Unavailable Bonita Peterson MD Unavailable Unavailable Bonita Peterson MD Unavailable Unavailable NicholasBonita zeng MD Unavailable Unavailable WauseonBonita zeng MD Unavailable Unavailable Mohit, Paulina SCANNING CLERK Unavailable Unavailable Mohit, Paulina SCANNING CLERK Unavailable Unavailable Mohit, Paulina SCANNING CLERK Unavailable Unavailable Mohit, Paulina SCANNING CLERK Unavailable Unavailable Mohit, Paulina SCANNING CLERK Unavailable Unavailable Mohit, Paulina SCANNING CLERK Unavailable Unavailable Mohit, Paulina SCANNING CLERK Unavailable Unavailable Mohit, Paulina SCANNING CLERK Unavailable Unavailable Omhit, Paulina SCANNING CLERK Unavailable Unavailable Mohit, Paulina SCANNING CLERK Unavailable Unavailable Mohit, Paulina SCANNING CLERK Unavailable Unavailable Mohit, Paulina SCANNING CLERK Unavailable Unavailable Mohit, Paulina SCANNING CLERK Unavailable Unavailable Mohit, Paulina SCANNING CLERK Unavailable Unavailable Mohit, Paulina SCANNING CLERK Unavailable Unavailable Mohit, Paulina SCANNING CLERK Unavailable Unavailable Mohit, Paulina SCANNING CLERK Unavailable Unavailable Mohit, Paulina SCANNING CLERK Unavailable Unavailable Mohit, Paulina SCANNING CLERK Unavailable Unavailable Mohit, Paulina SCANNING CLERK Unavailable Unavailable Mohit, Paulina SCANNING CLERK Unavailable Unavailable Mohit, Paulina SCANNING CLERK Unavailable Unavailable Mohit, Paulina SCANNING CLERK Unavailable Unavailable Mohit, Paulina SCANNING CLERK Unavailable Unavailable Mohit, Paulina SCANNING CLERK Unavailable Unavailable Mohit, Paulina SCANNING CLERK Unavailable Unavailable Emil, L Jillian PA Unavailable Unavailable Emil, L Jillian PA Unavailable Unavailable Emil, L Jillian PA Unavailable Unavailable Emil, L Jillian PA Unavailable Unavailable Emil, L Jillian PA Unavailable Unavailable Meil, L Jillian PA Unavailable Unavailable Emil, L Jillian PA Unavailable Unavailable Emil, L Jillian PA Unavailable Unavailable Emil, L Jillian PA Unavailable Unavailable Emil, L Jillian PA Unavailable Unavailable Emil, L Jillian PA Unavailable Unavailable Emil, L Jillian PA Unavailable Unavailable Emil, L Jillian PA Unavailable Unavailable Emil, L Jillian PA Unavailable Unavailable Emil, L Jillian PA Unavailable Unavailable Emil, L Jillian PA Unavailable Unavailable Emil, L Jillian PA Unavailable Unavailable Emil, L Jillian PA Unavailable Unavailable Emil, L Jillian PA Unavailable Unavailable Emil, L Jillian PA Unavailable Unavailable Emil, L Jillian PA Unavailable Unavailable Emil, L Jillian PA Unavailable Unavailable Emil, L Jillian PA Unavailable Unavailable Re-disclosure Warning The records that you are about to access may contain information from federally-assisted alcohol or drug abuse programs. If such information is present, then the following federally mandated warning applies: This information has been disclosed to you from records protected by federal confidentiality rules (42 CFR part 2). The federal rules prohibit you from making any further disclosure of this information unless further disclosure is expressly permitted by the written consent of the person to whom it pertains or as otherwise permitted by 42 CFR part 2. A general authorization for the release of medical or other information is NOT sufficient for this purpose. The Federal rules restrict any use of the information to criminally investigate or prosecute any alcohol or drug abuse patient.The records that you are about to access may contain highly sensitive health information, the redisclosure of which is protected by Article 27-F of the [facility] Public Health law. If you continue you may have access to information: Regarding HIV / AIDS; Provided by facilities licensed or operated by the [facility] Office of Mental Health; or Provided by the [facility] Office for People With Developmental Disabilities. If such information is present, then the following [facility] mandated warning applies: This information has been disclosed to you from confidential records which are protected by state law. State law prohibits you from making any further disclosure of this information without the specific written consent of the person to whom it pertains, or as otherwise permitted by law. Any unauthorized further disclosure in violation of state law may result in a fine or mcc sentence or both. A general authorization for the release of medical or other information is NOT sufficient authorization for further disc losure. Family History Family Member Name Family Member Gender Family Member Status Date o f Status Description Data Source(s) Unknown Female Problem [facility] ([facility]) Unknown Male Problem [facility] ([facility] Unknown Unknown Problem [facility] ([facility] Unknown Male Problem [facility] ([facility]) Encounters Encounter Providers Location Date Indications Data Source(s ) Outpatient Attender: Rajiv Baez 1 10:20:00 AM EDT [facility] ([facility] ) Outpatient Attender: Jillian ALDRICH Main Office 06/20/2020 11:45:0 0 AM EDT [facility] ([facility]) Outpatient Attender: Rajiv Baez 0 02/28/2020 11:00:00 AM EDT [facility] ([facility] ) Outpatient Attender: Paulina Baez 10:40:00 AM EDT [facility] ([facility] ) Outpatient Attender: Rajiv Baez 0 01/13/2020 01:30:00 PM EDT [facility] ([facility] ) Outpatient Attender: Toby Rodrigez/[facility]/[place]/Rein dl 11/16/2019 12:10:00 PM EST [facility] ([facility] ) Outpatient Attender: Jillian ALDRICH Main Office 10/26/2019 08:45:0 0 AM EST [facility] ([facility]) Outpatient Attender: Rajiv Baez 1 10/24/2018 10:20:00 AM EST [facility] ([facility] ) Immunizations Vaccine Date Status Description Data Source(s) Influenza, injectable, MDCK, preservative free, danielito valent 07/04/2020 10:23:00 AM EDT completed [facility] Medications Medication Brand Name Start Date Product Form Dose Route Admi nistrative Instructions Pharmacy Instructions Status Indications Reaction Description Data Source(s) Administration Of Flu Vaccine 07/04/2020 12:00:00 AM EDT completed [facility] ([facility]) Medication administered onsite Ascorbic Acid 60 MG / Beta Carotene 5000 UNT / Copper Sulfate 40 MG / dl-alpha tocopheryl acetate 30 UNT / Sodium Selenite 0.04 MG / Zinc Oxide 40 MG Oral Tablet Eye-Vites 06/19/2020 12:00:00 AM EDT ORAL active [facility] ([facility]) Fexofenadine hydrochloride 60 MG Oral Tablet Yajaira Allergy 06/19/2020 12:00:00 AM EDT ORAL active [facility] ([facility] Glycerin 2 MG/ML / hypromellose 2 MG/ML / Polyethylene Glycol 400 10 MG/ML Ophthalmic Solution Dry Eye Relief Drops 06/19/2020 12:00:00 AM EDT OPHTHALMIC active [facility] ([facility] pantoprazole 40 MG Delayed Release Oral Tablet PANTOPRAZOLE SODIUM 05/01/2020 12:00:00 AM EDT tablet,delayed release (DR/EC) 90 T STEFFANIE ONE TABLET BY MOUTH EVERY DAY TAKE ONE TABLET BY MOUTH EVERY DAY SOLD: 07/11/2020 [facility] Cephalexin 500 MG Oral Capsule CEPHALEXIN 05/01/2020 12:00:00 AM EDT capsule 8 TAKE 4 CAPSULES ONE HOUR PRIOR TO DENTAL APPOINTMENT T STEFFANIE 4 CAPSULES ONE HOUR PRIOR TO DENTAL APPOINTMENT SOLD: 05/02/2020 [facility] 500 mg 05/01/2020 12:00:00 AM EDT tablet 180 TAKE ONE TABLET BY MOUTH TWICE A DAY TAKE ONE TABLET BY MOUTH TWICE A DAY SOLD: 05/02/2020 [facility] Metformin hydrochloride 500 MG Oral Tablet METFORMIN HCL 05/01/2020 12:00:00 AM EDT tablet 180 TAKE ONE TABLET BY MOUTH TWI CE A DAY TAKE ONE TABLET BY MOUTH TWICE A DAY SOLD: 08/13/2020 [facility] 40 mg 05/01/2020 12:00:00 AM EDT tablet,delayed release (DR/EC) 90 TAKE ONE TABLET BY MOUTH EVERY DAY TAKE ONE TABLET BY MOUTH EVERY DAY SOLD: 05/02/2020 [facility] 5 % 03/28/2020 12:00:00 AM EDT cream 40 APPLY TO BOTH EARS, LEFT HAND, AND FOREHEAD SPARINGLY TWO TIMES A DAY FOR 2 WEEKS APPLY TO BOTH EARS, LEFT HAND, AND FOREHEAD SPARINGLY TWO TIMES A DAY FOR 2 WEEKS SOLD: 03/29/2020 [facility] 5-325 mg 01/31/2020 12:00:00 AM EDT tablet 30 TAKE 1 TO 2 TABLETS BY MOUTH EVERY 4 TO 6 HOURS NEEDED FOR PAIN AFTER SURGERY MAXIMUM DAILY DOSE = 6 TAKE 1 TO 2 TABLETS BY MOUTH EVERY 4 TO 6 HOURS NEEDED FOR PAIN AFTER SURGERY MAXIMUM DAILY DOSE = 6 SOLD: 01/31/2020 [facility] Acetaminophen 325 MG / Hydrocodone Bitartrate 5 MG Oral Tabl et [[place]] [place] 01/31/2020 12:00:00 AM EDT ORAL active [facility] ([facility] ) 40 mg 12/12/2019 12:00:00 AM EDT tablet 90 TAKE ONE TABLET BY MOUTH EVERY DAY TAKE ONE TABLET BY MOUTH EVERY DAY SOLD: 03/19/2020 [facility] 40 mg 12/12/2019 12:00:00 AM EDT tablet 90 TAKE ONE TABLET BY MOUTH EVERY DAY TAKE ONE TABLET BY MOUTH EVERY DAY SOLD: 09/23/2020 [facility] 40 mg 12/12/2019 12:00:00 AM EDT tablet 90 TAKE ONE TABLET BY MOUTH EVERY DAY TAKE ONE TABLET BY MOUTH EVERY DAY SOLD: 06/25/2020 [facility] 40 mg 12/12/2019 12:00:00 AM EDT tablet 90 TAKE ONE TABLET BY MOUTH EVERY DAY TAKE ONE TABLET BY MOUTH EVERY DAY SOLD: 12/13/2019 [facility] 10 mg 10/05/2019 12:00:00 AM EST tablet 90 TAKE ONE TABLET BY MOUTH EVERY DAY TAKE ONE TABLET BY MOUTH EVERY DAY SOLD: 10/06/2019 [facility] 10 mg 10/05/2019 12:00:00 AM EST tablet 90 TAKE ONE TABLET BY MOUTH EVERY DAY TAKE ONE TABLET BY MOUTH EVERY DAY SOLD: 04/10/2020 [facility] atorvastatin 40 MG Oral Tablet ATORVASTATIN CALCIUM 07/12/2019 1 2:00:00 AM EDT tablet 90 TAKE ONE TABLET BY MOUTH EVERY D AY TAKE ONE TABLET BY MOUTH EVERY DAY SOLD: 07/11/2020 [facility] 40 mg 07/12/2019 12:00:00 AM EDT tablet 90 TAKE ONE TABLET BY MOUTH EVERY DAY TAKE ONE TABLET BY MOUTH EVERY DAY SOLD: 01/31/2020 [facility] 40 mg 07/12/2019 12:00:00 AM EDT tablet 90 TAKE ONE TABLET BY MOUTH EVERY DAY TAKE ONE TABLET BY MOUTH EVERY DAY SOLD: 05/02/2020 [facility] 40 mg 07/12/2019 12:00:00 AM EDT tablet 90 TAKE ONE TABLET BY MOUTH EVERY DAY TAKE ONE TABLET BY MOUTH EVERY DAY SOLD: 10/31/2019 [facility] 40 mg 05/03/2019 12:00:00 AM EDT tablet,delayed release (DR/EC) 90 TAKE ONE TABLET BY MOUTH EVERY DAY TAKE ONE TABLET BY MOUTH EVERY DAY SOLD: 01/31/2020 [facility] 40 mg 05/03/2019 12:00:00 AM EDT tablet,delayed release (DR/EC) 90 TAKE ONE TABLET BY MOUTH EVERY DAY TAKE ONE TABLET BY MOUTH EVERY DAY SOLD: 10/31/2019 [facility] 500 mg 05/02/2019 12:00:00 AM EDT tablet 180 TAKE ONE TABLET BY MOUTH TWICE A DAY TAKE ONE TABLET BY MOUTH TWICE A DAY SOLD: 10/31/2019 [facility] 500 mg 05/02/2019 12:00:00 AM EDT tablet 180 TAKE ONE TABLET BY MOUTH TWICE A DAY TAKE ONE TABLET BY MOUTH TWICE A DAY SOLD: 01/31/2020 [facility] 500 mg 05/02/2019 12:00:00 AM EDT tablet 180 TAKE ONE TABLET BY MOUTH TWICE A DAY TAKE ONE TABLET BY MOUTH TWICE A DAY SOLD: 08/09/2019 [facility] 40 mg 12/21/2018 12:00:00 AM EDT tablet 90 TAKE ONE TABLET BY MOUTH EVERY DAY TAKE ONE TABLET BY MOUTH EVERY DAY SOLD: 09/12/2019 [facility] Insurance Providers Payer name Policy type / Coverage type Policy ID Covered republican ID Covered republican's relationship to mullins Policy Mullins Plan Information WELLCARE [id number] SP [id number] WELLCARE [id number] SP [id number] [employer] Commercial [id number] Self [id number] Wellcare MCR - To Ppo Commercial [id number] Self [id number] TODAYS OPTIONS [id number] SP [id number] Wellcare MCR - To Ppo Commercial [id number] Self [id number] Wellcare MCR - To Ppo Commercial [id number] Self [id number] Medicare Natl Govt Servic Medicare Primary [id number] Self [id number] Wellcare/Todays Optmcr Commercial [id number] Self [id number] [place] Medigap Part B [id number] Family Dep endent [id number] [place] Trad/[place] Medigap Part B [id number] Self [id number] [facility] Medigap Part B [id number] Self [id number] [place] Trad/[place] Medigap Part B [id number] Self [id number] Medicare Blue Ppo Commercial [id number] Self [id number] TODAYS OPTIONS [id number] S [id number] TODAYS OPTIONS [id number] S [id number] Medicare Natl Govt Servic Medicare Primary [id number] Self [id number] Todays Option Medicare Commercial [id number] Self [id number] Today's Option Medicare Commercial [id number] Self [id number] [place] PPO 302/307 [id number] SP [id number] HEALTH [id number] SP [id number] [place] PPO 302/307 [id number] SP [id number] BCBS [facility] 010/510 [id number] [place] [id number] [place] 304/[id number] SP [id number] Medicare Natl Govt Servic Medicare Primary [id number] Self [id number] Todays Option Medicare Commercial [id number] Self [id number] Medicare Natl Govt Servic Medicare Primary [id number] Self [id number] Todays Option Medicare Commercial [id number] Self [id number] Today's Option Medicare Commercial [id number] Self [id number] Medicare Natl Govt Servic Medicare Primary [id number] Self [id number] Todays Option Medicare Commercial [id number] Self [id number] AMER PROG TODAYS OPTIONS G [id number] Self [id number] Medicare Natl Govt Servic Medicare Primary [id number] Self [id number] Todays Option Medicare Commercial [id number] Self [id number] TODAYS OPTIONS/[place] O [id number] S [id number] BS [place] Medigap Part B [id number] Self [id number] Todays Options Commercial [id number] Self [id number] TODAYS OPTIONS [id number] SP [id number] TODAYS OPTIONS [id number] SP [id number] Medicare Natl Govt Servic Medicare Primary [id number] Self [id number] Todays Option Medicare Commercial [id number] Self [id number] TODAYS OPTIONS [id number] SP [id number] Medicare Natl Govt Servic Medicare Primary Self [place]ad/[place] Medigap Part B Family Depend ent BS [place] Trad/MX Commercial [id number] Self [id number] Health Medigap Part B Inbalance Epo Self Inbalance Epo BS [place] Trad/MX Commercial 802 Self 802 Medicare Blue Ppo Commercial 802 Self [id number] 02 Todays Option Medicare Commercial Advantage Plus 350B Ppo Se lf Advantage Plus 350B Ppo Problems, Conditions, and Diagnoses Code Display Name Description Problem Type Effective Dates Data Source(s) [id number] Dietary management surveillance Dietary manageme nt surveillance Problem 10/26/2019 12:00:00 AM EST [facility] ([facility] Surgeries/Procedures Procedure Description Date Indications Data Source(s) ECG ROUTINE ECG W/LEAST 12 LDS W/I&R 06/20/2020 12:00: 00 AM EDT [facility] ([facility]) Implantable Loop Recorder System, Review And Report 05/23/2020 12:00:00 AM EDT [facility] ([facility]) Implantable Loop Recorder System, Review And Report 04/19/2020 12:00:00 AM EDT [facility] ([facility]) Implantable Loop Recorder System, Review And Report 03/19/2020 12:00:00 AM EDT [facility] ([facility]) Implantable Loop Recorder System, Review And Report 02/13/2020 12:00:00 AM EDT [facility] ([facility]) Implantable Loop Recorder System, Review And Report 01/12/2020 12:00:00 AM EDT [facility] ([facility]) Implantable Loop Recorder System, Review And Report 12/12/2019 12:00:00 AM EDT [facility] ([facility]) ECG ROUTINE ECG W/LEAST 12 LDS W/I&R 10/26/2019 12:00: 00 AM EST [facility] ([facility]) Implantable Loop Recorder System, Review And Report 10/10/2019 12:00:00 AM EST [facility] ([facility]) Implantable Loop Recorder System, Review And Report 09/09/2019 12:00:00 AM EST [facility] ([facility]) Interrogation device evaluation(s), (rem ote) up to 30 days; implantable cardiovascular monitor system or implantable loop recorder system, remote data acquisition(s), receipt of transmissions and biomedical equipment technician 09/09/2019 12:00:00 AM EST [facility] ([facility]) Implantable Loop Recorder System, Review And Report 08/04/2019 12:00:00 AM EST [facility] ([facility]) Interrogation device evaluation(s), (rem ote) up to 30 days; implantable cardiovascular monitor system or implantable loop recorder system, remote data acquisition(s), receipt of transmissions and biomedical equipment technician 08/04/2019 12:00:00 AM EST [facility]) Results ID Date Data Source [id number] 07/04/2020 10:47:00 AM EDT [facility] ([facility]) Name Value Range Interpretation Code Description Data Edna rce(s) Supporting Document(s) Glucose [Mass/volume] in Serum or Plasma 91 mg/dL 74-99 [facility] ([facility]) 100-125 mg/dL PRE-DIABETES/FASTING >126 mg/dL DIABETES/FASTING Creatinine 0.9 mg/dL 0.6-1.3 [facility] ([facility]) Urea nitrogen [Mass/volume] in Serum or Plasma 15 mg/dL 7-18 [facility] ([facility]) Potassium [Moles/volume] in Serum or Plasma 4.7 meq/L 3.5-5.1 [facility] ([facility]) Sodium [Moles/volume] in Serum or Plasma 143 meq/L 136-145 [facility] ([facility]) Carbon dioxide, total [Moles/volume] in Serum or Plasma 31 meq/L 21 -32 [facility] ([facility]) Chloride [Moles/volume] in Serum or Plasma 105 meq/L 98-107 [facility] ([facility]) Calcium [Mass/volume] in Serum or Plasma 9.3 mg/dL 8.5-10.1 [facility] ([facility]) Glomerular filtration rate/1.73 sq M pre dicted among non-blacks [Volume Rate/Area] in Serum or Plasma by Creatinine-based formula (MDRD) Laboratory test result [facility] Glomerular filtration rate/1.73 sq M pre dicted among blacks [Volume Rate/Area] in Serum or Plasma by Creatinine-based formula (MDRD) Laboratory test result [facility] <content>CHRONIC KIDNEY DISEASE STAGING PER NKF</content>
<content></content>
<content>STAGE I & II GFR >= 60 NORMAL TO MILDLY DECREASED</content>
<content>STAGE III GFR 30-59 MODERATELY DECREASED</content>
<content>STAGE IV GFR 15-29 SEVERELY DECREASED</content>
<content>STAGE V GFR <15 VERY LITTLE GFR LEFT</content>
<content>ESRD GFR <15 ON ELEMENTARY S[employer] AIDE</content>
<content></content> ID Date Data Source [id number] 07/04/2020 10:47:00 AM EDT [facility]) Name Value Range Interpretation Code Description Data Edna rce(s) Supporting Document(s) Prostate specific Ag [Mass/volume] in Serum or Plasma 3.29 ng/mL [facility] ([facility]) This assay was performed on the Siemens Dimension EXL using the B- Galactosidase/CPRG methodology and should not be compared interchangeably with other methods. The PSA should not be used alone as a screening test for the presence or absence of malignant disease. ID Date Data Source [id number] 07/04/2020 10:47:00 AM EDT [facility]) Name Value Range Interpretation Code Description Data Edna rce(s) Supporting Document(s) Glucose mean value [Mass/volume] in Blood Estimated fr om glycated hemoglobin 114 mg/dL 60-110 [facility] ([facility] ) Hemoglobin A1c/Hemoglobin.total in Blood 5.6 % [facility] ([facility]) Lab Result Notes: Pre-Diabetes 5.7 - 6.4 % Diabetes = or > 6.5% ID Date Data Source [id number] 07/04/2020 10:47:00 AM EDT [facility] ([facility]) Name Value Range Interpretation Code Description Data Edna rce(s) Supporting Document(s) Leukocytes [#/volume] in Blood by Automated count 6.2 x10*3/UL 4.1-10 .9 [facility] ([facility]) Hematocrit [Volume Fraction] of Blood by Automated count 41.1 % 3 7.0-51.0 [facility] ([facility]) Hemoglobin [Mass/volume] in Blood 14.4 g/dL 12.0-18.0 [facility] ([facility]) Erythrocytes [#/volume] in Blood by Automated count 4.64 x10*6/UL 4.2 0-6.30 [facility] ([facility]) MCHC 35.0 g/dL 31.0-38.0 [facility] MCH 31.0 pg 26.0-32.0 [facility]) MCV 88.6 fL 80.0-97.0 [facility]) MPV 8.2 FL 7.8-11.0 [facility] Platelets [#/volume] in Blood by Automated count 227 x10*3/UL 140-440 [facility] ([facility]) Erythrocyte distribution width [Ratio] by Automated count 13.1 % 11.6-13.7 [facility] ([facility]) Lymph % 34.9 % 10.0-58.5 [facility] Neut % 57.6 % 37.0-92.0 [facility] Mid % 7.5 % 1.7-9.3 [facility] Lymph # 2.2 x10*3/UL 0.6-4.1 [facility] ([facility]) Mid # 0.4 x10*3/UL 0.1-0.6 [facility] ([facility]) Neut # 3.6 x10*3/UL 2.0-7.8 [facility] ([facility]) ID Date Data Source [id number] 02/28/2020 11:10:00 AM EDT [facility] ([facility]) Name Value Range Interpretation Code Description Data Edna rce(s) Supporting Document(s) Hemoglobin A1c/Hemoglobin.total in Blood 5.7 [facility] ([facility]) ID Date Data Source [id number] 02/28/2020 11:10:00 AM EDT [facility] ([facility]) Name Value Range Interpretation Code Description Data Edna rce(s) Supporting Document(s) Triglycerides 58 30-150 [facility] ([facility]) Cholesterol in LDL [Mass/volume] in Serum or Plasma by calculation 41 50-159 [facility] ([facility]) HDL 48 35-60 [facility] Cholesterol 101 131-200 [facility] ([facility]) Chol/HDL Ratio Laboratory test result [facility] ([facility]) ID Date Data Source [id number] 02/28/2020 11:10:00 AM EDT [facility] ([facility]) Name Value Range Interpretation Code Description Data Edna rce(s) Supporting Document(s) Calcium [Mass/volume] in Serum or Plasma 8.6 [facility] ([facility]) Albumin [Mass/volume] in Serum or Plasma 3.8 [facility] ([facility]) Alanine aminotransferase [Enzymatic activity/volume] in Serum or Pl asma 20 [facility] ([facility]) Carbon dioxide, total [Moles/volume] in Serum or Plasma 27 [facility] ([facility]) Alkaline phosphatase [Enzymatic activity/volume] in Serum or Plasma 6 0 [facility] ([facility]) Chloride [Moles/volume] in Serum or Plasma 107 [facility] ([facility]) Potassium [Moles/volume] in Serum or Plasma 4.2 [facility] ([facility]) Sodium 144 [facility] ([facility]) Protein [Mass/volume] in Serum or Plasma 7.1 [facility] ([facility]) Urea nitrogen [Mass/volume] in Serum or Plasma 15 [facility] ([facility]) Glucose 87 74-99 [facility] ([facility]) Aspartate aminotransferase [Enzymatic activity/volume] in Serum or Plasma 12 [facility] ([facility]) Creatinine For GFR 0.7 [facility] ID Date Data Source [id number] 02/28/2020 10:42:00 AM EDT [facility] ([facility]) Name Value Range Interpretation Code Description Data Edna rce(s) Supporting Document(s) Urine Creatinine 184.1 mg/dL 30.0-125.0 [facility] ([facility]) Microalb/Creat Ratio 6.4 ug/mg 0.0-30.0 [facility] Microalbumin Urine 11.7 mg/L 1.3-20.0 [facility] ID Date Data Source [id number] 02/28/2020 10:42:00 AM EDT [facility] ([facility]) Name Value Range Interpretation Code Description Data Edna rce(s) Supporting Document(s) Cholesterol [Mass/volume] in Serum or Plasma 101 mg/dL 131-200 [facility] ([facility]) Triglyceride [Mass/volume] in Serum or Plasma 58 mg/dL 30-150 [facility] ([facility]) Cholesterol in LDL [Mass/volume] in Serum or Plasma by calcu lation 41 CALC 50-159 [facility] ([facility]) Cholesterol in HDL [Mass/volume] in Serum or Plasma 48 mg/dL 35-60 [facility] ([facility]) ID Date Data Source [id number] 02/28/2020 10:42:00 AM EDT [facility] ([facility]) Name Value Range Interpretation Code Description Data Edna rce(s) Supporting Document(s) Urea nitrogen [Mass/volume] in Serum or Plasma 15 mg/dL 7-18 [facility] ([facility]) Glucose [Mass/volume] in Serum or Plasma 87 mg/dL 74-99 [facility] ([facility]) 100-125 mg/dL PRE-DIABETES/FASTING >126 mg/dL DIABETES/FASTING Sodium [Moles/volume] in Serum or Plasma 144 meq/L 136-145 [facility] ([facility]) Creatinine 0.7 mg/dL 0.6-1.3 [facility] ([facility]) Potassium [Moles/volume] in Serum or Plasma 4.2 meq/L 3.5-5.1 [facility] ([facility]) Chloride [Moles/volume] in Serum or Plasma 107 meq/L 98-107 [facility] ([facility]) Carbon dioxide, total [Moles/volume] in Serum or Plasma 27 meq/L 21 -32 [facility] ([facility]) Calcium [Mass/volume] in Serum or Plasma 8.6 mg/dL 8.5-10.1 [facility] ([facility]) Total Bilirubin 0.6 mg/dL 0.2-1.0 [facility] ([facility]) Alkaline phosphatase isoenzyme [Units/volume] in Serum or Pl asma 60 mg/dL 46-116 [facility] ([facility]) Aspartate aminotransferase [Enzymatic activity/volume] in Serum or Plasma 12 U/L 15-37 [facility] ([facility] Alanine aminotransferase [Enzymatic activity/volume] in Seru m or Plasma 20 U/L 12-78 [facility] ([facility]) Proteinase 3 Ab [Units/volume] in Serum 7.1 g/dL 6.4-8.2 [facility] ([facility]) A/G Ratio 1.15 CALC 1.00-1.90 [facility]) Albumin [Mass/volume] in Serum or Plasma 3.8 g/dL 3.4-5.0 [facility] ([facility]) Glomerular filtration rate/1.73 sq M pre dicted among blacks [Volume Rate/Area] in Serum or Plasma by Creatinine-based formula (MDRD) Laboratory test result [facility] ([facility]) <content>CHRONIC KIDNEY DISEASE STAGING PER NKF</content>
<content></content>
<content>STAGE I & II GFR >= 60 NORMAL TO MILDLY DECREASED</content>
<content>STAGE III GFR 30-59 MODERATELY DECREASED</content>
<content>STAGE IV GFR 15-29 SEVERELY DECREASED</content>
<content>STAGE V GFR <15 VERY LITTLE GFR LEFT</content>
<content>ESRD GFR <15 ON ELEMENTARY SCHO[employer] TE[employer]ER[employer]S AIDE</content>
<content></content> Glomerular filtration rate/1.73 sq M pre dicted among non-blacks [Volume Rate/Area] in Serum or Plasma by Creatinine-based formula (MDRD) Laboratory test result [facility] ([facility] ) ID Date Data Source [id number] 02/28/2020 10:42:00 AM EDT [facility] ([facility]) Name Value Range Interpretation Code Description Data Edna rce(s) Supporting Document(s) Glucose mean value [Mass/volume] in Blood Estimated fr om glycated hemoglobin 117 mg/dL 60-110 [facility] ([facility] ) Hemoglobin A1c/Hemoglobin.total in Blood 5.7 g/dL 4.8-5.6 [facility] ([facility]) Lab Result Notes: Pre-Diabetes 5.7 - 6.4 % Diabetes = or > 6.5% ID Date Data Source [id number] 02/28/2020 10:42:00 AM EDT [facility] ([facility]) Name Value Range Interpretation Code Description Data Edna rce(s) Supporting Document(s) Leukocytes [#/volume] in Blood by Automated count 6.8 x10*3/UL 4.1-10 .9 [facility] ([facility]) Erythrocytes [#/volume] in Blood by Automated count 4.52 x10*6/UL 4.2 0-6.30 [facility] ([facility]) Hemoglobin [Mass/volume] in Blood 13.7 g/dL 12.0-18.0 [facility] ([facility]) Hematocrit [Volume Fraction] of Blood by Automated count 39.9 % 3 7.0-51.0 [facility] ([facility]) MCH 30.4 pg 26.0-32.0 [facility]) MCV 88.3 fL 80.0-97.0 [facility] ([facility]) MCHC 34.4 g/dL 31.0-38.0 [facility] ([facility]) Erythrocyte distribution width [Ratio] by Automated count 13.2 % 11.6-13.7 [facility] ([facility]) Platelets [#/volume] in Blood by Automated count 211 x10*3/UL 140-440 [facility] ([facility]) Lymph % 31.1 % 10.0-58.5 [facility] ([facility]) MPV 8.6 FL 7.8-11.0 [facility] ([facility]) Mid % 8.0 % 1.7-9.3 [facility] ([facility]) Lymph # 2.1 x10*3/UL 0.6-4.1 [facility] ([facility]) Neut % 60.9 % 37.0-92.0 [facility] ([facility]) Neut # 4.1 x10*3/UL 2.0-7.8 [facility] ([facility]) Mid # 0.6 x10*3/UL 0.1-0.6 [facility] ([facility]) ID Date Data Source [id number] 02/28/2020 10:42:00 AM EDT [facility] ([facility]) Name Value Range Interpretation Code Description Data Edna rce(s) Supporting Document(s) Hemoglobin A1c/Hemoglobin.total in Blood Laboratory test result [facility] ([facility]) ID Date Data Source [id number] 01/31/2020 09:46:00 AM EDT [facility] ([facility], ) Name Value Range Interpretation Code Description Data Edna rce(s) Supporting Document(s) Surgical pathology study Laboratory test result [facility] ([facility], ) FINAL DIAGNOSIS Soft tissue hernia sac: Mesothelial-lined fibroconnective tissue, consistent with hernia sac. 02/01/2020840 CLINICAL DIAGNOSIS Right inguinal hernia 01/31/20201421 GROSS DIAGNOSIS Received in formalin labeled "hernia sac" is a fragment of tissue, 4.5 x 4.0 x 1.5 cm. The specimen is grossly u nremarkable. Mica Sizer section is submitted in one. -OA 01/31/20201421 Signed CUCO MORALES MD 02/01/2020 0842 ID Date Data Source [id number] 01/31/2020 08:10:00 AM EDT [facility] ([facility]) Name Value Range Interpretation Code Description Data Edna rce(s) Supporting Document(s) Bedside Glucose 88 mg/dL 83-110 [facility] ([facility]) Doctor Notified ID Date Data Source [id number] 01/31/2020 08:10:00 AM EDT [facility] ([facility], ) Name Value Range Interpretation Code Description Data Edna rce(s) Supporting Document(s) Glucose [Mass/volume] in Capillary blood by Glucometer 88 mg/dL 83-110 Normal (applies to non-numeric results) [facility] ([facility], ) Doctor Notified ID Date Data Source [id number] 01/28/2020 08:35:00 AM EDT [facility] Name Value Range Interpretation Code Description Data Edna rce(s) Supporting Document(s) SARS CORONAVIRUS 2 RNA [facility] This lab was ordered by [facility] and reported by [facility]. ID Date Data Source [id number] 01/13/2020 01:51:00 PM EDT [facility] ([facility]) Name Value Range Interpretation Code Description Data Edna rce(s) Supporting Document(s) Hemoglobin A1c/Hemoglobin.total in Blood 5.7 g/dL 4.8-5.6 [facility] ([facility]) Lab Result Notes: Pre-Diabetes 5.7 - 6.4 % Diabetes = or > 6.5% Glucose mean value [Mass/volume] in Blood Estimated fr om glycated hemoglobin 117 mg/dL 60-110 [facility] ([facility] ) ID Date Data Source [id number] 01/13/2020 01:51:00 PM EDT [facility] ([facility]) Name Value Range Interpretation Code Description Data Edna rce(s) Supporting Document(s) Urea nitrogen [Mass/volume] in Serum or Plasma 14 mg/dL 7-18 [facility] ([facility]) Glucose [Mass/volume] in Serum or Plasma 99 mg/dL 74-99 [facility] ([facility]) 100-125 mg/dL PRE-DIABETES/FASTING >126 mg/dL DIABETES/FASTING Creatinine 0.8 mg/dL 0.6-1.3 [facility] Sodium [Moles/volume] in Serum or Plasma 142 meq/L 136-145 [facility] ([facility]) Potassium [Moles/volume] in Serum or Plasma 3.7 meq/L 3.5-5.1 [facility] ([facility]) Chloride [Moles/volume] in Serum or Plasma 106 meq/L 98-107 [facility] ([facility]) Carbon dioxide, total [Moles/volume] in Serum or Plasma 27 meq/L 21 -32 [facility] ([facility]) Calcium [Mass/volume] in Serum or Plasma 8.7 mg/dL 8.5-10.1 [facility] ([facility]) Glomerular filtration rate/1.73 sq M pre dicted among non-blacks [Volume Rate/Area] in Serum or Plasma by Creatinine-based formula (MDRD) Laboratory test result [facility] ([facility] ) Glomerular filtration rate/1.73 sq M pre dicted among blacks [Volume Rate/Area] in Serum or Plasma by Creatinine-based formula (MDRD) Laboratory test result [facility] ([facility]) <content>CHRONIC KIDNEY DISEASE STAGING PER NKF</content>
<content></content>
<content>STAGE I & II GFR >= 60 NORMAL TO MILDLY DECREASED</content>
<content>STAGE III GFR 30-59 MODERATELY DECREASED</content>
<content>STAGE IV GFR 15-29 SEVERELY DECREASED</content>
<content>STAGE V GFR <15 VERY LITTLE GFR LEFT</content>
<content>ESRD GFR <15 ON ELEMENTARY S[employer]S AIDE</content>
<content></content> ID Date Data Source [id number] 01/13/2020 01:51:00 PM EDT [facility] ([facility]) Name Value Range Interpretation Code Description Data Edna rce(s) Supporting Document(s) Leukocytes [#/volume] in Blood by Automated count 7.6 x10*3/UL 4.1-10 .9 [facility] ([facility]) Hematocrit [Volume Fraction] of Blood by Automated count 40.5 % 3 7.0-51.0 [facility] ([facility]) Hemoglobin [Mass/volume] in Blood 14.0 g/dL 12.0-18.0 [facility] ([facility]) Erythrocytes [#/volume] in Blood by Automated count 4.61 x10*6/UL 4.2 0-6.30 [facility] ([facility]) Erythrocyte distribution width [Ratio] by Automated count 12.9 % 11.6-13.7 [facility] ([facility]) MCV 87.6 fL 80.0-97.0 [facility]) MCH 30.3 pg 26.0-32.0 [facility]) MCHC 34.6 g/dL 31.0-38.0 [facility] Platelets [#/volume] in Blood by Automated count 211 x10*3/UL 140-440 [facility] ([facility]) MPV 8.8 FL 7.8-11.0 [facility]) Lymph % 35.5 % 10.0-58.5 [facility]) Neut % 55.5 % 37.0-92.0 [facility]) Mid % 9.0 % 1.7-9.3 [facility]) Lymph # 2.7 x10*3/UL 0.6-4.1 [facility] ([facility]) Mid # 0.7 x10*3/UL 0.1-0.6 [facility] ([facility]) Neut # 4.2 x10*3/UL 2.0-7.8 [facility] ([facility]) ID Date Data Source [id number] 08/23/2019 10:54:00 AM EST [facility] ([facility]) Name Value Range Interpretation Code Description Data Edna rce(s) Supporting Document(s) Triglyceride [Mass/volume] in Serum or Plasma 48 mg/dL 30-150 [facility] ([facility]) Cholesterol [Mass/volume] in Serum or Plasma 111 mg/dL 131-200 [facility] ([facility]) Cholesterol in LDL [Mass/volume] in Serum or Plasma by calcu lation 57 CALC 50-159 [facility] ([facility]) Cholesterol in HDL [Mass/volume] in Serum or Plasma 44 mg/dL 35-60 [facility] ([facility]) ID Date Data Source [id number] 08/23/2019 10:54:00 AM EST [facility] ([facility]) Name Value Range Interpretation Code Description Data Edna rce(s) Supporting Document(s) Glucose [Mass/volume] in Serum or Plasma 86 mg/dL 74-99 [facility] ([facility]) 100-125 mg/dL PRE-DIABETES/FASTING >126 mg/dL DIABETES/FASTING Sodium [Moles/volume] in Serum or Plasma 146 meq/L 136-145 [facility] ([facility]) Creatinine 0.9 mg/dL 0.6-1.3 [facility] Urea nitrogen [Mass/volume] in Serum or Plasma 11 mg/dL 7-18 [facility] ([facility]) Chloride [Moles/volume] in Serum or Plasma 105 meq/L 98-107 [facility] ([facility]) Potassium [Moles/volume] in Serum or Plasma 4.4 meq/L 3.5-5.1 [facility] ([facility]) Carbon dioxide, total [Moles/volume] in Serum or Plasma 33 meq/L 21 -32 [facility] ([facility]) Alkaline phosphatase isoenzyme [Units/volume] in Serum or Pl asma 69 mg/dL 46-116 [facility] ([facility]) Total Bilirubin 0.7 mg/dL 0.2-1.0 [facility] ([facility]) Calcium [Mass/volume] in Serum or Plasma 9.4 mg/dL 8.5-10.1 [facility] ([facility]) Albumin [Mass/volume] in Serum or Plasma 4.2 g/dL 3.4-5.0 [facility] ([facility]) Alanine aminotransferase [Enzymatic activity/volume] in Seru m or Plasma 33 U/L 12-78 [facility] ([facility]) Aspartate aminotransferase [Enzymatic activity/volume] in Serum or Plasma 15 U/L 15-37 [facility] ([facility] ) Glomerular filtration rate/1.73 sq M pre dicted among non-blacks [Volume Rate/Area] in Serum or Plasma by Creatinine-based formula (MDRD) Laboratory test result [facility] ([facility] Proteinase 3 Ab [Units/volume] in Serum 7.7 g/dL 6.4-8.2 [facility] ([facility]) A/G Ratio 1.20 CALC 1.00-1.90 [facility]) Glomerular filtration rate/1.73 sq M pre dicted among blacks [Volume Rate/Area] in Serum or Plasma by Creatinine-based formula (MDRD) Laboratory test result [facility] ([facility]) <content>CHRONIC KIDNEY DISEASE STAGING PER NKF</content>
<content></content>
<content>STAGE I & II GFR >= 60 NORMAL TO MILDLY DECREASED</content>
<content>STAGE III GFR 30-59 MODERATELY DECREASED</content>
<content>STAGE IV GFR 15-29 SEVERELY DECREASED</content>
<content>STAGE V GFR <15 VERY LITTLE GFR LEFT</content>
<content>ESRD GFR <15 ON ELEMENTARY SCHO[employer] TE[employer]ER[employer]S AIDE</content>
<content></content> ID Date Data Source [id number] 08/23/2019 10:54:00 AM EST [facility] ([facility]) Name Value Range Interpretation Code Description Data Edna rce(s) Supporting Document(s) Glucose mean value [Mass/volume] in Blood Estimated fr om glycated hemoglobin 117 mg/dL 60-110 [facility] ([facility] ) Hemoglobin A1c/Hemoglobin.total in Blood 5.7 g/dL 4.8-5.6 [facility] ([facility]) Lab Result Notes: Pre-Diabetes 5.7 - 6.4 % Diabetes = or > 6.5% ID Date Data Source [id number] 08/23/2019 10:54:00 AM EST [facility] ([facility]) Name Value Range Interpretation Code Description Data Edna rce(s) Supporting Document(s) Hemoglobin [Mass/volume] in Blood 15.1 g/dL 12.0-18.0 [facility] ([facility]) Leukocytes [#/volume] in Blood by Automated count 7.5 x10*3/UL 4.1-10 .9 [facility] ([facility]) Erythrocytes [#/volume] in Blood by Automated count 4.98 x10*6/UL 4.2 0-6.30 [facility] ([facility]) Hematocrit [Volume Fraction] of Blood by Automated count 44.5 % 3 7.0-51.0 [facility] ([facility]) MCHC 34.0 g/dL 31.0-38.0 [facility]) MCH 30.4 pg 26.0-32.0 [facility] MCV 89.3 fL 80.0-97.0 [facility] Platelets [#/volume] in Blood by Automated count 241 x10*3/UL 140-440 [facility] ([facility]) MPV 8.5 FL 7.8-11.0 [facility]) Erythrocyte distribution width [Ratio] by Automated count 13.1 % 11.6-13.7 [facility] ([facility]) Mid % 7.4 % 1.7-9.3 [facility]) Lymph % 29.3 % 10.0-58.5 [facility]) Neut % 63.3 % 37.0-92.0 [facility]) Lymph # 2.2 x10*3/UL 0.6-4.1 [facility] ([facility]) Mid # 0.6 x10*3/UL 0.1-0.6 [facility] ([facility]) Neut # 4.7 x10*3/UL 2.0-7.8 [facility] ([facility]) ID Date Data Source [id number] 08/23/2019 10:54:00 AM EST [facility] ([facility]) Name Value Range Interpretation Code Description Data Edna rce(s) Supporting Document(s) Cholesterol [Mass/volume] in Serum or Plasma 111 mg/dL 131-200 [facility] ([facility]) Cholesterol in HDL [Mass/volume] in Serum or Plasma 44 mg/dL 35-60 [facility] ([facility]) Triglyceride [Mass/volume] in Serum or Plasma 48 mg/dL 30-150 [facility] ([facility]) Cholesterol in LDL [Mass/volume] in Serum or Plasma by calcu lation 57 CALC 50-159 [facility] ([facility]) ID Date Data Source [id number] 08/23/2019 10:54:00 AM EST [facility] ([facility]) Name Value Range Interpretation Code Description Data Edna rce(s) Supporting Document(s) Urea nitrogen [Mass/volume] in Serum or Plasma 11 mg/dL 7-18 [facility] ([facility]) Glucose [Mass/volume] in Serum or Plasma 86 mg/dL 74-99 [facility] ([facility]) 100-125 mg/dL PRE-DIABETES/FASTING >126 mg/dL DIABETES/FASTING Creatinine 0.9 mg/dL 0.6-1.3 [facility] ([facility]) Sodium [Moles/volume] in Serum or Plasma 146 meq/L 136-145 [facility] ([facility]) Potassium [Moles/volume] in Serum or Plasma 4.4 meq/L 3.5-5.1 [facility] ([facility]) Chloride [Moles/volume] in Serum or Plasma 105 meq/L 98-107 [facility] ([facility]) Carbon dioxide, total [Moles/volume] in Serum or Plasma 33 meq/L 21 -32 [facility] ([facility]) Calcium [Mass/volume] in Serum or Plasma 9.4 mg/dL 8.5-10.1 [facility] ([facility]) Alkaline phosphatase isoenzyme [Units/volume] in Serum or Pl asma 69 mg/dL 46-116 [facility] ([facility]) Total Bilirubin 0.7 mg/dL 0.2-1.0 [facility] ([facility]) Aspartate aminotransferase [Enzymatic activity/volume] in Serum or Plasma 15 U/L 15-37 [facility] ([facility]) Alanine aminotransferase [Enzymatic activity/volume] in Seru m or Plasma 33 U/L 12-78 [facility] ([facility]) Albumin [Mass/volume] in Serum or Plasma 4.2 g/dL 3.4-5.0 [facility] ([facility]) Proteinase 3 Ab [Units/volume] in Serum 7.7 g/dL 6.4-8.2 [facility] ([facility]) Glomerular filtration rate/1.73 sq M pre dicted among non-blacks [Volume Rate/Area] in Serum or Plasma by Creatinine-based formula (MDRD) >= 60 mL/min [facility] ([facility]) A/G Ratio 1.20 CALC 1.00-1.90 [facility] ([facility]iology [facility] [place]) Glomerular filtration rate/1.73 sq M pre dicted among blacks [Volume Rate/Area] in Serum or Plasma by Creatinine-based formula (MDRD) >= 60 mL/min [facility] ([facility]) <content>CHRONIC KIDNEY DISEASE STAGING PER NKF</content>
<content></content>
<content>STAGE I & II GFR >= 60 NORMAL TO MILDLY DECREASED</content>
<content>STAGE III GFR 30-59 MODERATELY DECREASED</content>
<content>STAGE IV GFR 15-29 SEVERELY DECREASED</content>
<content>STAGE V GFR <15 VERY LITTLE GFR LEFT</content>
<content>ESRD GFR <15 ON ELEMENT[employer]IDE</content>
<content></content>
<content></content> ID Date Data Source [id number] 08/23/2019 10:54:00 AM EST [facility] ([facility]) Name Value Range Interpretation Code Description Data Edna rce(s) Supporting Document(s) Hemoglobin A1c/Hemoglobin.total in Blood 5.7 g/dL 4.8-5.6 [facility] ([facility]) Lab Result Notes: Pre-Diabetes 5.7 - 6.4 % Diabetes = or > 6.5% Glucose mean value [Mass/volume] in Blood Estimated fr om glycated hemoglobin 117 mg/dL 60-110 [facility] ([facility] [place]) ID Date Data Source [id number] 08/23/2019 10:54:00 AM EST [facility] ([facility]) Name Value Range Interpretation Code Description Data Edna rce(s) Supporting Document(s) Leukocytes [#/volume] in Blood by Automated count 7.5 x10*3/UL 4.1-10 .9 [facility] ([facility]) Erythrocytes [#/volume] in Blood by Automated count 4.98 x10*6/UL 4.2 0-6.30 [facility] ([facility]) Hemoglobin [Mass/volume] in Blood 15.1 g/dL 12.0-18.0 [facility] ([facility]) Hematocrit [Volume Fraction] of Blood by Automated count 44.5 % 3 7.0-51.0 [facility] ([facility]) MCV 89.3 fL 80.0-97.0 [facility] MCH 30.4 pg 26.0-32.0 [facility] ([facility] [place]) MCHC 34.0 g/dL 31.0-38.0 [facility] ([facility] Platelets [#/volume] in Blood by Automated count 241 x10*3/UL 140-440 [facility] ([facility]) Erythrocyte distribution width [Ratio] by Automated count 13.1 % 11.6-13.7 [facility] ([facility]) Lymphocytes/100 leukocytes in Blood by Automated count 29.3 % 10. 0-58.5 [facility] ([facility]) Platelet mean volume [Entitic volume] in Blood by [place] 8.5 FL 7.8-11.0 [facility] ([facility]) Neut % 63.3 % 37.0-92.0 [facility] ([facility] [place]) Mid % 7.4 % 1.7-9.3 [facility] ([facility]) Lymph # 2.2 x10*3/UL 0.6-4.1 [facility] ([facility]) Mid # 0.6 x10*3/UL 0.1-0.6 [facility] ([facility]) Neutrophils [#/volume] in [place] by Manual count 4.7 x10*3/UL 2.0-7.8 [facility] ([facility]) ID Date Data Source [id number] 08/23/2019 10:53:00 AM EST [facility] ([facility]) Name Value Range Interpretation Code Description Data Edna rce(s) Supporting Document(s) Vitamin B12 Level 316 pg/mL [facility] ([facility]) VITAMIN B12 NORMAL RANGE NORMAL 247 - 911 PG/ML INDETERMINATE 211 - 246 PG/ML DEFICIENT LESS THAN 211 PG/ML Folate 15.3 ng/mL [facility]) FOLATE NORMAL RANGE NORMAL GREATER THAN 5.4 NG/ML INDETERMINATE 3.4-5.4 NG/ML DEFICIENT LESS THAN 3.4 NG/ML ID Date Data Source [id number] 08/23/2019 10:53:00 AM EST [facility] ([facility]) Name Value Range Interpretation Code Description Data Edna rce(s) Supporting Document(s) Thyrotropin [Units/volume] in Serum or Plasma by Detec tion limit <= 0.05 mIU/L 0.93 uIU/mL 0.36-3.74 [facility] ([facility] ) ID Date Data Source [id number] 08/23/2019 10:53:00 AM EST [facility] ([facility]) Name Value Range Interpretation Code Description Data Edna rce(s) Supporting Document(s) Vitamin B12 Level 316 pg/mL [facility] VITAMIN B12 NORMAL RANGE NORMAL 247 - 911 PG/ML INDETERMINATE 211 - 246 PG/ML DEFICIENT LESS THAN 211 PG/ML Folate 15.3 ng/mL [facility] ([facility]) FOLATE NORMAL RANGE NORMAL GREATER THAN 5.4 NG/ML INDETERMINATE 3.4-5.4 NG/ML DEFICIENT LESS THAN 3.4 NG/ML ID Date Data Source [id number] 08/23/2019 10:53:00 AM EST [facility] ([facility]) Name Value Range Interpretation Code Description Data Edna rce(s) Supporting Document(s) Thyrotropin [Units/volume] in Serum or Plasma by Detec tion limit <= 0.05 mIU/L 0.93 uIU/mL 0.36-3.74 [facility] ([facility]) Procedure Social History Code Duration Value Status Description Data Source(s ) Smoking 06/20/2020 12:00:00 AM EDT Patient is a former smoker completed Patient is a former smoker [facility] ([facility]) Vital Signs ID Date Data Source UNK Name Value Range Interpretation Code Description Data Source(s) Body mass index (BMI) [Ratio] 23.3 kg/m2 23.3 k g/m2 [facility] ([facility]) Body weight 158.00 [lb_av] 158.00 [lb_av] [facility] ([facility]) Body height 69 [in_i] 69 [in_i] [facility] ([facility]) 5'9" Heart rate 76 /min 76 /min [facility] ([facility]) Diastolic blood pressure 68 mm[Hg] 68 mm[Hg] [facility] ([facility]) Systolic blood pressure 128 mm[Hg] 128 mm[Hg] [facility] Diastolic blood pressure--sitting 68 mm[Hg] 68 mm[Hg] [facility] ([facility]) large cuff, [place] Systolic blood pressure--sitting 138 mm[Hg] 138 mm[Hg] [facility] ([facility]) large cuff, [place] Heart rate 70 /min 70 /min [facility] ([facility]) Body mass index (BMI) [Ratio] 23.7 kg/m2 23.7 k g/m2 [facility] ([facility]) Body height 68 [in_i] 68 [in_i] [facility] ([facility]) 5'8" Body weight 156.00 [lb_av] 156.00 [lb_av] [facility] ([facility]) Body mass index (BMI) [Ratio] 23.2 kg/m2 23.2 k g/m2 [facility] ([facility]) Body weight 157.00 [lb_av] 157.00 [lb_av] [facility] ([facility]) Body height 69 [in_i] 69 [in_i] [facility] ([facility]) 5'9" Heart rate 78 /min 78 /min [facility] ([facility]) Diastolic blood pressure 60 mm[Hg] 60 mm[Hg] [facility] ([facility]) Systolic blood pressure 126 mm[Hg] 126 mm[Hg] [facility] ([facility]) Body mass index (BMI) [Ratio] 23.5 kg/m2 23.5 k g/m2 [facility] ([facility]) Body weight 159.00 [lb_av] 159.00 [lb_av] [facility] T ([facility]) Body height 69 [in_i] 69 [in_i] [facility] ([facility]) 5'9" Heart rate 83 /min 83 /min [facility] ([facility]) Diastolic blood pressure 58 mm[Hg] 58 mm[Hg] [facility] ([facility]) Systolic blood pressure 130 mm[Hg] 130 mm[Hg] [facility] ([facility]) Body weight 73.030 kg 73.030 kg [facility] ([facility], ) Body mass index (BMI) [Ratio] 24.5 kg/m2 24.5 k g/m2 [facility] ([facility]) Body weight 161.00 [lb_av] 161.00 [lb_av] [facility] T ([facility]) Body height 68 [in_i] 68 [in_i] [facility] ([facility]) 5'8" Diastolic blood pressure 80 mm[Hg] 80 mm[Hg] [facility] ([facility]) Systolic blood pressure 162 mm[Hg] 162 mm[Hg] [facility] ([facility]) Body mass index (BMI) [Ratio] 24.1 kg/m2 24.1 k g/m2 [facility] ([facility]) Body weight 163.00 [lb_av] 163.00 [lb_av] [facility] ([facility]) Body height 69 [in_i] 69 [in_i] [facility] ([facility]) 5'9" Diastolic blood pressure 70 mm[Hg] 70 mm[Hg] [facility] ([facility]) Systolic blood pressure 130 mm[Hg] 130 mm[Hg] [facility] ([facility]) Body weight 75.751 kg 75.751 kg [facility] ([facility]) Body mass index (BMI) [Ratio] 25.4 kg/m2 25.4 k g/m2 [facility] ([facility]) Body weight 167.00 [lb_av] 167.00 [lb_av] [facility] Body height 68 [in_i] 68 [in_i] [facility] ([facility]) 5'8" Diastolic blood pressure 82 mm[Hg] 82 mm[Hg] [facility] ([facility]) Systolic blood pressure 157 mm[Hg] 157 mm[Hg] [facility] ([facility]) Diastolic blood pressure--sitting 82 mm[Hg] 82 mm[Hg] [facility] ([facility]) Systolic blood pressure--sitting 134 mm[Hg] 134 mm[Hg] [facility] ([facility]) Heart rate 84 /min 84 /min [facility] ([facility]) Body mass index (BMI) [Ratio] 24.8 kg/m2 24.8 k g/m2 [facility] ([facility]) Body height 68 [in_i] 68 [in_i] [facility] 5'8" Body weight 163.00 [lb_av] 163.00 [lb_av] [facility]UP[facility]I T ([facility]) Body weight 161.00 [lb_av] 161.00 [lb_av] ELZAEN T ([facility]) Body height 69 [in_i] 69 [in_i] [facility] ([facility]) 5'9" Diastolic blood pressure 82 mm[Hg] 82 mm[Hg] AN[facility]Y ([facility]) Systolic blood pressure 134 mm[Hg] 134 mm[Hg] M DAJUAN ([facility]) Body mass index (BMI) [Ratio] 23.8 kg/m2 23.8 k g/m2 [facility] ([facility])
[2020-09-26] MEDS ORDERED: ACETAMINOPHEN 325 MG TAB PO ONE (09:00)
[2020-09-26] MEDS ORDERED: NS 1,000 ML IV SCH (09:00)
[2020-09-26 09:20] LABS: BASO # 0.1 10^3/uL (0.0-0.2); BASO % 0.7 % (0.0-1.0); EOS # 0.2 10^3/uL (0.0-0.5); EOS % 2.1 % (0.0-3.0); HEMATOCRIT 37.9 % (42.0-52.0); HEMOGLOBIN 12.5 g/dl (13.5-17.5); LYMPH # 1.8 10^3/uL (1.5-5.0); LYMPH % 23.1 % (24.0-44.0); MEAN CORPUSCULAR HEMOGLOBIN 30.4 pg (27.0-33.0); MEAN CORPUSCULAR VOLUME 92.2 fl (80.0-96.0); MONO # 0.6 10^3/uL (0.0-0.8); MONO % 7.8 % (0.0-5.0); NEUTROPHILS % 65.9 % (36.0-66.0); PLATELET COUNT, AUTOMATED 143 10^3/uL (150-450); RED BLOOD COUNT 4.11 10^6/uL (4.30-6.10); WHITE BLOOD COUNT 7.7 10^3/uL (4.0-10.0)
--- NOTE | 2020-09-26 09:26 | REP ---
INDICATION: fall COMPARISON: None. TECHNIQUE: Frontal view of the pelvis with neutral and frog lateral views of the left hip. FINDINGS: Osseous structures and joint spaces demonstrate age-related degenerative changes. Proximal femur appears intact. Frog-lateral view demonstrates a suspicious linear lucency extending from the superior aspect of the acetabular rim into the iliac bone. This is nonspecific although subtle fracture cannot be excluded. IMPRESSION: Proximal femur appears intact. Cannot exclude subtle linear nondisplaced fracture through the superior rim of the acetabulum into the left iliac bone. <Electronically signed by Blaise Butts > 09/26/20 [id number]
--- NOTE | 2020-09-26 09:28 | REPVR ---
PROCEDURE INFORMATION: Exam: CT Cervical Spine Without Contrast Exam date and time: 09/26/2020 9:16 AM Age: 70 years old Clinical indication: Injury or trauma; Fall; Blunt trauma TECHNIQUE: Imaging protocol: Computed tomography images of the cervical spine without contrast. Radiation optimization: All CT scans at this facility use at least one of these dose optimization techniques: automated exposure control; mA and/or kV adjustment per patient size (includes targeted exams where dose is matched to clinical indication); or iterative reconstruction. COMPARISON: XA Cookie Swallow Mod.Ba Swallow 12/09/2018 12:30 PM FINDINGS: Bones/joints: No acute fracture. Normal alignment. Diffuse demineralization of the bones. Degenerative changes with mild anterior osteophyte formation, mild loss of disc spaces, and facet joint arthropathy. Discs/Spinal canal/Neural foramina: Mild posterior disc osteophyte formation at multiple levels causing mild indentation on thecal sac. Lungs: Lung apices are normal. Soft tissues: Unremarkable. IMPRESSION: No acute findings. Electronically signed by: Ailyn Khan On 09/26/2020 09:28:41 AM
--- NOTE | 2020-09-26 09:30 | REPVR ---
PROCEDURE INFORMATION: Exam: CT Head Without Contrast Exam date and time: 09/26/2020 9:16 AM Age: 70 years old Clinical indication: Injury or trauma; Fall; Blunt trauma (contusions or hematomas) TECHNIQUE: Imaging protocol: Computed tomography of the head without contrast. Radiation optimization: All CT scans at this facility use at least one of these dose optimization techniques: automated exposure control; mA and/or kV adjustment per patient size (includes targeted exams where dose is matched to clinical indication); or iterative reconstruction. COMPARISON: CT Head without contrast 04/05/2018 4:42 PM FINDINGS: Brain: Old lacunar infarcts in the right periventricular white matter, right basal ganglia, and left thalamus with tiny calcification in the left thalamus, stable. [id number]-li-[id number] small vessel ischemic changes. No evidence of acute infarct, mass, midline shift, or mass effect. No evidence of hemorrhage. Cerebral ventricles: Ventricles and sulci are prominent representing mild volume loss. Bones/joints: Old deformity of the right nasal bone. No acute fracture. Next and scleroses and trace fluid in the right mastoid air cells. Left mastoid air cells are clear. Paranasal sinuses: Visualized sinuses are unremarkable. No fluid levels. Mastoid air cells: See "Bones/joints" finding. Soft tissues: Unremarkable. IMPRESSION: 1. No acute intracranial abnormality. 2. Old lacunar infarcts, mild volume loss and small vessel ischemic changes as described above. Electronically signed by: Ailyn Khan On 09/26/2020 09:30:46 AM
--- NOTE | 2020-09-26 09:31 | REPVR ---
PROCEDURE INFORMATION: Exam: CT Lumbar Spine Without Contrast Exam date and time: 09/26/2020 9:16 AM Age: 70 years old Clinical indication: Injury or trauma; Fall; Blunt trauma (contusions or hematomas) TECHNIQUE: Imaging protocol: Computed tomography images of the lumbar spine without contrast. Radiation optimization: All CT scans at this facility use at least one of these dose optimization techniques: automated exposure control; mA and/or kV adjustment per patient size (includes targeted exams where dose is matched to clinical indication); or iterative reconstruction. COMPARISON: No relevant prior studies available. FINDINGS: Minimal anterolisthesis of L4 on L5. Degenerative changes with facet joint arthropathy most marked at the level of L4/S1, right greater than left. Mild anterior osteophyte formation. Mild levoscoliosis of the lumbar spine. Discs/Spinal canal/Neural foramina: No mild disc bulges at L4/L5 and L5/S1 causing mild indentation on thecal sac. Mild neural foraminal narrowing at L5/S1 on the left greater than right. Soft tissues: Unremarkable. IMPRESSION: No acute findings. Electronically signed by: Ailyn Khan On 09/26/2020 09:32:43 AM
--- NOTE | 2020-09-26 09:32 | REP ---
INDICATION: fall COMPARISON: None. TECHNIQUE: AP, lateral, bilateral oblique and sunrise views. FINDINGS: Advanced tricompartmental osteoarthritic degenerative changes are appreciated along with overlying soft tissue swelling and effusion. No obvious acute fracture or dislocation. IMPRESSION: Advanced tricompartmental osteoarthritic changes. Swelling and effusion. No obvious acute fracture or dislocation. <Electronically signed by Blaise Butts > 09/26/20 0928
--- NOTE | 2020-09-26 09:36 | REP ---
INDICATION: fall COMPARISON: None. TECHNIQUE: AP and frog-lateral views of the mid to distal left femur in conjunction with left hip series FINDINGS: Advanced degenerative changes at the knee noted. No acute fracture or dislocation identified through the femoral diaphysis and knee. IMPRESSION: Age-related degenerative changes.. No acute fracture or dislocation. <Electronically signed by Blaise Butts > 09/26/20 0932
[2020-09-26 10:00] LABS: BLOOD UREA NITROGEN 13 MG/DL (7-18); CALCIUM LEVEL 8.5 MG/DL (8.8-10.2); CARBON DIOXIDE LEVEL 29 MEQ/L (21-32); CHLORIDE LEVEL 109 MEQ/L (98-107); CPK CREATINE PHOSPHOKINASE 355 U/L (39-308); CREATININE FOR GFR 0.66 MG/DL (0.70-1.30); GLOMERULAR FILTRATION RATE > 60.0 (>42); GLUCOSE, FASTING 102 MG/DL (70-100); POTASSIUM SERUM 3.5 MEQ/L (3.5-5.1); SODIUM LEVEL 143 MEQ/L (136-145)
--- NOTE | 2020-09-26 10:02 | REP ---
INDICATION: fall. COMPARISON: None. TECHNIQUE: Axial noncontrast images through the pelvis with coronal and sagittal reformations. FINDINGS: There is a linear nondisplaced fracture that runs through the body of the left iliac bone as well as along the superior aspect of the acetabulum (series 201; images 38-55). There is an associated comminuted fracture involving the anterior rim of the left acetabulum as well. Left femur is intact. No other fracture or dislocation identified. Associated left hip effusion and posttraumatic stranding through the subcutaneous tissues and musculature. Intrapelvic structures are grossly unremarkable. IMPRESSION: Fracture of the left iliac bone extending through the acetabulum including comminuted fracture along the anterior rim of the left acetabulum. <Electronically signed by Blaise Butts > 09/26/20 0924
--- NOTE | 2020-09-26 10:04 | REP ---
INDICATION: fall. COMPARISON: None. TECHNIQUE: Axial noncontrast images through the left hip with coronal and sagittal reformations. FINDINGS: There is a linear nondisplaced fracture that runs through the body of the left iliac bone as well as along the superior aspect of the acetabulum (series 201; images 1-16). There is an associated comminuted fracture involving the anterior rim of the left acetabulum as well (series 201; images 16-25). Left femur is intact. No other fracture or dislocation identified. Associated left hip effusion and posttraumatic stranding through the subcutaneous tissues and musculature. IMPRESSION: Fracture through the left iliac bone extending to the superior rim of the acetabulum followed by comminuted fracture along the anterior margin of the acetabulum. <Electronically signed by Blaise Butts > 09/26/20 1000
--- NOTE | 2020-09-26 10:09 | REP ---
INDICATION: lle pain, positive homans, r/o dvt COMPARISON: None. TECHNIQUE: Real time compression and duplex Doppler interrogation of the left lower extremity deep venous system is performed. FINDINGS: The left common femoral, superficial femoral and popliteal veins are fully compressible with transducer pressure and demonstrate normal spontaneous and phasic flow, without evidence of deep venous thrombosis. IMPRESSION: No evidence of deep venous thrombosis of the left lower extremity femoral popliteal venous system. <Electronically signed by Wilfredo Brooks > 09/26/20 100
[2020-09-26 11:18] LABS: APPEARANCE, URINE CLEAR (CLEAR); BACTERIA, URINE AUTO NEGATIVE (NEGATIVE); BILIRUBIN, URINE AUTO NEGATIVE (NEGATIVE); BLOOD, URINE BLOOD NEGATIVE (NEGATIVE); COLOR, URINE YELLOW (YELLOW); GLUCOSE, URINE (UA) AUTO NEGATIVE (NEGATIVE); KETONE, URINE AUTO NEGATIVE (NEGATIVE); LEUKOCYTE ESTERASE, URINE AUTO NEGATIVE (NEGATIVE); MUCUS, URINE SMALL (NEGATIVE); NITRITE, URINE AUTO NEGATIVE (NEGATIVE); PROTEIN, URINE AUTO NEGATIVE (NEGATIVE); RBC, URINE AUTO 0 /HPF (0-3); SPECIFIC GRAVITY URINE AUTO 1.026 (1.002-1.035); SQUAMOUS EPITHELIAL CELL UR AU 0 /HPF (0-6); WBC, URINE AUTO 3 /HPF (0-3)
[2020-09-26] MEDS ORDERED: ASPI-161 PO (11:37)
[2020-09-26 12:05] LABS: RSV AMPLIFICATION NEGATIVE (NEGATIVE)
[2020-09-26 12:39] LABS: CK-MB VALUE MASS 1.4 NG/ML (<3.6); MB/CK RELATIVE INDEX 0.39 (< OR =4); TROPONIN I < 0.02 NG/ML (< 0.10)
--- OUTSIDE RECORDS SUMMARY | 2020-09-26 13:01 | CCD ---
Author Author [facility] Organization [facility] Address Unknown Phone Unavailable Care Team Providers Care Corporate Communications Specialist Name Role Phone Cuong Trinh JR, MD [...] Unavailable Cuong Trinh JR, MD Unavailable Unavailable Coung Trinh JR, MD Unavailable Unavailable Cuong Trinh [...] Unavailable Cuong Trinh JR, MD Unavailable Unavailable ArcherBonita zeng MD Unavailable Unavailable ArcherBonita zeng MD Unavailable Unavailable Bonita Peterson MD Unavailable Unavailable Bonita Peterson MD Unavailable Unavailable NicholasBonita zeng MD Unavailable Unavailable Bonita Peterson MD Unavailable Unavailable ArcherBonita zeng MD Unavailable Unavailable ArcherBonita zeng MD Unavailable Unavailable ArcherBonita zeng MD Unavailable Unavailable NicholasBonita zeng MD Unavailable Unavailable ArcherBonita zeng MD Unavailable Unavailable NicholasBonita zeng MD Unavailable Unavailable ArcherBonita zeng MD Unavailable Unavailable NicholasBonita zeng MD Unavailable Unavailable NicholasBonita MD Unavailable Unavailable NicholasBonita MD Unavailable Unavailable ArcherBonita zeng MD Unavailable Unavailable ArcherBonita zeng MD Unavailable Unavailable ArcherBonita zeng MD Unavailable Unavailable ArcherBonita MD Unavailable Unavailable NicholasBonita MD Unavailable Unavailable NicholasBonita MD Unavailable Unavailable ArcherBonita MD Unavailable Unavailable NicholasBonita MD Unavailable Unavailable ArcherBonita MD Unavailable Unavailable NicholasBonita MD Unavailable Unavailable NicholasBonita MD Unavailable Unavailable NicholasBonita MD Unavailable Unavailable NicholasBonita MD Unavailable Unavailable ArcherBonita MD Unavailable Unavailable ArcherBonita MD Unavailable Unavailable ArcherBonita MD Unavailable Unavailable ArcherBonita MD Unavailable Unavailable NicholasBonita MD Unavailable Unavailable ArcherBonita MD Unavailable Unavailable NicholasBonita MD Unavailable Unavailable ArcherBonita MD Unavailable Unavailable NicholasBonita MD Unavailable Unavailable NicholasBonita MD Unavailable Unavailable ArcherBonita MD Unavailable Unavailable NicholasBonita MD Unavailable Unavailable NicholasBonita MD Unavailable Unavailable ArcherBonita MD Unavailable Unavailable NicholasBonita MD Unavailable Unavailable NicholasBonita MD Unavailable Unavailable NicholasBonita MD Unavailable Unavailable NicholasBonita MD Unavailable Unavailable ArcherBonita MD Unavailable Unavailable NicholasBonita MD Unavailable Unavailable ArcherBonita MD Unavailable Unavailable NicholasBonita MD Unavailable Unavailable NicholasBonita MD Unavailable Unavailable NicholasBonita MD Unavailable Unavailable NicholasoBnita MD Unavailable Unavailable ArcherBonita MD Unavailable Unavailable ArcherBonita MD Unavailable Unavailable NicholasBonita MD Unavailable Unavailable ArcherBonita zeng MD Unavailable Unavailable NicholasBonita zeng MD Unavailable Unavailable ArcherBonita MD Unavailable Unavailable NicholasBonita MD Unavailable Unavailable NicholasBonita zeng MD Unavailable Unavailable ArcherBonita MD Unavailable Unavailable NicholasBonita zeng MD Unavailable Unavailable ArcherBonita zeng MD Unavailable Unavailable ArcherBonita zeng MD Unavailable Unavailable ArcherBonita MD Unavailable Unavailable NicholasBonita MD Unavailable Unavailable ArcherBonita MD Unavailable Unavailable NicholasBonita MD Unavailable Unavailable NicholasBonita MD Unavailable Unavailable ArcherBonita MD Unavailable Unavailable NicholasBonita MD Unavailable Unavailable NicholasBonita MD Unavailable Unavailable NicholasBonita MD Unavailable Unavailable ArcherBonita MD Unavailable Unavailable NicholasBonita MD Unavailable Unavailable ArcherBonita MD Unavailable Unavailable ArcherBonita MD Unavailable Unavailable Bonita Peterson MD Unavailable Unavailable Bonita Peterson MD Unavailable Unavailable Bonita Peterson MD Unavailable Unavailable Bonita Peterson MD Unavailable Unavailable NicholasBonita zeng MD Unavailable Unavailable ArcherBonita zeng MD Unavailable Unavailable Mohit, Paulina SIGN SHOP SUPERVISOR Unavailable Unavailable Mohit, Paulina SIGN SHOP SUPERVISOR Unavailable Unavailable Mohit, Paulina SIGN SHOP SUPERVISOR Unavailable Unavailable Mohit, Paulina SIGN SHOP SUPERVISOR Unavailable Unavailable Mohit, Paulina SIGN SHOP SUPERVISOR Unavailable Unavailable Mohit, Paulina SIGN SHOP SUPERVISOR Unavailable Unavailable Mohit, Paulina SIGN SHOP SUPERVISOR Unavailable Unavailable Mohit, Paulina SIGN SHOP SUPERVISOR Unavailable Unavailable Mohit, Paulina SIGN SHOP SUPERVISOR Unavailable Unavailable Mohit, Paulina SIGN SHOP SUPERVISOR Unavailable Unavailable Mohit, Paulina SIGN SHOP SUPERVISOR Unavailable Unavailable Mohit, Paulina SIGN SHOP SUPERVISOR Unavailable Unavailable Mohit, Paulina SIGN SHOP SUPERVISOR Unavailable Unavailable Mohit, Paulina SIGN SHOP SUPERVISOR Unavailable Unavailable Mohit, Paulina SIGN SHOP SUPERVISOR Unavailable Unavailable Mohit, Paulina SIGN SHOP SUPERVISOR Unavailable Unavailable Mohit, Paulina SIGN SHOP SUPERVISOR Unavailable Unavailable Mohit, Paulina SIGN SHOP SUPERVISOR Unavailable Unavailable Mohit, Paulina SIGN SHOP SUPERVISOR Unavailable Unavailable Mohit, Paulina SIGN SHOP SUPERVISOR Unavailable Unavailable Mohit, Paulina SIGN SHOP SUPERVISOR Unavailable Unavailable Mohit, Paulina SIGN SHOP SUPERVISOR Unavailable Unavailable Mohit, Paulina SIGN SHOP SUPERVISOR Unavailable Unavailable Mohit, Paulina SIGN SHOP SUPERVISOR Unavailable Unavailable Mohit, Paulina SIGN SHOP SUPERVISOR Unavailable Unavailable Mohit, Paulina SIGN SHOP SUPERVISOR Unavailable Unavailable Emil, L Jillian PA Unavailable [...] is protected by Article 27-F of the [place] Public Health law. If you continue you may have access to information: Regarding HIV / AIDS; Provided by facilities licensed or operated by the [place] Office of Mental Health; or Provided by the [place] Office for People With Developmental Disabilities. If such information is present, then the following [place] [facility] mandated warning applies: This information has been [...] law may result in a fine or group home sentence or both. A general authorization for [...] Rajiv Baez 1 10:20:00 AM EDT [facility] ([facility] ) Outpatient Attender: Jillian ALDRICH Main Office 06/20/2020 11:45:0 0 AM EDT [facility] ([facility]) Outpatient Attender: Rajiv Baez 0 02/28/2020 11:00:00 AM EDT [facility] ([facility] ) Outpatient Attender: Paulina Baez 10:40:00 AM EDT [facility] ([facility] ) Outpatient Attender: Rajiv Baez 0 01/13/2020 01:30:00 PM EDT [facility] ([facility] ) Outpatient Attender: Toby Rodrigez/Med[facility]/[place]/Rein dl 11/16/2019 12:10:00 PM EST [facility] Outpatient Attender: Jillian ALDRICH Main Office 10/26/2019 08:45:0 0 AM EST [facility] ([facility]) Outpatient Attender: Rajiv Baez 1 10/24/2018 10:20:00 AM EST [facility] ([facility] ) Immunizations Vaccine Date Status Description Data Source(s) Influenza, injectable, MDCK, preservative free, danielito valent 07/04/2020 10:23:00 AM EDT completed [facility] Medications Medication Brand Name Start Date Product Form Dose Route Admi nistrative Instructions Pharmacy Instructions Status Indications Reaction Description Data Source(s) Administration Of Flu Vaccine 07/04/2020 12:00:00 AM EDT completed [facility] ([facility]) Medication administered onsite Ascorbic Acid 60 MG / Beta Carotene 5000 UNT / Copper Sulfate 40 MG / dl-alpha tocopheryl acetate 30 UNT / Sodium Selenite 0.04 MG / Zinc Oxide 40 MG Oral Tablet Eye-Vites 06/19/2020 12:00:00 AM EDT ORAL active [facility] ([facility]) Fexofenadine hydrochloride 60 MG Oral Tablet Yajaira Allergy 06/19/2020 12:00:00 AM EDT ORAL active [facility] ([facility]) Glycerin 2 MG/ML / hypromellose 2 MG/ML / Polyethylene Glycol 400 10 MG/ML Ophthalmic Solution Dry Eye Relief Drops 06/19/2020 12:00:00 AM EDT OPHTHALMIC active [facility] ([facility]) pantoprazole 40 MG Delayed Release Oral Tablet [...] Hydrocodone Bitartrate 5 MG Oral Tabl et [Manlius] Manlius 01/31/2020 12:00:00 AM EDT ORAL active [facility] ([facility], ) 40 mg 12/12/2019 12:00:00 AM EDT [...] TABLET BY MOUTH EVERY DAY SOLD: 10/31/2019 [facility] 40 mg 05/03/2019 12:00:00 AM EDT [...] type / Coverage type Policy ID Covered constitution party ID Covered constitution party's relationship to mullins Policy Mullins Plan Information WELLCARE [id number] SP [id number] WELLCARE [id number] SP [id number] [employer] Commercial [id number] Self [id number] Wellcare MCR - To Ppo Commercial [id number] Self [id number] TODAYS OPTIONS [id number] SP [id number] Wellcare MCR - To Ppo Commercial [id number] Self [id number] Wellcare MCR - To Ppo Commercial [id number] Self [id number] Medicare Natl Govt Servic Medicare Primary [id number] Self [id number] Wellcare/Todays Optmcr Commercial [id number] Self [id number] BS Christoval/Watn Trad/MX Medigap Part B [id number] Family Dep endent [id number] [facility] Trad/MX Medigap Part B [id number] Self [id number] [facility] Medigap Part B [id number] Self [id number] [facility] Trad/MX Medigap Part B [id number] Self [id number] Medicare Blue Ppo Commercial [id number] Self [id number] TODAYS OPTIONS [id number] S [id number] TODAYS OPTIONS [id number] S [id number] Medicare Natl Govt Servic Medicare Primary [id number] Self [id number] Todays Option Medicare Commercial [id number] Self [id number] Today's Option Medicare Commercial [id number] Self [id number] [place] 302/307 [id number] SP [id number] [facility] [id number] SP [id number] [place] PPO 302/307 [id number] SP [id number] BCBS [facility] 010/510 [id number] [place] [id number] [place] 304/[id number] SP [id number] Medicare Natl Govt Servic Medicare Primary [id number] Self [id number] Todays Option Medicare Commercial [id number] Self [id number] Medicare Natl Govt Servic Medicare Primary [id number] Self [id number] Todays Option Medicare Commercial [id number] Self [id number] Today's Option Medicare Commercial [id number] Self [id number] Medicare Natl Govt Servic Medicare Primary [id number] Self [id number] Todays Option Medicare Commercial [id number] Self [id number] AMER PROG TODAYS OPTIONS G [id number] Self [id number] Medicare Natl Govt Servic Medicare Primary [id number] Self [id number] Todays Option Medicare Commercial [id number] Self [id number] TODAYS OPTIONS/BRAZILIAN O [id number] S [id number] BS Christoval-[facility] Medigap Part B [id number] Self [id number] Todays Options Commercial [id number] Self [id number] TODAYS OPTIONS [id number] SP [id number] TODAYS OPTIONS [id number] SP [id number] Medicare Natl Govt Servic Medicare Primary [id number] Self [id number] Todays Option Medicare Commercial [id number] Self [id number] TODAYS OPTIONS [id number] SP [id number] Medicare Natl Govt Servic Medicare Primary Self BS Christoval/Watn Trad/MX Medigap Part B Family Depend ent BS [place] Trad/MX Commercial [id number] Self [id number] [facility] [facility] Medigap Part B Inbalance Epo Self Inbalance Epo BS [place] Trad/MX Commercial 802 Self 802 Medicare Blue Ppo Commercial 802 Self 8 02 Todays Option Medicare Commercial Advantage Plus 350B Ppo Se lf Advantage Plus 350B Ppo Problems, Conditions, and Diagnoses Code Display Name Description Problem Type Effective Dates Data Source(s) [id number] Dietary management surveillance Dietary manageme nt surveillance Problem 10/26/2019 12:00:00 AM EST [facility] Surgeries/Procedures Procedure Description Date Indications Data Source(s) ECG ROUTINE ECG W/LEAST 12 LDS W/I&R 06/20/2020 12:00: 00 AM EDT [facility] ([facility]) Implantable Loop Recorder System, Review And Report 05/23/2020 12:00:00 AM EDT [facility] ([facility]) Implantable Loop Recorder System, Review And Report 04/19/2020 12:00:00 AM EDT [facility] ([facility]) Implantable Loop Recorder System, Review And Report 03/19/2020 12:00:00 AM EDT [facility] ([facility]) Implantable Loop Recorder System, Review And Report 02/13/2020 12:00:00 AM EDT [facility] ([facility]) Implantable Loop Recorder System, Review And Report 01/12/2020 12:00:00 AM EDT [facility] ([facility]) Implantable Loop Recorder System, Review And Report 12/12/2019 12:00:00 AM EDT [facility] ([facility]) ECG ROUTINE ECG W/LEAST 12 LDS W/I&R 10/26/2019 12:00: 00 AM EST [facility] ([facility]) Implantable Loop Recorder System, Review And Report 10/10/2019 12:00:00 AM EST [facility] ([facility]) Implantable Loop Recorder System, Review And Report 09/09/2019 12:00:00 AM EST [facility] ([facility]) Interrogation device evaluation(s), (rem ote) up to 30 days; implantable cardiovascular monitor system or implantable loop recorder system, remote data acquisition(s), receipt of transmissions and rehabilitation technician 09/09/2019 12:00:00 AM EST [facility] ([facility]) Implantable Loop Recorder System, Review And Report 08/04/2019 12:00:00 AM EST [facility] ([facility]) Interrogation device evaluation(s), (rem ote) up to 30 days; implantable cardiovascular monitor system or implantable loop recorder system, remote data acquisition(s), receipt of transmissions and rehabilitation technician 08/04/2019 12:00:00 AM EST [facility] ([facility]) Results ID Date Data Source [id number] 07/04/2020 10:47:00 AM EDT [facility] ([facility]) Name Value Range Interpretation Code Description Data Edna rce(s) Supporting Document(s) Glucose [Mass/volume] in Serum or Plasma 91 mg/dL 74-99 [facility] ([facility]) 100-125 mg/dL PRE-DIABETES/FASTING >126 mg/dL DIABETES/FASTING Creatinine 0.9 mg/dL 0.6-1.3 [facility] ([facility]) Urea nitrogen [Mass/volume] in Serum or Plasma 15 mg/dL 7-18 [facility] ([facility]) Potassium [Moles/volume] in Serum or Plasma 4.7 meq/L 3.5-5.1 [facility] ([facility]) Sodium [Moles/volume] in Serum or Plasma 143 meq/L 136-145 [facility] ([facility]) Carbon dioxide, total [Moles/volume] in Serum or Plasma 31 meq/L 21 -32 [facility] ([facility]) Chloride [Moles/volume] in Serum or Plasma 105 meq/L 98-107 [facility] ([facility]) Calcium [Mass/volume] in Serum or Plasma 9.3 mg/dL 8.5-10.1 [facility] ([facility]) Glomerular filtration rate/1.73 sq M pre dicted among non-blacks [Volume Rate/Area] in Serum or Plasma by Creatinine-based formula (MDRD) Laboratory test result [facility] Glomerular filtration rate/1.73 sq M pre dicted among blacks [Volume Rate/Area] in Serum or Plasma by Creatinine-based formula (MDRD) Laboratory test result [facility] <content>CHRONIC KIDNEY DISEASE STAGING PER NKF</content>
<content></content>
<content>STAGE I & II GFR >= 60 NORMAL TO MILDLY DECREASED</content>
<content>STAGE III GFR 30-59 MODERATELY DECREASED</content>
<content>STAGE IV GFR 15-29 SEVERELY DECREASED</content>
<content>STAGE V GFR <15 VERY LITTLE GFR LEFT</content>
<content>ESRD GFR <15 ON TOBACCO GRADER</content>
<content></content> ID Date Data Source [id number] 07/04/2020 10:47:00 AM EDT [place] [facility] Name Value Range Interpretation Code Description Data Edna rce(s) Supporting Document(s) Prostate specific Ag [Mass/volume] in Serum or Plasma 3.29 ng/mL [place] ([facility]) This assay was performed on the Siemens Dimension EXL using the B- Galactosidase/CPRG methodology and should not be compared interchangeably with other methods. The PSA should not be used alone as a screening test for the presence or absence of malignant disease. ID Date Data Source [id number] 07/04/2020 10:47:00 AM EDT [facility]) Name Value Range Interpretation Code Description Data Edna rce(s) Supporting Document(s) Glucose mean value [Mass/volume] in Blood Estimated fr om glycated hemoglobin 114 mg/dL 60-110 [place] [facility] Hemoglobin A1c/Hemoglobin.total in Blood 5.6 % [place] ([facility]) Lab Result Notes: Pre-Diabetes 5.7 - 6.4 % Diabetes = or > 6.5% ID Date Data Source [id number] 07/04/2020 10:47:00 AM EDT [place] ([facility]) Name Value Range Interpretation Code Description Data Edna rce(s) Supporting Document(s) Leukocytes [#/volume] in Blood by Automated count 6.2 x10*3/UL 4.1-10 .9 [place] [facility] Hematocrit [Volume Fraction] of Blood by Automated count 41.1 % 3 7.0-51.0 [place] [facility] Hemoglobin [Mass/volume] in Blood 14.4 g/dL 12.0-18.0 [place] [facility] Erythrocytes [#/volume] in Blood by Automated count 4.64 x10*6/UL 4.2 0-6.30 [place] [facility] MCHC 35.0 g/dL 31.0-38.0 [facility] MCH 31.0 pg 26.0-32.0 [facility] MCV 88.6 fL 80.0-97.0 [facility]) MPV 8.2 FL 7.8-11.0 [facility] Platelets [#/volume] in Blood by Automated count 227 x10*3/UL 140-440 [facility] ([facility]) Erythrocyte distribution width [Ratio] by Automated count 13.1 % 11.6-13.7 [facility] ([facility]) Lymph % 34.9 % 10.0-58.5 [facility] Neut % 57.6 % 37.0-92.0 [facility] Mid % 7.5 % 1.7-9.3 [facility] Lymph # 2.2 x10*3/UL 0.6-4.1 [facility] ([facility]) Mid # 0.4 x10*3/UL 0.1-0.6 [facility] ([facility]) Neut # 3.6 x10*3/UL 2.0-7.8 [facility] ([facility]) ID Date Data Source [id number] 02/28/2020 11:10:00 AM EDT [facility] ([facility]) Name Value Range Interpretation Code Description Data Edna rce(s) Supporting Document(s) Hemoglobin A1c/Hemoglobin.total in Blood 5.7 [facility] ([facility]) ID Date Data Source [id number] 02/28/2020 11:10:00 AM EDT [facility] ([facility]) Name Value Range Interpretation Code Description Data Edna rce(s) Supporting Document(s) Triglycerides 58 30-150 [facility] ([facility]) Cholesterol in LDL [Mass/volume] in Serum or Plasma by calculation 41 50-159 [facility] ([facility]) HDL 48 35-60 [facility] Cholesterol 101 131-200 [facility] ([facility]) Chol/HDL Ratio Laboratory test result [facility] ([facility]) ID Date Data Source [id number] 02/28/2020 11:10:00 AM EDT [facility] ([facility]) Name Value Range Interpretation Code Description Data Edna rce(s) Supporting Document(s) Calcium [Mass/volume] in Serum or Plasma 8.6 [facility] ([facility]) Albumin [Mass/volume] in Serum or Plasma 3.8 [facility] ([facility]) Alanine aminotransferase [Enzymatic activity/volume] in Serum or Pl asma 20 [facility] ([facility]) Carbon dioxide, total [Moles/volume] in Serum or Plasma 27 [facility] ([facility]) Alkaline phosphatase [Enzymatic activity/volume] in Serum or Plasma 6 0 [facility] ([facility]) Chloride [Moles/volume] in Serum or Plasma 107 [facility] ([facility]) Potassium [Moles/volume] in Serum or Plasma 4.2 [facility] ([facility]) Sodium 144 [facility] ([facility]) Protein [Mass/volume] in Serum or Plasma 7.1 [facility] ([facility]) Urea nitrogen [Mass/volume] in Serum or Plasma 15 [facility] ([facility]) Glucose 87 74-99 [facility] ([facility]) Aspartate aminotransferase [Enzymatic activity/volume] in Serum or Plasma 12 [facility] ([facility]) Creatinine For GFR 0.7 [facility] ID Date Data Source [id number] 02/28/2020 10:42:00 AM EDT [facility] ([facility]) Name Value Range Interpretation Code Description Data Edna rce(s) Supporting Document(s) Urine Creatinine 184.1 mg/dL 30.0-125.0 [facility] ([facility]) Microalb/Creat Ratio 6.4 ug/mg 0.0-30.0 [facility] Microalbumin Urine 11.7 mg/L 1.3-20.0 [facility] ID Date Data Source [id number] 02/28/2020 10:42:00 AM EDT [facility] ([facility]) Name Value Range Interpretation Code Description Data Edna rce(s) Supporting Document(s) Cholesterol [Mass/volume] in Serum or Plasma 101 mg/dL 131-200 [facility] ([facility]) Triglyceride [Mass/volume] in Serum or Plasma 58 mg/dL 30-150 [facility] ([facility]) Cholesterol in LDL [Mass/volume] in Serum or Plasma by calcu lation 41 CALC 50-159 [facility] ([facility]) Cholesterol in HDL [Mass/volume] in Serum or Plasma 48 mg/dL 35-60 [facility] ([facility]) ID Date Data Source [id number] 02/28/2020 10:42:00 AM EDT [facility] ([facility]) Name Value Range Interpretation Code Description Data Edna rce(s) Supporting Document(s) Urea nitrogen [Mass/volume] in Serum or Plasma 15 mg/dL 7-18 [facility] ([facility]) Glucose [Mass/volume] in Serum or Plasma 87 mg/dL 74-99 [facility] ([facility]) 100-125 mg/dL PRE-DIABETES/FASTING >126 mg/dL DIABETES/FASTING Sodium [Moles/volume] in Serum or Plasma 144 meq/L 136-145 [facility] ([facility]) Creatinine 0.7 mg/dL 0.6-1.3 [facility] ([facility]) Potassium [Moles/volume] in Serum or Plasma 4.2 meq/L 3.5-5.1 [facility] ([facility]) Chloride [Moles/volume] in Serum or Plasma 107 meq/L 98-107 [facility] ([facility]) Carbon dioxide, total [Moles/volume] in Serum or Plasma 27 meq/L 21 -32 [facility] ([facility]) Calcium [Mass/volume] in Serum or Plasma 8.6 mg/dL 8.5-10.1 [facility] ([facility]) Total Bilirubin 0.6 mg/dL 0.2-1.0 [facility] ([facility]) Alkaline phosphatase isoenzyme [Units/volume] in Serum or Pl asma 60 mg/dL 46-116 [facility] ([facility]) Aspartate aminotransferase [Enzymatic activity/volume] in Serum or Plasma 12 U[facility]L 15-37 [facility] Alanine aminotransferase [Enzymatic activity/volume] in Seru m or Plasma 20 U/L 12-78 [facility] ([facility]) Proteinase 3 Ab [Units/volume] in Serum 7.1 g/dL 6.4-8.2 [facility] A/G Ratio 1.15 CALC 1.00-1.90 [facility] Albumin [Mass/volume] in Serum or Plasma 3.8 g/dL 3.4-5.0 [facility] Glomerular filtration rate/1.73 sq M pre dicted among blacks [Volume Rate/Area] in Serum or Plasma by Creatinine-based formula (MDRD) Laboratory test result [place] ([facility]) <content>CHRONIC KIDNEY DISEASE STAGING PER NKF</content>
<content></content>
<content>STAGE I & II GFR >= 60 NORMAL TO MILDLY DECREASED</content>
<content>STAGE III GFR 30-59 MODERATELY DECREASED</content>
<content>STAGE IV GFR 15-29 SEVERELY DECREASED</content>
<content>STAGE V GFR <15 VERY LITTLE GFR LEFT</content>
<content>ESRD GFR <15 ON TOBACCO GRADER</content>
<content></content> Glomerular filtration rate/1.73 sq M pre dicted among non-blacks [Volume Rate/Area] in Serum or Plasma by Creatinine-based formula (MDRD) Laboratory test result [place] ([facility] ) ID Date Data Source [id number] 02/28/2020 10:42:00 AM EDT [place] ([facility]) Name Value Range Interpretation Code Description Data Edna rce(s) Supporting Document(s) Glucose mean value [Mass/volume] in Blood Estimated fr om glycated hemoglobin 117 mg/dL 60-110 [place] [facility] Hemoglobin A1c/Hemoglobin.total in Blood 5.7 g/dL 4.8-5.6 [place] [facility] Lab Result Notes: Pre-Diabetes 5.7 - 6.4 % Diabetes = or > 6.5% ID Date Data Source [id number] 02/28/2020 10:42:00 AM EDT [facility] ([facility]) Name Value Range Interpretation Code Description Data Edna rce(s) Supporting Document(s) Leukocytes [#/volume] in Blood by Automated count 6.8 x10*3/UL 4.1-10 .9 [facility] ([facility]) Erythrocytes [#/volume] in Blood by Automated count 4.52 x10*6/UL 4.2 0-6.30 [facility] ([facility]) Hemoglobin [Mass/volume] in Blood 13.7 g/dL 12.0-18.0 [facility] ([facility]) Hematocrit [Volume Fraction] of Blood by Automated count 39.9 % 3 7.0-51.0 [facility] ([facility]) MCH 30.4 pg 26.0-32.0 [facility] ([facility]) MCV 88.3 fL 80.0-97.0 [facility]) MCHC 34.4 g/dL 31.0-38.0 [facility] ([facility]) Erythrocyte distribution width [Ratio] by Automated count 13.2 % 11.6-13.7 [facility] ([facility]) Platelets [#/volume] in Blood by Automated count 211 x10*3/UL 140-440 [facility] ([facility]) Lymph % 31.1 % 10.0-58.5 [facility] ([facility]) MPV 8.6 FL 7.8-11.0 [facility] ([facility]) Mid % 8.0 % 1.7-9.3 [facility] ([facility]) Lymph # 2.1 x10*3/UL 0.6-4.1 [facility] ([facility]) Neut % 60.9 % 37.0-92.0 [facility] ([facility]) Neut # 4.1 x10*3/UL 2.0-7.8 [facility] ([facility]) Mid # 0.6 x10*3/UL 0.1-0.6 [facility] ([facility]) ID Date Data Source [id number] 02/28/2020 10:42:00 AM EDT [place] ([facility]) Name Value Range Interpretation Code Description Data Edna rce(s) Supporting Document(s) Hemoglobin A1c/Hemoglobin.total in Blood Laboratory test result [place] [facility] ID Date Data Source [id number] 01/31/2020 09:46:00 AM EDT [facility] ([facility], ) Name Value Range Interpretation Code Description Data Edna rce(s) Supporting Document(s) Surgical pathology study Laboratory test result [place] ([facility], ) FINAL DIAGNOSIS Soft tissue hernia sac: Mesothelial-lined fibroconnective tissue, consistent with hernia sac. 02/01/2020840 CLINICAL DIAGNOSIS Right inguinal hernia 01/31/20201421 GROSS DIAGNOSIS Received in formalin labeled "hernia sac" is a fragment of tissue, 4.5 x 4.0 x 1.5 cm. The specimen is grossly u nremarkable. Television Maintenance Worker section is submitted in one. -OA 01/31/20201421 Signed CUCO MORALES MD 02/01/2020 0842 ID Date Data Source [id number] 01/31/2020 08:10:00 AM EDT [place] ([facility]) Name Value Range Interpretation Code Description Data Edna rce(s) Supporting Document(s) Bedside Glucose 88 mg/dL 83-110 [place] ([facility]) Doctor Notified ID Date Data Source [id number] 01/31/2020 08:10:00 AM EDT [facility] ([facility], ) Name Value Range Interpretation Code Description Data Edna rce(s) Supporting Document(s) Glucose [Mass/volume] in Capillary blood by Glucometer 88 mg/dL 83-110 Normal (applies to non-numeric results) [place] ([facility], ) Doctor Notified ID Date Data Source [id number] 01/28/2020 08:35:00 AM EDT [facility] Name Value Range Interpretation Code Description Data Edna rce(s) Supporting Document(s) SARS CORONAVIRUS 2 RNA [facility] This lab was ordered by [facility] and reported by [facility]. ID Date Data Source [id number] 01/13/2020 01:51:00 PM EDT [facility] ([facility]) Name Value Range Interpretation Code Description Data Edna rce(s) Supporting Document(s) Hemoglobin A1c/Hemoglobin.total in Blood 5.7 g/dL 4.8-5.6 [place] [facility] Lab Result Notes: Pre-Diabetes 5.7 - 6.4 % Diabetes = or > 6.5% Glucose mean value [Mass/volume] in Blood Estimated fr om glycated hemoglobin 117 mg/dL 60-110 [place] [facility] ID Date Data Source [id number] 01/13/2020 01:51:00 PM EDT [facility] Name Value Range Interpretation Code Description Data Edna rce(s) Supporting Document(s) Urea nitrogen [Mass/volume] in Serum or Plasma 14 mg/dL 7-18 [facility] ([facility]) Glucose [Mass/volume] in Serum or Plasma 99 mg/dL 74-99 [facility] ([facility]) 100-125 mg/dL PRE-DIABETES/FASTING >126 mg/dL DIABETES/FASTING Creatinine 0.8 mg/dL 0.6-1.3 [facility] Sodium [Moles/volume] in Serum or Plasma 142 meq/L 136-145 [facility] ([facility]) Potassium [Moles/volume] in Serum or Plasma 3.7 meq/L 3.5-5.1 [facility] ([facility]) Chloride [Moles/volume] in Serum or Plasma 106 meq/L 98-107 [facility] ([facility]) Carbon dioxide, total [Moles/volume] in Serum or Plasma 27 meq/L 21 -32 [facility] ([facility]) Calcium [Mass/volume] in Serum or Plasma 8.7 mg/dL 8.5-10.1 [place] ([facility]) Glomerular filtration rate/1.73 sq M pre dicted among non-blacks [Volume Rate/Area] in Serum or Plasma by Creatinine-based formula (MDRD) Laboratory test result [place] [facility] Glomerular filtration rate/1.73 sq M pre dicted among blacks [Volume Rate/Area] in Serum or Plasma by Creatinine-based formula (MDRD) Laboratory test result [place] ([facility]) <content>CHRONIC KIDNEY DISEASE STAGING PER NKF</content>
<content></content>
<content>STAGE I & II GFR >= 60 NORMAL TO MILDLY DECREASED</content>
<content>STAGE III GFR 30-59 MODERATELY DECREASED</content>
<content>STAGE IV GFR 15-29 SEVERELY DECREASED</content>
<content>STAGE V GFR <15 VERY LITTLE GFR LEFT</content>
<content>ESRD GFR <15 ON TOBACCO GRADER</content>
<content></content> ID Date Data Source [id number] 01/13/2020 01:51:00 PM EDT [facility] ([facility]) Name Value Range Interpretation Code Description Data Edna rce(s) Supporting Document(s) Leukocytes [#/volume] in Blood by Automated count 7.6 x10*3/UL 4.1-10 .9 [facility] ([facility]) Hematocrit [Volume Fraction] of Blood by Automated count 40.5 % 3 7.0-51.0 [facility] ([facility]) Hemoglobin [Mass/volume] in Blood 14.0 g/dL 12.0-18.0 [place] ([facility]) Erythrocytes [#/volume] in Blood by Automated count 4.61 x10*6/UL 4.2 0-6.30 [facility] ([facility]) Erythrocyte distribution width [Ratio] by Automated count 12.9 % 11.6-13.7 [place] ([facility]) MCV 87.6 fL 80.0-97.0 [facility]) MCH 30.3 pg 26.0-32.0 [facility]) MCHC 34.6 g/dL 31.0-38.0 [facility] Platelets [#/volume] in Blood by Automated count 211 x10*3/UL 140-440 [facility] ([facility]) MPV 8.8 FL 7.8-11.0 [facility] Lymph % 35.5 % 10.0-58.5 [facility] Neut % 55.5 % 37.0-92.0 [facility] Mid % 9.0 % 1.7-9.3 [facility] Lymph # 2.7 x10*3/UL 0.6-4.1 [facility] ([facility]) Mid # 0.7 x10*3/UL 0.1-0.6 [facility] ([facility]) Neut # 4.2 x10*3/UL 2.0-7.8 [facility] ([facility]) ID Date Data Source [id number] 08/23/2019 10:54:00 AM EST [facility] ([facility]) Name Value Range Interpretation Code Description Data Edna rce(s) Supporting Document(s) Triglyceride [Mass/volume] in Serum or Plasma 48 mg/dL 30-150 [facility] ([facility]) Cholesterol [Mass/volume] in Serum or Plasma 111 mg/dL 131-200 [facility] ([facility]) Cholesterol in LDL [Mass/volume] in Serum or Plasma by calcu lation 57 CALC 50-159 [facility] ([facility]) Cholesterol in HDL [Mass/volume] in Serum or Plasma 44 mg/dL 35-60 [facility] ([facility]) ID Date Data Source [id number] 08/23/2019 10:54:00 AM EST [facility] ([facility]) Name Value Range Interpretation Code Description Data Edna rce(s) Supporting Document(s) Glucose [Mass/volume] in Serum or Plasma 86 mg/dL 74-99 [facility] ([facility]) 100-125 mg/dL PRE-DIABETES/FASTING >126 mg/dL DIABETES/FASTING Sodium [Moles/volume] in Serum or Plasma 146 meq/L 136-145 [facility] ([facility]) Creatinine 0.9 mg/dL 0.6-1.3 [facility] Urea nitrogen [Mass/volume] in Serum or Plasma 11 mg/dL 7-18 [facility] ([facility]) Chloride [Moles/volume] in Serum or Plasma 105 meq/L 98-107 [facility] ([facility]) Potassium [Moles/volume] in Serum or Plasma 4.4 meq/L 3.5-5.1 [facility] ([facility]) Carbon dioxide, total [Moles/volume] in Serum or Plasma 33 meq/L 21 -32 [facility] ([facility]) Alkaline phosphatase isoenzyme [Units/volume] in Serum or Pl asma 69 mg/dL 46-116 [facility] ([facility]) Total Bilirubin 0.7 mg/dL 0.2-1.0 [facility] ([facility]) Calcium [Mass/volume] in Serum or Plasma 9.4 mg/dL 8.5-10.1 [facility] ([facility]) Albumin [Mass/volume] in Serum or Plasma 4.2 g/dL 3.4-5.0 [facility] ([facility]) Alanine aminotransferase [Enzymatic activity/volume] in Seru m or Plasma 33 U/L 12-78 [facility] ([facility]) Aspartate aminotransferase [Enzymatic activity/volume] in Serum or Plasma 15 U/L 15-37 [facility] ([facility] ) Glomerular filtration rate/1.73 sq M pre dicted among non-blacks [Volume Rate/Area] in Serum or Plasma by Creatinine-based formula (MDRD) Laboratory test result [facility] Proteinase 3 Ab [Units/volume] in Serum 7.7 g/dL 6.4-8.2 [facility] ([facility]) A/G Ratio 1.20 CALC 1.00-1.90 [facility]) Glomerular filtration rate/1.73 sq M pre dicted among blacks [Volume Rate/Area] in Serum or Plasma by Creatinine-based formula (MDRD) Laboratory test result [facility] <content>CHRONIC KIDNEY DISEASE STAGING PER NKF</content>
<content></content>
<content>STAGE I & II GFR >= 60 NORMAL TO MILDLY DECREASED</content>
<content>STAGE III GFR 30-59 MODERATELY DECREASED</content>
<content>STAGE IV GFR 15-29 SEVERELY DECREASED</content>
<content>STAGE V GFR <15 VERY LITTLE GFR LEFT</content>
<content>ESRD GFR <15 ON TOBACCO GRADER</content>
<content></content> ID Date Data Source [id number] 08/23/2019 10:54:00 AM EST [facility] ([facility] Name Value Range Interpretation Code Description Data Edna rce(s) Supporting Document(s) Glucose mean value [Mass/volume] in Blood Estimated fr om glycated hemoglobin 117 mg/dL 60-110 [facility] ([facility] ) Hemoglobin A1c/Hemoglobin.total in Blood 5.7 g/dL 4.8-5.6 [facility] Lab Result Notes: Pre-Diabetes 5.7 - 6.4 % Diabetes = or > 6.5% ID Date Data Source [id number] 08/23/2019 10:54:00 AM EST [facility] ([facility] Name Value Range Interpretation Code Description Data Edna rce(s) Supporting Document(s) Hemoglobin [Mass/volume] in Blood 15.1 g/dL 12.0-18.0 [facility] ([facility]) Leukocytes [#/volume] in Blood by Automated count 7.5 x10*3/UL 4.1-10 .9 [facility] ([facility]) Erythrocytes [#/volume] in Blood by Automated count 4.98 x10*6/UL 4.2 0-6.30 [facility] ([facility]) Hematocrit [Volume Fraction] of Blood by Automated count 44.5 % 3 7.0-51.0 [facility] ([facility]) MCHC 34.0 g/dL 31.0-38.0 [facility]) MCH 30.4 pg 26.0-32.0 [facility] MCV 89.3 fL 80.0-97.0 [facility] Platelets [#/volume] in Blood by Automated count 241 x10*3/UL 140-440 [facility] ([facility]) MPV 8.5 FL 7.8-11.0 [facility] Erythrocyte distribution width [Ratio] by Automated count 13.1 % 11.6-13.7 [facility] ([facility]) Mid % 7.4 % 1.7-9.3 [facility] Lymph % 29.3 % 10.0-58.5 [facility] Neut % 63.3 % 37.0-92.0 [facility] Lymph # 2.2 x10*3/UL 0.6-4.1 [facility] ([facility]) Mid # 0.6 x10*3/UL 0.1-0.6 [facility] ([facility]) Neut # 4.7 x10*3/UL 2.0-7.8 [facility] ([facility]) ID Date Data Source [id number] 08/23/2019 10:54:00 AM EST [facility] ([facility]) Name Value Range Interpretation Code Description Data Edna rce(s) Supporting Document(s) Cholesterol [Mass/volume] in Serum or Plasma 111 mg/dL 131-200 [facility] ([facility]) Cholesterol in HDL [Mass/volume] in Serum or Plasma 44 mg/dL 35-60 [facility] ([facility]) Triglyceride [Mass/volume] in Serum or Plasma 48 mg/dL 30-150 [facility] ([facility]) Cholesterol in LDL [Mass/volume] in Serum or Plasma by calcu lation 57 CALC 50-159 [facility] ([facility]) ID Date Data Source [id number] 08/23/2019 10:54:00 AM EST [facility] ([facility]) Name Value Range Interpretation Code Description Data Edna rce(s) Supporting Document(s) Urea nitrogen [Mass/volume] in Serum or Plasma 11 mg/dL 7-18 [facility] ([facility]) Glucose [Mass/volume] in Serum or Plasma 86 mg/dL 74-99 [facility] ([facility]) 100-125 mg/dL PRE-DIABETES/FASTING >126 mg/dL DIABETES/FASTING Creatinine 0.9 mg/dL 0.6-1.3 [facility] ([facility]) Sodium [Moles/volume] in Serum or Plasma 146 meq/L 136-145 [facility] ([facility]) Potassium [Moles/volume] in Serum or Plasma 4.4 meq/L 3.5-5.1 [facility] ([facility]) Chloride [Moles/volume] in Serum or Plasma 105 meq/L 98-107 [facility] ([facility]) Carbon dioxide, total [Moles/volume] in Serum or Plasma 33 meq/L 21 -32 [facility] ([facility]) Calcium [Mass/volume] in Serum or Plasma 9.4 mg/dL 8.5-10.1 [facility] ([facility]) Alkaline phosphatase isoenzyme [Units/volume] in Serum or Pl asma 69 mg/dL 46-116 [facility] ([facility]) Total Bilirubin 0.7 mg/dL 0.2-1.0 [facility] ([facility]) Aspartate aminotransferase [Enzymatic activity/volume] in Serum or Plasma 15 U/L 15-37 [facility] ([employer] [employer] [facility]) Alanine aminotransferase [Enzymatic activity/volume] in Seru m or Plasma 33 U/L 12-78 [facility] ([facility]) Albumin [Mass/volume] in Serum or Plasma 4.2 g/dL 3.4-5.0 [facility] ([facility]) Proteinase 3 Ab [Units/volume] in Serum 7.7 g/dL 6.4-8.2 [facility] ([facility]) Glomerular filtration rate/1.73 sq M pre dicted among non-blacks [Volume Rate/Area] in Serum or Plasma by Creatinine-based formula (MDRD) >= 60 mL/min [facility] ([facility]) A/G Ratio 1.20 CALC 1.00-1.90 [facility] ([facility]) Glomerular filtration rate/1.73 sq M pre dicted among blacks [Volume Rate/Area] in Serum or Plasma by Creatinine-based formula (MDRD) >= 60 mL/min [facility] ([facility]) <content>CHRONIC KIDNEY DISEASE STAGING PER NKF</content>
<content></content>
<content>STAGE I & II GFR >= 60 NORMAL TO MILDLY DECREASED</content>
<content>STAGE III GFR 30-59 MODERATELY DECREASED</content>
<content>STAGE IV GFR 15-29 SEVERELY DECREASED</content>
<content>STAGE V GFR <15 VERY LITTLE GFR LEFT</content>
<content>ESRD GFR <15 ON TOBACCO GRADER</content>
<content></content>
<content></content> ID Date Data Source [id number] 08/23/2019 10:54:00 AM EST [facility] ([facility]) Name Value Range Interpretation Code Description Data Edna rce(s) Supporting Document(s) Hemoglobin A1c/Hemoglobin.total in Blood 5.7 g/dL 4.8-5.6 [facility] ([facility]) Lab Result Notes: Pre-Diabetes 5.7 - 6.4 % Diabetes = or > 6.5% Glucose mean value [Mass/volume] in Blood Estimated fr om glycated hemoglobin 117 mg/dL 60-110 [facility] ([employer] [employer] [facility]) ID Date Data Source [id number] 08/23/2019 10:54:00 AM EST [facility] ([facility]) Name Value Range Interpretation Code Description Data Edna rce(s) Supporting Document(s) Leukocytes [#/volume] in Blood by Automated count 7.5 x10*3/UL 4.1-10 .9 [facility] ([facility]) Erythrocytes [#/volume] in Blood by Automated count 4.98 x10*6/UL 4.2 0-6.30 [facility] ([facility]) Hemoglobin [Mass/volume] in Blood 15.1 g/dL 12.0-18.0 [facility] ([facility]) Hematocrit [Volume Fraction] of Blood by Automated count 44.5 % 3 7.0-51.0 [facility] ([facility]) MCV 89.3 fL 80.0-97.0 [facility] MCH 30.4 pg 26.0-32.0 [facility] ([facility]) MCHC 34.0 g/dL 31.0-38.0 [facility] ([facility]) Platelets [#/volume] in Blood by Automated count 241 x10*3/UL 140-440 [facility] ([facility]) Erythrocyte distribution width [Ratio] by Automated count 13.1 % 11.6-13.7 [facility] ([facility]) Lymphocytes/100 leukocytes in Blood by Automated count 29.3 % 10. 0-58.5 [facility] ([facility]) Platelet mean volume [Entitic volume] in Blood by [place] 8.5 FL 7.8-11.0 [facility] ([facility]) Neut % 63.3 % 37.0-92.0 [facility] ([facility]) Mid % 7.4 % 1.7-9.3 [facility] ([facility]) Lymph # 2.2 x10*3/UL 0.6-4.1 [facility] ([facility]) Mid # 0.6 x10*3/UL 0.1-0.6 [facility] ([facility]) Neutrophils [#/volume] in [place] by Manual count 4.7 x10*3/UL 2.0-7.8 [facility] ([facility]) ID Date Data Source [id number] 08/23/2019 10:53:00 AM EST [facility] ([facility]) Name Value Range Interpretation Code Description Data Edna rce(s) Supporting Document(s) Vitamin B12 Level 316 pg/mL [facility] ([facility]) VITAMIN B12 NORMAL RANGE NORMAL 247 - 911 PG/ML INDETERMINATE 211 - 246 PG/ML DEFICIENT LESS THAN 211 PG/ML Folate 15.3 ng/mL [facility] FOLATE NORMAL RANGE NORMAL GREATER THAN 5.4 NG/ML INDETERMINATE 3.4-5.4 NG/ML DEFICIENT LESS THAN 3.4 NG/ML ID Date Data Source [id number] 08/23/2019 10:53:00 AM EST [facility] ([facility]) Name Value Range Interpretation Code Description Data Edna rce(s) Supporting Document(s) Thyrotropin [Units/volume] in Serum or Plasma by Detec tion limit <= 0.05 mIU/L 0.93 uIU/mL 0.36-3.74 [facility] ([facility] ) ID Date Data Source [id number] 08/23/2019 10:53:00 AM EST [facility] ([facility]) Name Value Range Interpretation Code Description Data Edna rce(s) Supporting Document(s) Vitamin B12 Level 316 pg/mL [facility] VITAMIN B12 NORMAL RANGE NORMAL 247 - 911 PG/ML INDETERMINATE 211 - 246 PG/ML DEFICIENT LESS THAN 211 PG/ML Folate 15.3 ng/mL [facility] ([facility]) FOLATE NORMAL RANGE NORMAL GREATER THAN 5.4 NG/ML INDETERMINATE 3.4-5.4 NG/ML DEFICIENT LESS THAN 3.4 NG/ML ID Date Data Source [id number] 08/23/2019 10:53:00 AM EST [facility] ([facility]) Name Value Range Interpretation Code Description Data Edna rce(s) Supporting Document(s) Thyrotropin [Units/volume] in Serum or Plasma by Detec tion limit <= 0.05 mIU/L 0.93 uIU/mL 0.36-3.74 [facility] ([employer] [facility]) Procedure Social History Code Duration Value Status Description Data Source(s ) Smoking 06/20/2020 12:00:00 AM EDT Patient is a former smoker completed Patient is a former smoker [facility] ([facility]) Vital Signs ID Date Data Source [id number] Name Value Range Interpretation Code Description Data Source(s) Body mass index (BMI) [Ratio] 23.3 kg/m2 23.3 k g/m2 [facility] ([facility]) Body weight 158.00 [lb_av] 158.00 [lb_av] [facility] ([facility]) Body height 69 [in_i] 69 [in_i] [place] ([facility]) 5'9" Heart rate 76 /min 76 /min [place] ([facility]) Diastolic blood pressure 68 mm[Hg] 68 mm[Hg] [facility] ([facility]) Systolic blood pressure 128 mm[Hg] 128 mm[Hg] [facility] Diastolic blood pressure--sitting 68 mm[Hg] 68 mm[Hg] [facility] ([facility]) large cuff, [place] Systolic blood pressure--sitting 138 mm[Hg] 138 mm[Hg] [facility] ([facility]) large cuff, [place] Heart rate 70 /min 70 /min [facility] ([facility]) Body mass index (BMI) [Ratio] 23.7 kg/m2 23.7 k g/m2 [facility] ([facility]) Body height 68 [in_i] 68 [in_i] [facility] [facility] 5[facility]8" Body weight 156.00 [lb_av] 156.00 [lb_av] MEDEN T ([facility]) Body mass index (BMI) [Ratio] 23.2 kg/m2 23.2 k g/m2 MEDENT ([facility]) Body weight 157.00 [lb_av] 157.00 [lb_av] MEDEN T ([facility]) Body height 69 [in_i] 69 [in_i] MEDENT ([facility]) 5'9" Heart rate 78 /min 78 /min MEDENT ([facility]) Diastolic blood pressure 60 mm[Hg] 60 mm[Hg] [place] ([facility]) Systolic blood pressure 126 mm[Hg] 126 mm[Hg] [facility] ([facility]) Body mass index (BMI) [Ratio] 23.5 kg/m2 23.5 k g/m2 MEDENT ([facility]) Body weight 159.00 [lb_av] 159.00 [lb_av] MEDEN T ([facility]) Body height 69 [in_i] 69 [in_i] MEDENT ([facility]) 5'9" Heart rate 83 /min 83 /min MEDENT ([facility]) Diastolic blood pressure 58 mm[Hg] 58 mm[Hg] [place] ([facility]) Systolic blood pressure 130 mm[Hg] 130 mm[Hg] [facility] ([facility]) Body weight 73.030 kg 73.030 kg MEDENT ([facility], ) Body mass index (BMI) [Ratio] 24.5 kg/m2 24.5 k g/m2 [facility] Body weight 161.00 [lb_av] 161.00 [lb_av] MED[place] T ([facility]) Body height 68 [in_i] 68 [in_i] [place] ([facility]) 5'8" Diastolic blood pressure 80 mm[Hg] 80 mm[Hg] [place] ([facility]) Systolic blood pressure 162 mm[Hg] 162 mm[Hg] [facility] ([facility]) Body mass index (BMI) [Ratio] 24.1 kg/m2 24.1 k g/m2 [place] ([facility]) Body weight 163.00 [lb_av] 163.00 [lb_av] MEDEN T ([facility]) Body height 69 [in_i] 69 [in_i] [place] ([facility]) 5'9" Diastolic blood pressure 70 mm[Hg] 70 mm[Hg] [place] ([facility]) Systolic blood pressure 130 mm[Hg] 130 mm[Hg] [facility] ([facility]) Body weight 75.751 kg 75.751 kg [place] ([facility]) Body mass index (BMI) [Ratio] 25.4 kg/m2 25.4 k g/m2 [place] ([facility]) Body weight 167.00 [lb_av] 167.00 [lb_av] [facility] Body height 68 [in_i] 68 [in_i] [place] ([facility]) 5'8" Diastolic blood pressure 82 mm[Hg] 82 mm[Hg] [place] ([facility]) Systolic blood pressure 157 mm[Hg] 157 mm[Hg] [facility] ([facility]) Diastolic blood pressure--sitting 82 mm[Hg] 82 mm[Hg] [facility]) Systolic blood pressure--sitting 134 mm[Hg] 134 mm[Hg] MEDENT ([facility]) Heart rate 84 /min 84 /min [facility] Body mass index (BMI) [Ratio] 24.8 kg/m2 24.8 k g/m2 [place] ([facility]) Body height 68 [in_i] 68 [in_i] [facility] ([facility]) 5'8" Body weight 163.00 [lb_av] 163.00 [lb_av] RUPALI T ([facility]) Body weight 161.00 [lb_av] 161.00 [lb_av] ELZAEN T ([facility]) Body height 69 [in_i] 69 [in_i] ANTHONY ([facility]) 5'9" Diastolic blood pressure 82 mm[Hg] 82 mm[Hg] ANTHONY ([facility]) Systolic blood pressure 134 mm[Hg] 134 mm[Hg] M DAJUAN ([facility]) Body mass index (BMI) [Ratio] 23.8 kg/m2 23.8 k g/m2 ANTHONY ([facility])
[2020-09-26] MEDS ORDERED: ACETAMINOPHEN TAB 650MG DOSE (2X325MG) PO PRN (13:45)
[2020-09-26 14:00] VITALS: BP 155/87
[2020-09-26] MEDS: ATORVASTATIN 20 MG TAB PO SCH (15:42)
[2020-09-26] MEDS: PANTOPRAZOLE 40MG TAB (PROTONIX) PO SCH (15:42)
[2020-09-26] MEDS: ENOXAPARIN 40MG/0.4ML SYRINGE (J1650 PER 10MG) SC SCH (15:42)
[2020-09-26] MEDS: PERCOCET 5MG/325MG TAB PO PRN (15:43)
--- NOTE | 2020-09-26 18:27 | HPEPDOC ---
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 The patient reports that he was standing on a two-step ladder repairing his garage outdoor adventure leader and sawing an opening into the ceiling. He lost his balance and fell onto his left hip and buttocks. He is unsure whether he hit his head or not. He states that he laid in his garage for some time, unable to get up due to the pain. Eventually he was able to go back into his house and since that time has had severe pain in his left hip and buttocks. He slept on his recliner the first night due to his inability to walk to his bedroom to sleep in his bed. The second night he slept on the floor. He denies any lightheadedness, dizziness before he fell. He denies any shortness of breath, chest pain, abdominal pain, nausea or vomiting at this time. In the ED he underwent extensive imaging workup and was found to have a subtle linear nondisplaced fracture through the superior rim of the acetabulum into the left iliac bone. Orthopedic surgery was consult to and notes that the patient is nonsurgical. The patient is admitted at this time for physical therapy and possible placement to rehabilitation facility. PAST MEDICAL HISTORY: 1. History of CVA in 2017 s/p rehabilitation for R hemiparesis, dysarthria, dysphasia, aphasia 2. Atherosclerotic CAD 3. HTN 4. HLD 5. OA (R knee) 6. History of SBO PAST SURGICAL HISTORY: 1. R knee TKA 2. Inguinal hernia repair SOCIAL HISTORY: Marital status: Resides in: [place] Tobacco use: former, quit 20 years ago ETOH: former, quit >30 years ago Illicit drug use: none FAMILY HISTORY: Mother-CVA Brother-prostate cancer ALLERGIES: Please see below. REVIEW OF SYSTEMS: Constitutional: No Weight Change, No Fever, No Chills, No Night Sweats, No Fatigue, No Malaise ENT/Mouth: No Hearing Changes, No Ear Pain, No Nasal Congestion, No Sinus Pain, No Hoarseness, No sore throat, No Rhinorrhea, No Swallowing Difficulty Eyes: No Eye Pain, No Swelling, No Redness, No Foreign Body, No Discharge, No Vision Changes Cardiovascular: No Chest Pain, No SOB, No PND, No Dyspnea on Exertion, No Orthopnea, No Claudication, No Edema, No Palpitations Respiratory: No Cough, No Wheezing, No Dyspnea Gastrointestinal: No Nausea, No Vomiting, No Diarrhea, No Constipation, No Pain, No Heartburn, No Anorexia, No Dysphagia, No Hematochezia, No Melena, No Flatulence, No Jaundice Genitourinary: No Dysuria Musculoskeletal: Reports 8/10 pain in his left hip and left lower back Skin: No Skin Lesions, No Pruritis, No Hair Changes, No Breast/Skin Changes, No Nipple Discharge Neuro: No Weakness, No Numbness, No Paresthesias, No Loss of Consciousness, No Syncope, No Dizziness, No Headache, No Coordination Changes, No Recent Falls Psych: No Anxiety/Panic, No Depression, No Insomnia, No Personality Changes, No Delusions Heme/Lymph: No Bruising, No Bleeding, No Transfusions History, No Lymphadenopathy Endocrine: No Polyuria, No Polydipsia, No Temperature Intolerance HOME MEDICATIONS: Please see below. PHYSICAL EXAMINATION: VITAL SIGNS: see below GENERAL: Laying flat in bed, alert and oriented, in no apparent distress, pleasant and conversant in full sentences. HEENT: PERRL, EOMI, Oral mucous membranes are moist without lesions. NECK: The patient has no noted JVD. No adenopathy is appreciated. No thyromegaly CHEST/LUNGS: Lungs are clear bilaterally without rhonchi, rales, or wheezes. There is no subcutaneous air appreciated. There is no tenderness to the chest wall. HEART:Regular rate and rhythm. 2/6 systolic ejection murmur heard best in the right upper sternal border. Distal pulses are 2+. No carotid bruits appreciated. ABDOMEN: Soft, nontender, and nondistended. Bowel sounds are positive. No organomegaly is appreciated. No masses are appreciated. There are no peritoneal signs. There is no [place] sign. EXTREMITIES: No peripheral edema. There is no focal long bone tenderness or deformity. SKIN: The patients skin is warm and dry, without rashes or lesions. PSYCHIATRIC: AAO x 3, normal mood/affect NEUROLOGIC: There is 1/5 strength in the right upper extremity, right hand contracted. Right lower extremity has 1/5 strength. Left upper and left lower extremities both 5 out of 5 strength. No evidence of facial droop. The rest of cranial nerves III through XII are intact LABORATORY DATA: See below. IMAGING: HIP XR (L): FINDINGS: Osseous structures and joint spaces demonstrate age-related degenerative changes. Proximal femur appears intact. Frog-lateral view demonstrates a suspicious linear lucency extending from the superior aspect of the acetabular rim into the iliac bone. This is nonspecific although subtle fracture cannot be excluded. IMPRESSION: Proximal femur appears intact. Cannot exclude subtle linear nondisplaced fracture through the superior rim of the acetabulum into the left iliac bone. MICROBIOLOGY: Please see below. ASSESSMENT: This is a 70-year-old male with history of hypertension, CVA in 2017 with residual right upper and lower extremity weakness who presents 2 days after mechanical fall off a ladder at home found to have fracture of superior rim of the acetabulum into the left iliac bone. PLAN: 1. Left acetabular fracture: -Orthopedic surgery, Dr. Martell, consulted. Recommends progressive mobilization therapy and possible subacute rehab -Pain management for now with Percocet -PT/OT consult -PFS consult 2.GERD: -Continue Protonix 3. HTN: -Continue lisinopril 4. Hx of CAD: -Continue atorvastatin/ASA DVT ppx: Lovenox DISPO: pain management, PT eval/treat, possible placement to rehab Vital Signs Vital Signs Date Time Temp Pulse Resp B/P (MAP) Pulse Ox O2 Delivery O2 Flow Rate FiO2 09/26/20 08:29 98.9 79 17 162/78 (106) 97 Room Air Laboratory Data Labs 24H Laboratory Tests 2 09/26/20 08:58: Immature Granulocyte % (Auto) 0.4, Neutrophils (%) (Auto) 65.9, Lymphocytes (%) (Auto) 23.1L, Monocytes (%) (Auto) 7.8H, Eosinophils (%) (Auto) 2.1, Basophils (%) (Auto) 0.7, Neutrophils # (Auto) 5.0, Lymphocytes # (Auto) 1.8, Monocytes # (Auto) 0.6, Eosinophils # (Auto) 0.2, Basophils # (Auto) 0.1, Nucleated Red Blood Cells % (auto) 0.0, Anion Gap 5L, Glomerular Filtration Rate > 60.0, Calcium Level 8.5L, Total Creatine Kinase 355H 09/26/20 11:09: Urine Color YELLOW, Urine Appearance CLEAR, Urine pH 5.0, Urine Specific [place] 1.026, Urine Protein NEGATIVE, Urine Glucose (Auto)(UA) NEGATIVE, Urine Ketones (Auto) NEGATIVE, Urine Blood NEGATIVE, Urine Nitrite NEGATIVE, Urine Bilirubin NEGATIVE, Urine Urobilinogen 2.0H, Urine Leukocyte Esterase (Auto) NEGATIVE, Urine WBC (Auto) 3, Urine RBC (Auto) 0, Urine Hyaline Casts (Auto) 0, Urine Bacteria (Auto) NEGATIVE, Urine Squamous Epithelial Cells 0, Urine Mucus (Auto) SMALL, Urine Sperm (Auto) 09/26/20 11:15: CBC/BMP Laboratory Tests 09/26/20 08:58 Home Medications Scheduled Aspirin (Aspirin EC) 81 Mg Tablet.dr, 81 MG PO QHS Atorvastatin Calcium (Atorvastatin Calcium) 40 Mg Tab, 40 MG PO DAILY Lisinopril (Lisinopril) 40 Mg Tab, 40 MG PO QHS Metformin HCl (Metformin HCl) 500 Mg Tab, 500 MG PO BID Pantoprazole Sodium (Pantoprazole Sodium) 40 Mg Tablet.dr, 40 MG PO DAILY Scheduled PRN Acetaminophen (Acetaminophen) 500 Mg Tablet, 1,000 MG PO TID PRN for PAIN / FEVER Allergies Coded Allergies: No Known Allergies (Unverified , 11/29/18) A-FIB/CHADSVASC A-FIB History Current/History of A-Fib/PAF?: No Current PO Anticoag Therapy: No GME ATTESTATION GME ATTESTATION My faculty preceptor for this patient encounter was physically present during the encounter and was fully available. All aspects of the patient interview, examination, medical decision making process, and medical care plan development were reviewed and approved by the faculty preceptor. The faculty preceptor is aware and concurs with the plan as stated in the body of this note and will attest to such by his/her cosignature. ATTENDING NOTE I, Violet Bundy, have independently examined this patient and performed my own physical exam, as well as reviewed the documentation and edited where necessary. I have discussed in detail with the resident / student the findings and plan of treatment as documented by the resident / student and edited their note. I agree with their findings and treatment plan and have edited their documentation. I will continue to follow the patient during this hospital stay. NATALIA ORTIZ MD Sep 26, 2020 11:24 VIOLET BUNDY MD Sep 27, 2020 14:39
[2020-09-26] MEDS: ASPIRIN 81 MG ENTERIC TAB PO SCH (21:24)
[2020-09-26] MEDS: lisinopriL 40 MG TAB PO SCH (21:24)
[2020-09-26 22:00] VITALS: BP 153/86
[2020-09-27] MEDS: PERCOCET 5MG/325MG TAB PO PRN ×2 (05:16→20:11)
[2020-09-27 06:13] LABS: HEMATOCRIT 37.6 % (42.0-52.0); HEMOGLOBIN 12.6 g/dl (13.5-17.5); MEAN CORPUSCULAR HGB CONC 33.5 g/dl (32.0-36.5); MEAN CORPUSCULAR VOLUME 92.4 fl (80.0-96.0); PLATELET COUNT, AUTOMATED 143 10^3/uL (150-450); RED BLOOD COUNT 4.07 10^6/uL (4.30-6.10); WHITE BLOOD COUNT 7.5 10^3/uL (4.0-10.0)
[2020-09-27 06:37] LABS: BLOOD UREA NITROGEN 15 MG/DL (7-18); CALCIUM LEVEL 8.3 MG/DL (8.8-10.2); CARBON DIOXIDE LEVEL 26 MEQ/L (21-32); CHLORIDE LEVEL 108 MEQ/L (98-107); CREATININE FOR GFR 0.64 MG/DL (0.70-1.30); GLOMERULAR FILTRATION RATE > 60.0 (>42); GLUCOSE, FASTING 93 MG/DL (70-100); MAGNESIUM LEVEL 1.8 MG/DL (1.8-2.4); POTASSIUM SERUM 3.5 MEQ/L (3.5-5.1); SODIUM LEVEL 142 MEQ/L (136-145)
[2020-09-27] MEDS: ATORVASTATIN 20 MG TAB PO SCH (08:46)
[2020-09-27] MEDS: PANTOPRAZOLE 40MG TAB (PROTONIX) PO SCH (08:46)
[2020-09-27] MEDS: ENOXAPARIN 40MG/0.4ML SYRINGE (J1650 PER 10MG) SC SCH (08:47)
--- NOTE | 2020-09-27 11:18 | IPNPDOC ---
Date Seen The patient was seen on 09/27/20. Progress Note SUBJECTIVE: Patient seen and examined at the bedside this morning. He is in good spirits. He has no concerns at this time. Pain is well-controlled. No issues reported from overnight. OBJECTIVE PHYSICAL EXAMINATION: VITAL SIGNS: see below GENERAL: Laying flat in bed, alert and oriented, in no apparent distress, pleasant and conversant in full sentences. HEENT: PERRL, EOMI, Oral mucous membranes are moist without lesions. NECK: The patient has no noted JVD. No adenopathy is appreciated. No thyromegaly CHEST/LUNGS: Lungs are clear bilaterally without rhonchi, rales, or wheezes. There is no subcutaneous air appreciated. There is no tenderness to the chest wall. HEART:Regular rate and rhythm. 2/6 systolic ejection murmur heard best in the right upper sternal border. Distal pulses are 2+. No carotid bruits appreciated. ABDOMEN: Soft, nontender, and nondistended. Bowel sounds are positive. No organomegaly is appreciated. No masses are appreciated. There are no peritoneal signs. There is no [place] sign. EXTREMITIES: No peripheral edema. Left lower extremity is markedly shorter than right lower extremity SKIN: The patients skin is warm and dry, without rashes or lesions. PSYCHIATRIC: AAO x 3, normal mood/affect NEUROLOGIC: There is 1/5 strength in the right upper extremity, right hand contracted. Right lower extremity has 1/5 strength. Left upper and left lower extremities both 5 out of 5 strength. No evidence of facial droop. The rest of cranial nerves III through XII are intact LABORATORY DATA: See below. IMAGING: HIP XR (L): FINDINGS: Osseous structures and joint spaces demonstrate age-related degenerative changes. Proximal femur appears intact. Frog-lateral view demonstrates a suspicious linear lucency extending from the superior aspect of the acetabular rim into the iliac bone. This is nonspecific although subtle fracture cannot be excluded. IMPRESSION: Proximal femur appears intact. Cannot exclude subtle linear nondisplaced fracture through the superior rim of the acetabulum into the left iliac bone. MICROBIOLOGY: Please see below. ASSESSMENT: This is a 70-year-old male with history of hypertension, CVA in 2017 with residual right upper and lower extremity weakness who presents 2 days after mechanical fall off a ladder at home found to have fracture of superior rim of the acetabulum into the left iliac bone. PLAN: 1. Left acetabular fracture: -Orthopedic surgery, Dr. Martell, consulted. Recommends progressive mobilization therapy and possible subacute rehab -ARU screen in place, patient will likely need placement in rehabilitation. Unsure whether subacute or acute at this time -Pain management for now with Percocet -PT/OT consult -PFS consult 2.GERD: -Continue Protonix 3. HTN: -Continue lisinopril 4. Hx of CAD: -Continue atorvastatin/ASA DVT ppx: Lovenox 40 mg daily DISPO: pain management, PT eval/treat, possible placement to rehab VS, I&O, 24H, Fishbone Vital Signs/I&O Vital Signs Date Time Temp Pulse Resp B/P (MAP) Pulse Ox O2 Delivery O2 Flow Rate FiO2 09/27/20 05:46 18 Room Air 09/26/20 22:00 98.3 80 153/86 (108) 95 I&O- Last 24 Hours up to 6 AM 09/27/20 06:00 Intake Total 1189 ml Output Total 275 ml Balance 914 ml Laboratory Data 24H LABS Laboratory Tests 2 09/26/20 19:56: Bedside Glucose (Misc Panel) 152H 09/27/20 05:14: Nucleated Red Blood Cells % (auto) 0.0, Anion Gap 8, Glomerular Filtration Rate > 60.0, Calcium Level 8.3L, Magnesium Level 1.8 CBC/BMP Laboratory Tests 09/27/20 05:14 GME ATTESTATION GME ATTESTATION My faculty preceptor for this patient encounter was physically present during the encounter and was fully available. All aspects of the patient interview, e xamination, medical decision making process, and medical care plan development were reviewed and approved by the faculty preceptor. The faculty preceptor is aware and concurs with the plan as stated in the body of this note and will attest to such by his/her cosignature. ATTENDING NOTE I, Violet Nevarez, have independently examined this patient and performed my own physical exam, as well as reviewed the documentation and edited where necessary. I have discussed in detail with the resident / student the findings and plan of treatment as documented by the resident / student and edited their note. I agree with their findings and treatment plan and have edited their documentation. I will continue to follow the patient during this hospital stay. NATALIA ORTIZ MD Sep 27, 2020 11:18 VIOLET NEVAREZ MD Sep 27, 2020 14:05
[2020-09-27 14:00] VITALS: BP 159/89
--- NOTE | 2020-09-27 14:45 | CR ---
CONSULTATION DATE: 09/26/2020 REASON FOR CONSULTATION: Left hip pain after a fall. REQUESTING BEHAVIORAL SCIENCE CHAIR: Dr. Adolfo Martell HISTORY OF PRESENT ILLNESS: Mr. Antunez is a 70-year-old male who was working on an overhead garage door this Thursday, lost his balance, and fell onto his left side. He was in quite a bit of pain but managed to pick himself up. His pain did not subside, and he was taken to [facility] Emergency Room (ER). At that point, he was evaluated with a battery of imaging. His pelvis CT did exhibit fracture of the left iliac bone, extending through the acetabulum with comminution along the anterior rim of the left acetabulum, as read by Dr. Butts. I reviewed the image and generally agree with findings as read. Additional studies included extremity CT, vascular ultrasound, femur x-ray, cervical spine CT, head CT, hip/pelvic x-ray, knee x-ray, lumbar CT, which were deemed negative for acute cortical defects or bony lesions and/or thrombus or bleed. Patient was evaluated by Dr. Bundy, admitted to [facility]. Patient states if he is resting without weightbearing, the pain is quite minimal. As soon as he attempts to move the left hip or put weight on it, the pain is excruciating. He was taking some Percocet, which was helpful for pain. Currently just Tylenol. He is denying any significant pain at his remaining joints. He did mention some soreness about his right thigh, which is not excruciating. He is denying any numbness of tingling in the lower extremities. He does have weakness with the left leg. When he tries to lift it, it is uncomfortable at his groin. ACTIVE MEDICATIONS REVIEWED: - aspirin 81 mg every night by mouth - lisinopril 40 mg every night by mouth - oxycodone/acetaminophen one tablet every 6 hours as needed by mouth for moderate pain - acetaminophen 650 mg every 4 hours as needed by mouth for pain or fever - acetaminophen 975 mg one by mouth - sodium chloride 1000 mL at 125 mL __ every 8 hours intravenous (IV) - enoxaparin sodium 40 mg daily subcutaneous - atorvastatin calcium 40 mg daily bowel movement - pantoprazole sodium 40 mg by mouth daily ALLERGIES: No known drug allergies. PERTINENT MEDICAL HISTORY: 1. Hemorrhagic cerebrovascular accident. 2. Internal capsule hemorrhage. 3. Right hemiparesis. 4. Aphasia. 5. Dysarthria. 6. Dysphagia. 7. Hypertension. 8. Left-sided cerebrovascular event. 9. Type 2 diabetes with complications. 10. Peripheral vascular disease. 11. Hyperlipidemia. 12. Cirrhosis. 13. Degenerative joint disease (DJD) of the knee. 14. History of bowel obstruction. 15. Laceration, left earlobe. 16. Hip pain. 17. Arthritis, left knee. 18. Left acetabular fracture. SURGICAL HISTORY: 1. Right total knee arthroplasty. 2. Hernia repair. FAMILY HISTORY: Cerebrovascular accident and prostate cancer. SOCIAL HISTORY: He denies smoking, ethanol intake, or illicit drugs. 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 REVIEW OF SYSTEMS: He denies chest pain, shortness of breath, dyspnea on exertion, fever, chills, malaise, upper respiratory or urinary tract symptoms. PHYSICAL EXAMINATION: Vital signs: Temperature 98.2 temporal, pulse 68, respiratory rate 16, blood pressure (BP) was 153/73, pulse oximetry 96 on room air. Height is 175.26 cm, weight 72.73 kg, body mass index (BMI) 23.7. This is a pleasant, well-developed, well-nourished 70-year-old male, resting comfortably in hospital bed in no acute distress, alert and oriented times three. Mood and affect are appropriate. Normocephalic. He does have augmented speech with slight slur secondary to his prior history of CVA. Right upper and lower extremity weakness, atrophy secondary to the same history. Right knee anterovertical scar, consistent with total knee arthroplasty. He has some mild to moderate soreness about the right thigh quad region, but his right hip range of motion is not limited or irritable through internal or external range of motion. Patellar and quad tendons are intact without palpable defects. He can do a straight leg raise. The left leg has tenderness to the anterior hip joint but no pain about the left femur. Left hip range of motion is limited secondary to pain. Left patella and quad tendons are intact without palpable defects. Bilateral knee range of motion is not grossly limited secondary to mechanical limitation. The left somewhat limited secondary to hip pain. He has a small abrasion at the left anterolateral mcclelland. Negative clonus bilaterally. Neurovascularly he is intact. Distal pulses 2+. Brisk capillary refill. No evidence of deep venous thrombosis (DVT) or compartment syndrome. Max hallux extension bilaterally does not increase compartment pressure or pain. No pain to the spine. Upper extremity filling operator strengths are intact. Normocephalic. His neck range of motion was not limited or irritable. No other imaging ordered. Hematology: WBC 7.7, RBC 4.11, hemoglobin 12.5, hematocrit 37.9. MCV 92.2, MCH 30.4, MCHC 33.0, RDW 13.4, platelet count 143. Immature granulocyte percentage 0.4, neutrophil percentage 65.9, lymphocyte percentage 23.1, monocyte percentage 7.8. eosinophil percentage 2.1, basophil percentage 0.7, neutrophil number 5.0, lymphocyte number 1.8, mono number 0.6, eosinophil number 0.2, basophil number 0.1. Nucleated RBC percentage 0.0. IMPRESSION: Left acetabular fracture starting at the iliac bone, extending through acetabulum with anterior rim contusion secondary to a fall sustained 48 hours ago. RECOMMENDATIONS: We discussed the nature of his injury, which will require him to limit weightbearing via walker. If not, then he will use a wheelchair. The patient expresses having acces to both of those at home. Will coordinate with physical therapy (PT)/occupational therapy (OT) to make sure he is comfortable transitioning back to his home environment. In the interim, he was provided Percocet 5/325 for pain control, one pill by mouth every 6 hours as needed for pain. He will need outpatient x-ray surveillance upon discharge. If x-rays maintain adequate alignment, he could continue the conservative course. In order to increase those odds, he needs to limit weight on the hip with walker as discussed. Typical fracture healing time would be 3 or more months. He is diabetic, so that could increase that period. Nonetheless, he expressed being independent prior to this injury. He does live at home with his . PT will be crucial in evaluating how he gets about with his walker, as he does have a history of right lower extremity residual from his stroke. If that is a challenge, he may need a wheelchair for a short course before transitioning him back to a walker. Patient expressed understanding and agreed with the plan. Our team will meet with him tomorrow and discuss his discharge planning. Thank you for allowing me to participate in Mr. Tulio's care. If there are any further orthopedic questions, I encourage my contact.
--- NOTE | 2020-09-27 19:15 | ECGEPIP ---
[facility] Test Date: 2020-09-26 Pat Name: JESSY HANSON Department: Room: [place] [address] Gender: Male Shareholder: saran : 1950 Requested By: NOAH NEVAREZ Order Number: [id number] Reading MD: Gloria Padron Measurements Intervals [place] Rate: 65 P: 43 MD: 153 QRS: 61 QRSD: 110 T: 39 QT: 407 QTc: 425 Interpretive Statements SINUS RHYTHM INCOMPLETE RIGHT BUNDLE BRANCH BLOCK NO CHANGE COMPARED TO 04/05/18 Electronically Signed on 09-27-2020 19:15:07 EST by Gloria Pdaron
[2020-09-27 20:08] VITALS: BP 161/89
[2020-09-27] MEDS: lisinopriL 40 MG TAB PO SCH (20:11)
[2020-09-27] MEDS: ASPIRIN 81 MG ENTERIC TAB PO SCH (20:11)
[2020-09-28 05:52] VITALS: BP 160/87
[2020-09-28] MEDS: PERCOCET 5MG/325MG TAB PO PRN (05:54)
[2020-09-28 06:26] LABS: HEMOGLOBIN 12.4 g/dl (13.5-17.5); MEAN CORPUSCULAR HEMOGLOBIN 31.1 pg (27.0-33.0); MEAN CORPUSCULAR HGB CONC 33.5 g/dl (32.0-36.5); MEAN CORPUSCULAR VOLUME 92.7 fl (80.0-96.0); PLATELET COUNT, AUTOMATED 149 10^3/uL (150-450); RED BLOOD COUNT 3.99 10^6/uL (4.30-6.10); WHITE BLOOD COUNT 6.5 10^3/uL (4.0-10.0)
[2020-09-28 06:54] LABS: BLOOD UREA NITROGEN 18 MG/DL (7-18); CALCIUM LEVEL 8.5 MG/DL (8.8-10.2); CARBON DIOXIDE LEVEL 28 MEQ/L (21-32); CHLORIDE LEVEL 107 MEQ/L (98-107); CREATININE FOR GFR 0.64 MG/DL (0.70-1.30); GLOMERULAR FILTRATION RATE > 60.0 (>42); GLUCOSE, FASTING 99 MG/DL (70-100); POTASSIUM SERUM 3.9 MEQ/L (3.5-5.1); SODIUM LEVEL 141 MEQ/L (136-145)
[2020-09-28] MEDS ORDERED: PERCOCET PO (07:38)
[2020-09-28] MEDS: PANTOPRAZOLE 40MG TAB (PROTONIX) PO SCH (09:29)
[2020-09-28] MEDS: ATORVASTATIN 20 MG TAB PO SCH (09:29)
[2020-09-28] MEDS: ENOXAPARIN 40MG/0.4ML SYRINGE (J1650 PER 10MG) SC SCH (09:30)
[2020-09-28] MEDS ORDERED: PERCOCET 5MG/325MG TAB PO PRN ×2 (09:45)
--- NOTE | 2020-09-28 10:42 | DS.PDOC ---
Discharge Summary General Date of Admission Sep 26, 2020 at 12:50 Date of Discharge Sep 28, 2020 Primary Care Physician: Jr Peterson Collins Attending Physician: VIOLET BUNDY MD Specialist/Consultants Involve: Adolfo Martell MD Discharge Summary PROCEDURES PERFORMED DURING STAY: [None]. ADMITTING DIAGNOSES: 1. acetabular fracture DISCHARGE DIAGNOSES: 1. acetabular fracture COMPLICATIONS/CHIEF COMPLAINT: Hip Pain. 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 The patient reports that he was standing on a two-step ladder repairing his garage bottle selector and sawing an opening into the ceiling. He lost his balance and fell onto his left hip and buttocks. He is unsure whether he hit his head or not. He states that he laid in his garage for some time, unable to get up due to the pain. Eventually he was able to go back into his house and since that time has had severe pain in his left hip and buttocks. He slept on his recliner the first night due to his inability to walk to his bedroom to sleep in his bed. The second night he slept on the floor. He denies any lightheadedness, dizziness before he fell. He denies any shortness of breath, chest pain, abdominal pain, nausea or vomiting at this time. In the ED he underwent extensive imaging workup and was found to have a subtle linear nondisplaced fracture through the superior rim of the acetabulum into the left iliac bone. Orthopedic surgery was consult to and notes that the patient is nonsurgical. The patient is admitted at this time for physical therapy and possible placement to rehabilitation facility. HOSPITAL COURSE: The patient was admitted for medical management of acetabular fracture. Orthopaedic surgery was consulted and recommended physical therapy and conservative management as surgery was not indicated. The patient was given Pe rcocet for pain management. The patient underwent physical therapy evaluation, who recommended continued rehabilitation after discharge. The patient was discharged to the acute rehabilitation unit at [facility]. DISCHARGE MEDICATIONS: Please see below. ALLERGIES: Please see below. PHYSICAL EXAMINATION ON DISCHARGE: VITAL SIGNS: see below GENERAL: Laying flat in bed, alert and oriented, in no apparent distress, pleasant and conversant in full sentences. HEENT: PERRL, EOMI, Oral mucous membranes are moist without lesions. NECK: The patient has no noted JVD. No adenopathy is appreciated. No thyromegaly CHEST/LUNGS: Lungs are clear bilaterally without rhonchi, rales, or wheezes. There is no subcutaneous air appreciated. There is no tenderness to the chest wall. HEART:Regular rate and rhythm. 2/6 systolic ejection murmur heard best in the right upper sternal border. Distal pulses are 2+. No carotid bruits appreciated. ABDOMEN: Soft, nontender, and nondistended. Bowel sounds are positive. No or ganomegaly is appreciated. No masses are appreciated. There are no peritoneal signs. There is no [place] sign. EXTREMITIES: No peripheral edema. Left lower extremity is markedly shorter than right lower extremity SKIN: The patients skin is warm and dry, without rashes or lesions. PSYCHIATRIC: AAO x 3, normal mood/affect NEUROLOGIC: There is 1/5 strength in the right upper extremity, right hand c ontracted. Right lower extremity has 1/5 strength. Left upper and left lower extremities both 5 out of 5 strength. No evidence of facial droop. The rest of cranial nerves III through XII are intact LABORATORY DATA: Please see below. IMAGING: CT Pelvis: FINDINGS: There is a linear nondisplaced fracture that runs through the body of the left iliac bone as well as along the superior aspect of the acetabulum (series 201; images 38-55). There is an associated comminuted fracture involving the anterior rim of the left acetabulum as well. Left femur is intact. No other fracture or dislocation identified. Associated left hip effusion and posttraumatic stranding through the subcutaneous tissues and musculature. Intrapelvic structures are grossly unremarkable. IMPRESSION: Fracture of the left iliac bone extending through the acetabulum including comminuted fracture along the anterior rim of the left acetabulum. PROGNOSIS: fair ACTIVITY: [As tolerated]. DIET: regular DISPOSITION: ARU DISCHARGE INSTRUCTIONS: 1. Follow-up with PCP and orthopedic surgery within 7 days. 2. Remain compliant with treatment plan and medications 3. Return to the ER if you experience any problems ITEMS TO FOLLOWUP ON ON OUTPATIENT: 1. None DISCHARGE CONDITION: [Stable]. TIME SPENT ON DISCHARGE: Greater than 35 minutes. Vital Signs/I&Os Vital Signs Date Time Temp Pulse Resp B/P (MAP) Pulse Ox O2 Delivery O2 Flow Rate FiO2 09/28/20 10:27 18 Room Air 09/28/20 05:52 98.0 74 160/87 (111) 95 I&O- Last 24 Hours up to 6 AM 09/28/20 06:00 Intake Total 1530 ml Output Total 150 ml Balance 1380 ml Laboratory Data Labs 24H Laboratory Tests 2 09/28/20 05:41: Nucleated Red Blood Cells % (auto) 0.0, Anion Gap 6L, Glomerular Filtration Rate > 60.0, Calcium Level 8.5L CBC/BMP Laboratory Tests 09/28/20 05:41 Discharge Medications Scheduled Aspirin (Aspirin EC) 81 Mg Tablet.dr, 81 MG PO QHS, (Reported) Atorvastatin Calcium (Atorvastatin Calcium) 40 Mg Tab, 40 MG PO DAILY, (Reported) Lisinopril (Lisinopril) 40 Mg Tab, 40 MG PO QHS, (Reported) Metformin HCl (Metformin HCl) 500 Mg Tab, 500 MG PO BID, (Reported) Pantoprazole Sodium (Pantoprazole Sodium) 40 Mg Tablet.dr, 40 MG PO DAILY, (Reported) Scheduled PRN Acetaminophen (Acetaminophen) 500 Mg Tablet, 1,000 MG PO TID PRN for PAIN / FEVER, (Reported) Oxycodone/Acetaminophen (Oxycodone-Acetaminophen 5-325) 1 Each Tablet, 1 TAB PO Q6HP PRN for MODERATE PAIN (PS 5-7) Allergies Coded Allergies: No Known Allergies (Unverified , 11/29/18) GME ATTESTATION GME ATTESTATION My faculty preceptor for this patient encounter was physically present during the encounter and was fully available. All aspects of the patient interview, examination, medical decision making process, and medical care plan development were reviewed and approved by the faculty preceptor. The faculty preceptor is aware and concurs with the plan as stated in the body of this note and will a ttest to such by his/her cosignature. ATTENDING NOTE I, Violet Bundy, have independently examined this patient and performed my own physical exam, as well as reviewed the documentation and edited where necessary. I have discussed in detail with the resident / student the findings and plan of treatment as documented by the resident / student and edited their note. I agree with their findings and treatment plan and have edited their documentation. I will continue to follow the patient during this hospital stay. Time spent on discharge 35 minutes NATALIA ORTIZ MD Sep 28, 2020 10:42 VIOLET BUNDY MD Sep 28, 2020 17:01
== END 2020-09-28 14:00 | DRG 536 ==
LOC: EDBD 08:10 → M ED 08:10 → M ED INP 12:50 → M MS5PR 14:20
PROVIDERS: ADMIT Internal Medicine; ATTEND Internal Medicine
DX: S32.411A Displaced fracture of anterior wall of right acetabulum, initial encounter for closed fracture (principal); I69.351 Hemiplegia and hemiparesis following cerebral infarction affecting right dominant side; W11.XXXA Fall on and from ladder, initial encounter; I25.10 Atherosclerotic heart disease of native coronary artery without angina pectoris; I10 Essential (primary) hypertension; Y92.015 Private garage of single-family (private) house as the place of occurrence of the external cause; Y93.H9 Activity, other involving exterior property and land maintenance, building and construction; Y99.8 Other external cause status; E11.51 Type 2 diabetes mellitus with diabetic peripheral angiopathy without gangrene; E78.5 Hyperlipidemia, unspecified; K21.9 Gastro-esophageal reflux disease without esophagitis; I69.328 Other speech and language deficits following cerebral infarction; M17.11 Unilateral primary osteoarthritis, right knee; Z79.82 Long term (current) use of aspirin; Z79.84 Long term (current) use of oral hypoglycemic drugs; Z79.899 Other long term (current) drug therapy; Z96.651 Presence of right artificial knee joint; Z11.52 Encounter for screening for COVID-19

== ENCOUNTER 2020-09-28 13:16 | Inpatient (IN) | payer MEDICARE ==
[~2020-09-28] VITALS: Ht 175.3 cm; Wt 66.2 kg
[~2020-09-28 13:16] MED LIST changes: +ACET-683 PO; +ASPI-161 PO; +PERCOCET PO
[2020-09-28 14:10] VITALS: BP 176/88
[2020-09-28 14:15] VITALS: BP 158/80
--- OUTSIDE RECORDS SUMMARY | 2020-09-28 14:32 | CCD ---
Author Author [facility] Organization [facility] Address Unknown Phone Unavailable Care Team Providers Care Licensed Investment Sales Assistant Name Role Phone Cuong Trinh JR, MD [...] Unavailable Cuong Trinh JR, MD Unavailable Unavailable uCong Trinh JR, MD Unavailable Unavailable Cuong Trinh [...] Unavailable Cuong Trinh JR, MD Unavailable Unavailable [place] IslandBonita zeng MD Unavailable Unavailable [place] zeng MD Unavailable Unavailable Bonita Peterson MD Unavailable Unavailable Bonita Peterson MD Unavailable Unavailable NicholasBonita zeng MD Unavailable Unavailable Bonita Peterson MD Unavailable Unavailable [place] zeng MD Unavailable Unavailable [place] zeng MD Unavailable Unavailable [place] zeng MD Unavailable Unavailable NicholasBonita zeng MD Unavailable Unavailable [place] zeng MD Unavailable Unavailable NicholasBonita zeng MD Unavailable Unavailable [place] zeng MD Unavailable Unavailable NicholasBonita zeng MD Unavailable Unavailable NicholasBonita MD Unavailable Unavailable NicholasBonita MD Unavailable Unavailable [place] zeng MD Unavailable Unavailable [place] zeng MD Unavailable Unavailable [place] zeng MD Unavailable Unavailable [place] MD Unavailable Unavailable NicholasBonita MD Unavailable Unavailable NicholasBonita MD Unavailable Unavailable [place] MD Unavailable Unavailable NicholasBonita MD Unavailable Unavailable [place] MD Unavailable Unavailable NicholasBonita MD Unavailable Unavailable NicholasBonita MD Unavailable Unavailable NicholasBonita MD Unavailable Unavailable NicholasBonita MD Unavailable Unavailable [place] MD Unavailable Unavailable [place] MD Unavailable Unavailable [place] MD Unavailable Unavailable [place] MD Unavailable Unavailable NicholasBonita MD Unavailable Unavailable [place] MD Unavailable Unavailable NicholasBonita MD Unavailable Unavailable [place] MD Unavailable Unavailable NicholasBonita MD Unavailable Unavailable NicholasBonita MD Unavailable Unavailable [place] MD Unavailable Unavailable NicholasBonita MD Unavailable Unavailable NicholasBonita MD Unavailable Unavailable [place] MD Unavailable Unavailable NicholasBonita MD Unavailable Unavailable NicholasBonita MD Unavailable Unavailable NicholasBonita MD Unavailable Unavailable NicholasBonita MD Unavailable Unavailable [place] MD Unavailable Unavailable NicholasBonita MD Unavailable Unavailable [place] MD Unavailable Unavailable NicholasBonita MD Unavailable Unavailable NicholasBonita MD Unavailable Unavailable NicholasBonita MD Unavailable Unavailable NicholasBonita MD Unavailable Unavailable [place] MD Unavailable Unavailable [place] MD Unavailable Unavailable NicholasBonita MD Unavailable Unavailable [place] zeng MD Unavailable Unavailable NicholasBonita zeng MD Unavailable Unavailable [place] MD Unavailable Unavailable NicholasBonita MD Unavailable Unavailable NicholasBonita zeng MD Unavailable Unavailable [place] MD Unavailable Unavailable NicholasBonita zeng MD Unavailable Unavailable [place] zeng MD Unavailable Unavailable [place] zeng MD Unavailable Unavailable [place] MD Unavailable Unavailable NicholasBonita MD Unavailable Unavailable [place] MD Unavailable Unavailable NicholasBonita MD Unavailable Unavailable NicholasBonita MD Unavailable Unavailable [place] MD Unavailable Unavailable NicholasBonita MD Unavailable Unavailable NicholasBonita MD Unavailable Unavailable NicholasBonita MD Unavailable Unavailable [place] MD Unavailable Unavailable NicholasBonita MD Unavailable Unavailable [place] MD Unavailable Unavailable [place] MD Unavailable Unavailable Bonita Peterson MD Unavailable Unavailable Bonita Peterson MD Unavailable Unavailable Bonita Peterson MD Unavailable Unavailable Bonita Peterson MD Unavailable Unavailable NicholasBonita zeng MD Unavailable Unavailable [place] zeng MD Unavailable Unavailable [place] IslandB[place]ita zeng MD Unavailable Unavailable Mohit, Paulina PLATE DEVELOPER Unavailable Unavailable Mohit, Paulina PLATE DEVELOPER Unavailable Unavailable Mohit, Paulina PLATE DEVELOPER Unavailable Unavailable Mohit, Paulina PLATE DEVELOPER Unavailable Unavailable Mohit, Paulina PLATE DEVELOPER Unavailable Unavailable Mohit, Paulina PLATE DEVELOPER Unavailable Unavailable Mohit, Paulina PLATE DEVELOPER Unavailable Unavailable Mohit, Paulina PLATE DEVELOPER Unavailable Unavailable Mohit, Paulina PLATE DEVELOPER Unavailable Unavailable Mohit, Paulina PLATE DEVELOPER Unavailable Unavailable Mohit, Paulina PLATE DEVELOPER Unavailable Unavailable Mohit, Paulina PLATE DEVELOPER Unavailable Unavailable Mohit, Paulina PLATE DEVELOPER Unavailable Unavailable Mohit, Paulina PLATE DEVELOPER Unavailable Unavailable Mohit, Paulina PLATE DEVELOPER Unavailable Unavailable Mohit, Paulina PLATE DEVELOPER Unavailable Unavailable Mohit, Paulina PLATE DEVELOPER Unavailable Unavailable Mohit, Paulina PLATE DEVELOPER Unavailable Unavailable Mohit, Paulina PLATE DEVELOPER Unavailable Unavailable Mohit, Paulina PLATE DEVELOPER Unavailable Unavailable Mohit, Paulina PLATE DEVELOPER Unavailable Unavailable Mohit, Paulian PLATE DEVELOPER Unavailable Unavailable Mohit, Paulina PLATE DEVELOPER Unavailable Unavailable Mohit, Paulina PLATE DEVELOPER Unavailable Unavailable Mohit, Paulina PLATE DEVELOPER Unavailable Unavailable Mohit, Paulina PLATE DEVELOPER Unavailable Unavailable Emil, L Jillian PA Unavailable [...] Unavailable Emil, L Jillian PA Unavailable Unavailable Paige Stein Unavailable Unavailable Re-disclosure Warning The records that [...] is protected by Article 27-F of the [facility] Public Health law. If you continue you may have access to information: Regarding HIV / AIDS; Provided by facilities licensed or operated by the [facility] Office of Mental Health; or Provided by the [facility] Office for People With Developmental Disabilities. If such information is present, then the following [facility] mandated warning applies: This information has been [...] law may result in a fine or intermediate sentence or both. A general authorization for [...] Rajiv Baez 1 10:20:00 AM EDT [facility] ([facility] ) Outpatient Attender: Jillian ALDRICH Main Office 06/20/2020 11:45:0 0 AM EDT [facility] ([facility]) Outpatient Attender: Rajiv Baez 0 02/28/2020 11:00:00 AM EDT [facility] ([facility] ) Outpatient Attender: Paulina Baez 10:40:00 AM EDT [facility] ([facility] ) Outpatient Attender: Rajiv Baez 0 01/13/2020 01:30:00 PM EDT [facility] ([facility] ) Outpatient Attender: Toby Rodrigez/Medhat/[place]/Rein dl 11/16/2019 12:10:00 PM EST [facility] Outpatient Attender: Jillian ALDRICH Main Office 10/26/2019 08:45:0 0 AM EST [facility] ([facility]) Outpatient Attender: Rajiv Baez 1 10/24/2018 10:20:00 AM EST [facility] ([facility] ) Immunizations Vaccine Date Status Description Data Source(s) Influenza, injectable, MDCK, preservative free, danielito valent 07/04/2020 10:23:00 AM EDT completed [facility]) Medications Medication Brand Name Start Date Product Form Dose Route Admi nistrative Instructions Pharmacy Instructions Status Indications Reaction Description Data Source(s) Administration Of Flu Vaccine 07/04/2020 12:00:00 AM EDT completed [facility]) Medication administered onsite Ascorbic Acid 60 MG / Beta Carotene 5000 UNT / Copper Sulfate 40 MG / dl-alpha tocopheryl acetate 30 UNT / Sodium Selenite 0.04 MG / Zinc Oxide 40 MG Oral Tablet Eye-Vites 06/19/2020 12:00:00 AM EDT ORAL active [facility] ([facility]) Fexofenadine hydrochloride 60 MG Oral Tablet Yajaira Allergy 06/19/2020 12:00:00 AM EDT ORAL active [facility] ([facility]) Glycerin 2 MG/ML / hypromellose 2 MG/ML / Polyethylene Glycol 400 10 MG/ML Ophthalmic Solution Dry Eye Relief Drops 06/19/2020 12:00:00 AM EDT OPHTHALMIC active [facility] ([facility]) pantoprazole 40 MG Delayed Release Oral Tablet [...] BY MOUTH TWICE A DAY SOLD: 08/13/2020 [facility] 40 mg 05/01/2020 12:00:00 AM [...] Hydrocodone Bitartrate 5 MG Oral Tabl et [Hessmer] Hessmer 01/31/2020 12:00:00 AM EDT ORAL active [facility] ([facility]) 40 mg 12/12/2019 12:00:00 AM EDT tablet [...] type / Coverage type Policy ID Covered alliance party ID Covered alliance party's relationship to mullins Policy Mullins Plan Information WELLCARE [id number] SP [id number] WELLCARE [id number] SP [id number] [facility] [employer] [facility] Commercial [id number] Self [id number] Wellcare MCR - To Ppo Commercial [id number] Self [id number] TODAYS OPTIONS [id number] SP [id number] Wellcare MCR - To Ppo Commercial [id number] Self [id number] Wellcare MCR - To Ppo Commercial [id number] Self [id number] Medicare Natl Govt Servic Medicare Primary [id number] Self [id number] Wellcare/Todays Optmcr Commercial [id number] Self [id number] [place] Trad/MX Medigap Part B [id number] Family Dep endent [id number] [facility] Trad/MX Medigap Part B [id number] Self [id number] [facility] Medigap Part B [id number] Self [id number] [facility] Trad/MX Medigap Part B [id number] Self [id number] Medicare Blue Ppo Commercial [id number] Self [id number] TODAYS OPTIONS [id number] S [id number] TODAYS OPTIONS [id number] S [id number] Medicare Natl Govt Servic Medicare Primary [id number] Self [id number] Todays Option Medicare Commercial [id number] Self [id number] Today's Option Medicare Commercial [id number] Self [id number] [place] PPO 302/307 [id number] SP [id number] [employer] [id number] SP [id number] [place] PPO 302/307 [id number] SP [id number] BCBS [facility] 010/510 [id number] [place] [id number] BC[place] 304/804 [id number] SP [id number] Medicare Natl Govt Servic Medicare Primary [id number] Self [id number] Todays Option Medicare Commercial [id number] Self [id number] Medicare Natl Govt Servic Medicare Primary [id number] Self [id number] Todays Option Medicare Commercial [id number] Self [id number] Today's Option Medicare Commercial [id number] Self [id number] Medicare Natl Govt Servic Medicare Primary [id number] Self [id number] Todays Option Medicare Commercial [id number] Self [id number] AMER PROG TODAYS OPTIONS G [id number] Self [id number] Medicare Natl Govt Servic Medicare Primary [id number] Self [id number] Todays Option Medicare Commercial [id number] Self [id number] TODAYS OPTIONS/[place] O [id number] S [id number] [place] Medigap Part B [id number] Self [id number] Todays Options Commercial [id number] Self [id number] TODAYS OPTIONS [id number] SP [id number] TODAYS OPTIONS [id number] SP [id number] Medicare Natl Govt Servic Medicare Primary [id number] Self [id number] Todays Option Medicare Commercial [id number] Self [id number] TODAYS OPTIONS [id number] SP [id number] Medicare Natl Govt Servic Medicare Primary Self BS [place] Trad/MX Medigap Part B Family Depend ent BS Advance Trad/MX Commercial [id number] Self [id number] [facility] Medigap Part B Inbalance Epo Self Inbalance Epo BS Advance Trad/MX Commercial 802 Self 802 Medicare Blue Ppo Commercial 802 Self [id number] 02 Todays Option Medicare Commercial Advantage Plus 350B Ppo Se lf Advantage Plus 350B Ppo Problems, Conditions, and Diagnoses Code Display Name Description Problem Type Effective Dates Data Source(s) [id number] Dietary management surveillance Dietary manageme nt surveillance Problem 10/26/2019 12:00:00 AM EST [facility] ([facility] Surgeries/Procedures Procedure Description Date Indications Data Source(s) ECG ROUTINE ECG W/LEAST 12 LDS W/I&R 06/20/2020 12:00: 00 AM EDT [facility] ([facility]) Implantable Loop Recorder System, Review And Report 05/23/2020 12:00:00 AM EDT [facility] Implantable Loop Recorder System, Review And Report 04/19/2020 12:00:00 AM EDT [facility] Implantable Loop Recorder System, Review And Report 03/19/2020 12:00:00 AM EDT [facility] ([facility]) Implantable Loop Recorder System, Review And Report 02/13/2020 12:00:00 AM EDT [facility] ([facility]) Implantable Loop Recorder System, Review And Report 01/12/2020 12:00:00 AM EDT [facility] ([facility]) Implantable Loop Recorder System, Review And Report 12/12/2019 12:00:00 AM EDT [facility] ([facility]) ECG ROUTINE ECG W/LEAST 12 LDS W/I&R 10/26/2019 12:00: 00 AM EST [facility] ([facility]) Implantable Loop Recorder System, Review And Report 10/10/2019 12:00:00 AM EST [facility] ([facility]) Implantable Loop Recorder System, Review And Report 09/09/2019 12:00:00 AM EST [facility] ([facility]) Interrogation device evaluation(s), (rem ote) up to 30 days; implantable cardiovascular monitor system or implantable loop recorder system, remote data acquisition(s), receipt of transmissions and fitness technician 09/09/2019 12:00:00 AM EST [facility] ([facility]) Implantable Loop Recorder System, Review And Report 08/04/2019 12:00:00 AM EST [facility] ([facility]) Interrogation device evaluation(s), (rem ote) up to 30 days; implantable cardiovascular monitor system or implantable loop recorder system, remote data acquisition(s), receipt of transmissions and fitness technician 08/04/2019 12:00:00 AM EST [facility] ([facility]) Results ID Date Data Source [id number] 09/26/2020 11:15:00 AM EST [facility] Name Value Range Interpretation Code Description Data Edna rce(s) Supporting Document(s) SARS coronavirus 2 RNA [Presence] in Res piratory specimen by KEHINDE with probe detection [facility]GAT[facility] This lab was ordered by [facility] a nd reported by [facility]. ID Date Data Source [id number] 07/04/2020 10:47:00 AM EDT [facility] ([facility]) Name Value Range Interpretation Code Description Data Edna rce(s) Supporting Document(s) Glucose [Mass/volume] in Serum or Plasma 91 mg/dL 74-99 [facility] ([facility]) 100-125 mg/dL PRE-DIABETES/FASTING >126 mg/dL DIABETES/FASTING Creatinine 0.9 mg/dL 0.6-1.3 [facility]) Urea nitrogen [Mass/volume] in Serum or Plasma 15 mg/dL 7-18 [facility] ([facility]) Potassium [Moles/volume] in Serum or Plasma 4.7 meq/L 3.5-5.1 [facility] ([facility]) Sodium [Moles/volume] in Serum or Plasma 143 meq/L 136-145 [facility] ([facility]) Carbon dioxide, total [Moles/volume] in Serum or Plasma 31 meq/L 21 -32 [facility] ([facility]) Chloride [Moles/volume] in Serum or Plasma 105 meq/L 98-107 [facility] ([facility]) Calcium [Mass/volume] in Serum or Plasma 9.3 mg/dL 8.5-10.1 [facility] ([facility]) Glomerular filtration rate/1.73 sq M pre dicted among non-blacks [Volume Rate/Area] in Serum or Plasma by Creatinine-based formula (MDRD) Laboratory test result [facility] ([facility] ) Glomerular filtration rate/1.73 sq M pre dicted among blacks [Volume Rate/Area] in Serum or Plasma by Creatinine-based formula (MDRD) Laboratory test result [facility] ([facility]) <content>CHRONIC KIDNEY DISEASE STAGING PER NKF</content>
<content></content>
<content>STAGE I & II GFR >= 60 NORMAL TO MILDLY DECREASED</content>
<content>STAGE III GFR 30-59 MODERATELY DECREASED</content>
<content>STAGE IV GFR 15-29 SEVERELY DECREASED</content>
<content>STAGE V GFR <15 VERY LITTLE GFR LEFT</content>
<content>ESRD GFR <15 ON IRRIGATION SPECIALIST</content>
<content></content> ID Date Data Source [id number] 07/04/2020 10:47:00 AM EDT [facility]) Name Value Range Interpretation Code Description Data Edna rce(s) Supporting Document(s) Prostate specific Ag [Mass/volume] in Serum or Plasma 3.29 ng/mL [facility]) This assay was performed on the Siemens Dimension EXL using the B- Galactosidase/CPRG methodology and should not be compared interchangeably with other methods. The PSA should not be used alone as a screening test for the presence or absence of malignant disease. ID Date Data Source [id number] 07/04/2020 10:47:00 AM EDT [facility]) Name Value Range Interpretation Code Description Data Edna rce(s) Supporting Document(s) Glucose mean value [Mass/volume] in Blood Estimated fr om glycated hemoglobin 114 mg/dL 60-110 [facility] ) Hemoglobin A1c/Hemoglobin.total in Blood 5.6 % [facility]) Lab Result Notes: Pre-Diabetes 5.7 - 6.4 % Diabetes = or > 6.5% ID Date Data Source [id number] 07/04/2020 10:47:00 AM EDT [facility]) Name Value Range Interpretation Code Description Data Edna rce(s) Supporting Document(s) Leukocytes [#/volume] in Blood by Automated count 6.2 x10*3/UL 4.1-10 .9 [facility]) Hematocrit [Volume Fraction] of Blood by Automated count 41.1 % 3 7.0-51.0 [facility] ([facility]) Hemoglobin [Mass/volume] in Blood 14.4 g/dL 12.0-18.0 [facility] ([facility]) Erythrocytes [#/volume] in Blood by Automated count 4.64 x10*6/UL 4.2 0-6.30 [facility] ([facility]) MCHC 35.0 g/dL 31.0-38.0 [facility] MCH 31.0 pg 26.0-32.0 [facility] MCV 88.6 fL 80.0-97.0 [facility] MPV 8.2 FL 7.8-11.0 [facility]) Platelets [#/volume] in Blood by Automated count 227 x10*3/UL 140-440 [facility] ([facility]) Erythrocyte distribution width [Ratio] by Automated count 13.1 % 11.6-13.7 [facility] ([facility]) Lymph % 34.9 % 10.0-58.5 [facility] Neut % 57.6 % 37.0-92.0 [facility] Mid % 7.5 % 1.7-9.3 [facility] Lymph # 2.2 x10*3/UL 0.6-4.1 [facility] ([facility]) Mid # 0.4 x10*3/UL 0.1-0.6 [facility] ([facility]) Neut # 3.6 x10*3/UL 2.0-7.8 [facility] ([facility]) ID Date Data Source [id number] 02/28/2020 11:10:00 AM EDT [facility] Name Value Range Interpretation Code Description Data Edna rce(s) Supporting Document(s) Hemoglobin A1c/Hemoglobin.total in Blood 5.7 [facility] ([facility]) ID Date Data Source [id number] 02/28/2020 11:10:00 AM EDT [facility] Name Value Range Interpretation Code Description Data Edna rce(s) Supporting Document(s) Triglycerides 58 30-150 [facility] ([facility]) Cholesterol in LDL [Mass/volume] in Serum or Plasma by calculation 41 50-159 [facility] ([facility]) HDL 48 35-60 [facility] Cholesterol 101 131-200 [facility] ([facility]) Chol/HDL Ratio Laboratory test result [facility] ([facility]) ID Date Data Source [id number] 02/28/2020 11:10:00 AM EDT [facility] ([facility]) Name Value Range Interpretation Code Description Data Edna rce(s) Supporting Document(s) Calcium [Mass/volume] in Serum or Plasma 8.6 [facility] ([facility]) Albumin [Mass/volume] in Serum or Plasma 3.8 [facility] ([facility]) Alanine aminotransferase [Enzymatic activity/volume] in Serum or Pl asma 20 [facility] ([facility]) Carbon dioxide, total [Moles/volume] in Serum or Plasma 27 [facility] ([facility]) Alkaline phosphatase [Enzymatic activity/volume] in Serum or Plasma 6 0 [facility] ([facility]) Chloride [Moles/volume] in Serum or Plasma 107 [facility] ([facility]) Potassium [Moles/volume] in Serum or Plasma 4.2 [facility] ([facility]) Sodium 144 [facility] Protein [Mass/volume] in Serum or Plasma 7.1 [facility] ([facility]) Urea nitrogen [Mass/volume] in Serum or Plasma 15 [facility] ([facility]) Glucose 87 74-99 [facility] Aspartate aminotransferase [Enzymatic activity/volume] in Serum or Plasma 12 [facility] ([facility]) Creatinine For GFR 0.7 [facility] ([facility]) ID Date Data Source [id number] 02/28/2020 10:42:00 AM EDT [facility] ([facility]) Name Value Range Interpretation Code Description Data Edna rce(s) Supporting Document(s) Urine Creatinine 184.1 mg/dL 30.0-125.0 [facility] ([facility]) Microalb/Creat Ratio 6.4 ug/mg 0.0-30.0 [facility] Microalbumin Urine 11.7 mg/L 1.3-20.0 [facility] ID Date Data Source [id number] 02/28/2020 10:42:00 AM EDT [facility] ([facility]) Name Value Range Interpretation Code Description Data Edna rce(s) Supporting Document(s) Cholesterol [Mass/volume] in Serum or Plasma 101 mg/dL 131-200 [facility] ([facility]) Triglyceride [Mass/volume] in Serum or Plasma 58 mg/dL 30-150 [facility] ([facility]) Cholesterol in LDL [Mass/volume] in Serum or Plasma by calcu lation 41 CALC 50-159 [facility] ([facility]) Cholesterol in HDL [Mass/volume] in Serum or Plasma 48 mg/dL 35-60 [facility] ([facility]) ID Date Data Source [id number] 02/28/2020 10:42:00 AM EDT [facility] ([facility]) Name Value Range Interpretation Code Description Data Edna rce(s) Supporting Document(s) Urea nitrogen [Mass/volume] in Serum or Plasma 15 mg/dL 7-18 [facility] ([facility]) Glucose [Mass/volume] in Serum or Plasma 87 mg/dL 74-99 [facility] ([facility]) 100-125 mg/dL PRE-DIABETES/FASTING >126 mg/dL DIABETES/FASTING Sodium [Moles/volume] in Serum or Plasma 144 meq/L 136-145 [facility] ([facility]) Creatinine 0.7 mg/dL 0.6-1.3 [facility] Potassium [Moles/volume] in Serum or Plasma 4.2 meq/L 3.5-5.1 [facility] ([facility]) Chloride [Moles/volume] in Serum or Plasma 107 meq/L 98-107 [facility] ([facility]) Carbon dioxide, total [Moles/volume] in Serum or Plasma 27 meq/L 21 -32 [facility] ([facility]) Calcium [Mass/volume] in Serum or Plasma 8.6 mg/dL 8.5-10.1 [facility] ([facility]) Total Bilirubin 0.6 mg/dL 0.2-1.0 [facility] ([facility]) Alkaline phosphatase isoenzyme [Units/volume] in Serum or Pl asma 60 mg/dL 46-116 [facility] ([facility]) Aspartate aminotransferase [Enzymatic activity/volume] in Serum or Plasma 12 U/L 15-37 [facility] ([facility] ) Alanine aminotransferase [Enzymatic activity/volume] in Seru m or Plasma 20 U/L 12-78 [facility] ([facility]) Proteinase 3 Ab [Units/volume] in Serum 7.1 g/dL 6.4-8.2 [facility] A/G Ratio 1.15 CALC 1.00-1.90 [facility] ([facility]) Albumin [Mass/volume] in Serum or Plasma 3.8 g/dL 3.4-5.0 [facility] ([facility]) Glomerular filtration rate/1.73 sq M pre dicted among blacks [Volume Rate/Area] in Serum or Plasma by Creatinine-based formula (MDRD) Laboratory test [facility] <content>CHRONIC KIDNEY DISEASE STAGING PER NKF</content>
<content></content>
<content>STAGE I & II GFR >= 60 NORMAL TO MILDLY DECREASED</content>
<content>STAGE III GFR 30-59 MODERATELY DECREASED</content>
<content>STAGE IV GFR 15-29 SEVERELY DECREASED</content>
<content>STAGE V GFR <15 VERY LITTLE GFR LEFT</content>
<content>ESRD GFR <15 ON IRRIGATION SPECIALIST</content>
<content></content> Glomerular filtration rate/1.73 sq M pre dicted among non-blacks [Volume Rate/Area] in Serum or Plasma by Creatinine-based formula (MDRD) Laboratory test result [facility] ([facility] ) ID Date Data Source [id number] 02/28/2020 10:42:00 AM EDT [facility] ([facility]) Name Value Range Interpretation Code Description Data Edna rce(s) Supporting Document(s) Glucose mean value [Mass/volume] in Blood Estimated fr om glycated hemoglobin 117 mg/dL 60-110 [facility] ([facility] Hemoglobin A1c/Hemoglobin.total in Blood 5.7 g/dL 4.8-5.6 [facility] Lab Result Notes: Pre-Diabetes 5.7 - 6.4 % Diabetes = or > 6.5% ID Date Data Source [id number] 02/28/2020 10:42:00 AM EDT [facility] Name Value Range Interpretation Code Description Data Edna rce(s) Supporting Document(s) Leukocytes [#/volume] in Blood by Automated count 6.8 x10*3/UL 4.1-10 .9 [facility] ([facility] Erythrocytes [#/volume] in Blood by Automated count 4.52 x10*6/UL 4.2 0-6.30 [facility] ([facility] Hemoglobin [Mass/volume] in Blood 13.7 g/dL 12.0-18.0 [facility] ([facility] Hematocrit [Volume Fraction] of Blood by Automated count 39.9 % 3 7.0-51.0 [facility] ([facility] MCH 30.4 pg 26.0-32.0 [facility] ([facility]) MCV 88.3 fL 80.0-97.0 [facility] ([facility]) MCHC 34.4 g/dL 31.0-38.0 [facility] ([facility]) Erythrocyte distribution width [Ratio] by Automated count 13.2 % 11.6-13.7 [facility] ([facility] Platelets [#/volume] in Blood by Automated count 211 x10*3/UL 140-440 [facility] ([facility] Lymph % 31.1 % 10.0-58.5 [facility] ([facility]) MPV 8.6 FL 7.8-11.0 [facility] ([facility]) Mid % 8.0 % 1.7-9.3 [facility] ([facility]) Lymph # 2.1 x10*3/UL 0.6-4.1 [facility] ([facility]) Neut % 60.9 % 37.0-92.0 [facility]) Neut # 4.1 x10*3/UL 2.0-7.8 [facility] ([facility]) Mid # 0.6 x10*3/UL 0.1-0.6 [facility] ([facility]) ID Date Data Source [id number] 02/28/2020 10:42:00 AM EDT [facility] ([facility]) Name Value Range Interpretation Code Description Data Edna rce(s) Supporting Document(s) Hemoglobin A1c/Hemoglobin.total in Blood Laboratory test result [facility] ID Date Data Source [id number] 01/31/2020 09:46:00 AM EDT [facility] ([facility]) Name Value Range Interpretation Code Description Data Edna rce(s) Supporting Document(s) Surgical pathology study Laboratory test result [facility] ([facility]) FINAL DIAGNOSIS Soft tissue hernia sac: Mesothelial-lined fibroconnective tissue, consistent with hernia sac. 02/01/2020840 CLINICAL DIAGNOSIS Right inguinal hernia 01/31/20201421 GROSS DIAGNOSIS Received in formalin labeled "hernia sac" is a fragment of tissue, 4.5 x 4.0 x 1.5 cm. The specimen is grossly u nremarkable. [employer] Operator section is submitted in one. -OA 01/31/20201421 Signed CUCO MORALES MD 02/01/2020 0842 ID Date Data Source [id number] 01/31/2020 08:10:00 AM EDT [facility]) Name Value Range Interpretation Code Description Data Edna rce(s) Supporting Document(s) Bedside Glucose 88 mg/dL 83-110 [facility] ([facility]) Doctor Notified ID Date Data Source [id number] 01/31/2020 08:10:00 AM EDT [facility] ([facility]) Name Value Range Interpretation Code Description Data Edna rce(s) Supporting Document(s) Glucose [Mass/volume] in Capillary blood by Glucometer 88 mg/dL 83-110 Normal (applies to non-numeric results) [facility] ([facility]) Doctor Notified ID Date Data Source [id number] 01/28/2020 08:35:00 AM EDT [facility] Name Value Range Interpretation Code Description Data Edna rce(s) Supporting Document(s) SARS CORONAVIRUS 2 RNA [facility] This lab was ordered by [facility] and reported by [facility]. ID Date Data Source [id number] 01/13/2020 01:51:00 PM EDT [facility] ([facility]) Name Value Range Interpretation Code Description Data Edna rce(s) Supporting Document(s) Hemoglobin A1c/Hemoglobin.total in Blood 5.7 g/dL 4.8-5.6 [facility] ([facility]) Lab Result Notes: Pre-Diabetes 5.7 - 6.4 % Diabetes = or > 6.5% Glucose mean value [Mass/volume] in Blood Estimated fr om glycated hemoglobin 117 mg/dL 60-110 [facility] ([facility] ) ID Date Data Source [id number] 01/13/2020 01:51:00 PM EDT [facility] ([facility]) Name Value Range Interpretation Code Description Data Edna rce(s) Supporting Document(s) Urea nitrogen [Mass/volume] in Serum or Plasma 14 mg/dL 7-18 [facility] ([facility]) Glucose [Mass/volume] in Serum or Plasma 99 mg/dL 74-99 [facility] ([facility]) 100-125 mg/dL PRE-DIABETES/FASTING >126 mg/dL DIABETES/FASTING Creatinine 0.8 mg/dL 0.6-1.3 [facility]) Sodium [Moles/volume] in Serum or Plasma 142 meq/L 136-145 [facility] ([facility]) Potassium [Moles/volume] in Serum or Plasma 3.7 meq/L 3.5-5.1 [facility] ([facility]) Chloride [Moles/volume] in Serum or Plasma 106 meq/L 98-107 [facility] ([facility]) Carbon dioxide, total [Moles/volume] in Serum or Plasma 27 meq/L 21 -32 [facility] ([facility]) Calcium [Mass/volume] in Serum or Plasma 8.7 mg/dL 8.5-10.1 [facility] ([facility]) Glomerular filtration rate/1.73 sq M pre dicted among non-blacks [Volume Rate/Area] in Serum or Plasma by Creatinine-based formula (MDRD) Laboratory test result [facility] ([facility] Glomerular filtration rate/1.73 sq M pre dicted among blacks [Volume Rate/Area] in Serum or Plasma by Creatinine-based formula (MDRD) Laboratory test result [facility] ([facility] <content>CHRONIC KIDNEY DISEASE STAGING PER NKF</content>
<content></content>
<content>STAGE I & II GFR >= 60 NORMAL TO MILDLY DECREASED</content>
<content>STAGE III GFR 30-59 MODERATELY DECREASED</content>
<content>STAGE IV GFR 15-29 SEVERELY DECREASED</content>
<content>STAGE V GFR <15 VERY LITTLE GFR LEFT</content>
<content>ESRD GFR <15 ON IRRIGATION SPECIALIST</content>
<content></content> ID Date Data Source [id number] 01/13/2020 01:51:00 PM EDT [facility] ([facility]) Name Value Range Interpretation Code Description Data Edna rce(s) Supporting Document(s) Leukocytes [#/volume] in Blood by Automated count 7.6 x10*3/UL 4.1-10 .9 [facility] ([facility]) Hematocrit [Volume Fraction] of Blood by Automated count 40.5 % 3 7.0-51.0 [facility] ([facility]) Hemoglobin [Mass/volume] in Blood 14.0 g/dL 12.0-18.0 [facility] ([facility]) Erythrocytes [#/volume] in Blood by Automated count 4.61 x10*6/UL 4.2 0-6.30 [facility] ([facility]) Erythrocyte distribution width [Ratio] by Automated count 12.9 % 11.6-13.7 [facility] ([facility]) MCV 87.6 fL 80.0-97.0 [facility]) MCH 30.3 pg 26.0-32.0 [facility]) MCHC 34.6 g/dL 31.0-38.0 [facility]) Platelets [#/volume] in Blood by Automated count 211 x10*3/UL 140-440 [facility] ([facility]) MPV 8.8 FL 7.8-11.0 [facility]) Lymph % 35.5 % 10.0-58.5 [facility]) Neut % 55.5 % 37.0-92.0 [facility] ([facility]) Mid % 9.0 % 1.7-9.3 [facility]) Lymph # 2.7 x10*3/UL 0.6-4.1 [facility] ([facility]) Mid # 0.7 x10*3/UL 0.1-0.6 [facility] ([facility]) Neut # 4.2 x10*3/UL 2.0-7.8 [facility] ([facility]) ID Date Data Source [id number] 08/23/2019 10:54:00 AM EST [facility] ([facility]) Name Value Range Interpretation Code Description Data Edna rce(s) Supporting Document(s) Triglyceride [Mass/volume] in Serum or Plasma 48 mg/dL 30-150 [facility] ([facility]) Cholesterol [Mass/volume] in Serum or Plasma 111 mg/dL 131-200 [facility] ([facility]) Cholesterol in LDL [Mass/volume] in Serum or Plasma by calcu lation 57 CALC 50-159 [facility] ([facility]) Cholesterol in HDL [Mass/volume] in Serum or Plasma 44 mg/dL 35-60 [facility] ([facility]) ID Date Data Source [id number] 08/23/2019 10:54:00 AM EST [facility] ([facility]) Name Value Range Interpretation Code Description Data Edna rce(s) Supporting Document(s) Glucose [Mass/volume] in Serum or Plasma 86 mg/dL 74-99 [facility] ([facility]) 100-125 mg/dL PRE-DIABETES/FASTING >126 mg/dL DIABETES/FASTING Sodium [Moles/volume] in Serum or Plasma 146 meq/L 136-145 [facility] ([facility]) Creatinine 0.9 mg/dL 0.6-1.3 [facility] ([facility]) Urea nitrogen [Mass/volume] in Serum or Plasma 11 mg/dL 7-18 [facility] ([facility]) Chloride [Moles/volume] in Serum or Plasma 105 meq/L 98-107 [facility] ([facility]) Potassium [Moles/volume] in Serum or Plasma 4.4 meq/L 3.5-5.1 [facility] ([facility]) Carbon dioxide, total [Moles/volume] in Serum or Plasma 33 meq/L 21 -32 [facility] Alkaline phosphatase isoenzyme [Units/volume] in Serum or Pl asma 69 mg/dL 46-116 [facility] ([facility]) Total Bilirubin 0.7 mg/dL 0.2-1.0 [facility] ([facility]) Calcium [Mass/volume] in Serum or Plasma 9.4 mg/dL 8.5-10.1 [facility] ([facility]) Albumin [Mass/volume] in Serum or Plasma 4.2 g/dL 3.4-5.0 [facility] ([facility]) Alanine aminotransferase [Enzymatic activity/volume] in Seru m or Plasma 33 U/L 12-78 [facility] ([facility]) Aspartate aminotransferase [Enzymatic activity/volume] in Serum or Plasma 15 U/L 15-37 [facility] Glomerular filtration rate/1.73 sq M pre dicted among non-blacks [Volume Rate/Area] in Serum or Plasma by Creatinine-based formula (MDRD) Laboratory test result [facility] ([facility] ) Proteinase 3 Ab [Units/volume] in Serum 7.7 g/dL 6.4-8.2 [facility] ([facility]) A/G Ratio 1.20 CALC 1.00-1.90 [facility] ([facility]) Glomerular filtration rate/1.73 sq M pre dicted among blacks [Volume Rate/Area] in Serum or Plasma by Creatinine-based formula (MDRD) Laboratory test result [facility] <content>CHRONIC KIDNEY DISEASE STAGING PER NKF</content>
<content></content>
<content>STAGE I & II GFR >= 60 NORMAL TO MILDLY DECREASED</content>
<content>STAGE III GFR 30-59 MODERATELY DECREASED</content>
<content>STAGE IV GFR 15-29 SEVERELY DECREASED</content>
<content>STAGE V GFR <15 VERY LITTLE GFR LEFT</content>
<content>ESRD GFR <15 ON IRRIGATION SPECIALIST</content>
<content></content> ID Date Data Source [id number] 08/23/2019 10:54:00 AM EST [facility] Name Value Range Interpretation Code Description Data Edna rce(s) Supporting Document(s) Glucose mean value [Mass/volume] in Blood Estimated fr om glycated hemoglobin 117 mg/dL 60-110 [facility] Hemoglobin A1c/Hemoglobin.total in Blood 5.7 g/dL 4.8-5.6 [facility] Lab Result Notes: Pre-Diabetes 5.7 - 6.4 % Diabetes = or > 6.5% ID Date Data Source [id number] 08/23/2019 10:54:00 AM EST [facility] Name Value Range Interpretation Code Description Data Edna rce(s) Supporting Document(s) Hemoglobin [Mass/volume] in Blood 15.1 g/dL 12.0-18.0 [facility] ([facility]) Leukocytes [#/volume] in Blood by Automated count 7.5 x10*3/UL 4.1-10 .9 [facility] ([facility]) Erythrocytes [#/volume] in Blood by Automated count 4.98 x10*6/UL 4.2 0-6.30 [facility] Hematocrit [Volume Fraction] of Blood by Automated count 44.5 % 3 7.0-51.0 [facility] MCHC 34.0 g/dL 31.0-38.0 [facility]) MCH 30.4 pg 26.0-32.0 [facility]) MCV 89.3 fL 80.0-97.0 [facility]) Platelets [#/volume] in Blood by Automated count 241 x10*3/UL 140-440 [facility] ([facility]) MPV 8.5 FL 7.8-11.0 [facility]) Erythrocyte distribution width [Ratio] by Automated count 13.1 % 11.6-13.7 [facility] ([facility]) Mid % 7.4 % 1.7-9.3 [facility]) Lymph % 29.3 % 10.0-58.5 [facility] Neut % 63.3 % 37.0-92.0 [facility] Lymph # 2.2 x10*3/UL 0.6-4.1 [facility] ([facility]) Mid # 0.6 x10*3/UL 0.1-0.6 [facility] ([facility]) Neut # 4.7 x10*3/UL 2.0-7.8 [facility] ([facility]) ID Date Data Source [id number] 08/23/2019 10:54:00 AM EST [facility] ([facility]) Name Value Range Interpretation Code Description Data Edna rce(s) Supporting Document(s) Cholesterol [Mass/volume] in Serum or Plasma 111 mg/dL 131-200 [facility] ([facility]) Cholesterol in HDL [Mass/volume] in Serum or Plasma 44 mg/dL 35-60 [facility] ([facility]) Triglyceride [Mass/volume] in Serum or Plasma 48 mg/dL 30-150 [facility] ([facility]) Cholesterol in LDL [Mass/volume] in Serum or Plasma by calcu lation 57 CALC 50-159 [facility] ([facility]) ID Date Data Source [id number] 08/23/2019 10:54:00 AM EST [facility] ([facility]) Name Value Range Interpretation Code Description Data Edna e(s) Supporting Document(s) Urea nitrogen [Mass/volume] in Serum or Plasma 11 mg/dL 7-18 [facility] ([facility]) Glucose [Mass/volume] in Serum or Plasma 86 mg/dL 74-99 [facility] ([facility]) 100-125 mg/dL PRE-DIABETES/FASTING >126 mg/dL DIABETES/FASTING Creatinine 0.9 mg/dL 0.6-1.3 [facility] ([facility]) Sodium [Moles/volume] in Serum or Plasma 146 meq/L 136-145 [facility] ([facility]) Potassium [Moles/volume] in Serum or Plasma 4.4 meq/L 3.5-5.1 [facility] ([facility]) Chloride [Moles/volume] in Serum or Plasma 105 meq/L 98-107 [facility] ([facility]) Carbon dioxide, total [Moles/volume] in Serum or Plasma 33 meq/L 21 -32 [facility] ([facility]) Calcium [Mass/volume] in Serum or Plasma 9.4 mg/dL 8.5-10.1 [facility] ([facility]) Alkaline phosphatase isoenzyme [Units/volume] in Serum or Pl asma 69 mg/dL 46-116 [facility] ([facility]) Total Bilirubin 0.7 mg/dL 0.2-1.0 [facility] Aspartate aminotransferase [Enzymatic activity/volume] in Serum or Plasma 15 U/L 15-37 [facility] ([facility]) Alanine aminotransferase [Enzymatic activity/volume] in Seru m or Plasma 33 U/L 12-78 [facility] ([facility]) Albumin [Mass/volume] in Serum or Plasma 4.2 g/dL 3.4-5.0 [facility] ([facility]) Proteinase 3 Ab [Units/volume] in Serum 7.7 g/dL 6.4-8.2 [facility] ([facility]) Glomerular filtration rate/1.73 sq M pre dicted among non-blacks [Volume Rate/Area] in Serum or Plasma by Creatinine-based formula (MDRD) >= 60 mL/min [facility] ([facility]) A/G Ratio 1.20 CALC 1.00-1.90 [facility] ([facility]) Glomerular filtration rate/1.73 sq M pre dicted among blacks [Volume Rate/Area] in Serum or Plasma by Creatinine-based formula (MDRD) >= 60 mL/min [facility] ([facility]) <content>CHRONIC KIDNEY DISEASE STAGING PER NKF</content>
<content></content>
<content>STAGE I & II GFR >= 60 NORMAL TO MILDLY DECREASED</content>
<content>STAGE III GFR 30-59 MODERATELY DECREASED</content>
<content>STAGE IV GFR 15-29 SEVERELY DECREASED</content>
<content>STAGE V GFR <15 VERY LITTLE GFR LEFT</content>
<content>ESRD GFR <15 ON IRRIGATION SPECIALIST</content>
<content></content>
<content></content> ID Date Data Source [id number] 08/23/2019 10:54:00 AM EST [facility] ([facility]) Name Value Range Interpretation Code Description Data Edna rce(s) Supporting Document(s) Hemoglobin A1c/Hemoglobin.total in Blood 5.7 g/dL 4.8-5.6 [facility] ([facility]) Lab Result Notes: Pre-Diabetes 5.7 - 6.4 % Diabetes = or > 6.5% Glucose mean value [Mass/volume] in Blood Estimated fr om glycated hemoglobin 117 mg/dL 60-110 [facility] ([facility]) ID Date Data Source [id number] 08/23/2019 10:54:00 AM EST [facility] ([facility]) Name Value Range Interpretation Code Description Data Edna rce(s) Supporting Document(s) Leukocytes [#/volume] in Blood by Automated count 7.5 x10*3/UL 4.1-10 .9 [facility] ([facility]) Erythrocytes [#/volume] in Blood by Automated count 4.98 x10*6/UL 4.2 0-6.30 [facility] ([facility]) Hemoglobin [Mass/volume] in Blood 15.1 g/dL 12.0-18.0 [facility] ([facility]) Hematocrit [Volume Fraction] of Blood by Automated count 44.5 % 3 7.0-51.0 [facility] ([facility]) MCV 89.3 fL 80.0-97.0 [facility] MCH 30.4 pg 26.0-32.0 [facility] MCHC 34.0 g/dL 31.0-38.0 [facility] Platelets [#/volume] in Blood by Automated count 241 x10*3/UL 140-440 [facility] ([facility]) Erythrocyte distribution width [Ratio] by Automated count 13.1 % 11.6-13.7 [facility] ([facility]) Lymphocytes/100 leukocytes in Blood by Automated count 29.3 % 10. 0-58.5 [facility] ([facility]) Platelet mean volume [Entitic volume] in Blood by [place] 8.5 FL 7.8-11.0 [facility] ([facility]) Neut % 63.3 % 37.0-92.0 [facility] ([facility]) Mid % 7.4 % 1.7-9.3 [facility] ([facility]) Lymph # 2.2 x10*3/UL 0.6-4.1 [facility] ([facility]) Mid # 0.6 x10*3/UL 0.1-0.6 [facility] ([facility]) Neutrophils [#/volume] in Semen by Manual count 4.7 x10*3/UL 2.0-7.8 [facility] ([facility]) ID Date Data Source [id number] 08/23/2019 10:53:00 AM EST [facility] ([facility]) Name Value Range Interpretation Code Description Data Edna rce(s) Supporting Document(s) Vitamin B12 Level 316 pg/mL [facility] ([facility]) VITAMIN B12 NORMAL RANGE NORMAL 247 - 911 PG/ML INDETERMINATE 211 - 246 PG/ML DEFICIENT LESS THAN 211 PG/ML Folate 15.3 ng/mL [facility] ([facility] FOLATE NORMAL RANGE NORMAL GREATER THAN 5.4 NG/ML INDETERMINATE 3.4-5.4 NG/ML DEFICIENT LESS THAN 3.4 NG/ML ID Date Data Source [id number] 08/23/2019 10:53:00 AM EST [facility] ([facility]) Name Value Range Interpretation Code Description Data Edna rce(s) Supporting Document(s) Thyrotropin [Units/volume] in Serum or Plasma by Detec tion limit <= 0.05 mIU/L 0.93 uIU/mL 0.36-3.74 [facility] ([facility] ) ID Date Data Source [id number] 08/23/2019 10:53:00 AM EST [facility] Name Value Range Interpretation Code Description Data Edna rce(s) Supporting Document(s) Vitamin B12 Level 316 pg/mL [facility] ([facility]) VITAMIN B12 NORMAL RANGE NORMAL 247 - 911 PG/ML INDETERMINATE 211 - 246 PG/ML DEFICIENT LESS THAN 211 PG/ML Folate 15.3 ng/mL [facility] ([facility]) FOLATE NORMAL RANGE NORMAL GREATER THAN 5.4 NG/ML INDETERMINATE 3.4-5.4 NG/ML DEFICIENT LESS THAN 3.4 NG/ML ID Date Data Source [id number] 08/23/2019 10:53:00 AM EST [facility] ([facility]) Name Value Range Interpretation Code Description Data Edna rce(s) Supporting Document(s) Thyrotropin [Units/volume] in Serum or Plasma by Detec tion limit <= 0.05 mIU/L 0.93 uIU/mL 0.36-3.74 [facility] ([facility]) Procedure Social History Code Duration Value Status Description Data Source(s ) Smoking 06/20/2020 12:00:00 AM EDT Patient is a former smoker completed Patient is a former smoker [facility] ([facility]) Vital Signs ID Date Data Source [id number] Name Value Range Interpretation Code Description Data Source(s) Body mass index (BMI) [Ratio] 23.3 kg/m2 23.3 k g/m2 [facility] ([facility]) Body weight 158.00 [lb_av] 158.00 [lb_av] [facility] ([facility]) Body height 69 [in_i] 69 [in_i] [facility] ([facility]) 5'9" Heart rate 76 /min 76 /min [facility] ([facility]) Diastolic blood pressure 68 mm[Hg] 68 mm[Hg] [facility] ([facility]) Systolic blood pressure 128 mm[Hg] 128 mm[Hg] [facility] ([facility]) Diastolic blood pressure--sitting 68 mm[Hg] 68 mm[Hg] [facility] ([facility]) large cuff, [place] Systolic blood pressure--sitting 138 mm[Hg] 138 mm[Hg] [facility] ([facility]) large cuff, [place] Heart rate 70 /min 70 /min [facility] ([facility] Body mass index (BMI) [Ratio] 23.7 kg/m2 23.7 k g/m2 [facility] ([facility]) Body height 68 [in_i] 68 [in_i] [facility] 5'8" Body weight 156.00 [lb_av] 156.00 [lb_av] [facility] ([facility]) Body mass index (BMI) [Ratio] 23.2 kg/m2 23.2 k g/m2 [facility] ([facility]) Body weight 157.00 [lb_av] 157.00 [lb_av] [facility] ([facility]) Body height 69 [in_i] 69 [in_i] [facility] ([facility]) 5'9" Heart rate 78 /min 78 /min [facility] ([facility]) Diastolic blood pressure 60 mm[Hg] 60 mm[Hg] [facility] ([facility]) Systolic blood pressure 126 mm[Hg] 126 mm[Hg] [facility] ([facility]) Body mass index (BMI) [Ratio] 23.5 kg/m2 23.5 k g/m2 [facility] ([facility]) Body weight 159.00 [lb_av] 159.00 [lb_av] [facility] T ([facility]) Body height 69 [in_i] 69 [in_i] [facility] ([facility]) 5'9" Heart rate 83 /min 83 /min [facility] ([facility]) Diastolic blood pressure 58 mm[Hg] 58 mm[Hg] [facility] Systolic blood pressure 130 mm[Hg] 130 mm[Hg] [facility] ([facility]) Body weight 73.030 kg 73.030 kg [facility]) Body mass index (BMI) [Ratio] 24.5 kg/m2 24.5 k g/m2 [facility] ([facility]) Body weight 161.00 [lb_av] 161.00 [lb_av] [facility] T ([facility]) Body height 68 [in_i] 68 [in_i] [facility]) 5'8" Diastolic blood pressure 80 mm[Hg] 80 mm[Hg] [facility]) Systolic blood pressure 162 mm[Hg] 162 mm[Hg] [facility] ([facility]) Body mass index (BMI) [Ratio] 24.1 kg/m2 24.1 k g/m2 [facility] ([facility]) Body weight 163.00 [lb_av] 163.00 [lb_av] [facility] ([facility]) Body height 69 [in_i] 69 [in_i] [facility] ([facility]) 5'9" Diastolic blood pressure 70 mm[Hg] 70 mm[Hg] [facility] ([facility]) Systolic blood pressure 130 mm[Hg] 130 mm[Hg] [facility] ([facility]) Body weight 75.751 kg 75.751 kg [facility]) Body mass index (BMI) [Ratio] 25.4 kg/m2 25.4 k g/m2 [facility] ([facility]) Body weight 167.00 [lb_av] 167.00 [lb_av] [facility] T ([facility]) Body height 68 [in_i] 68 [in_i] [facility]) 5'8" Diastolic blood pressure 82 mm[Hg] 82 mm[Hg] [facility]) Systolic blood pressure 157 mm[Hg] 157 mm[Hg] [facility] ([facility]) Diastolic blood pressure--sitting 82 mm[Hg] 82 mm[Hg] [facility] ([facility]) Systolic blood pressure--sitting 134 mm[Hg] 134 mm[Hg] [facility] ([facility]) Heart rate 84 /min 84 /min [facility] Body mass index (BMI) [Ratio] 24.8 kg/m2 24.8 k g/m2 [facility] ([facility]) Body height 68 [in_i] 68 [in_i] [facility] 5'8" Body weight 163.00 [lb_av] 163.00 [lb_av] [facility] T ([facility]) Body weight 161.00 [lb_av] 161.00 [lb_av] [facility] T ([facility]) Body height 69 [in_i] 69 [in_i] [facility] ([facility]) 5'9" Diastolic blood pressure 82 mm[Hg] 82 mm[Hg] [facility] ([facility]) Systolic blood pressure 134 mm[Hg] 134 mm[Hg] M DAJUAN ([facility]) Body mass index (BMI) [Ratio] 23.8 kg/m2 23.8 k g/m2 ANTHONY ([facility])
[2020-09-28] MEDS ORDERED: GLUCOSE 4GM CHEW TABLET PO PRN (15:30)
[2020-09-28] MEDS ORDERED: GLUCAGON INJ 1MG VIAL SC PRN (15:30)
[2020-09-28] MEDS ORDERED: DEXTROSE 50% 50 ML SYRINGE IV PRN (15:30)
[2020-09-28] MEDS: REMEDY PHYTOPLEX Z-GUARD PASTE 113GM TUBE (FROM STOREROOM PRODUCT) TOP SCH ×2 (16:00→20:24)
[2020-09-28] MEDS: HumaLOG INSULIN (NovoLOG) PER UNIT SC SCH ×2 (17:30→20:24)
[2020-09-28] MEDS: oxyCODONE 5MG TAB PO PRN (19:30)
[2020-09-28] MEDS: SENNA 8.6 MG TAB (SENOKOT) PO SCH (19:31)
[2020-09-28] MEDS: DOCUSATE SODIUM 100MG CAPSULE PO SCH (19:31)
[2020-09-28 20:00] VITALS: BP 174/88
[2020-09-28] MEDS: ASPIRIN 81 MG ENTERIC TAB PO SCH (20:23)
[2020-09-28] MEDS: lisinopriL 40 MG TAB PO SCH (20:24)
[2020-09-28] MEDS ORDERED: ACETAMINOPHEN TAB 650MG DOSE (2X325MG) PO ONE (21:15)
[2020-09-28 23:00] VITALS: BP 166/84
[2020-09-29] MEDS: oxyCODONE 5MG TAB PO PRN ×3 (00:03→10:18)
[2020-09-29 05:39] VITALS: BP 147/79
[2020-09-29] MEDS: HumaLOG INSULIN (NovoLOG) PER UNIT SC SCH ×4 (07:10→20:47)
[2020-09-29] MEDS: DOCUSATE SODIUM 100MG CAPSULE PO SCH ×2 (07:11→20:47)
[2020-09-29] MEDS: PANTOPRAZOLE 40MG TAB (PROTONIX) PO SCH (07:15)
[2020-09-29] MEDS: ATORVASTATIN 20 MG TAB PO SCH (07:15)
[2020-09-29] MEDS: REMEDY PHYTOPLEX Z-GUARD PASTE 113GM TUBE (FROM STOREROOM PRODUCT) TOP SCH ×3 (07:16→20:47)
[2020-09-29] MEDS: ENOXAPARIN 40MG/0.4ML SYRINGE (J1650 PER 10MG) SC SCH (07:16)
[2020-09-29 08:09] LABS: BASO # 0.1 10^3/uL (0.0-0.2); BASO % 0.7 % (0.0-1.0); EOS # 0.3 10^3/uL (0.0-0.5); EOS % 4.6 % (0.0-3.0); HEMATOCRIT 39.8 % (42.0-52.0); HEMOGLOBIN 12.9 g/dl (13.5-17.5); LYMPH # 1.6 10^3/uL (1.5-5.0); LYMPH % 23.2 % (24.0-44.0); MEAN CORPUSCULAR HEMOGLOBIN 30.4 pg (27.0-33.0); MEAN CORPUSCULAR HGB CONC 32.4 g/dl (32.0-36.5); MEAN CORPUSCULAR VOLUME 93.9 fl (80.0-96.0); MONO # 0.5 10^3/uL (0.0-0.8); MONO % 7.4 % (0.0-5.0); NEUTROPHILS # 4.4 10^3/uL (1.5-8.5); NEUTROPHILS % 63.8 % (36.0-66.0); PLATELET COUNT, AUTOMATED 182 10^3/uL (150-450); RED BLOOD COUNT 4.24 10^6/uL (4.30-6.10); WHITE BLOOD COUNT 6.9 10^3/uL (4.0-10.0)
[2020-09-29 08:28] LABS: ALBUMIN 3.2 GM/DL (3.2-5.2); ALT/SGPT 25 U/L (12-78); BILIRUBIN,TOTAL 0.9 MG/DL (0.2-1.0); BLOOD UREA NITROGEN 19 MG/DL (7-18); CALCIUM LEVEL 8.3 MG/DL (8.8-10.2); CARBON DIOXIDE LEVEL 28 MEQ/L (21-32); CHLORIDE LEVEL 107 MEQ/L (98-107); CREATININE FOR GFR 0.65 MG/DL (0.70-1.30); GLOMERULAR FILTRATION RATE > 60.0 (>42); GLUCOSE, FASTING 101 MG/DL (70-100); SODIUM LEVEL 141 MEQ/L (136-145); TOTAL PROTEIN 6.5 GM/DL (6.4-8.2)
--- NOTE | 2020-09-29 10:51 | HPEPDOC ---
Treasury Manager Note DATE OF ADMISSION: 09-28-20 DATE OF SERVICE: 09-29-20 TIME OF ADMISSION: Please refer to physician's admission order. SOURCE OF ADMISSION INFORMATION: [facility] record CHIEF COMPLAINT: pelvic fracture HISTORY OF PRESENT ILLNESS: 70M pmh CVA with residual right sided weakness aphasia and dysphagia , CAD, HTN, HLD, OA, SBO who fell off a ladder with left hip and buttock pain and presented to [facility] ED on 09-26-[address] showed, Fracture through the left iliac bone extending to the superior rim of the acetabulum followed by comminuted fracture along the anterior margin of the acetabulum. He was evaluated by orthopedics who recommended conservative management and WBAT to the left lower extremity. He had new mobility and ADl impairments below his prior level of function due to recent fracture compounded by his stroke deficits and deemed medically appropriate for discharge to ARU on 09-28-20. REVIEW OF SYSTEMS: The following is a completed review of systems and has been reviewed. Review of systems otherwise unremarkable. PAIN: Patient self reports left groin pain EYES: No recent vision changes EARS, NOSE, & THROAT: +mild chronic dysphagia CARDIOVASCULAR: Denies chest pain or palpitations PULMONARY: Denies shortness of breath. GASTROINTESTINAL: Denies constipation/diarrhea GENITOURINARY: denies dysuria MUSCULOSKELETAL: +pelvic fracture NEUROLOGICAL:right sided spasticity and tone HEMATOLOGICAL: denies easy bruising SKIN: +sacral ulcer PSYCHIATRIC: Unremarkable All other review of systems found to be negative. PAST MEDICAL HISTORY: as per HPI ALLERGIES: Please see below. MEDICATIONS: Please see below. FAMILY HISTORY: CVA and prostate cancer SOCIAL HISTORY: Former ETOH and smoking, no illicit drugs DIET: low sodium PHYSICAL EXAMINATION: VITAL SIGNS: Please see below. GENERAL: Pleasant and cooperative. No acute distress. HEENT: PERRL. Extraocular movements intact. Clear conjunctiva, +right facial droop CARDIOVASCULAR: Regular rate and rhythm. No murmurs, rubs, or gallops LUNGS: Clear to auscultation bilaterally. No wheezes. No rhonch ABDOMEN: Soft, nontender, nondistended. Positive bowel sounds. Normal active bowel sounds NEUROLOGICAL: Alert and oriented times three. Sensation diminished to light touch RUE and RLE +babinksi RLE, 1+/4 right elbow flexor /extensor, 2/4 right wrist flexors EXTREMITIES: 5/5 LUE, >3/5 LLE *limited due to groin pain, >3/5 RUE (limited due to tone), 5/5 right hip flexor, knee extension,0/5 ankle DF SKIN: +stage 2 pressure ulcers LABORATORY DATA: Please see below. IMAGING: Imaging documentation personally reviewed by record FUNCTIONAL STATUS: Premorbid: Independent with all activities of daily life as well as mobility On Admission: Min-Mod assist for functional transfers, ambulation, bed mobility, dressing, toileting GOALS: Mod-I ambulating household distances, dressing, bed mobility, bathing, toileting ASSESSMENT:70-year-old M with past medical history of CVA who presents status post fall with left pelvic fracture PLAN: 1. Rehab- PT/oT advance mobility and ADLs, strengthen/stretch/maintain ROM all 4 limbs, will do 25% partial WB to LLE until cleared with ortho given acetabular fracture, therapy aware and have adjusted treatment plan accordingly 2. Neuro- hx of CVA with right sided weakness contributing to functional def icits, c/u ASa and statin for secondary stroke prevention 3. Cardiac-hx of HTn c/u BP meds, medicine consulted to assist in overall management 4. Resp- monitor for infection, incentive spirometry 5. Endo- hx of DM, c.u ISS will consider adding back oral agents during hospital stay 6. GI ppx- protonix 7. DVT ppx- lovenox and teds 8, PAin- tylenol and oxycodone, gabapentin 200mg qHS 9,. Dispo- TBD POST ADMISSION PHYSICIAN EVALUATION: Medical and functional status: Description of medical status, medical assessment: As above. Rehabilitation diagnosis and current and prior cold morbid medical conditions as above. Risk of complications and plans to mitigate them as above. Description of functional status current status is as above. Prior status as above. Status compared to preadmission: There are no clinically significant differences between the patient's current status and the information described on the preadmission screening document. Treatment plan anticipated: Treatment plan is as described above. Required d isciplines including physical therapy, occupational therapy, others as noted above Intensity of services: 3 hours a day, 6 days a week. Special considerations: There are no specific special or safety considerations that would likely preclude immediate implementation of an intensive rehabilitation program or subsequently influence the plan of care. ATTESTATION: Considering all the information above, it is my best judgment that this patient requires intensive rehabilitation therapy as described above and an inpatient hospital environment due to the complexity of nursing, medical, and rehabilitation needs required by the patient. Furthermore, this patient can reasonably be expected to participate in an benefit from an inpatient rehabilitation stay with an interdisciplinary team approach to the delivery of rehabilitation care under the direction and supervision of rehabilitation physician. PROGNOSIS: good ESTIMATED LENGTH OF STAY:14-18 days. PROJECTED DISCHARGE DESTINATION: Home with family support and any durable medical equipment required to increase functional safety and mobility. TIME SPENT COUNSELING AND COORDINATING INITIAL CARE: Greater than 70 minutes. Vital Signs Vital Sign - Last 24 Hours 09/28/20 09/28/20 09/28/20 09/28/20 14:10 14:15 19:30 20:00 Temp 98.3 100.7 Pulse 78 84 Resp 22 18 20 B/P (MAP) 176/88 (117) 158/80 (106) 174/88 (116) Pulse Ox 99 97 O2 Delivery Room Air Room Air Room Air 09/28/20 09/28/20 09/29/20 09/29/20 20:12 23:00 00:03 00:39 Temp 99.8 Resp 18 18 18 B/P (MAP) 166/84 (111) O2 Delivery Room Air Room Air Room Air 09/29/20 09/29/20 09/29/20 09/29/20 05:39 05:54 06:30 10:18 Temp 98.5 Pulse 68 Resp 18 18 18 16 B/P (MAP) 147/79 (101) Pulse Ox 96 O2 Delivery Room Air Room Air Room Air Laboratory Data CBC/BMP Laboratory Tests 09/29/20 07:19 Labs 24H Laboratory Tests 2 09/28/20 16:02: Bedside Glucose (Misc Panel) 117H 09/28/20 19:59: Bedside Glucose (Misc Panel) 93 09/29/20 05:03: Bedside Glucose (Misc Panel) 91 09/29/20 07:19: Immature Granulocyte % (Auto) 0.3, Neutrophils (%) (Auto) 63.8, Lymphocytes (%) (Auto) 23.2L, Monocytes (%) (Auto) 7.4H, Eosinophils (%) (Auto) 4.6H, Basophils (%) (Auto) 0.7, Neutrophils # (Auto) 4.4, Lymphocytes # (Auto) 1.6, Monocytes # (Auto) 0.5, Eosinophils # (Auto) 0.3, Basophils # (Auto) 0.1, Nucleated Red Blood Cells % (auto) 0.0, Anion Gap 6L, Glomerular Filtration Rate > 60.0, Calcium Level 8.3L, Total Bilirubin 0.9, Aspartate Amino Transf (AST/SGOT) 25, Alanine Aminotransferase (ALT/SGPT) 25, Alkaline Phosphatase 62, Total Protein 6.5, Albumin 3.2, Albumin/Globulin Ratio 1.0 FSBS Laboratory Tests Test 09/28/20 16:02 09/28/20 19:59 09/29/20 05:03 Range/Units Bedside Glucose (Misc Panel) 117 93 91 83-110 MG/DL Microbiology Microbiology 09/28/20 Respiratory Virus Panel (PCR) ([facility]) - Final, Complete Home Medications Scheduled Aspirin (Aspirin EC) 81 Mg Tablet.dr, 81 MG PO QHS, (Reported) Atorvastatin Calcium (Atorvastatin Calcium) 40 Mg Tab, 40 MG PO DAILY, (Reported) Lisinopril (Lisinopril) 40 Mg Tab, 40 MG PO QHS, (Reported) Metformin HCl (Metformin HCl) 500 Mg Tab, 500 MG PO BID, (Reported) Pantoprazole Sodium (Pantoprazole Sodium) 40 Mg Tablet.dr, 40 MG PO DAILY, (Reported) Scheduled PRN Acetaminophen (Acetaminophen) 500 Mg Tablet, 1,000 MG PO TID PRN for PAIN / FEVER, (Reported) Oxycodone/Acetaminophen (Oxycodone-Acetaminophen 5-325) 1 Each Tablet, 1 TAB PO Q6HP PRN for MODERATE PAIN (PS 5-7) Allergies Coded Allergies: No Known Allergies (Unverified , 11/29/18) A-FIB/CHADSVASC A-FIB History Current/History of A-Fib/PAF?: No YANCY KIRKLAND MD Sep 29, 2020 10:51
[2020-09-29 13:48] VITALS: BP 156/79
[2020-09-29] MEDS: ACETAMINOPHEN 500 MG TAB PO SCH ×2 (15:14→20:46)
--- NOTE | 2020-09-29 16:46 | IPNPDOC ---
Text Note Date of Service The patient was seen on 09/29/20. NOTE Subjective: No any acute events overnight Objective: GENERAL APPEARANCE: NAD HEENT: no scleral icterus, no JVD, EOMI CARDIOVASCULAR: S1S2 LUNGS: CTA ABDOMEN: soft & not tender w palpitation MUSCULOSKELETAL: no cyanosis, no swelling INTEGUMENT: no generalized palor NEUROLOGICAL: cranial nerve function from 2-12 intact intact, follows commands, speech not dysarthric ASSESSMENT: This is a 70-year-old male with history of hypertension, CVA in 2017 with residual right upper and lower extremity weakness who presents 2 days after mechanical fall off a ladder at home found to have fracture of superior rim of the acetabulum into the left iliac bone. After orthopedic surgery patient was transferred to acute rehabilitation unit PLAN: 1. Left acetabular fracture -Pain management -PT/OT 2.GERD: -Continue Protonix 3. HTN: -Continue lisinopril 4. Hx of CAD: -Continue atorvastatin/ASA VS,Fishbone, I+O VS, Fishbone, I+O Laboratory Tests 09/29/20 07:19 Vital Signs Date Time Temp Pulse Resp B/P (MAP) Pulse Ox O2 Delivery O2 Flow Rate FiO2 09/29/20 13:48 99.1 66 21 156/79 (104) 98 Room Air I&O- Last 24 Hours up to 6 AM 09/29/20 06:00 Intake Total 170 ml Output Total 350 ml Balance -180 ml KURT MORALES DO Sep 29, 2020 16:46
[2020-09-29 20:00] VITALS: BP 144/73
[2020-09-29] MEDS: ASPIRIN 81 MG ENTERIC TAB PO SCH (20:46)
[2020-09-29] MEDS: lisinopriL 40 MG TAB PO SCH (20:47)
[2020-09-29] MEDS: GABAPENTIN 100 MG CAP PO SCH (20:47)
[2020-09-29] MEDS: oxyCODONE 5MG TAB PO SCH (20:47)
[2020-09-29] MEDS: SENNA 8.6 MG TAB (SENOKOT) PO SCH (20:47)
[2020-09-30] MEDS: oxyCODONE 5MG TAB PO PRN ×3 (01:51→10:22)
[2020-09-30 06:00] VITALS: BP 128/76
[2020-09-30] MEDS: HumaLOG INSULIN (NovoLOG) PER UNIT SC SCH ×4 (07:30→20:36)
[2020-09-30] MEDS: ATORVASTATIN 20 MG TAB PO SCH (08:29)
[2020-09-30] MEDS: PANTOPRAZOLE 40MG TAB (PROTONIX) PO SCH (08:29)
[2020-09-30] MEDS: DOCUSATE SODIUM 100MG CAPSULE PO SCH ×2 (08:29→20:37)
[2020-09-30] MEDS: ENOXAPARIN 40MG/0.4ML SYRINGE (J1650 PER 10MG) SC SCH (08:30)
[2020-09-30] MEDS: REMEDY PHYTOPLEX Z-GUARD PASTE 113GM TUBE (FROM STOREROOM PRODUCT) TOP SCH ×3 (08:30→20:37)
[2020-09-30] MEDS: ACETAMINOPHEN 500 MG TAB PO SCH ×3 (08:30→20:36)
[2020-09-30 14:25] VITALS: BP 129/81
[2020-09-30 20:00] VITALS: BP 117/75
[2020-09-30] MEDS: oxyCODONE 5MG TAB PO SCH (20:35)
[2020-09-30] MEDS: ASPIRIN 81 MG ENTERIC TAB PO SCH (20:36)
[2020-09-30] MEDS: lisinopriL 40 MG TAB PO SCH (20:36)
[2020-09-30] MEDS: GABAPENTIN 100 MG CAP PO SCH (20:36)
[2020-09-30] MEDS: SENNA 8.6 MG TAB (SENOKOT) PO SCH (20:37)
[2020-10-01] MEDS: oxyCODONE 5MG TAB PO PRN (05:46)
[2020-10-01 06:07] VITALS: BP 151/77
[2020-10-01] MEDS: HumaLOG INSULIN (NovoLOG) PER UNIT SC SCH ×4 (07:30→20:45)
[2020-10-01 08:03] LABS: BASO # 0.1 10^3/uL (0.0-0.2); BASO % 0.9 % (0.0-1.0); EOS # 0.3 10^3/uL (0.0-0.5); EOS % 4.5 % (0.0-3.0); LYMPH # 1.6 10^3/uL (1.5-5.0); LYMPH % 23.2 % (24.0-44.0); MEAN CORPUSCULAR HEMOGLOBIN 30.4 pg (27.0-33.0); MEAN CORPUSCULAR HGB CONC 32.5 g/dl (32.0-36.5); MEAN CORPUSCULAR VOLUME 93.5 fl (80.0-96.0); MONO # 0.5 10^3/uL (0.0-0.8); MONO % 7.5 % (0.0-5.0); NEUTROPHILS # 4.4 10^3/uL (1.5-8.5); NEUTROPHILS % 63.6 % (36.0-66.0); PLATELET COUNT, AUTOMATED 223 10^3/uL (150-450); RED BLOOD COUNT 4.28 10^6/uL (4.30-6.10); WHITE BLOOD COUNT 6.9 10^3/uL (4.0-10.0)
[2020-10-01 08:29] LABS: BLOOD UREA NITROGEN 22 MG/DL (7-18); CALCIUM LEVEL 8.7 MG/DL (8.8-10.2); CARBON DIOXIDE LEVEL 27 MEQ/L (21-32); CHLORIDE LEVEL 107 MEQ/L (98-107); CREATININE FOR GFR 0.66 MG/DL (0.70-1.30); GLOMERULAR FILTRATION RATE > 60.0 (>42); GLUCOSE, FASTING 115 MG/DL (70-100); POTASSIUM SERUM 4.1 MEQ/L (3.5-5.1); SODIUM LEVEL 141 MEQ/L (136-145)
[2020-10-01] MEDS: ENOXAPARIN 40MG/0.4ML SYRINGE (J1650 PER 10MG) SC SCH (08:30)
[2020-10-01] MEDS: ATORVASTATIN 20 MG TAB PO SCH (08:30)
[2020-10-01] MEDS: ACETAMINOPHEN 500 MG TAB PO SCH ×3 (08:30→20:44)
[2020-10-01] MEDS: PANTOPRAZOLE 40MG TAB (PROTONIX) PO SCH (08:30)
[2020-10-01] MEDS: DOCUSATE SODIUM 100MG CAPSULE PO SCH ×2 (08:31→20:44)
[2020-10-01] MEDS: REMEDY PHYTOPLEX Z-GUARD PASTE 113GM TUBE (FROM STOREROOM PRODUCT) TOP SCH ×3 (08:32→20:45)
[2020-10-01 14:00] VITALS: BP 125/64
[2020-10-01 20:20] VITALS: BP 136/72
[2020-10-01] MEDS: ASPIRIN 81 MG ENTERIC TAB PO SCH (20:42)
[2020-10-01] MEDS: GABAPENTIN 100 MG CAP PO SCH (20:42)
[2020-10-01] MEDS: lisinopriL 40 MG TAB PO SCH (20:42)
[2020-10-01] MEDS: oxyCODONE 5MG TAB PO SCH (20:44)
[2020-10-01] MEDS: SENNA 8.6 MG TAB (SENOKOT) PO SCH (20:44)
[2020-10-02 05:16] VITALS: BP 151/78
[2020-10-02] MEDS: HumaLOG INSULIN (NovoLOG) PER UNIT SC SCH ×4 (07:18→21:00)
[2020-10-02] MEDS: DOCUSATE SODIUM 100MG CAPSULE PO SCH ×2 (09:00→21:00)
[2020-10-02] MEDS: ACETAMINOPHEN 500 MG TAB PO SCH ×3 (09:26→21:06)
[2020-10-02] MEDS: ATORVASTATIN 20 MG TAB PO SCH (09:26)
[2020-10-02] MEDS: PANTOPRAZOLE 40MG TAB (PROTONIX) PO SCH (09:26)
[2020-10-02] MEDS: ENOXAPARIN 40MG/0.4ML SYRINGE (J1650 PER 10MG) SC SCH (09:27)
[2020-10-02] MEDS: REMEDY PHYTOPLEX Z-GUARD PASTE 113GM TUBE (FROM STOREROOM PRODUCT) TOP SCH ×3 (09:29→21:08)
--- NOTE | 2020-10-02 09:56 | IPNPDOC ---
PM&R Progress Note DATE OF SERVICE: Oct 02, 2020 Batch Freezer Progress Note SUbjective: PAtient reporting that his pain is better controlled with the evening dosing of oxycodone and gabapentin. REVIEW OF SYSTEMS: The following is a completed review of systems and has been reviewed. Review of systems otherwise unremarkable. PAIN: Patient self reports left groin pain EYES: No recent vision changes EARS, NOSE, & THROAT: +mild chronic dysphagia CARDIOVASCULAR: Denies chest pain or palpitations PULMONARY: Denies shortness of breath. GASTROINTESTINAL: Denies constipation/diarrhea GENITOURINARY: denies dysuria MUSCULOSKELETAL: +pelvic fracture NEUROLOGICAL:right sided spasticity and tone HEMATOLOGICAL: denies easy bruising SKIN: +sacral ulcer PSYCHIATRIC: Unremarkable All other review of systems found to be negative. PHYSICAL EXAMINATION: VITAL SIGNS: Please see below. GENERAL: Pleasant and cooperative. No acute distress. HEENT: PERRL. Extraocular movements intact. Clear conjunctiva, +right facial droop CARDIOVASCULAR: Regular rate and rhythm. No murmurs, rubs, or gallops LUNGS: Clear to auscultation bilaterally. No wheezes. No rhonch ABDOMEN: Soft, nontender, nondistended. Positive bowel sounds. Normal active bowel sounds NEUROLOGICAL: Alert and oriented times three. Sensation diminished to light touch RUE and RLE +babinksi RLE, 1+/4 right elbow flexor /extensor, 2/4 right wrist flexors EXTREMITIES: 5/5 LUE, >3/5 LLE *limited due to groin pain, >3/5 RUE (limited due to tone), 5/5 right hip flexor, knee extension,0/5 ankle DF SKIN: +stage 2 pressure ulcers IMAGING: Imaging documentation personally reviewed by record ASSESSMENT:70-year-old M with past medical history of CVA who presents status post fall with left pelvic fracture PLAN: 1. Rehab- PT/oT advance mobility and ADLs, strengthen/stretch/maintain ROM all 4 limbs, 2. Ortho - left acetabular fracture c/u PWB 50% through LLE 2. Neuro- hx of CVA with right sided weakness contributing to functional deficits, c/u ASa and statin for secondary stroke prevention 3. Cardiac-hx of HTn c/u BP meds, medicine consulted to assist in overall management 4. Resp- monitor for infection, incentive spirometry 5. Endo- hx of DM, c.u ISS will consider adding back oral agents during hospital stay 6. GI ppx- protonix 7. DVT ppx- lovenox and teds 8, PAin- tylenol and oxycodone, gabapentin 200mg qHS 9,. Dispo- TBD Allergies Coded Allergies: No Known Allergies (Unverified , 11/29/18) Vital Signs Vital Signs Date Time Temp Pulse Resp B/P (MAP) Pulse Ox O2 Delivery O2 Flow Rate FiO2 10/02/20 05:16 98.1 64 18 151/78 (102) 95 10/01/20 20:20 Room Air Laboratory Data Labs 24H Laboratory Tests 2 10/01/20 10:57: Bedside Glucose (Misc Panel) 113H 10/01/20 16:14: Bedside Glucose (Misc Panel) 108 10/01/20 19:51: Bedside Glucose (Misc Panel) 123H 10/02/20 05:57: Bedside Glucose (Misc Panel) 91 Microbiology Microbiology 09/28/20 Respiratory Virus Panel (PCR) ([facility]) - Final, Complete Current Medications Current Medications Current Medications Medications (Trade) Dose Ordered Sig/Joao Route PRN Reason Start Time Stop Time Status Last Admin Dose Admin Acetaminophen (Tylenol Tab) 1,000 mg TID PO 09/29/20 16:00 10/02/20 09:26 Aspirin (Ecotrin) 81 mg QHS PO 09/28/20 21:00 10/01/20 20:42 Atorvastatin Calcium (Lipitor) 40 mg DAILY PO 09/29/20 09:00 10/02/20 09:26 Bisacodyl (Dulcolax Suppository) 10 mg DAILYPRN PRN [place] CONSTIPATION 09/28/20 15:30 Dextrose (Dextrose 50%) 25 ml ASDIRECTED PRN IV SEE LABEL COMMENTS 09/28/20 15:30 Docusate Sodium (Colace) 100 mg BID PO 09/28/20 21:00 Enoxaparin Sodium (Lovenox) 40 mg DAILY SC 09/29/20 09:00 10/02/20 09:27 Gabapentin (Neurontin) 200 mg QHS PO 09/29/20 21:00 10/01/20 20:42 Glucagon (Glucagon) 1 mg ASDIRECTED PRN SC SEE LABEL COMMENTS 09/28/20 15:30 Glucose (Glucose) 16 GM ASDIRECTED PRN PO SEE LABEL COMMENTS 09/28/20 15:30 Insulin Human Lispro (HumaLOG INSULIN) SEE PROTOCOL TABLE AC SC 09/28/20 17:30 Insulin Human Lispro (HumaLOG INSULIN) SEE PROTOCOL TABLE QHS SC 09/28/20 21:00 Lisinopril (Prinivil) 40 mg QHS PO 09/28/20 21:00 10/01/20 20:42 Oxycodone HCl (Roxicodone, Oxyir) 5 mg Q4HP PRN PO PAIN 09/28/20 15:30 10/01/20 05:46 Oxycodone HCl (Roxicodone, Oxyir) 5 mg QHS PO 09/29/20 21:00 10/01/20 20:44 Pantoprazole Sodium (Protonix) 40 mg DAILY PO 09/29/20 09:00 10/02/20 09:26 Senna (Senokot) 1 tab QHS PO 09/28/20 21:00 YANCY KIRKLAND MD Oct 02, 2020 09:56
[2020-10-02 14:00] VITALS: BP 129/67
[2020-10-02 20:00] VITALS: BP 156/74
[2020-10-02] MEDS: SENNA 8.6 MG TAB (SENOKOT) PO SCH (21:00)
[2020-10-02] MEDS: GABAPENTIN 100 MG CAP PO SCH (21:05)
[2020-10-02] MEDS: ASPIRIN 81 MG ENTERIC TAB PO SCH (21:05)
[2020-10-02] MEDS: lisinopriL 40 MG TAB PO SCH (21:06)
[2020-10-02] MEDS: oxyCODONE 5MG TAB PO SCH (21:07)
[2020-10-03 05:56] VITALS: BP 132/76
[2020-10-03] MEDS: HumaLOG INSULIN (NovoLOG) PER UNIT SC SCH ×4 (07:02→20:18)
[2020-10-03] MEDS: DOCUSATE SODIUM 100MG CAPSULE PO SCH ×3 (07:02→20:19)
[2020-10-03 07:30] LABS: BASO # 0.1 10^3/uL (0.0-0.2); BASO % 1.1 % (0.0-1.0); EOS # 0.3 10^3/uL (0.0-0.5); EOS % 3.8 % (0.0-3.0); HEMATOCRIT 37.3 % (42.0-52.0); HEMOGLOBIN 12.6 g/dl (13.5-17.5); LYMPH # 1.8 10^3/uL (1.5-5.0); LYMPH % 27.8 % (24.0-44.0); MEAN CORPUSCULAR HGB CONC 33.8 g/dl (32.0-36.5); MEAN CORPUSCULAR VOLUME 91.6 fl (80.0-96.0); MONO # 0.5 10^3/uL (0.0-0.8); MONO % 7.4 % (0.0-5.0); NEUTROPHILS # 3.9 10^3/uL (1.5-8.5); NEUTROPHILS % 59.6 % (36.0-66.0); PLATELET COUNT, AUTOMATED 253 10^3/uL (150-450); RED BLOOD COUNT 4.07 10^6/uL (4.30-6.10); WHITE BLOOD COUNT 6.5 10^3/uL (4.0-10.0)
[2020-10-03 07:50] LABS: BLOOD UREA NITROGEN 22 MG/DL (7-18); CALCIUM LEVEL 8.7 MG/DL (8.8-10.2); CARBON DIOXIDE LEVEL 28 MEQ/L (21-32); CHLORIDE LEVEL 110 MEQ/L (98-107); CREATININE FOR GFR 0.65 MG/DL (0.70-1.30); GLOMERULAR FILTRATION RATE > 60.0 (>42); GLUCOSE, FASTING 99 MG/DL (70-100); POTASSIUM SERUM 4.1 MEQ/L (3.5-5.1); SODIUM LEVEL 143 MEQ/L (136-145)
[2020-10-03] MEDS: PANTOPRAZOLE 40MG TAB (PROTONIX) PO SCH (08:28)
[2020-10-03] MEDS: ACETAMINOPHEN 500 MG TAB PO SCH ×3 (08:28→20:17)
[2020-10-03] MEDS: ENOXAPARIN 40MG/0.4ML SYRINGE (J1650 PER 10MG) SC SCH (08:28)
[2020-10-03] MEDS: ATORVASTATIN 20 MG TAB PO SCH (08:28)
[2020-10-03] MEDS: REMEDY PHYTOPLEX Z-GUARD PASTE 113GM TUBE (FROM STOREROOM PRODUCT) TOP SCH ×3 (08:29→20:18)
--- NOTE | 2020-10-03 10:56 | IPNPDOC ---
PM&R Progress Note DATE OF SERVICE: Oct 03, 2020 Systems Accountant Progress Note SUbjective: Patient reporting he feels constipated and has been avoiding taking bowel meds. He does not want a suppository just yet and says he will start to take bowel meds. REVIEW OF SYSTEMS: The following is a completed review of systems and has been reviewed. Review of systems otherwise unremarkable. PAIN: Patient self reports left groin pain EYES: No recent vision changes EARS, NOSE, & THROAT: +mild chronic dysphagia CARDIOVASCULAR: Denies chest pain or palpitations PULMONARY: Denies shortness of breath. GASTROINTESTINAL: + constipation GENITOURINARY: denies dysuria MUSCULOSKELETAL: +pelvic fracture NEUROLOGICAL:right sided spasticity and tone HEMATOLOGICAL: denies easy bruising SKIN: +sacral ulcer PSYCHIATRIC: Unremarkable All other review of systems found to be negative. PHYSICAL EXAMINATION: VITAL SIGNS: Please see below. GENERAL: Pleasant and cooperative. No acute distress. HEENT: PERRL. Extraocular movements intact. Clear conjunctiva, +right facial droop CARDIOVASCULAR: Regular rate and rhythm. No murmurs, rubs, or gallops LUNGS: Clear to auscultation bilaterally. No wheezes. No rhonch ABDOMEN: Soft, nontender, nondistended. Positive bowel sounds. Normal active bowel sounds NEUROLOGICAL: Alert and oriented times three. Sensation diminished to light touch RUE and RLE +babinksi RLE, 1+/4 right elbow flexor /extensor, 2/4 right wrist flexors EXTREMITIES: 5/5 LUE, >3/5 LLE *limited due to groin pain, >3/5 RUE (limited due to tone), 5/5 right hip flexor, knee extension,0/5 ankle DF SKIN: +stage 2 pressure ulcers IMAGING: Imaging documentation personally reviewed by record ASSESSMENT:70-year-old M with past medical history of CVA who presents status post fall with left pelvic fracture PLAN: 1. Rehab- PT/oT advance mobility and ADLs, strengthen/stretch/maintain ROM all 4 limbs, progressing with vernon-walker 2. Ortho - left acetabular fracture c/u PWB 50% through LLE 2. Neuro- hx of CVA with right sided weakness contributing to functional deficits, c/u ASa and statin for secondary stroke prevention 3. Cardiac-hx of HTn c/u BP meds, medicine consulted to assist in overall management 4. Resp- monitor for infection, incentive spirometry 5. Endo- hx of DM, c.u ISS will consider adding back oral agents during hospital stay, so far FS very well controlled 6. GI ppx- protonix 7. DVT ppx- lovenox and teds 8, PAin- tylenol and oxycodone, gabapentin 200mg qHS 9. Dispo- TBD Allergies Coded Allergies: No Known Allergies (Unverified , 11/29/18) Vital Signs Vital Signs Date Time Temp Pulse Resp B/P (MAP) Pulse Ox O2 Delivery O2 Flow Rate FiO2 10/03/20 05:56 98.4 70 20 132/76 (94) 92 10/02/20 20:00 Room Air Laboratory Data CBC/BMP Laboratory Tests 10/03/20 06:48 Labs 24H Laboratory Tests 2 10/02/20 11:10: Bedside Glucose (Misc Panel) 91 10/02/20 15:56: Bedside Glucose (Misc Panel) 112H 10/02/20 21:04: Bedside Glucose (Misc Panel) 116H 10/03/20 06:45: Bedside Glucose (Misc Panel) 99 10/03/20 06:48: Immature Granulocyte % (Auto) 0.3, Neutrophils (%) (Auto) 59.6, Lymphocytes (%) (Auto) 27.8, Monocytes (%) (Auto) 7.4H, Eosinophils (%) (Auto) 3.8H, Basophils (%) (Auto) 1.1H, Neutrophils # (Auto) 3.9, Lymphocytes # (Auto) 1.8, Monocytes # (Auto) 0.5, Eosinophils # (Auto) 0.3, Basophils # (Auto) 0.1, Nucleated Red Blood Cells % (auto) 0.0, Anion Gap 5L, Glomerular Filtration Rate > 60.0, Calcium Level 8.7L Microbiology Microbiology 09/28/20 Respiratory Virus Panel (PCR) ([facility]) - Final, Complete Current Medications Current Medications Current Medications Medications (Trade) Dose Ordered Sig/Joao Route PRN Reason Start Time Stop Time Status Last Admin Dose Admin Acetaminophen (Tylenol Tab) 1,000 mg TID PO 09/29/20 16:00 10/03/20 08:28 Aspirin (Ecotrin) 81 mg QHS PO 09/28/20 21:00 10/02/20 21:05 Atorvastatin Calcium (Lipitor) 40 mg DAILY PO 09/29/20 09:00 10/03/20 08:28 Bisacodyl (Dulcolax Suppository) 10 mg DAILYPRN PRN [place] CONSTIPATION 09/28/20 15:30 Dextrose (Dextrose 50%) 25 ml ASDIRECTED PRN IV SEE LABEL COMMENTS 09/28/20 15:30 Docusate Sodium (Colace) 100 mg BID PO 09/28/20 21:00 Enoxaparin Sodium (Lovenox) 40 mg DAILY SC 09/29/20 09:00 10/03/20 08:28 Gabapentin (Neurontin) 200 mg QHS PO 09/29/20 21:00 10/02/20 21:05 Glucagon (Glucagon) 1 mg ASDIRECTED PRN SC SEE LABEL COMMENTS 09/28/20 15:30 Glucose (Glucose) 16 GM ASDIRECTED PRN PO SEE LABEL COMMENTS 09/28/20 15:30 Insulin Human Lispro (HumaLOG INSULIN) SEE PROTOCOL TABLE AC SC 09/28/20 17:30 Insulin Human Lispro (HumaLOG INSULIN) SEE PROTOCOL TABLE QHS SC 09/28/20 21:00 Lisinopril (Prinivil) 40 mg QHS PO 09/28/20 21:00 10/02/20 21:06 Oxycodone HCl (Roxicodone, Oxyir) 5 mg Q4HP PRN PO PAIN 09/28/20 15:30 10/01/20 05:46 Oxycodone HCl (Roxicodone, Oxyir) 5 mg QHS PO 09/29/20 21:00 10/02/20 21:07 Pantoprazole Sodium (Protonix) 40 mg DAILY PO 09/29/20 09:00 10/03/20 08:28 Senna (Senokot) 1 tab QHS PO 09/28/20 21:00 YANCY KIRKLAND MD Oct 03, 2020 10:56
[2020-10-03 14:00] VITALS: BP 131/61
[2020-10-03 20:00] VITALS: BP 166/82
[2020-10-03] MEDS: GABAPENTIN 100 MG CAP PO SCH (20:16)
[2020-10-03] MEDS: lisinopriL 40 MG TAB PO SCH (20:16)
[2020-10-03] MEDS: ASPIRIN 81 MG ENTERIC TAB PO SCH (20:16)
[2020-10-03] MEDS: oxyCODONE 5MG TAB PO SCH (20:17)
[2020-10-03] MEDS: SENNA 8.6 MG TAB (SENOKOT) PO SCH (20:18)
[2020-10-04 06:00] VITALS: BP 143/71
[2020-10-04] MEDS: HumaLOG INSULIN (NovoLOG) PER UNIT SC SCH ×4 (07:19→20:31)
[2020-10-04] MEDS: ACETAMINOPHEN 500 MG TAB PO SCH ×3 (07:51→20:30)
[2020-10-04] MEDS: PANTOPRAZOLE 40MG TAB (PROTONIX) PO SCH (07:51)
[2020-10-04] MEDS: ATORVASTATIN 20 MG TAB PO SCH (07:51)
[2020-10-04] MEDS: ENOXAPARIN 40MG/0.4ML SYRINGE (J1650 PER 10MG) SC SCH (07:52)
[2020-10-04] MEDS: REMEDY PHYTOPLEX Z-GUARD PASTE 113GM TUBE (FROM STOREROOM PRODUCT) TOP SCH ×3 (07:52→20:31)
[2020-10-04] MEDS: DOCUSATE SODIUM 100MG CAPSULE PO SCH ×3 (07:52→20:30)
[2020-10-04 14:00] VITALS: BP 130/70
[2020-10-04 20:00] VITALS: BP 120/98
[2020-10-04] MEDS: ASPIRIN 81 MG ENTERIC TAB PO SCH (20:29)
[2020-10-04] MEDS: GABAPENTIN 100 MG CAP PO SCH (20:30)
[2020-10-04] MEDS: SENNA 8.6 MG TAB (SENOKOT) PO SCH (20:30)
[2020-10-04] MEDS: oxyCODONE 5MG TAB PO SCH (20:31)
[2020-10-04] MEDS: lisinopriL 40 MG TAB PO SCH (20:31)
[2020-10-05 06:00] VITALS: BP 130/77
[2020-10-05] MEDS: HumaLOG INSULIN (NovoLOG) PER UNIT SC SCH ×4 (07:30→20:46)
[2020-10-05 07:36] LABS: BASO # 0.1 10^3/uL (0.0-0.2); EOS # 0.2 10^3/uL (0.0-0.5); EOS % 3.6 % (0.0-3.0); HEMATOCRIT 38.3 % (42.0-52.0); HEMOGLOBIN 12.9 g/dl (13.5-17.5); LYMPH # 1.8 10^3/uL (1.5-5.0); LYMPH % 31.3 % (24.0-44.0); MEAN CORPUSCULAR HEMOGLOBIN 30.9 pg (27.0-33.0); MEAN CORPUSCULAR HGB CONC 33.7 g/dl (32.0-36.5); MEAN CORPUSCULAR VOLUME 91.8 fl (80.0-96.0); MONO # 0.4 10^3/uL (0.0-0.8); MONO % 6.8 % (0.0-5.0); NEUTROPHILS # 3.3 10^3/uL (1.5-8.5); PLATELET COUNT, AUTOMATED 285 10^3/uL (150-450); RED BLOOD COUNT 4.17 10^6/uL (4.30-6.10); WHITE BLOOD COUNT 5.9 10^3/uL (4.0-10.0)
[2020-10-05 07:58] LABS: BLOOD UREA NITROGEN 25 MG/DL (7-18); CALCIUM LEVEL 8.9 MG/DL (8.8-10.2); CARBON DIOXIDE LEVEL 29 MEQ/L (21-32); CHLORIDE LEVEL 107 MEQ/L (98-107); CREATININE FOR GFR 0.67 MG/DL (0.70-1.30); GLOMERULAR FILTRATION RATE > 60.0 (>42); GLUCOSE, FASTING 97 MG/DL (70-100); POTASSIUM SERUM 4.2 MEQ/L (3.5-5.1); SODIUM LEVEL 141 MEQ/L (136-145)
[2020-10-05] MEDS: DOCUSATE SODIUM 100MG CAPSULE PO SCH ×3 (09:00→20:45)
[2020-10-05] MEDS: PANTOPRAZOLE 40MG TAB (PROTONIX) PO SCH (09:06)
[2020-10-05] MEDS: ACETAMINOPHEN 500 MG TAB PO SCH ×3 (09:06→20:45)
[2020-10-05] MEDS: ATORVASTATIN 20 MG TAB PO SCH (09:06)
[2020-10-05] MEDS: REMEDY PHYTOPLEX Z-GUARD PASTE 113GM TUBE (FROM STOREROOM PRODUCT) TOP SCH ×3 (09:07→20:46)
[2020-10-05] MEDS: ENOXAPARIN 40MG/0.4ML SYRINGE (J1650 PER 10MG) SC SCH (09:07)
--- NOTE | 2020-10-05 13:51 | IPNPDOC ---
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 REVIEW OF SYSTEMS: The following is a completed review of systems and has been reviewed. Review of systems otherwise unremarkable. PAIN: Patient self reports left groin pain EYES: No recent vision changes EARS, NOSE, & THROAT: +mild chronic dysphagia CARDIOVASCULAR: Denies chest pain or palpitations PULMONARY: Denies shortness of breath. GASTROINTESTINAL: + constipation GENITOURINARY: denies dysuria MUSCULOSKELETAL: +pelvic fracture NEUROLOGICAL:right sided spasticity and tone HEMATOLOGICAL: denies easy bruising SKIN: +sacral ulcer PSYCHIATRIC: Unremarkable All other review of systems found to be negative. PHYSICAL EXAMINATION: VITAL SIGNS: Please see below. GENERAL: Pleasant and cooperative. No acute distress. HEENT: PERRL. Extraocular movements intact. Clear conjunctiva, +right facial droop CARDIOVASCULAR: Regular rate and rhythm. No murmurs, rubs, or gallops LUNGS: Clear to auscultation bilaterally. No wheezes. No rhonch ABDOMEN: Soft, nontender, nondistended. Positive bowel sounds. Normal active bowel sounds NEUROLOGICAL: Alert and oriented times three. Sensation diminished to light touch RUE and RLE +babinksi RLE, 1+/4 right elbow flexor /extensor, 2/4 right wrist flexors EXTREMITIES: 5/5 LUE, >3/5 LLE *limited due to groin pain, >3/5 RUE (limited due to tone), 5/5 right hip flexor, knee extension,0/5 ankle DF SKIN: +stage 2 pressure ulcers ASSESSMENT:70-year-old M with past medical history of CVA who presents status p ost fall with left pelvic fracture PLAN: 1. Rehab- PT/oT advance mobility and ADLs, strengthen/stretch/maintain ROM all 4 limbs, progressing with vernon-walker 2. Ortho - left acetabular fracture c/u PWB 50% through LLE 2. Neuro- hx of CVA with right sided weakness contributing to functional deficits, c/u ASa and statin for secondary stroke prevention -will add baclofen for right LE spasticity and monitor for weakness as patient reuqires some tone for stability, but is concerned that he feels tighter now, no significant change in strength on exam 3. Cardiac-hx of HTn c/u BP meds, medicine consulted to assist in overall management 4. Resp- monitor for infection, incentive spirometry 5. Endo- hx of DM, c.u ISS will consider adding back oral agents during hospital stay, so far FS very well controlled 6. GI ppx- protonix 7. DVT ppx- lovenox and teds -DOpplers ordered- negative 8, PAin- tylenol and oxycodone, gabapentin 200mg qHS 9. Dispo- TBD Allergies Coded Allergies: No Known Allergies (Unverified , 11/29/18) Vital Signs Vital Signs Date Time Temp Pulse Resp B/P (MAP) Pulse Ox O2 Delivery O2 Flow Rate FiO2 10/05/20 06:00 97.6 65 18 130/77 (94) 98 Room Air Laboratory Data CBC/BMP Laboratory Tests 10/05/20 06:49 Labs 24H Laboratory Tests 2 10/04/20 16:34: Bedside Glucose (Misc Panel) 100 10/04/20 19:15: Bedside Glucose (Misc Panel) 101 10/05/20 05:23: Bedside Glucose (Misc Panel) 88 10/05/20 06:49: Immature Granulocyte % (Auto) 0.3, Neutrophils (%) (Auto) 57.0, Lymphocytes (%) (Auto) 31.3, Monocytes (%) (Auto) 6.8H, Eosinophils (%) (Auto) 3.6H, Basophils (%) (Auto) 1.0, Neutrophils # (Auto) 3.3, Lymphocytes # (Auto) 1.8, Monocytes # (Auto) 0.4, Eosinophils # (Auto) 0.2, Basophils # (Auto) 0.1, Nucleated Red Blood Cells % (auto) 0.0, Anion Gap 5L, Glomerular Filtration Rate > 60.0, Calcium Level 8.9 10/05/20 11:29: Bedside Glucose (Misc Panel) 88 Microbiology Microbiology 09/28/20 Respiratory Virus Panel (PCR) (EDGAR) - Final, Complete Current Medications Current Medications Current Medications Medications (Trade) Dose Ordered Sig/Joao Route PRN Reason Start Time Stop Time Status Last Admin Dose Admin Acetaminophen (Tylenol Tab) 1,000 mg TID PO 09/29/20 16:00 10/05/20 09:06 Aspirin (Ecotrin) 81 mg QHS PO 09/28/20 21:00 10/04/20 20:29 Atorvastatin Calcium (Lipitor) 40 mg DAILY PO 09/29/20 09:00 10/05/20 09:06 Bisacodyl (Dulcolax Suppository) 10 mg DAILYPRN PRN [place] CONSTIPATION 09/28/20 15:30 Dextrose (Dextrose 50%) 25 ml ASDIRECTED PRN IV SEE LABEL COMMENTS 09/28/20 15:30 Docusate Sodium (Colace) 100 mg BID PO 09/28/20 21:00 10/03/20 17:10 DC Docusate Sodium (Colace) 100 mg TID PO 10/03/20 17:15 10/04/20 20:30 Enoxaparin Sodium (Lovenox) 40 mg DAILY SC 09/29/20 09:00 10/05/20 09:07 Gabapentin (Neurontin) 200 mg QHS PO 09/29/20 21:00 10/04/20 20:30 Glucagon (Glucagon) 1 mg ASDIRECTED PRN SC SEE LABEL COMMENTS 09/28/20 15:30 Glucose (Glucose) 16 GM ASDIRECTED PRN PO SEE LABEL COMMENTS 09/28/20 15:30 Insulin Human Lispro (HumaLOG INSULIN) SEE PROTOCOL TABLE AC SC 09/28/20 17:30 Insulin Human Lispro (HumaLOG INSULIN) SEE PROTOCOL TABLE QHS SC 09/28/20 21:00 Lisinopril (Prinivil) 40 mg QHS PO 09/28/20 21:00 10/04/20 20:31 Oxycodone HCl (Roxicodone, Oxyir) 5 mg Q4HP PRN PO PAIN 09/28/20 15:30 10/01/20 05:46 Oxycodone HCl (Roxicodone, Oxyir) 5 mg QHS PO 09/29/20 21:00 10/04/20 20:31 Pantoprazole Sodium (Protonix) 40 mg DAILY PO 09/29/20 09:00 10/05/20 09:06 Senna (Senokot) 1 tab QHS PO 09/28/20 21:00 10/04/20 20:30 YANCY KIRKLAND MD Oct 05, 2020 13:51
[2020-10-05 14:00] VITALS: BP 117/70
--- NOTE | 2020-10-05 15:40 | REP ---
INDICATION: immobility COMPARISON: 09/26/2020. TECHNIQUE: Real time compression and duplex Doppler interrogation of the bilateral lower extremity deep venous system is performed. FINDINGS: Bilaterally, the common femoral, superficial femoral and popliteal veins are fully compressible with transducer pressure and demonstrate normal spontaneous and phasic flow, without evidence of deep venous thrombosis. IMPRESSION: No evidence of deep venous thrombosis of the bilateral lower extremity femoral popliteal venous system. <Electronically signed by Wilfredo Brooks > 10/05/20 1536
[2020-10-05 19:41] VITALS: BP 157/89
[2020-10-05] MEDS: ASPIRIN 81 MG ENTERIC TAB PO SCH (20:44)
[2020-10-05] MEDS: GABAPENTIN 100 MG CAP PO SCH (20:44)
[2020-10-05] MEDS: SENNA 8.6 MG TAB (SENOKOT) PO SCH (20:45)
[2020-10-05] MEDS: BACLOFEN 5MG PER 1/2 TABLET PO SCH (20:45)
[2020-10-05] MEDS: lisinopriL 40 MG TAB PO SCH (20:45)
[2020-10-05] MEDS: oxyCODONE 5MG TAB PO SCH (20:45)
[2020-10-06 05:57] VITALS: BP 118/71
[2020-10-06] MEDS: HumaLOG INSULIN (NovoLOG) PER UNIT SC SCH (07:30)
[2020-10-06] MEDS: REMEDY PHYTOPLEX Z-GUARD PASTE 113GM TUBE (FROM STOREROOM PRODUCT) TOP SCH ×3 (09:00→20:27)
[2020-10-06] MEDS: ATORVASTATIN 20 MG TAB PO SCH (09:46)
[2020-10-06] MEDS: ENOXAPARIN 40MG/0.4ML SYRINGE (J1650 PER 10MG) SC SCH (09:46)
[2020-10-06] MEDS: DOCUSATE SODIUM 100MG CAPSULE PO SCH ×3 (09:46→20:26)
[2020-10-06] MEDS: BACLOFEN 5MG PER 1/2 TABLET PO SCH ×2 (09:46→20:26)
[2020-10-06] MEDS: PANTOPRAZOLE 40MG TAB (PROTONIX) PO SCH (09:46)
[2020-10-06] MEDS: ACETAMINOPHEN 500 MG TAB PO SCH ×3 (09:46→20:26)
[2020-10-06 14:00] VITALS: BP 108/67
[2020-10-06 20:16] VITALS: BP 140/78
[2020-10-06] MEDS: ASPIRIN 81 MG ENTERIC TAB PO SCH (20:26)
[2020-10-06] MEDS: SENNA 8.6 MG TAB (SENOKOT) PO SCH (20:26)
[2020-10-06] MEDS: GABAPENTIN 100 MG CAP PO SCH (20:26)
[2020-10-06] MEDS: lisinopriL 40 MG TAB PO SCH (20:26)
[2020-10-06] MEDS: oxyCODONE 5MG TAB PO SCH (20:27)
[2020-10-07 05:53] VITALS: BP 139/65
[2020-10-07] MEDS: ACETAMINOPHEN 500 MG TAB PO SCH ×3 (08:36→20:19)
[2020-10-07] MEDS: PANTOPRAZOLE 40MG TAB (PROTONIX) PO SCH (08:36)
[2020-10-07] MEDS: DOCUSATE SODIUM 100MG CAPSULE PO SCH ×3 (08:36→20:20)
[2020-10-07] MEDS: BACLOFEN 5MG PER 1/2 TABLET PO SCH ×2 (08:37→20:19)
[2020-10-07] MEDS: ENOXAPARIN 40MG/0.4ML SYRINGE (J1650 PER 10MG) SC SCH (08:37)
[2020-10-07] MEDS: ATORVASTATIN 20 MG TAB PO SCH (08:37)
[2020-10-07] MEDS: REMEDY PHYTOPLEX Z-GUARD PASTE 113GM TUBE (FROM STOREROOM PRODUCT) TOP SCH ×3 (08:38→20:21)
[2020-10-07 14:00] VITALS: BP 129/72
[2020-10-07] MEDS: BISACODYL 10 MG SUPP PR PRN (14:33)
[2020-10-07] MEDS: GABAPENTIN 100 MG CAP PO SCH (20:19)
[2020-10-07] MEDS: ASPIRIN 81 MG ENTERIC TAB PO SCH (20:20)
[2020-10-07] MEDS: oxyCODONE 5MG TAB PO SCH (20:20)
[2020-10-07] MEDS: SENNA 8.6 MG TAB (SENOKOT) PO SCH (20:20)
[2020-10-07] MEDS: lisinopriL 40 MG TAB PO SCH (20:20)
[2020-10-07 20:21] VITALS: BP 132/68
[2020-10-08 06:00] VITALS: BP 148/86
[2020-10-08 07:24] LABS: BASO # 0.1 10^3/uL (0.0-0.2); EOS # 0.2 10^3/uL (0.0-0.5); EOS % 3.4 % (0.0-3.0); HEMATOCRIT 39.5 % (42.0-52.0); HEMOGLOBIN 12.9 g/dl (13.5-17.5); LYMPH % 32.2 % (24.0-44.0); MEAN CORPUSCULAR HEMOGLOBIN 30.7 pg (27.0-33.0); MEAN CORPUSCULAR HGB CONC 32.7 g/dl (32.0-36.5); MONO # 0.4 10^3/uL (0.0-0.8); MONO % 6.4 % (0.0-5.0); NEUTROPHILS # 3.5 10^3/uL (1.5-8.5); NEUTROPHILS % 56.8 % (36.0-66.0); PLATELET COUNT, AUTOMATED 320 10^3/uL (150-450); WHITE BLOOD COUNT 6.1 10^3/uL (4.0-10.0)
[2020-10-08 07:51] LABS: BLOOD UREA NITROGEN 26 MG/DL (7-18); CALCIUM LEVEL 8.9 MG/DL (8.8-10.2); CARBON DIOXIDE LEVEL 29 MEQ/L (21-32); CHLORIDE LEVEL 107 MEQ/L (98-107); CREATININE FOR GFR 0.72 MG/DL (0.70-1.30); GLOMERULAR FILTRATION RATE > 60.0 (>42); GLUCOSE, FASTING 94 MG/DL (70-100); POTASSIUM SERUM 4.5 MEQ/L (3.5-5.1); SODIUM LEVEL 145 MEQ/L (136-145)
[2020-10-08] MEDS: REMEDY PHYTOPLEX Z-GUARD PASTE 113GM TUBE (FROM STOREROOM PRODUCT) TOP SCH ×3 (09:00→20:35)
[2020-10-08] MEDS: DOCUSATE SODIUM 100MG CAPSULE PO SCH ×3 (09:51→20:34)
[2020-10-08] MEDS: PANTOPRAZOLE 40MG TAB (PROTONIX) PO SCH (09:51)
[2020-10-08] MEDS: ATORVASTATIN 20 MG TAB PO SCH (09:51)
[2020-10-08] MEDS: ENOXAPARIN 40MG/0.4ML SYRINGE (J1650 PER 10MG) SC SCH (09:51)
[2020-10-08] MEDS: BACLOFEN 5MG PER 1/2 TABLET PO SCH ×2 (09:52→20:34)
[2020-10-08] MEDS: ACETAMINOPHEN 500 MG TAB PO SCH ×3 (09:53→20:34)
--- NOTE | 2020-10-08 10:46 | IPNPDOC ---
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 REVIEW OF SYSTEMS: The following is a completed review of systems and has been reviewed. Review of systems otherwise unremarkable. PAIN: Patient self reports left groin pain EYES: No recent vision changes EARS, NOSE, & THROAT: +mild chronic dysphagia CARDIOVASCULAR: Denies chest pain or palpitations PULMONARY: Denies shortness of breath. GASTROINTESTINAL: denies constipation/diarrhea GENITOURINARY: denies dysuria MUSCULOSKELETAL: +pelvic fracture NEUROLOGICAL:right sided spasticity and tone HEMATOLOGICAL: denies easy bruising SKIN: +sacral ulcer PSYCHIATRIC: Unremarkable All other review of systems found to be negative. PHYSICAL EXAMINATION: VITAL SIGNS: Please see below. GENERAL: Pleasant and cooperative. No acute distress. HEENT: PERRL. Extraocular movements intact. Clear conjunctiva, +right facial droop CARDIOVASCULAR: Regular rate and rhythm. No murmurs, rubs, or gallops LUNGS: Clear to auscultation bilaterally. No wheezes. No rhonch ABDOMEN: Soft, nontender, nondistended. Positive bowel sounds. Normal active bowel sounds NEUROLOGICAL: Alert and oriented times three. Sensation diminished to light touch RUE and RLE +babinksi RLE, 1+/4 right elbow flexor /extensor, 2/4 right wrist flexors EXTREMITIES: 5/5 LUE, >3/5 LLE *limited due to groin pain, >3/5 RUE (limited due to tone), 5/5 right hip flexor, knee extension,0/5 ankle DF SKIN: +stage 2 pressure ulcers ASSESSMENT:70-year-old M with past medical history of CVA who presents status post fall with left pelvic fracture PLAN: 1. Rehab- PT/oT advance mobility and ADLs, strengthen/stretch/maintain ROM all 4 limbs, progressing with vernon-walker 2. Ortho - left acetabular fracture c/u PWB 50% through LLE 2. Neuro- hx of CVA with right sided weakness contributing to functional deficits, c/u ASa and statin for secondary stroke prevention -c/u baclofen for right LE spasticity and monitor for weakness as patient requires some tone for stability, but is concerned that he feels tighter now, no significant change in strength on exam 3. Cardiac-hx of HTn c/u BP meds, medicine consulted to assist in overall management 4. Resp- monitor for infection, incentive spirometry 5. Endo- hx of DM, c.u ISS will consider adding back oral agents during hospital stay, so far FS very well controlled 6. GI ppx- protonix 7. DVT ppx- lovenox and teds -DOpplers ordered- negative 8, PAin- tylenol and oxycodone, gabapentin 200mg qHS 9. Dispo- TBD Allergies Coded Allergies: No Known Allergies (Unverified , 11/29/18) Vital Signs Vital Signs Date Time Temp Pulse Resp B/P (MAP) Pulse Ox O2 Delivery O2 Flow Rate FiO2 10/08/20 06:00 97.8 60 20 148/86 (106) 98 Room Air Laboratory Data CBC/BMP Laboratory Tests 10/08/20 06:57 Labs 24H Laboratory Tests 2 10/07/20 16:10: Bedside Glucose (Misc Panel) 117H 10/08/20 06:18: Bedside Glucose (Misc Panel) 82L 10/08/20 06:57: Immature Granulocyte % (Auto) 0.2, Neutrophils (%) (Auto) 56.8, Lymphocytes (%) (Auto) 32.2, Monocytes (%) (Auto) 6.4H, Eosinophils (%) (Auto) 3.4H, Basophils (%) (Auto) 1.0, Neutrophils # (Auto) 3.5, Lymphocytes # (Auto) 2.0, Monocytes # (Auto) 0.4, Eosinophils # (Auto) 0.2, Basophils # (Auto) 0.1, Nucleated Red Blood Cells % (auto) 0.0, Anion Gap 9, Glomerular Filtration Rate > 60.0, Calcium Level 8.9 Microbiology Microbiology 09/28/20 Respiratory Virus Panel (PCR) (EDGAR) - Final, Complete Current Medications Current Medications Current Medications Medications (Trade) Dose Ordered Sig/Joao Route PRN Reason Start Time Stop Time Status Last Admin Dose Admin Acetaminophen (Tylenol Tab) 1,000 mg TID PO 09/29/20 16:00 10/08/20 09:53 Aspirin (Ecotrin) 81 mg QHS PO 09/28/20 21:00 10/07/20 20:20 Atorvastatin Calcium (Lipitor) 40 mg DAILY PO 09/29/20 09:00 10/08/20 09:51 Baclofen (Lioresal) 5 mg BID PO 10/05/20 21:00 10/08/20 09:52 Bisacodyl (Dulcolax Suppository) 10 mg DAILYPRN PRN [place] CONSTIPATION 09/28/20 15:30 10/07/20 14:33 Dextrose (Dextrose 50%) 25 ml ASDIRECTED PRN IV SEE LABEL COMMENTS 09/28/20 15:30 Docusate Sodium (Colace) 100 mg BID PO 09/28/20 21:00 10/03/20 17:10 DC Docusate Sodium (Colace) 100 mg TID PO 10/03/20 17:15 10/08/20 09:51 Enoxaparin Sodium (Lovenox) 40 mg DAILY SC 09/29/20 09:00 10/08/20 09:51 Gabapentin (Neurontin) 200 mg QHS PO 09/29/20 21:00 10/07/20 20:19 Glucagon (Glucagon) 1 mg ASDIRECTED PRN SC SEE LABEL COMMENTS 09/28/20 15:30 Glucose (Glucose) 16 GM ASDIRECTED PRN PO SEE LABEL COMMENTS 09/28/20 15:30 Insulin Human Lispro (HumaLOG INSULIN) SEE PROTOCOL TABLE AC SC 09/28/20 17:30 10/06/20 11:02 DC Insulin Human Lispro (HumaLOG INSULIN) SEE PROTOCOL TABLE QHS SC 09/28/20 21:00 10/06/20 11:02 DC Lisinopril (Prinivil) 40 mg QHS PO 09/28/20 21:00 10/07/20 20:20 Oxycodone HCl (Roxicodone, Oxyir) 5 mg Q4HP PRN PO PAIN 09/28/20 15:30 10/01/20 05:46 Oxycodone HCl (Roxicodone, Oxyir) 5 mg QHS PO 09/29/20 21:00 10/07/20 20:20 Pantoprazole Sodium (Protonix) 40 mg DAILY PO 09/29/20 09:00 10/08/20 09:51 Senna (Senokot) 1 tab QHS PO 09/28/20 21:00 10/07/20 20:20 YANCY KIRKLAND MD Oct 08, 2020 10:46
[2020-10-08 14:00] VITALS: BP 115/71
[2020-10-08 20:00] VITALS: BP 129/82
[2020-10-08] MEDS: ASPIRIN 81 MG ENTERIC TAB PO SCH (20:34)
[2020-10-08] MEDS: GABAPENTIN 100 MG CAP PO SCH (20:34)
[2020-10-08] MEDS: SENNA 8.6 MG TAB (SENOKOT) PO SCH (20:34)
[2020-10-08] MEDS: lisinopriL 40 MG TAB PO SCH (20:35)
[2020-10-08] MEDS: oxyCODONE 5MG TAB PO SCH (20:35)
[2020-10-09 06:00] VITALS: BP 138/78
[2020-10-09] MEDS: ATORVASTATIN 20 MG TAB PO SCH (08:13)
[2020-10-09] MEDS: DOCUSATE SODIUM 100MG CAPSULE PO SCH ×3 (08:13→20:35)
[2020-10-09] MEDS: BACLOFEN 5MG PER 1/2 TABLET PO SCH ×2 (08:13→20:35)
[2020-10-09] MEDS: PANTOPRAZOLE 40MG TAB (PROTONIX) PO SCH (08:13)
[2020-10-09] MEDS: ACETAMINOPHEN 500 MG TAB PO SCH ×3 (08:14→20:35)
[2020-10-09] MEDS: ENOXAPARIN 40MG/0.4ML SYRINGE (J1650 PER 10MG) SC SCH (08:14)
[2020-10-09] MEDS: REMEDY PHYTOPLEX Z-GUARD PASTE 113GM TUBE (FROM STOREROOM PRODUCT) TOP SCH ×3 (08:14→20:36)
--- NOTE | 2020-10-09 10:13 | IPNPDOC ---
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 REVIEW OF SYSTEMS: The following is a completed review of systems and has been reviewed. Review of systems otherwise unremarkable. PAIN: Patient self reports left groin pain EYES: No recent vision changes EARS, NOSE, & THROAT: +mild chronic dysphagia CARDIOVASCULAR: Denies chest pain or palpitations PULMONARY: Denies shortness of breath. GASTROINTESTINAL: denies constipation/diarrhea GENITOURINARY: denies dysuria MUSCULOSKELETAL: +pelvic fracture NEUROLOGICAL:right sided spasticity and tone HEMATOLOGICAL: denies easy bruising SKIN: +sacral ulcer PSYCHIATRIC: Unremarkable All other review of systems found to be negative. PHYSICAL EXAMINATION: VITAL SIGNS: Please see below. GENERAL: Pleasant and cooperative. No acute distress. HEENT: PERRL. Extraocular movements intact. Clear conjunctiva, +right facial droop CARDIOVASCULAR: Regular rate and rhythm. No murmurs, rubs, or gallops LUNGS: Clear to auscultation bilaterally. No wheezes. No rhonch ABDOMEN: Soft, nontender, nondistended. Positive bowel sounds. Normal active bowel sounds NEUROLOGICAL: Alert and oriented times three. Sensation diminished to light touch RUE and RLE +babinksi RLE, 1+/4 right elbow flexor /extensor, 2/4 right wrist flexors EXTREMITIES: 5/5 LUE, >3/5 LLE *limited due to groin pain, >3/5 RUE (limited due to tone), 5/5 right hip flexor, knee extension,0/5 ankle DF SKIN: +stage 2 pressure ulcers ASSESSMENT:70-year-old M with past medical history of CVA who presents status post fall with left pelvic fracture PLAN: 1. Rehab- PT/oT advance mobility and ADLs, strengthen/stretch/maintain ROM all 4 limbs, progressing with vernon-walker 2. Ortho - left acetabular fracture c/u PWB 50% through LLE 2. Neuro- hx of CVA with right sided weakness contributing to functional deficits, c/u ASa and statin for secondary stroke prevention -c/u baclofen for right LE spasticity and monitor for weakness as patient requires some tone for stability, but is concerned that he feels tighter now, no significant change in strength on exam 3. Cardiac-hx of HTn c/u BP meds, medicine consulted to assist in overall management 4. Resp- monitor for infection, incentive spirometry 5. Endo- hx of DM, c.u ISS will consider adding back oral agents during hospital stay, so far FS very well controlled 6. GI ppx- protonix 7. DVT ppx- lovenox and teds -DOpplers ordered- negative 8, PAin- tylenol and oxycodone, gabapentin 200mg qHS 9. Dispo- TBD Allergies Coded Allergies: No Known Allergies (Unverified , 11/29/18) Vital Signs Vital Signs Date Time Temp Pulse Resp B/P (MAP) Pulse Ox O2 Delivery O2 Flow Rate FiO2 10/09/20 06:00 97.6 58 19 138/78 (98) 97 Room Air Laboratory Data Labs 24H Laboratory Tests 2 10/08/20 16:36: Bedside Glucose (Misc Panel) 100 10/09/20 04:46: Bedside Glucose (Misc Panel) 91 Current Medications Current Medications Current Medications Medications (Trade) Dose Ordered Sig/Joao Route PRN Reason Start Time Stop Time Status Last Admin Dose Admin Acetaminophen (Tylenol Tab) 1,000 mg TID PO 09/29/20 16:00 10/09/20 08:14 Aspirin (Ecotrin) 81 mg QHS PO 09/28/20 21:00 10/08/20 20:34 Atorvastatin Calcium (Lipitor) 40 mg DAILY PO 09/29/20 09:00 10/09/20 08:13 Baclofen (Lioresal) 5 mg BID PO 10/05/20 21:00 10/09/20 08:13 Bisacodyl (Dulcolax Suppository) 10 mg DAILYPRN PRN [place] CONSTIPATION 09/28/20 15:30 10/07/20 14:33 Dextrose (Dextrose 50%) 25 ml ASDIRECTED PRN IV SEE LABEL COMMENTS 09/28/20 15:30 Docusate Sodium (Colace) 100 mg BID PO 09/28/20 21:00 10/03/20 17:10 DC Docusate Sodium (Colace) 100 mg TID PO 10/03/20 17:15 10/09/20 08:13 Enoxaparin Sodium (Lovenox) 40 mg DAILY SC 09/29/20 09:00 10/09/20 08:14 Gabapentin (Neurontin) 200 mg QHS PO 09/29/20 21:00 10/08/20 20:34 Glucagon (Glucagon) 1 mg ASDIRECTED PRN SC SEE LABEL COMMENTS 09/28/20 15:30 Glucose (Glucose) 16 GM ASDIRECTED PRN PO SEE LABEL COMMENTS 09/28/20 15:30 Insulin Human Lispro (HumaLOG INSULIN) SEE PROTOCOL TABLE AC SC 09/28/20 17:30 10/06/20 11:02 DC Insulin Human Lispro (HumaLOG INSULIN) SEE PROTOCOL TABLE QHS SC 09/28/20 21:00 10/06/20 11:02 DC Lisinopril (Prinivil) 40 mg QHS PO 09/28/20 21:00 10/08/20 20:35 Oxycodone HCl (Roxicodone, Oxyir) 5 mg Q4HP PRN PO PAIN 09/28/20 15:30 10/01/20 05:46 Oxycodone HCl (Roxicodone, Oxyir) 5 mg QHS PO 09/29/20 21:00 10/08/20 20:35 Pantoprazole Sodium (Protonix) 40 mg DAILY PO 09/29/20 09:00 10/09/20 08:13 Senna (Senokot) 1 tab QHS PO 09/28/20 21:00 10/08/20 20:34 YANCY KIRKLAND MD Oct 09, 2020 10:13
[2020-10-09 14:00] VITALS: BP 132/70
[2020-10-09 20:00] VITALS: BP 152/79
[2020-10-09] MEDS: oxyCODONE 5MG TAB PO SCH (20:35)
[2020-10-09] MEDS: GABAPENTIN 100 MG CAP PO SCH (20:35)
[2020-10-09] MEDS: SENNA 8.6 MG TAB (SENOKOT) PO SCH (20:36)
[2020-10-09] MEDS: ASPIRIN 81 MG ENTERIC TAB PO SCH (20:36)
[2020-10-09] MEDS: lisinopriL 40 MG TAB PO SCH (20:36)
[2020-10-10 06:00] VITALS: BP 124/74
[2020-10-10] MEDS: ATORVASTATIN 20 MG TAB PO SCH (07:31)
[2020-10-10] MEDS: ACETAMINOPHEN 500 MG TAB PO SCH ×3 (07:31→20:48)
[2020-10-10] MEDS: DOCUSATE SODIUM 100MG CAPSULE PO SCH ×3 (07:31→20:45)
[2020-10-10] MEDS: BACLOFEN 5MG PER 1/2 TABLET PO SCH ×2 (07:31→20:48)
[2020-10-10] MEDS: PANTOPRAZOLE 40MG TAB (PROTONIX) PO SCH (07:31)
[2020-10-10] MEDS: ENOXAPARIN 40MG/0.4ML SYRINGE (J1650 PER 10MG) SC SCH (07:32)
[2020-10-10] MEDS: REMEDY PHYTOPLEX Z-GUARD PASTE 113GM TUBE (FROM STOREROOM PRODUCT) TOP SCH ×3 (07:32→20:50)
[2020-10-10 07:40] LABS: BASO # 0.1 10^3/uL (0.0-0.2); EOS # 0.2 10^3/uL (0.0-0.5); EOS % 3.4 % (0.0-3.0); HEMATOCRIT 40.3 % (42.0-52.0); HEMOGLOBIN 13.4 g/dl (13.5-17.5); LYMPH % 33.8 % (24.0-44.0); MEAN CORPUSCULAR HGB CONC 33.3 g/dl (32.0-36.5); MEAN CORPUSCULAR VOLUME 93.3 fl (80.0-96.0); MONO # 0.4 10^3/uL (0.0-0.8); MONO % 7.2 % (0.0-5.0); NEUTROPHILS # 3.2 10^3/uL (1.5-8.5); NEUTROPHILS % 54.4 % (36.0-66.0); PLATELET COUNT, AUTOMATED 335 10^3/uL (150-450); RED BLOOD COUNT 4.32 10^6/uL (4.30-6.10); WHITE BLOOD COUNT 5.9 10^3/uL (4.0-10.0)
[2020-10-10 07:56] LABS: BLOOD UREA NITROGEN 20 MG/DL (7-18); CALCIUM LEVEL 8.8 MG/DL (8.8-10.2); CARBON DIOXIDE LEVEL 28 MEQ/L (21-32); CHLORIDE LEVEL 106 MEQ/L (98-107); CREATININE FOR GFR 0.69 MG/DL (0.70-1.30); GLOMERULAR FILTRATION RATE > 60.0 (>42); GLUCOSE, FASTING 100 MG/DL (70-100); POTASSIUM SERUM 4.2 MEQ/L (3.5-5.1); SODIUM LEVEL 142 MEQ/L (136-145)
[2020-10-10] MEDS ORDERED: ATOR40TA75 PO (08:31)
[2020-10-10] MEDS ORDERED: OXYC-517 PO (08:31)
[2020-10-10] MEDS ORDERED: PANT40TA29 PO (08:31)
[2020-10-10] MEDS ORDERED: LISI40TA PO (08:31)
[2020-10-10] MEDS ORDERED: ASPI-161 PO (08:31)
[2020-10-10] MEDS ORDERED: GABA-1171 PO (08:31)
[2020-10-10] MEDS ORDERED: BACL10TA2 PO (08:31)
--- NOTE | 2020-10-10 08:39 | IPNPDOC ---
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 REVIEW OF SYSTEMS: The following is a completed review of systems and has been reviewed. Review of systems otherwise unremarkable. PAIN: Patient self reports left groin pain EYES: No recent vision changes EARS, NOSE, & THROAT: +mild chronic dysphagia CARDIOVASCULAR: Denies chest pain or palpitations PULMONARY: Denies shortness of breath. GASTROINTESTINAL: denies constipation/diarrhea GENITOURINARY: denies dysuria MUSCULOSKELETAL: +pelvic fracture NEUROLOGICAL:right sided spasticity and tone HEMATOLOGICAL: denies easy bruising SKIN: +sacral ulcer PSYCHIATRIC: Unremarkable All other review of systems found to be negative. PHYSICAL EXAMINATION: VITAL SIGNS: Please see below. GENERAL: Pleasant and cooperative. No acute distress. HEENT: PERRL. Extraocular movements intact. Clear conjunctiva, +right facial droop CARDIOVASCULAR: Regular rate and rhythm. No murmurs, rubs, or gallops LUNGS: Clear to auscultation bilaterally. No wheezes. No rhonch ABDOMEN: Soft, nontender, nondistended. Positive bowel sounds. Normal active bowel sounds NEUROLOGICAL: Alert and oriented times three. Sensation diminished to light touch RUE and RLE +babinksi RLE, 1/4 right elbow flexor /extensor, 1/4 right wrist flexors EXTREMITIES: 5/5 LUE, >3/5 LLE *limited due to groin pain, >3/5 RUE (limited due to tone), 5/5 right hip flexor, knee extension,0/5 ankle DF SKIN: +stage 2 pressure ulcers ASSESSMENT:70-year-old M with past medical history of CVA who presents status post fall with left pelvic fracture PLAN: 1. Rehab- PT/oT advance mobility and ADLs, strengthen/stretch/maintain ROM all 4 limbs, progressing with vernon-walker 2. Ortho - left acetabular fracture c/u PWB 50% through LLE 2. Neuro- hx of CVA with right sided weakness contributing to functional deficits, c/u ASa and statin for secondary stroke prevention -c/u baclofen for right LE spasticity and monitor for weakness as patient requires some tone for stability, but is concerned that he feels tighter now, no significant change in strength on exam 3. Cardiac-hx of HTn c/u BP meds, medicine consulted to assist in overall management 4. Resp- monitor for infection, incentive spirometry 5. Endo- hx of DM, c.u ISS will consider adding back oral agents during hospital stay, so far FS very well controlled, will recommend not resuming metformin as can cause hypoglycemia and increase risk of falls 6. GI ppx- protonix 7. DVT ppx- lovenox and teds -DOpplers ordered- negative 8, PAin- tylenol and oxycodone, gabapentin 200mg qHS 9. Dispo- 10-12-20 to home, progressing towards goals Allergies Coded Allergies: No Known Allergies (Unverified , 11/29/18) Vital Signs Vital Signs Date Time Temp Pulse Resp B/P (MAP) Pulse Ox O2 Delivery O2 Flow Rate FiO2 10/10/20 06:00 97.8 65 18 124/74 (91) 97 Room Air Laboratory Data CBC/BMP Laboratory Tests 10/10/20 07:14 Labs 24H Laboratory Tests 2 10/09/20 16:44: Bedside Glucose (Misc Panel) 128H 10/09/20 19:36: Bedside Glucose (Misc Panel) 102 10/10/20 05:26: Bedside Glucose (Misc Panel) 91 10/10/20 07:14: Immature Granulocyte % (Auto) 0.2, Neutrophils (%) (Auto) 54.4, Lymphocytes (%) (Auto) 33.8, Monocytes (%) (Auto) 7.2H, Eosinophils (%) (Auto) 3.4H, Basophils (%) (Auto) 1.0, Neutrophils # (Auto) 3.2, Lymphocytes # (Auto) 2.0, Monocytes # (Auto) 0.4, Eosinophils # (Auto) 0.2, Basophils # (Auto) 0.1, Nucleated Red Blood Cells % (auto) 0.0, Anion Gap 8, Glomerular Filtration Rate > 60.0, Calcium Level 8.8 Current Medications Current Medications Current Medications Medications (Trade) Dose Ordered Sig/Joao Route PRN Reason Start Time Stop Time Status Last Admin Dose Admin Acetaminophen (Tylenol Tab) 1,000 mg TID PO 09/29/20 16:00 10/10/20 07:31 Aspirin (Ecotrin) 81 mg QHS PO 09/28/20 21:00 10/09/20 20:36 Atorvastatin Calcium (Lipitor) 40 mg DAILY PO 09/29/20 09:00 10/10/20 07:31 Baclofen (Lioresal) 5 mg BID PO 10/05/20 21:00 10/10/20 07:31 Bisacodyl (Dulcolax Suppository) 10 mg DAILYPRN PRN [place] CONSTIPATION 09/28/20 15:30 10/07/20 14:33 Dextrose (Dextrose 50%) 25 ml ASDIRECTED PRN IV SEE LABEL COMMENTS 09/28/20 15:30 Docusate Sodium (Colace) 100 mg BID PO 09/28/20 21:00 10/03/20 17:10 DC Docusate Sodium (Colace) 100 mg TID PO 10/03/20 17:15 10/10/20 07:31 Enoxaparin Sodium (Lovenox) 40 mg DAILY SC 09/29/20 09:00 10/10/20 07:32 Gabapentin (Neurontin) 200 mg QHS PO 09/29/20 21:00 10/09/20 20:35 Glucagon (Glucagon) 1 mg ASDIRECTED PRN SC SEE LABEL COMMENTS 09/28/20 15:30 Glucose (Glucose) 16 GM ASDIRECTED PRN PO SEE LABEL COMMENTS 09/28/20 15:30 Insulin Human Lispro (HumaLOG INSULIN) SEE PROTOCOL TABLE AC SC 09/28/20 17:30 10/06/20 11:02 DC Insulin Human Lispro (HumaLOG INSULIN) SEE PROTOCOL TABLE QHS SC 09/28/20 21:00 10/06/20 11:02 DC Lisinopril (Prinivil) 40 mg QHS PO 09/28/20 21:00 10/09/20 20:36 Oxycodone HCl (Roxicodone, Oxyir) 5 mg Q4HP PRN PO PAIN 09/28/20 15:30 10/01/20 05:46 Oxycodone HCl (Roxicodone, Oxyir) 5 mg QHS PO 09/29/20 21:00 10/09/20 20:35 Pantoprazole Sodium (Protonix) 40 mg DAILY PO 09/29/20 09:00 10/10/20 07:31 Senna (Senokot) 1 tab QHS PO 09/28/20 21:00 10/09/20 20:36 YANCY KIRKLAND MD Oct 10, 2020 08:39
[2020-10-10 14:00] VITALS: BP 130/73
[2020-10-10] MEDS: MOM 30ML SUSPENSION UDC PO SCH (14:03)
[2020-10-10] MEDS: BISACODYL 10 MG SUPP PR PRN (16:42)
[2020-10-10 20:00] VITALS: BP 134/76
[2020-10-10] MEDS: SENNA 8.6 MG TAB (SENOKOT) PO SCH (20:46)
[2020-10-10] MEDS: oxyCODONE 5MG TAB PO SCH (20:49)
[2020-10-10] MEDS: GABAPENTIN 100 MG CAP PO SCH (20:49)
[2020-10-10] MEDS: ASPIRIN 81 MG ENTERIC TAB PO SCH (20:49)
[2020-10-10] MEDS: lisinopriL 40 MG TAB PO SCH (20:49)
[2020-10-11 06:00] VITALS: BP 147/86
[2020-10-11] MEDS: REMEDY PHYTOPLEX Z-GUARD PASTE 113GM TUBE (FROM STOREROOM PRODUCT) TOP SCH ×3 (09:00→21:01)
[2020-10-11] MEDS: DOCUSATE SODIUM 100MG CAPSULE PO SCH ×3 (09:00→21:01)
[2020-10-11] MEDS: MOM 30ML SUSPENSION UDC PO SCH (09:00)
[2020-10-11] MEDS: ENOXAPARIN 40MG/0.4ML SYRINGE (J1650 PER 10MG) SC SCH (09:04)
[2020-10-11] MEDS: PANTOPRAZOLE 40MG TAB (PROTONIX) PO SCH (09:05)
[2020-10-11] MEDS: ATORVASTATIN 20 MG TAB PO SCH (09:05)
[2020-10-11] MEDS: oxyCODONE 5MG TAB PO PRN (09:05)
[2020-10-11] MEDS: BACLOFEN 5MG PER 1/2 TABLET PO SCH ×2 (09:05→21:00)
[2020-10-11] MEDS: ACETAMINOPHEN 500 MG TAB PO SCH ×3 (09:05→21:00)
--- NOTE | 2020-10-11 09:27 | IPNPDOC ---
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 REVIEW OF SYSTEMS: The following is a completed review of systems and has been reviewed. Review of systems otherwise unremarkable. PAIN: Patient self reports left groin pain EYES: No recent vision changes EARS, NOSE, & THROAT: +mild chronic dysphagia CARDIOVASCULAR: Denies chest pain or palpitations PULMONARY: Denies shortness of breath. GASTROINTESTINAL: denies constipation/diarrhea GENITOURINARY: denies dysuria MUSCULOSKELETAL: +pelvic fracture NEUROLOGICAL:right sided spasticity and tone HEMATOLOGICAL: denies easy bruising SKIN: +sacral ulcer PSYCHIATRIC: Unremarkable All other review of systems found to be negative. PHYSICAL EXAMINATION: VITAL SIGNS: Please see below. GENERAL: Pleasant and cooperative. No acute distress. HEENT: PERRL. Extraocular movements intact. Clear conjunctiva, +right facial droop CARDIOVASCULAR: Regular rate and rhythm. No murmurs, rubs, or gallops LUNGS: Clear to auscultation bilaterally. No wheezes. No rhonch ABDOMEN: Soft, nontender, nondistended. Positive bowel sounds. Normal active bowel sounds NEUROLOGICAL: Alert and oriented times three. Sensation diminished to light touch RUE and RLE +babinksi RLE, 1/4 right elbow flexor /extensor, 1/4 right wrist flexors EXTREMITIES: 5/5 LUE, >3/5 LLE *limited due to groin pain, >3/5 RUE (limited due to tone), 5/5 right hip flexor, knee extension,0/5 ankle DF SKIN: +stage 2 pressure ulcers ASSESSMENT:70-year-old M with past medical history of CVA who presents status post fall with left pelvic fracture PLAN: 1. Rehab- PT/oT advance mobility and ADLs, strengthen/stretch/maintain ROM all 4 limbs, progressing with vernon-walker 2. Ortho - left acetabular fracture c/u PWB 50% through LLE 2. Neuro- hx of CVA with right sided weakness contributing to functional deficits, c/u ASa and statin for secondary stroke prevention -c/u baclofen for right LE spasticity and monitor for weakness as patient requires some tone for stability, but is concerned that he feels tighter now, no significant change in strength on exam 3. Cardiac-hx of HTn c/u BP meds, medicine consulted to assist in overall management 4. Resp- monitor for infection, incentive spirometry 5. Endo- hx of DM, c.u ISS will consider adding back oral agents during hospital stay, so far FS very well controlled, will recommend not resuming metformin as can cause hypoglycemia and increase risk of falls 6. GI ppx- protonix 7. DVT ppx- lovenox and teds -DOpplers ordered- negative 8, PAin- tylenol and oxycodone, gabapentin 200mg qHS 9. Dispo- 10-12-20 to home, progressing towards goals Allergies Coded Allergies: No Known Allergies (Unverified , 11/29/18) Vital Signs Vital Signs Date Time Temp Pulse Resp B/P (MAP) Pulse Ox O2 Delivery O2 Flow Rate FiO2 10/11/20 09:05 16 Room Air 10/11/20 06:00 99.0 77 147/86 (106) 96 Laboratory Data Labs 24H Laboratory Tests 2 10/10/20 11:20: Bedside Glucose (Misc Panel) 132H 10/10/20 16:26: Bedside Glucose (Misc Panel) 89 10/11/20 06:54: Bedside Glucose (Misc Panel) 90 Current Medications Current Medications Current Medications Medications (Trade) Dose Ordered Sig/Joao Route PRN Reason Start Time Stop Time Status Last Admin Dose Admin Acetaminophen (Tylenol Tab) 1,000 mg TID PO 09/29/20 16:00 10/11/20 09:05 Aspirin (Ecotrin) 81 mg QHS PO 09/28/20 21:00 10/10/20 20:49 Atorvastatin Calcium (Lipitor) 40 mg DAILY PO 09/29/20 09:00 10/11/20 09:05 Baclofen (Lioresal) 5 mg BID PO 10/05/20 21:00 10/11/20 09:05 Bisacodyl (Dulcolax Suppository) 10 mg DAILYPRN PRN LA CONSTIPATION 09/28/20 15:30 10/10/20 16:42 Dextrose (Dextrose 50%) 25 ml ASDIRECTED PRN IV SEE LABEL COMMENTS 09/28/20 15:30 Docusate Sodium (Colace) 100 mg BID PO 09/28/20 21:00 10/03/20 17:10 DC Docusate Sodium (Colace) 100 mg TID PO 10/03/20 17:15 10/10/20 16:35 Enoxaparin Sodium (Lovenox) 40 mg DAILY SC 09/29/20 09:00 10/11/20 09:04 Gabapentin (Neurontin) 200 mg QHS PO 09/29/20 21:00 10/10/20 20:49 Glucagon (Glucagon) 1 mg ASDIRECTED PRN SC SEE LABEL COMMENTS 09/28/20 15:30 Glucose (Glucose) 16 GM ASDIRECTED PRN PO SEE LABEL COMMENTS 09/28/20 15:30 Insulin Human Lispro (HumaLOG INSULIN) SEE PROTOCOL TABLE AC SC 09/28/20 17:30 10/06/20 11:02 DC Insulin Human Lispro (HumaLOG INSULIN) SEE PROTOCOL TABLE QHS SC 09/28/20 21:00 10/06/20 11:02 DC Lisinopril (Prinivil) 40 mg QHS PO 09/28/20 21:00 10/10/20 20:49 Magnesium Hydroxide (Milk Of Magnesia) 30 ml DAILY PO 10/10/20 09:00 10/10/20 14:03 Oxycodone HCl (Roxicodone, Oxyir) 5 mg Q4HP PRN PO PAIN 09/28/20 15:30 10/11/20 09:05 Oxycodone HCl (Roxicodone, Oxyir) 5 mg QHS PO 09/29/20 21:00 10/10/20 20:49 Pantoprazole Sodium (Protonix) 40 mg DAILY PO 09/29/20 09:00 10/11/20 09:05 Senna (Senokot) 1 tab QHS PO 09/28/20 21:00 10/09/20 20:36 YANCY KIRKLAND MD Oct 11, 2020 09:27
[2020-10-11 14:00] VITALS: BP 116/75
[2020-10-11 20:00] VITALS: BP 129/73
[2020-10-11] MEDS: lisinopriL 40 MG TAB PO SCH (21:00)
[2020-10-11] MEDS: ASPIRIN 81 MG ENTERIC TAB PO SCH (21:00)
[2020-10-11] MEDS: oxyCODONE 5MG TAB PO SCH (21:01)
[2020-10-11] MEDS: GABAPENTIN 100 MG CAP PO SCH (21:01)
[2020-10-11] MEDS: SENNA 8.6 MG TAB (SENOKOT) PO SCH (21:01)
[2020-10-12 06:00] VITALS: BP 108/59
[2020-10-12] MEDS: PANTOPRAZOLE 40MG TAB (PROTONIX) PO SCH (08:38)
[2020-10-12] MEDS: BACLOFEN 5MG PER 1/2 TABLET PO SCH (08:38)
[2020-10-12] MEDS: ACETAMINOPHEN 500 MG TAB PO SCH (08:38)
[2020-10-12] MEDS: ATORVASTATIN 20 MG TAB PO SCH (08:38)
[2020-10-12] MEDS: ENOXAPARIN 40MG/0.4ML SYRINGE (J1650 PER 10MG) SC SCH (08:39)
[2020-10-12] MEDS: DOCUSATE SODIUM 100MG CAPSULE PO SCH (08:39)
[2020-10-12] MEDS: MOM 30ML SUSPENSION UDC PO SCH (08:39)
[2020-10-12] MEDS: REMEDY PHYTOPLEX Z-GUARD PASTE 113GM TUBE (FROM STOREROOM PRODUCT) TOP SCH (08:39)
--- NOTE | 2020-10-12 11:15 | PMRDS ---
NAME: JESSY HANSON [facility] WT ID#: [id number] : [id number] JOB: [id number] NELSON: 10/12/2020 ACCT: [id number] DOCTOR: YANCY KIRKLAND MD PMR DISCHARGE SUMMARY DATE OF ADMISSION: 09/28/2020 DATE OF DISCHARGE: 10/12/2020 CHIEF COMPLAINT/DISCHARGE DIAGNOSIS: Pelvic fracture. HISTORY OF PRESENT ILLNESS: This is a 70-year-old male with a past medical history of CVA with residual right-sided weakness, aphasia, dysphagia, CAD, hypertension, hyperlipidemia, OA, and SBO who fell off a ladder with left hip and buttock pain and presented to [facility] ED on 09/26/[address] showed "fracture through the left iliac bone extending to the superior rim of the acetabulum followed by comminuted fracture along the anterior margin of the acetabulum." He was evaluated by Orthopedics who recommended conservative management and weightbearing as tolerated to the left lower extremity. He had new mobility and ADL impairments below his prior level of function due to recent fracture compounded by his stroke deficits and deemed medically appropriate for discharge to ARU on 09/28/2020. PAST MEDICAL HISTORY: As per HPI. HOSPITAL COURSE: Patient was admitted and enrolled in a comprehensive PT/OT program. He received 24 hour nursing supervision, and weekly team meetings were held to discuss his progress. Patient's weightbearing status was modified to partial weightbearing to the left lower extremity which he was able to maintain during his hospital course. He was started on Baclofen for right upper extremity and right lower extremity pain, which did improve his overall ambulation. He was monitored off his home dose of metformin with frequent finger sticks and had very good diabetic control with diet alone and was discharged home off of his metformin to be further discussed with his primary care physician. Patient had Dopplers for concern for a DVT which were negative. His pain was controlled with oxycodone and gabapentin. He made steady gains in therapy and was deemed medically and functionally stable to return home. DISCHARGE MEDICATIONS: As per instructions. FUNCTIONAL HISTORY ON DISCHARGE: Patient was modified to standby assist for functional transfers and able to ambulate with a vernon walker 300 feet modified independent. Thank you for this referral.
== END 2020-10-12 10:10 | disposition home health service (06) | DRG 560 ==
LOC: M PM&R 14:10
PROVIDERS: ADMIT Physical Medicine & Rehabilitation; ATTEND Physical Medicine & Rehabilitation
DX: S32.432D Displaced fracture of anterior column [iliopubic] of left acetabulum, subsequent encounter for fracture with routine healing (principal); I69.351 Hemiplegia and hemiparesis following cerebral infarction affecting right dominant side; W11.XXXD Fall on and from ladder, subsequent encounter; Y92.009 Unspecified place in unspecified non-institutional (private) residence as the place of occurrence of the external cause; Y99.8 Other external cause status; Y93.89 Activity, other specified; Z74.09 Other reduced mobility; I69.320 Aphasia following cerebral infarction; I69.391 Dysphagia following cerebral infarction; E11.9 Type 2 diabetes mellitus without complications; I25.10 Atherosclerotic heart disease of native coronary artery without angina pectoris; R13.10 Dysphagia, unspecified; L89.152 Pressure ulcer of sacral region, stage 2; I10 Essential (primary) hypertension; E78.5 Hyperlipidemia, unspecified; M19.90 Unspecified osteoarthritis, unspecified site; Z74.1 Need for assistance with personal care; Z79.84 Long term (current) use of oral hypoglycemic drugs; Z79.82 Long term (current) use of aspirin; Z79.899 Other long term (current) drug therapy; K59.00 Constipation, unspecified; M79.601 Pain in right arm; M79.604 Pain in right leg

== ENCOUNTER → 2022-07-17 | Outpatient (CLI) | payer MEDICARE ==
[~2022-07-17] MED LIST changes: +BACL10TA2 PO; +ECOT81TA5 PO; +GABA-1171 PO; -LISI40TA PO; +LISI40TA4 PO; +OXYC-517 PO
== END ==
LOC: M LABSMTC 09:53
PROVIDERS: ATTEND Anesthesiology
DX: Z01.818 Encounter for other preprocedural examination (principal); Z11.52 Encounter for screening for COVID-19

== ENCOUNTER 2022-07-22 08:40 | Day surgery (SDC) | payer MEDICARE ==
[~2022-07-22] VITALS: Ht 175.3 cm; Wt 73.4 kg
[~2022-07-22 08:40] MED LIST changes: +ACETYLCHOLINE OPHTH SOLN 1% 2ML (MIOCHOL-E) As Ordered ONE; +BSS IRR 500ML/OMIDRIA 4ML IRR BAG (OR ONLY) As Ordered ONE; +CEFUROXIME 1MG/0.1ML INTRACAMERAL INJ As Ordered ONE; +CYCLOPENTOLATE 1% OPHTH SOLN 2 ML BTL OD SCH; +LIDOCAINE 1% 1ML PF SYRINGE (OR EYE CASES) As Ordered ONE; +MIDAZOLAM INJ 2MG/2ML VIAL (J2250 PER 1MG) As Ordered ONE; +OFLOXACIN 0.3 % (OCUFLOX) OPTH SOL 5ML OD SCH; +PHENYLEPHRINE 2.5% OPHTH SOL 2ML OD SCH; +PROPARACAINE 0.5% OPHTH SOL 15ML OD ONE; +TROPICAMIDE 1% OPHTH SOLN 2ML OD SCH; +fentaNYL 100 MCG/2 ML INJECTION As Ordered ONE
[2022-07-22 11:35] VITALS: BP 154/74
== END 2022-07-22 12:17 | disposition home or self-care (01) ==
LOC: M SDC 08:40
PROVIDERS: ATTEND Ophthalmology
DX: H25.11 Age-related nuclear cataract, right eye (principal); I10 Essential (primary) hypertension; E78.5 Hyperlipidemia, unspecified; Z79.899 Other long term (current) drug therapy
CPT/HCPCS: 66984; J0697; J1097; J2250; J3010; V2632

== ENCOUNTER → 2022-08-21 | Outpatient (CLI) | payer MEDICARE ==
[~2022-08-21] MED LIST changes: -ACETYLCHOLINE OPHTH SOLN 1% 2ML (MIOCHOL-E) As Ordered ONE; -BSS IRR 500ML/OMIDRIA 4ML IRR BAG (OR ONLY) As Ordered ONE; -CEFUROXIME 1MG/0.1ML INTRACAMERAL INJ As Ordered ONE; -CYCLOPENTOLATE 1% OPHTH SOLN 2 ML BTL OD SCH; -LIDOCAINE 1% 1ML PF SYRINGE (OR EYE CASES) As Ordered ONE; -MIDAZOLAM INJ 2MG/2ML VIAL (J2250 PER 1MG) As Ordered ONE; -OFLOXACIN 0.3 % (OCUFLOX) OPTH SOL 5ML OD SCH; -PHENYLEPHRINE 2.5% OPHTH SOL 2ML OD SCH; -PROPARACAINE 0.5% OPHTH SOL 15ML OD ONE; -TROPICAMIDE 1% OPHTH SOLN 2ML OD SCH; -fentaNYL 100 MCG/2 ML INJECTION As Ordered ONE
== END ==
LOC: M LABSMTC 10:33
PROVIDERS: ATTEND Anesthesiology
DX: Z01.812 Encounter for preprocedural laboratory examination (principal); Z11.52 Encounter for screening for COVID-19

== ENCOUNTER 2022-08-26 09:40 | Day surgery (SDC) | payer MEDICARE ==
[~2022-08-26] VITALS: Ht 175.3 cm; Wt 74.8 kg
[~2022-08-26 09:40] MED LIST changes: +CEFUROXIME 1MG/0.1ML INTRACAMERAL INJ As Ordered ONE; +CYCLOPENTOLATE 1% OPHTH SOLN 2ML BTL OS SCH; +LIDOCAINE 1% 1ML PF SYRINGE (OR EYE CASES) As Ordered ONE; +OFLOXACIN 0.3 % (OCUFLOX) OPTH SOL 5ML OS SCH; +PHENYLEPHRINE 2.5% OPHTH SOL 2ML OS SCH; +PROPARACAINE 0.5% OPHTH SOL 15ML OS ONE; +TROPICAMIDE 1% OPHTH SOLN 15ML OS SCH
[2022-08-26] MEDS ORDERED: BSS IRR 500ML/OMIDRIA 4ML IRR BAG (OR ONLY) As Ordered ONE (10:27)
[2022-08-26] MEDS ORDERED: fentaNYL 100 MCG/2 ML INJECTION As Ordered ONE (11:08)
[2022-08-26] MEDS ORDERED: MIDAZOLAM INJ 2MG/2ML VIAL (J2250 PER 1MG) As Ordered ONE (11:08)
[2022-08-26 11:30] VITALS: BP 144/98
== END 2022-08-26 12:10 | disposition home or self-care (01) ==
LOC: M SDC 09:40
PROVIDERS: ATTEND Ophthalmology
DX: H25.12 Age-related nuclear cataract, left eye (principal); I10 Essential (primary) hypertension; E78.5 Hyperlipidemia, unspecified; K21.9 Gastro-esophageal reflux disease without esophagitis; I69.351 Hemiplegia and hemiparesis following cerebral infarction affecting right dominant side; Z79.899 Other long term (current) drug therapy; Z79.82 Long term (current) use of aspirin; Z98.41 Cataract extraction status, right eye
CPT/HCPCS: 66984; J0697; J1097; J2250; J3010; V2632

== ENCOUNTER → 2023-05-05 | Outpatient (REF) | payer MEDICARE ==
[~2023-05-05] MED LIST changes: -CEFUROXIME 1MG/0.1ML INTRACAMERAL INJ As Ordered ONE; -CYCLOPENTOLATE 1% OPHTH SOLN 2ML BTL OS SCH; -LIDOCAINE 1% 1ML PF SYRINGE (OR EYE CASES) As Ordered ONE; -OFLOXACIN 0.3 % (OCUFLOX) OPTH SOL 5ML OS SCH; -PHENYLEPHRINE 2.5% OPHTH SOL 2ML OS SCH; -PROPARACAINE 0.5% OPHTH SOL 15ML OS ONE; -TROPICAMIDE 1% OPHTH SOLN 15ML OS SCH
[2023-05-05 16:52] LABS: INR 1.08; PROTHROMBIN TIME 13.7 SECONDS (12.5-14.5)
== END ==
LOC: M LAB REF 16:05
PROVIDERS: ATTEND Internal Medicine
DX: Z01.810 Encounter for preprocedural cardiovascular examination (principal); M17.12 Unilateral primary osteoarthritis, left knee; Z79.01 Long term (current) use of anticoagulants

== ENCOUNTER → 2023-05-05 | Outpatient (CLI) | payer MEDICARE | LOC: M WUC 12:05 | PROVIDERS: ATTEND Internal Medicine | DX: Z01.818 Encounter for other preprocedural examination (principal); M17.12 Unilateral primary osteoarthritis, left knee; Z79.01 Long term (current) use of anticoagulants ==

== ENCOUNTER → 2023-06-17 | Outpatient (REF) | payer MEDICARE, OTHER | LOC: M LAB REF 11:47 | PROVIDERS: ATTEND Internal Medicine | DX: R41.3 Other amnesia (principal) ==

== ENCOUNTER → 2023-08-14 | Outpatient (CLI) | payer OTHER | LOC: M PLARAD 12:27 | PROVIDERS: ATTEND Physician Assistant Medical | DX: R41.81 Age-related cognitive decline (principal) ==

== ENCOUNTER → 2024-02-11 | Outpatient (CLI) | payer OTHER ==
[~2024-02-11] MED LIST changes: -ASPI-161 PO; +ASPI-615 PO; +LISI20TA33 PO
[2024-02-11 10:48] LABS: BASO # 0.1 10^3/uL (0.0-0.2); BASO % 0.9 % (0.0-1.0); EOS # 0.2 10^3/uL (0.0-0.5); EOS % 2.5 % (0.0-3.0); HEMATOCRIT 43.2 % (42.0-52.0); HEMOGLOBIN 14.5 g/dl (13.5-17.5); LYMPH # 2.8 10^3/uL (1.5-5.0); LYMPH % 37.2 % (24.0-44.0); MEAN CORPUSCULAR HEMOGLOBIN 29.7 pg (27.0-33.0); MEAN CORPUSCULAR HGB CONC 33.6 g/dl (32.0-36.5); MEAN CORPUSCULAR VOLUME 88.5 fl (80.0-96.0); MONO # 0.5 10^3/uL (0.0-0.8); MONO % 6.9 % (2.0-8.0); NEUTROPHILS % 52.2 % (36.0-66.0); PLATELET COUNT, AUTOMATED 238 10^3/uL (150-450); RED BLOOD COUNT 4.88 10^6/uL (4.30-6.10); WHITE BLOOD COUNT 7.6 10^3/uL (4.0-10.0)
[2024-02-11 10:51] LABS: ALBUMIN 3.6 G/DL (3.2-5.2); ALKALINE PHOSPHATASE 116 U/L (46-116); ALT/SGPT 15 U/L (7.0-40); AST/SGOT 9 U/L (<34); BILIRUBIN,TOTAL 0.5 MG/DL (0.3-1.2); BLOOD UREA NITROGEN 13 MG/DL (9-23); CALCIUM LEVEL 8.9 MG/DL (8.3-10.6); CARBON DIOXIDE LEVEL 29 MMOL/L (20-31); CHLORIDE LEVEL 106 MMOL/L (98-107); CREATININE FOR GFR 0.71 MG/DL (0.70-1.30); GLOMERULAR FILTRATION RATE > 60.0 (>42); GLUCOSE, FASTING 97 MG/DL (74-106); MAGNESIUM LEVEL 1.8 MG/DL (1.8-2.4); POTASSIUM SERUM 4.2 MMOL/L (3.5-5.1); SODIUM LEVEL 140 MMOL/L (136-145); TOTAL PROTEIN 7.2 G/DL (5.7-8.2)
[2024-02-11 10:52] LABS: THYROID STIMULATING HORMONE 1.334 uIU/ML (0.55-4.78)
== END ==
LOC: M LAB 09:52
PROVIDERS: ATTEND Internal Medicine Cardiovascular Disease
DX: I35.1 Nonrheumatic aortic (valve) insufficiency (principal); I49.3 Ventricular premature depolarization; R06.02 Shortness of breath; Z01.810 Encounter for preprocedural cardiovascular examination; I11.9 Hypertensive heart disease without heart failure; R60.0 Localized edema; I27.20 Pulmonary hypertension, unspecified

== ENCOUNTER → 2024-02-12 | Outpatient (CLI) | payer OTHER | LOC: M EKG 13:02 | PROVIDERS: ATTEND Internal Medicine Cardiovascular Disease | DX: I49.3 Ventricular premature depolarization (principal) ==

== ENCOUNTER → 2024-02-18 | Outpatient (CLI) | payer OTHER | LOC: M PLAIMG 10:04 | PROVIDERS: ATTEND Internal Medicine Cardiovascular Disease | DX: I35.1 Nonrheumatic aortic (valve) insufficiency (principal) ==

== ENCOUNTER 2024-06-06 10:00 | Day surgery (SDC) | payer OTHER ==
[~2024-06-06] VITALS: Ht 175.3 cm; Wt 71.2 kg
[~2024-06-06 10:00] MED LIST changes: +LR 1,000 ML IV SCH
[2024-06-06] MEDS ORDERED: MIDAZOLAM INJ 2MG/2ML VIAL As Ordered ONE (10:36)
[2024-06-06] MEDS ORDERED: fentaNYL 100 MCG/2 ML INJECTION As Ordered ONE (10:36)
[2024-06-06] MEDS ORDERED: ONDANSETRON 4MG 2ML VIAL As Ordered ONE (10:37)
[2024-06-06] MEDS ORDERED: SUGAMMADEX SODIUM 500 MG/5 ML VIAL (BRIDION) As Ordered ONE (10:37)
[2024-06-06] MEDS ORDERED: propofoL 200 MG/20 ML VIAL As Ordered ONE (10:37)
[2024-06-06] MEDS ORDERED: ROCURONIUM BROMIDE 50MG/5ML VIAL As Ordered ONE (10:37)
[2024-06-06] MEDS ORDERED: LIDOCAINE 2% 100MG/5ML SDV (FOR ANES.) As Ordered ONE (10:37)
[2024-06-06] MEDS ORDERED: hydrALAZINE 20MG/ML 1ML VIAL As Ordered ONE (13:08)
[2024-06-06] MEDS: COCAINE 4% 4ML NASAL SOLUTION BTL As Ordered ONE (13:10)
[2024-06-06] MEDS: LIDOCAINE W/EPINEPHRINE 1% 20ML VIAL As Ordered ONE (13:42)
[2024-06-06] MEDS: OXYMETAZOLINE 0.05% NASAL SPRAY (AFRIN) As Ordered ONE (13:44)
[2024-06-06] MEDS: propofoL 200 MG/20 ML VIAL IV ONE (14:25)
[2024-06-06] MEDS ORDERED: ONDANSETRON 4MG 2ML VIAL IV PRN (14:35)
[2024-06-06] MEDS ORDERED: fentaNYL 100 MCG/2 ML INJECTION IV PRN (14:35)
[2024-06-06] MEDS ORDERED: LR 1,000 ML IV SCH (14:35)
[2024-06-06] MEDS ORDERED: HYDROMORPHONE HCL 0.5 MG/ 0.5 ML SYRINGE IV PRN (14:35)
[2024-06-06] MEDS ORDERED: oxyCODONE 5MG TAB PO PRN (14:35)
[2024-06-06] MEDS: OXYMETAZOLINE 0.05% NASAL SPRAY (AFRIN) PRN (14:44)
[2024-06-06 16:03] VITALS: BP 191/91; TEMP 98; O2SAT 95
== END 2024-06-06 16:06 | disposition home or self-care (01) ==
LOC: M SDC 10:00
PROVIDERS: ATTEND Otolaryngology
DX: J34.2 Deviated nasal septum (principal); J34.3 Hypertrophy of nasal turbinates; I69.331 Monoplegia of upper limb following cerebral infarction affecting right dominant side; R20.0 Anesthesia of skin; G47.9 Sleep disorder, unspecified; Z79.899 Other long term (current) drug therapy
CPT/HCPCS: 30140; 30520; C9143; J0360; J1100; J2250; J2405; J3010

== ENCOUNTER → 2024-08-25 | Outpatient (CLI) | payer OTHER ==
[~2024-08-25] MED LIST changes: -LR 1,000 ML IV SCH
== END ==
LOC: M SLEEP HO 10:57
PROVIDERS: ATTEND Internal Medicine Cardiovascular Disease
DX: I34.0 Nonrheumatic mitral (valve) insufficiency (principal)

== ENCOUNTER → 2024-08-31 | Outpatient (REF) | payer OTHER ==
[2024-08-31 18:09] LABS: BASO # 0.1 10^3/uL (0.0-0.2); BASO % 0.8 % (0.0-1.0); EOS # 0.3 10^3/uL (0.0-0.5); EOS % 3.2 % (0.0-3.0); HEMATOCRIT 45.5 % (42.0-52.0); HEMOGLOBIN 14.9 g/dl (13.5-17.5); LYMPH # 3.5 10^3/uL (1.5-5.0); LYMPH % 41.5 % (24.0-44.0); MEAN CORPUSCULAR HEMOGLOBIN 30.3 pg (27.0-33.0); MEAN CORPUSCULAR HGB CONC 32.7 g/dl (32.0-36.5); MEAN CORPUSCULAR VOLUME 92.5 fl (80.0-96.0); MONO # 0.5 10^3/uL (0.0-0.8); NEUTROPHILS # 4.1 10^3/uL (1.5-8.5); NEUTROPHILS % 48.3 % (36.0-66.0); PLATELET COUNT, AUTOMATED 218 10^3/uL (150-450); RED BLOOD COUNT 4.92 10^6/uL (4.30-6.10); WHITE BLOOD COUNT 8.5 10^3/uL (4.0-10.0)
[2024-08-31 18:33] LABS: ALKALINE PHOSPHATASE 98 U/L (40-129); ALT/SGPT 17 U/L (7.0-40); AST/SGOT 16 U/L (<34); BILIRUBIN,TOTAL 0.6 MG/DL (0.3-1.2); BLOOD UREA NITROGEN 12 MG/DL (9-23); CALCIUM LEVEL 9.2 MG/DL (8.3-10.6); CARBON DIOXIDE LEVEL 30 MMOL/L (20-31); CHLORIDE LEVEL 104 MMOL/L (98-107); CREATININE FOR GFR 0.74 MG/DL (0.70-1.30); GLOMERULAR FILTRATION RATE > 60.0 (>42); GLUCOSE, FASTING 112 MG/DL (74-106); MAGNESIUM LEVEL 1.8 MG/DL (1.8-2.4); POTASSIUM SERUM 4.1 MMOL/L (3.5-5.1); SODIUM LEVEL 142 MMOL/L (136-145); TOTAL PROTEIN 7.5 G/DL (5.7-8.2)
[2024-08-31 18:36] LABS: THYROID STIMULATING HORMONE 1.556 uIU/ML (0.55-4.78)
== END ==
LOC: M LABDRWAD 17:00
PROVIDERS: ATTEND Internal Medicine Cardiovascular Disease
DX: Z01.810 Encounter for preprocedural cardiovascular examination (principal); I35.1 Nonrheumatic aortic (valve) insufficiency; I49.3 Ventricular premature depolarization; R06.02 Shortness of breath; I11.9 Hypertensive heart disease without heart failure; E07.9 Disorder of thyroid, unspecified

== ENCOUNTER → 2025-03-28 | Outpatient (CLI) | payer MEDICARE ==
[~2025-03-28] MED LIST changes: +ISOVUE-370 76% 100 ML VIAL As Ordered ONE; +LISI40TA10 PO; -LISI40TA4 PO; -PRAV80TA2 PO; +PRAV80TA75 PO
== END ==
LOC: M RAD 15:02
PROVIDERS: ATTEND Internal Medicine
DX: R10.11 Right upper quadrant pain (principal)
CPT/HCPCS: 74177; Q9967

== ENCOUNTER → 2025-04-24 | Outpatient (CLI) | payer MEDICARE ==
[~2025-04-24] MED LIST changes: -ISOVUE-370 76% 100 ML VIAL As Ordered ONE
== END ==
LOC: M PLARAD 13:03
PROVIDERS: ATTEND Internal Medicine
DX: K86.2 Cyst of pancreas (principal)
CPT/HCPCS: 78815; A9552

== ENCOUNTER → 2025-05-01 | Outpatient (REF) | payer MEDICARE ==
[2025-05-01 18:05] LABS: PLATELET COUNT, AUTOMATED 217 10^3/uL (150-450)
[2025-05-01 18:37] LABS: ALT/SGPT 15 U/L (7.0-40); AST/SGOT 16 U/L (<34); CALCIUM LEVEL 8.6 MG/DL (8.3-10.6); CARBON DIOXIDE LEVEL 29 MMOL/L (20-31); CHLORIDE LEVEL 103 MMOL/L (98-107); CREATININE FOR GFR 0.80 MG/DL (0.70-1.30); GLOMERULAR FILTRATION RATE > 90.0 (>42); POTASSIUM SERUM 4.6 MMOL/L (3.5-5.1); SODIUM LEVEL 143 MMOL/L (136-145)
[2025-05-01 19:39] LABS: CA19-9 TUMOR MARKER,CARBOHYDRA 1727.3 U/ML (<35.0)
== END ==
LOC: M LABDRWAD 16:50
PROVIDERS: ATTEND Student in an Organized Health Care Education/Training Program
DX: K59.01 Slow transit constipation (principal); K86.89 Other specified diseases of pancreas; R97.0 Elevated carcinoembryonic antigen [CEA]; R97.8 Other abnormal tumor markers

== ENCOUNTER → 2025-05-23 | Outpatient (REF) | payer MEDICARE ==
[2025-05-23 18:46] LABS: PLATELET COUNT, AUTOMATED 234 10^3/uL (150-450)
[2025-05-23 19:14] LABS: CALCIUM LEVEL 9.4 MG/DL (8.3-10.6); CARBON DIOXIDE LEVEL 28 MMOL/L (20-31); CHLORIDE LEVEL 105 MMOL/L (98-107); CREATININE FOR GFR 0.83 MG/DL (0.70-1.30); GLOMERULAR FILTRATION RATE > 90.0 (>42); POTASSIUM SERUM 4.2 MMOL/L (3.5-5.1); SODIUM LEVEL 142 MMOL/L (136-145)
== END ==
LOC: M LABDRWAD 18:08
PROVIDERS: ATTEND Internal Medicine Gastroenterology
DX: K86.89 Other specified diseases of pancreas (principal); Z80.0 Family history of malignant neoplasm of digestive organs

== ENCOUNTER → 2025-05-31 | Outpatient (REF) | payer MEDICARE ==
[2025-05-31 18:44] LABS: ALT/SGPT 15 U/L (7.0-40); AST/SGOT 16 U/L (<34)
== END ==
LOC: M LAB REF 11:42
PROVIDERS: ATTEND Student in an Organized Health Care Education/Training Program
DX: B35.1 Tinea unguium (principal)

== ENCOUNTER → 2025-08-30 | Outpatient (CLI) | payer MEDICARE ==
[~2025-08-30] MED LIST changes: +PROHANCE 279.3MG/ML 15ML VIAL As Ordered ONE
== END ==
LOC: M RAD 15:47
DX: K86.89 Other specified diseases of pancreas (principal); R10.11 Right upper quadrant pain
CPT/HCPCS: 74183; A9579